=== PATIENT | female | born 1955 | race Caucasian/White ===

== ENCOUNTER 2021-06-27 16:44 | Emergency (ER) | payer MEDICARE, MEDICAID, SELFPAY ==
--- NOTE | ~2021-06-27 | XR_ITS ---
EXAMINATION: XR CHEST CLINICAL INFORMATION: Shortness of breath. COMPARISON: None TECHNIQUE: Frontal view of the chest was obtained. FINDINGS: The lungs are clear. The cardiomediastinal silhouette is normal in size. There is no pleural effusion or pneumothorax. No acute osseous abnormality. XR/XR chest 1V IMPRESSION: No acute cardiopulmonary findings.
--- NOTE | 2021-06-27 16:48 | ED_ITS ---
HPI - Psych General Chief Complaint: Psychiatric Symptoms Stated Complaint: SI Time Seen by Provider: 06/27/21 16:47 Source: patient Mode of arrival: ambulatory Limitations: no limitations History of Present Illness HPI Narrative: 66-year-old female presenting to the emergency department with suicidal ideation with plan X2 days. She is coming from [facility]. She tells me that the reason she is feeling suicidal as because she can no longer stand living there. She tells me it is making her go crazy. She tells me she has had 12 previous suicide attempts in the past. She tells me her plan is to go to the linen closet, grab a she, tie that she to the door and hang herself from the she. She tells me she is serious. She denies homicidal ideation. She denies visual, auditory and tactile hallucinations. She denies drugs, alcohol and tobacco use. complaint: suicidal ideation Onset (ago): day(s) (2) Duration: constant History of same: Yes Relieving factors: none Exacerbating factors: none Associated psychiatric symptoms: none Associated symptoms: denies other symptoms Treatments prior to arrival: none If self harm: admits thoughts of self harm and has plan Related Data Allergies Allergy/AdvReac Type Severity Reaction Status Date / Time duloxetine [Cymbalta] Allergy Unknown rash Verified 01/25/19 00:00 Thorazine Allergy Unknown rash Uncoded 01/25/19 00:00 Review of Systems Review of Systems: Constitutional : No Fever, No Chills ENT/Mouth : No Ear Pain, No Nasal Congestion, No sore throat Eyes: No Eye Pain, No Swelling, No Redness Cardiovascular : No Chest Pain, No SOB Respiratory : No Cough, No Sputum, No Dyspnea Gastrointestinal : No Nausea, No Vomiting, No Diarrhea, No Hematochezia, No Melena Genitourinary : No Dysuria, No Urinary Frequency, No Hematuria Musculoskeletal : No Myalgias Skin : No Skin Lesions, No rash Neuro : No Weakness, No Numbness, No Paresthesias, No Dizziness, No Headache Psych : positive Anxiety, positive Depression, positive SI, No HI All other systems reviewed and are negative Yes all other systems are reviewed and are negative PMFSH Past Medical History Attestation statement: The following information was validated with the patient. Source: old records reviewed and nursing notes reviewed Social History Social History Advance Directives: Yes Advance Directives on File: Yes Advance Directives Date on File: 06/27/21 Physical Exam Vital Signs: Vital Signs: Last Vital Signs Temp 98.9 F 06/27/21 16:55 Pulse 92 06/27/21 16:55 Resp 16 06/27/21 16:55 BP 127/64 06/27/21 16:55 Pulse Ox 97 06/27/21 16:55 BMI result Body Mass Index 24.3 Vital signs stable Appearance: Alert.? Oriented X3.? No acute distress.? Patient continues to tell me I want to admit me Head: Normocephalic, atraumatic, no step-offs or deformities Eyes: Pupils equal, round and reactive to light.? ENT: Pharynx normal.? Neck: Normal inspection.? Neck supple.? CVS: Normal heart rate and rhythm.? Pulses normal.? Respiratory: No respiratory distress.? Breath sounds normal.? Abdomen: Soft and nontender.? Skin: Skin warm and dry.? Normal skin color.? Normal skin turgor.? Extremities: No lower extremity edema.? No calf ttp. 5/5 strength to bilateral upper and lower extremities Back: No midline tenderness, no C-spine tenderness, full range of motion, no CVA tenderness bilaterally Neuro: Oriented X 3.? No motor deficit.? No sensory deficit. CN 2-12 intact Course Reevaluation(s) Reevaluation #1: Slight leukocytosis likely secondary to aggression/agitation. No acute electrolyte abnormalities BUN slightly elevated however patient tolerating fluids by mouth. Urine clean. COVID negative. Chest x-ray within normal limits. At this time patient will be placed in physician observation to allow more time to be evaluated by the care team tomorrow morning. Time observation was started patient, cooperative no acute distress. Vital signs stable will continue to monitor. Time: 02:32 MDM - Psych MDM Narrative Medical decision making narrative: 1650 66 [facility] f [facility]/ si w/ plan X2 day PE benign. Patient continues to tell me she wants to . Plan-medical clearance, close obseravation, labs, UA Medical Records Attestation: I reviewed the patient's medical records. Lab Data Attestation: I reviewed the patient's lab results. Result diagrams: 06/27/21 18:41 06/27/21 18:41 Labs: Lab Results 06/27/21 06/27/21 06/27/21 Range/Units 18:41 18:41 18:41 WBC 11.8 H (4.8-10.8) X10*3/uL RBC 4.67 (4.20-5.50) X10*6/uL Hgb 13.5 (12.0-16.0) g/dl Hct 41.7 (37.0-47.0) % MCV 89.3 (80.0-98.0) fL MCH 28.9 (27.0-33.0) pg MCHC 32.4 (31.0-35.0) g/dl RDW 13.3 (11.0-16.0) % Plt Count 286 (160-400) X10*3/uL MPV 11.0 (9.4-12.3) fL Immature Gran % (Auto) 0.4 (0.0-0.4) % Neut % (Auto) 74.9 H (45-73) % Lymph % (Auto) 18.2 L (20-40) % Starr % (Auto) 5.5 (2-11) % Eos % (Auto) 0.5 (0-4) % Baso % (Auto) 0.5 (0-2) % Lymph # (Auto) 2.2 (1.2-4.9) X10*3/uL Starr # (Auto) 0.7 (0.1-1.2) X10*3/uL Eos # (Auto) 0.1 (0.0-0.4) X10*3/uL Baso # (Auto) 0.1 (0.0-0.2) X10*3/uL Abs Immat Gran (auto) 0.05 H (0.00-0.03) X10*3/uL Absolute Neuts (auto) 8.8 H (2.0-8.3) x10*3/uL Absolute Nucleated RBC 0.000 (0.0-0.012) X10*3/uL Nucleated RBC % (auto) 0.0 (0.0-0.2) /100WBC Sodium 141 (135-145) mmol/L Potassium 4.6 (3.3-5.1) mmol/L Chloride 105 (96-108) mmol/L Carbon Dioxide 26 (22-29) mmol/L Anion Gap 15 (12-20) BUN 21 H (9-16) mg/dL Creatinine 0.87 (0.5-1.4) mg/dL Estim Creat Clear Calc 59.5 Estimated GFR > 60 Random Glucose 115 (60-115) mg/dL Calcium 10.3 H (8.4-10.2) mg/dL Urine Color Urine Appearance Urine pH (5.0-8.0) Ur Specific [place] [employer] (1.005-1.025) Urine Protein (NEG-TRACE) MG/DL Urine Glucose (UA) (NEG) MG/DL Urine Ketones (NEG) MG/DL Urine Blood (NEG) Urine Nitrite (NEG) Ur Leukocyte Esterase (NEG) Ethyl Alcohol mg/dL COVID-19 ([facility]) Negative (Negative) COVID-19 Clin Com See Note 06/27/21 06/28/21 Range/Units 18:41 02:24 WBC (4.8-10.8) X10*3/uL RBC (4.20-5.50) X10*6/uL Hgb (12.0-16.0) g/dl Hct (37.0-47.0) % MCV (80.0-98.0) fL MCH (27.0-33.0) pg MCHC (31.0-35.0) g/dl RDW (11.0-16.0) % Plt Count (160-400) X10*3/uL MPV (9.4-12.3) fL Immature Gran % (Auto) (0.0-0.4) % Neut % (Auto) (45-73) % Lymph % (Auto) (20-40) % Starr % (Auto) (2-11) % Eos % (Auto) (0-4) % Baso % (Auto) (0-2) % Lymph # (Auto) (1.2-4.9) X10*3/uL Starr # (Auto) (0.1-1.2) X10*3/uL Eos # (Auto) (0.0-0.4) X10*3/uL Baso # (Auto) (0.0-0.2) X10*3/uL Abs Immat Gran (auto) (0.00-0.03) X10*3/uL Absolute Neuts (auto) (2.0-8.3) x10*3/uL Absolute Nucleated RBC (0.0-0.012) X10*3/uL Nucleated RBC % (auto) (0.0-0.2) /100WBC Sodium (135-145) mmol/L Potassium (3.3-5.1) mmol/L Chloride (96-108) mmol/L Carbon Dioxide (22-29) mmol/L Anion Gap (12-20) BUN (9-16) mg/dL Creatinine (0.5-1.4) mg/dL Estim Creat Clear Calc Estimated GFR Random Glucose (60-115) mg/dL Calcium (8.4-10.2) mg/dL Urine Color YELLOW Urine Appearance HAZY Urine pH 6.5 (5.0-8.0) Ur Specific [place] [employer] 1.020 (1.005-1.025) Urine Protein TRACE (NEG-TRACE) MG/DL Urine Glucose (UA) NEG (NEG) MG/DL Urine Ketones 5 (NEG) MG/DL Urine Blood NEG (NEG) Urine Nitrite NEG (NEG) Ur Leukocyte Esterase NEG (NEG) Ethyl Alcohol < 10 mg/dL COVID-19 ([facility]) (Negative) COVID-19 Clin Com Critical Care Time Critical Care Time Critical Care Time: No Discharge Plan Discharge Clinical Impression: Suicidal ideation, Depression, Acute anxiety Patient Disposition: Still a Patient
[2021-06-27 16:55] VITALS: BP 127/64; PULSE 92; RESP 16; TEMP 37.2; O2SAT 97; BMI 24.3
--- NOTE | 2021-06-27 18:16 | PC.NURSE ---
pt refusing to give up belongings. sitter at bed side.
[2021-06-27 18:46] LABS: MANUAL DIFF FLAG NO
[2021-06-27 18:48] LABS: Basophils Absolute Auto 0.1 X10*3/uL (0.0-0.2); Basophils Percent Auto 0.5 % (0-2); Eosinophils Absolute Auto 0.1 X10*3/uL (0.0-0.4); Eosinophils Percent Auto 0.5 % (0-4); Hematocrit 41.7 % (37.0-47.0); Hemoglobin 13.5 g/dl (12.0-16.0); Imm Gran Abs Auto 0.05 X10*3/uL (0.00-0.03); Imm Gran Pct Auto 0.4 % (0.0-0.4); Lymphocytes Absolute Auto 2.2 X10*3/uL (1.2-4.9); Lymphocytes Percent Auto 18.2 % (20-40); Mean Corpuscular HGB Conc 32.4 g/dl (31.0-35.0); Mean Corpuscular Hemoglobin 28.9 pg (27.0-33.0); Mean Corpuscular Volume 89.3 fL (80.0-98.0); Monocytes Absolute Auto 0.7 X10*3/uL (0.1-1.2); Monocytes Percent Auto 5.5 % (2-11); Neutrophils Absolute Auto 8.8 x10*3/uL (2.0-8.3); Neutrophils Percent Auto 74.9 % (45-73); Platelet Count 286 X10*3/uL (160-400); Red Blood Count 4.67 X10*6/uL (4.20-5.50); Red Cell Distribution Width 13.3 % (11.0-16.0); White Blood Count 11.8 X10*3/uL (4.8-10.8)
[2021-06-27 19:00] LABS: Anion Gap 15 (12-20); Blood Urea Nitrogen 21 mg/dL (9-16); Calcium 10.3 mg/dL (8.4-10.2); Carbon Dioxide 26 mmol/L (22-29); Chloride 105 mmol/L (96-108); Creatinine Clr Calc Pharmacy 59.5; Estimated Glomerular Filt Rate > 60; Ethanol < 10 mg/dL; Glucose Random 115 mg/dL (60-115); Potassium 4.6 mmol/L (3.3-5.1); Sodium 141 mmol/L (135-145)
[2021-06-27 19:15] LABS: COVID-19 Test Negative (Negative); IDNOW Serial# 16C4AD1C
[2021-06-27] MEDS: LORazepam 1 MG TABLET PO (21:07)
[2021-06-27] MEDS: Magnesium Hydrox/Alum Hydrox 30 ML ORAL.SUSP 15 ML PO (21:08)
--- NOTE | 2021-06-27 22:50 | MHC.CARE ---
CARE Team called [facility] to speak with pt's RN there. [facility] RN reports that pt didn't take her medications today then came out of her room asking to call her nephew and to call 911 because she was feeling suicidal. [facility] RN did not seem to feel that this hospital visit is necessary, but [facility] wants pt to be evaluated/cleared before she can return to [facility]. CARE Team will meet with pt when she is medically cleared.
[2021-06-28 02:30] LABS: Appearance Urine HAZY; Color Urine YELLOW; Glucose Urine UA NEG (NEG); Leukocyte Esterase Urine NEG (NEG); Nitrite Urine NEG (NEG); PH 6.5 (5.0-8.0); Urine Blood NEG (NEG); Urine Ketones 5 MG/DL (NEG); Urine Protein TRACE MG/DL (NEG-TRACE)
[2021-06-28 02:43] LABS: Amphetamine Screen Urine Not Detected (Not Detect); Barbiturates, Urine Not Detected (Not Detect); Benzodiazepines Screen Urine POSITIVE (Not Detect); Cannabinoid Screen Urine Not Detected (Not Detect); Cocaine Screen Urine Not Detected (Not Detect); Fentanyl, urine Not Detected (Not Detect); Opiate Screen Urine Not Detected (Not Detect); Phencyclidine Screen Urine Not Detected (Not Detect)
--- NOTE | 2021-06-28 04:00 | PC.NURSE ---
Assumed care of pt Pt resting on stretcher with eyes closed Breathing even and unlabored Sitter outside Will continue to monitor
--- NOTE | 2021-06-28 09:48 | PHA.MEDREC ---
Pharmacy Consult ? Medication Reconciliation Pharmacy has completed the medication reconciliation. Patient came from [facility] with a medication list. Maria Elena Connor, ZekeD
[2021-06-28 13:32] VITALS: BP 151/76; PULSE 99; RESP 14; O2SAT 97
== END 2021-06-28 13:45 | disposition skilled nursing facility (03) ==
PROVIDERS: Physician Assistant; Emergency Provider Emergency Medicine; PCP Hospitalist
DX: R45.851 Suicidal ideations (principal); F41.9 Anxiety disorder, unspecified; F32.A Depression, unspecified; R45.1 Restlessness and agitation; Z20.822 Contact with and (suspected) exposure to COVID-19; Z79.899 Other long term (current) drug therapy
CPT/HCPCS: 71045; 80048; 80307; 81003; 82077; 85025; 87635; 99284; 99285

== ENCOUNTER 2022-02-04 13:49 | Outpatient (REF) | payer MEDICARE, MEDICAID, SELFPAY | END 2022-02-04 13:50 | disposition home or self-care (01) | LOC: HO.LAB 13:49 | PROVIDERS: PCP Hospitalist; Visit Provider Urology | DX: R32 Unspecified urinary incontinence (principal); N39.0 Urinary tract infection, site not specified; N32.81 Overactive bladder | CPT/HCPCS: 51798; 87086; 87088; 87186; 99212 ==

== ENCOUNTER → 2022-02-12 11:02 | Outpatient (BNVA) | payer MEDICARE, MEDICAID, SELFPAY | PROVIDERS: PCP Hospitalist; Visit Provider Internal Medicine | DX: N32.81 Overactive bladder (principal) | CPT/HCPCS: 99202 ==

== ENCOUNTER 2022-04-30 11:06 | Outpatient (REF) | payer MEDICARE, MEDICAID, SELFPAY ==
--- NOTE | ~2022-04-30 | MM_ITS ---
EXAMINATION: MM SCREENING DIGITAL BREAST TOMOSYNTHESIS, BILATERAL CLINICAL INFORMATION: Screening. Asymptomatic. Age 66. Prior outside mammography at unknown facility, currently unavailable. The lifetime risk of breast cancer based on the Tyrer-Cuzick Model is 3%. COMPARISON: None. TECHNIQUE: Digital breast tomosynthesis is performed in both the craniocaudal and mediolateral oblique views along with computer-aided detection (CAD). Synthesized 2D images are generated from the tomosynthesis. FINDINGS: There are scattered areas of fibroglandular density (ACR BI-RADS breast composition Category b). There are no significant masses, abnormal calcifications, or other abnormalities. Breast tissue composition borders on predominantly fatty. Background stromal markings are unremarkable. There are scattered benign round and coarse regional calcifications lower inner right breast. The axilla are unremarkable. MM/MM tomosynthesis screening BI IMPRESSION: No mammographic evidence of malignancy. ASSESSMENT: BI-RADS 2: Benign RECOMMENDATION: Routine annual mammography screening. This patient's information was entered into a reminder system with a target due date for their next mammogram.
== END 2022-04-30 11:07 | disposition home or self-care (01) ==
LOC: HO.MAMMO 11:06
PROVIDERS: PCP Hospitalist; Visit Provider Hospitalist
DX: Z12.31 Encounter for screening mammogram for malignant neoplasm of breast (principal)
CPT/HCPCS: 77063; 77067

== ENCOUNTER → 2022-07-07 12:57 | Outpatient (BNVA) | payer MEDICARE, MEDICAID, SELFPAY | PROVIDERS: PCP Hospitalist; Visit Provider Urology | DX: N32.81 Overactive bladder (principal); R32 Unspecified urinary incontinence; Z79.82 Long term (current) use of aspirin; Z79.899 Other long term (current) drug therapy | CPT/HCPCS: 51798; 99212 ==

== ENCOUNTER 2022-07-13 20:35 | Inpatient (IN) | payer MEDICARE, MEDICAID, SELFPAY ==
[2022-07-13 20:43] VITALS: BP 120/70; PULSE 87; RESP 18; TEMP 36.6; O2SAT 95; BMI 24.8
--- NOTE | 2022-07-13 21:24 | ED_ITS ---
HPI - General Adult General Chief complaint: Psychiatric Symptoms <Dominic Hayden - Last Filed: 07/13/22 21:28> Stated complaint: SI <Dominic Hayden - Last Filed: 07/13/22 21:28> Time Seen by Provider: 07/13/22 21:10 <Dominic Hayden - Last Filed: 07/13/22 21:28> Source: patient, family, RN notes reviewed and old records reviewed <Dominic Hayden - Last Filed: 07/13/22 21:28> Mode of arrival: EMS <Dominic Hayden - Last Filed: 07/13/22 21:28> Limitations: no limitations <Dominic Hayden - Last Filed: 07/13/22 21:28> History of Present Illness HPI narrative: 67-year-old female presents for evaluation of suicidal ideation. She presents from [facility] in [place]. 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 She reports that she was trying to kill herself She reports increased depression with suicidal ideation for the last 3 days. She denies any specific inciting incidents Patient denies any recent changes to medications. She denies any somatic complaints <Dominic Hayden - Last Filed: 07/13/22 21:28> Related Data Home medications: Home Medications Medication Instructions Recorded Confirmed acetaminophen 325 mg tablet 650 mg PO Q4H PRN Pain 06/28/21 07/13/22 albuterol sulfate 90 mcg/actuation 2 puff inhalation Q6H PRN 06/28/21 07/13/22 aerosol inhaler Shortness Of Breath aspirin 81 mg tablet,delayed 81 mg PO DAILY 06/28/21 07/13/22 release atorvastatin 20 mg tablet 20 mg PO BEDTIME 06/28/21 07/13/22 budesonide-formoterol HFA 160 1 puff inhalation BID 06/28/21 07/13/22 mcg-4.5 mcg/actuation aerosol inhaler (Symbicort) cholecalciferol (vitamin D3) 25 25 mcg PO DAILY 06/28/21 07/13/22 mcg (1,000 unit) tablet (Vitamin D3) clozapine 25 mg tablet (Clozaril) 25 mg PO BID 06/28/21 07/13/22 clozapine 50 mg tablet 50 mg PO BID 06/28/21 07/13/22 cranberry fruit 450 mg tablet 450 mg PO BID 06/28/21 07/13/22 (cranberry) diazepam 2 mg tablet 2 mg PO BID 06/28/21 07/13/22 docusate sodium 100 mg tablet 100 mg PO BEDTIME 06/28/21 07/13/22 guaifenesin 100 mg/5 mL oral liquid 200 mg PO Q6H PRN Cough 06/28/21 07/13/22 haloperidol decanoate 100 mg/mL 100 mg IM Q28D 06/28/21 07/13/22 intramuscular solution (Haldol Decanoate) levothyroxine 88 mcg tablet 88 mcg PO DAILY 06/28/21 07/13/22 lisinopril 5 mg tablet 5 mg PO DAILY 06/28/21 07/13/22 loperamide 2 mg tablet 2 mg PO Q12H PRN Loose Stool 06/28/21 07/13/22 mirabegron 25 mg tablet,extended 25 mg PO BEDTIME 06/28/21 07/13/22 release 24 hr (Myrbetriq) mirtazapine 45 mg tablet 45 mg PO BEDTIME 06/28/21 07/13/22 oxybutynin chloride 10 mg 10 mg PO DAILY 06/28/21 07/13/22 tablet,extended release 24 hr polyethylene glycol 3350 17 gram 17 g PO DAILY PRN Constipation 06/28/21 07/13/22 oral powder packet (Miralax) sennosides 8.6 mg tablet (senna) 8.6 mg PO DAILY PRN Constipation 06/28/21 07/13/22 <Dominic Hayden - Last Filed: 07/13/22 21:28> Allergies/adverse reactions: Allergies Allergy/AdvReac Type Severity Reaction Status Date / Time tuberculin, purified protein Allergy Mild Rash Verified 07/13/22 20:51 deriva duloxetine [Cymbalta] Allergy Unknown rash Verified 07/07/22 13:10 Thorazine Allergy Unknown rash Uncoded 07/07/22 13:10 <Dominic Hayden - Last Filed: 07/13/22 21:28> Review of Systems Constitutional: Constitutional: Reports as per HPI, Denies chills, Denies fatigue, Denies fever(s) and Denies headache(s) <Dominic Last Filed: 07/13/22 21:28> ENT: Denies headache(s) < Last Filed: 07/13/22 21:28> Cardiovascular: Cardiovascular: Denies chest pain and Denies dyspnea < Last Filed: 07/13/22 21:28> Respiratory: Respiratory: Denies cough and Denies dyspnea < Last Filed: 07/13/22 21:28> Gastrointestinal: Gastrointestinal: Denies abdominal pain, Denies constipation and Denies vomiting < Last Filed: 07/13/22 21:28> Genitourinary: Genitourinary: Denies dysuria < Filed: 07/13/22 21:28> Neurologic: Denies headache(s) and Denies focal weakness < Last Filed: 07/13/22 21:28> Psychiatric: Psychiatric: Reports depression and Reports suicidal ideation < Filed: 07/13/22 21:28> Endocrine: Endocrine: Denies fatigue < Last Filed: 07/13/22 21:28> PMF Past Medical History Medical History: Medical History COPD (chronic obstructive pulmonary disease) Full incontinence of feces Hypothyroidism Myopia Schizoaffective disorder Stress incontinence Urgency incontinence < Last Filed: 07/13/22 21:28> Social History Social History: Social History Advance Directives: Yes Advance Directives on File: Yes Advance Directives Date on File: 06/27/21 Guardian: No <Dominic O Last Filed: 07/13/22 21:28> Physical Exam ED Vital Signs: Vital Signs - 24 hr 07/13/22 20:43 07/14/22 06:17 Temperature 97.9 F 97.8 F Pulse Rate 87 80 Respiratory Rate 18 15 Blood Pressure 120/70 109/67 Pulse Oximetry 95 95 Oxygen Delivery Method Room Air Room Air BMI result Body Mass Index 24.8 <Dominic Hayden - Last Filed: 07/13/22 21:28> Vital Signs - 24 hr 07/13/22 20:43 07/14/22 06:17 Temperature 97.9 F 97.8 F Pulse Rate 87 80 Respiratory Rate 18 15 Blood Pressure 120/70 109/67 Pulse Oximetry 95 95 Oxygen Delivery Method Room Air Room Air BMI result Body Mass Index 24.8 <Tamir Lopez MD - Last Filed: 07/14/22 06:51> Const General: healthy appearing, comfortable, no acute distress, alert and awake <Dominic Hayden - Last Filed: 07/13/22 21:28> Nutritional Appearance: well nourished <Dominic OYasir - Last Filed: 07/13/22 21:28> Orientation/consciousness: patient oriented x3 <Dominic OYasir - Last Filed: 07/13/22 21:28> HENMT Head: Yes normocephalic and Yes atraumatic <Dominic OBossier - Last Filed: 07/13/22 21:28> Throat: Yes posterior oropharynx normal <Dominic PeñaBossier - Last Filed: 07/13/22 21:28> Eyes Eyelids: Yes eyelids normal <Dominic PeñaBossier - Last Filed: 07/13/22 21:28> Conjunctivae: conjunctivae normal <Dominic OYasir - Last Filed: 07/13/22 21:28> Sclerae: sclerae normal <Dominic PeñaBossier - Last Filed: 07/13/22 21:28> Corneas: corneas normal <Dominic O - Last Filed: 07/13/22 21:28> Pupils: Equal, round and reactive pupils present <Dominic OYasir - Last Filed: 07/13/22 21:28> EOM: EOMs intact bilaterally <Dominic PeñaYasir - Last Filed: 07/13/22 21:28> Neck Other: No evidence of ligature asif. No ecchymosis to the neck. <Dominic Murrelly - Last Filed: 07/13/22 21:28> Neck: Yes full ROM <Dominicluci Murrelly - Last Filed: 07/13/22 21:28> Resp Effort & Inspection: normal respiratory effort, able to speak in complete sentences, no audible wheezes and not labored <Dominic Murrell Last Filed: 07/13/22 21:28> Auscultation: clear to auscultation bilaterally <Dominic Murrell Last Filed: 07/13/22 21:28> Cardio Rate: regular rate <Dominicluci Murrell Last Filed: 07/13/22 21:28> Rhythm: regular rhythm <Dominic Murrell Last Filed: 07/13/22 21:28> GI Inspection: No distended <Dominic Murrell Last Filed: 07/13/22:28> Palpation (GI): Soft to palpation, not firm, nontender, no guarding and not rigid <Dominic Murrell Last Filed: 07/13/22 21:28> Auscultation: normoactive bowel sounds <Dominic Murrell Last Filed: 07/13/22 21:28> Skin General skin exam: no rashes or lesions noted and elasticity normal <Dominic Murrell Last Filed: 07/13/22 21:28> Neuro General: patient oriented x3 <Dominic Murrell Last Filed: 07/13/22 21:28> Cranial nerves: Yes CN's II-XII intact bilaterally, Yes Equal, round and reactive pupils present and Yes Bilaterally intact EOM present <Dominic Murrell Last Filed: 07/13/22 21:28> Cognition (Neuro): normal cognition <Dominic Murrell Last Filed: 07/13/22 21:28> Extrem Other: Moving all extremities well without any obvious deformities <Dominic ross Last Filed: 07/13/22 21:28> Course Course Course Narrative: 0650: Start physician observation: Patient presents emergency department for evaluation SI. Patient was seen by they care team. The patient is on a Section 12. The patient will be kept in the emergency department Behavioral [facility] Unit until a appropriate disposition can be determined. Patient's medications were reconciled in ordered by me. There are no reported incidents on this patient overnight. <Tamir Lopez MD - Last Filed: 07/14/22 06:51> Medical Decision Making Medical Decision Making MDM Narrative: 67-year-old female presents for evaluation of suicidal ideation. She will require medical clearance any crisis evaluation. There is no evidence of significant injury from her reported SI attempts. <Dominic Hayden - Last Filed: 07/13/22 21:28> Differential Diagnosis Depression Suicidal ideation Anxiety Major depressive episode Bipolar disorder Schizophrenia <Dominic Hayden - Last Filed: 07/13/22 21:28> Lab Data Result Diagrams: 07/13/22 21:17 07/13/22 21:17 <Dominic Hayden - Last Filed: 07/13/22 21:28> Labs: Lab Results 07/13/22 07/13/22 07/13/22 Range/Units 21:17 21:17 21:17 WBC 8.9 (4.8-10.8) X10*3/uL RBC 4.44 (4.20-5.50) X10*6/uL Hgb 12.8 (12.0-16.0) g/dl Hct 39.0 (37.0-47.0) % MCV 87.8 (80.0-98.0) fL MCH 28.8 (27.0-33.0) pg MCHC 32.8 (31.0-35.0) g/dl RDW 13.2 (11.0-16.0) % Plt Count 279 (160-400) X10*3/uL MPV 10.8 (9.4-12.3) fL Immature Gran % (Auto) 0.3 (0.0-0.4) % Neut % (Auto) 70.7 (45-73) % Lymph % (Auto) 22.1 (20-40) % [place] % (Auto) 5.9 (2-11) % Eos % (Auto) 0.4 (0-4) % Baso % (Auto) 0.6 (0-2) % Lymph # (Auto) 2.0 (1.2-4.9) X10*3/uL [place] # (Auto) 0.5 (0.1-1.2) X10*3/uL Eos # (Auto) 0.0 (0.0-0.4) X10*3/uL Baso # (Auto) 0.1 (0.0-0.2) X10*3/uL Abs Immat Gran (auto) 0.03 (0.00-0.03) X10*3/uL Absolute Neuts (auto) 6.3 (2.0-8.3) x10*3/uL Absolute Nucleated RBC 0.000 (0.0-0.012) X10*3/uL Nucleated RBC % (auto) 0.0 (0.0-0.2) /100WBC Sodium 140 (135-145) mmol/L Potassium 4.2 (3.3-5.1) mmol/L Chloride 105 (96-108) mmol/L Carbon Dioxide 27 (22-29) mmol/L Anion Gap 12 (12-20) BUN 17 H (9-16) mg/dL Creatinine 0.85 (0.5-1.4) mg/dL Estim Creat Clear Calc 60.1 Estimated GFR > 60 Random Glucose 101 (60-115) mg/dL Calcium 10.0 (8.4-10.2) mg/dL Magnesium 1.9 (1.6-2.6) mg/dL Total Bilirubin 0.6 (0.0-1.0) mg/dL AST 20 (5-31) U/L ALT 18 (0-31) U/L Alkaline Phosphatase 101 (39-117) U/L Total Protein 6.1 L (6.5-8.0) g/dL Albumin 4.2 (3.5-5.0) g/dL TSH (0.32-4.0) uIU/mL Urine Color Urine Appearance Urine pH (5.0-9.0) Ur Specific [place] (1.005-1.025) Urine Protein (Neg-Trace) mg/dL Urine Glucose (UA) (Negative) mg/dL Urine Ketones (Negative) mg/dL Urine Blood (Negative) Urine Nitrite (Negative) Ur Leukocyte Esterase (Negative) Urine RBC (0-2) /HPF Urine WBC (0-5) /HPF Ur Squamous Epith Cells (0-2) /HPF Urine Bacteria (None Seen) Hyaline Casts (0-2) /LPF Salicylates < 5.0 L (15-30) mg/dL Urine Opiates Screen (Not Detect) Urine Fentanyl Screen (Not Detect) Acetaminophen < 17 (<30) mcg/mL Ur Barbiturates Screen (Not Detect) Ur Phencyclidine Scrn (Not Detect) Ur Amphetamines Screen (Not Detect) U Benzodiazepines Scrn (Not Detect) Urine Cocaine Screen (Not Detect) U Marijuana (THC) Screen (Not Detect) Ethyl Alcohol < 10 mg/dL COVID-19 ([facility]) (Negative) COVID-19 Clin Com 07/13/22 07/13/22 07/13/22 Range/Units 21:17 21:18 21:18 WBC (4.8-10.8) X10*3/uL RBC (4.20-5.50) X10*6/uL Hgb (12.0-16.0) g/dl Hct (37.0-47.0) % MCV (80.0-98.0) fL MCH (27.0-33.0) pg MCHC (31.0-35.0) g/dl RDW (11.0-16.0) % Plt Count (160-400) X10*3/uL MPV (9.4-12.3) fL Immature Gran % (Auto) (0.0-0.4) % Neut % (Auto) (45-73) % Lymph % (Auto) (20-40) % [place] % (Auto) (2-11) % Eos % (Auto) (0-4) % Baso % (Auto) (0-2) % Lymph # (Auto) (1.2-4.9) X10*3/uL [place] # (Auto) (0.1-1.2) X10*3/uL Eos # (Auto) (0.0-0.4) X10*3/uL Baso # (Auto) (0.0-0.2) X10*3/uL Abs Immat Gran (auto) (0.00-0.03) X10*3/uL Absolute Neuts (auto) (2.0-8.3) x10*3/uL Absolute Nucleated RBC (0.0-0.012) X10*3/uL Nucleated RBC % (auto) (0.0-0.2) /100WBC Sodium (135-145) mmol/L Potassium (3.3-5.1) mmol/L Chloride (96-108) mmol/L Carbon Dioxide (22-29) mmol/L Anion Gap (12-20) BUN (9-16) mg/dL Creatinine (0.5-1.4) mg/dL Estim Creat Clear Calc Estimated GFR Random Glucose (60-115) mg/dL Calcium (8.4-10.2) mg/dL Magnesium (1.6-2.6) mg/dL Total Bilirubin (0.0-1.0) mg/dL AST (5-31) U/L ALT (0-31) U/L Alkaline Phosphatase (39-117) U/L Total Protein (6.5-8.0) g/dL Albumin (3.5-5.0) g/dL TSH 0.62 (0.32-4.0) uIU/mL Urine Color Yellow Urine Appearance Cloudy Urine pH 6.5 (5.0-9.0) Ur Specific [place] 1.020 (1.005-1.025) Urine Protein Negative (Neg-Trace) mg/dL Urine Glucose (UA) Negative (Negative) mg/dL Urine Ketones Negative (Negative) mg/dL Urine Blood Negative (Negative) Urine Nitrite Negative (Negative) Ur Leukocyte Esterase Trace H (Negative) Urine RBC 6-10 H (0-2) /HPF Urine WBC 6-10 H (0-5) /HPF Ur Squamous Epith Cells 6-10 (0-2) /HPF Urine Bacteria 4+ (None Seen) Hyaline Casts 0-2 (0-2) /LPF Salicylates (15-30) mg/dL Urine Opiates Screen Not Detected (Not Detect) Urine Fentanyl Screen POSITIVE H (Not Detect) Acetaminophen (<30) mcg/mL Ur Barbiturates Screen Not Detected (Not Detect) Ur Phencyclidine Scrn Not Detected (Not Detect) Ur Amphetamines Screen Not Detected (Not Detect) U Benzodiazepines Scrn POSITIVE H (Not Detect) Urine Cocaine Screen Not Detected (Not Detect) U Marijuana (THC) Screen Not Detected (Not Detect) Ethyl Alcohol mg/dL COVID-19 ([facility]) (Negative) COVID-19 Clin Com 07/13/22 Range/Units 21:40 WBC (4.8-10.8) X10*3/uL RBC (4.20-5.50) X10*6/uL Hgb (12.0-16.0) g/dl Hct (37.0-47.0) % MCV (80.0-98.0) fL MCH (27.0-33.0) pg MCHC (31.0-35.0) g/dl RDW (11.0-16.0) % Plt Count (160-400) X10*3/uL MPV (9.4-12.3) fL Immature Gran % (Auto) (0.0-0.4) % Neut % (Auto) (45-73) % Lymph % (Auto) (20-40) % [place] % (Auto) (2-11) % Eos % (Auto) (0-4) % Baso % (Auto) (0-2) % Lymph # (Auto) (1.2-4.9) X10*3/uL [place] # (Auto) (0.1-1.2) X10*3/uL Eos # (Auto) (0.0-0.4) X10*3/uL Baso # (Auto) (0.0-0.2) X10*3/uL Abs Immat Gran (auto) (0.00-0.03) X10*3/uL Absolute Neuts (auto) (2.0-8.3) x10*3/uL Absolute Nucleated RBC (0.0-0.012) X10*3/uL Nucleated RBC % (auto) (0.0-0.2) /100WBC Sodium (135-145) mmol/L Potassium (3.3-5.1) mmol/L Chloride (96-108) mmol/L Carbon Dioxide (22-29) mmol/L Anion Gap (12-20) BUN (9-16) mg/dL Creatinine (0.5-1.4) mg/dL Estim Creat Clear Calc Estimated GFR Random Glucose (60-115) mg/dL Calcium (8.4-10.2) mg/dL Magnesium (1.6-2.6) mg/dL Total Bilirubin (0.0-1.0) mg/dL AST (5-31) U/L ALT (0-31) U/L Alkaline Phosphatase (39-117) U/L Total Protein (6.5-8.0) g/dL Albumin (3.5-5.0) g/dL TSH (0.32-4.0) uIU/mL Urine Color Urine Appearance Urine pH (5.0-9.0) Ur Specific [place] (1.005-1.025) Urine Protein (Neg-Trace) mg/dL Urine Glucose (UA) (Negative) mg/dL Urine Ketones (Negative) mg/dL Urine Blood (Negative) Urine Nitrite (Negative) Ur Leukocyte Esterase (Negative) Urine RBC (0-2) /HPF Urine WBC (0-5) /HPF Ur Squamous Epith Cells (0-2) /HPF Urine Bacteria (None Seen) Hyaline Casts (0-2) /LPF Salicylates (15-30) mg/dL Urine Opiates Screen (Not Detect) Urine Fentanyl Screen (Not Detect) Acetaminophen (<30) mcg/mL Ur Barbiturates Screen (Not Detect) Ur Phencyclidine Scrn (Not Detect) Ur Amphetamines Screen (Not Detect) U Benzodiazepines Scrn (Not Detect) Urine Cocaine Screen (Not Detect) U Marijuana (THC) Screen (Not Detect) Ethyl Alcohol mg/dL COVID-19 ([facility]) Negative (Negative) COVID-19 Clin Com See Note <Dominic Jackelyn - Last Filed: 07/13/22 21:28> Lab Results 07/13/22 07/13/22 07/13/22 Range/Units 21:17 21:17 21:17 WBC 8.9 (4.8-10.8) X10*3/uL RBC 4.44 (4.20-5.50) X10*6/uL Hgb 12.8 (12.0-16.0) g/dl Hct 39.0 (37.0-47.0) % MCV 87.8 (80.0-98.0) fL MCH 28.8 (27.0-33.0) pg MCHC 32.8 (31.0-35.0) g/dl RDW 13.2 (11.0-16.0) % Plt Count 279 (160-400) X10*3/uL MPV 10.8 (9.4-12.3) fL Immature Gran % (Auto) 0.3 (0.0-0.4) % Neut % (Auto) 70.7 (45-73) % Lymph % (Auto) 22.1 (20-40) % [place] % (Auto) 5.9 (2-11) % Eos % (Auto) 0.4 (0-4) % Baso % (Auto) 0.6 (0-2) % Lymph # (Auto) 2.0 (1.2-4.9) X10*3/uL [place] # (Auto) 0.5 (0.1-1.2) X10*3/uL Eos # (Auto) 0.0 (0.0-0.4) X10*3/uL Baso # (Auto) 0.1 (0.0-0.2) X10*3/uL Abs Immat Gran (auto) 0.03 (0.00-0.03) X10*3/uL Absolute Neuts (auto) 6.3 (2.0-8.3) x10*3/uL Absolute Nucleated RBC 0.000 (0.0-0.012) X10*3/uL Nucleated RBC % (auto) 0.0 (0.0-0.2) /100WBC Sodium 140 (135-145) mmol/L Potassium 4.2 (3.3-5.1) mmol/L Chloride 105 (96-108) mmol/L Carbon Dioxide 27 (22-29) mmol/L Anion Gap 12 (12-20) BUN 17 H (9-16) mg/dL Creatinine 0.85 (0.5-1.4) mg/dL Estim Creat Clear Calc 60.1 Estimated GFR > 60 Random Glucose 101 (60-115) mg/dL Calcium 10.0 (8.4-10.2) mg/dL Magnesium 1.9 (1.6-2.6) mg/dL Total Bilirubin 0.6 (0.0-1.0) mg/dL AST 20 (5-31) U/L ALT 18 (0-31) U/L Alkaline Phosphatase 101 (39-117) U/L Total Protein 6.1 L (6.5-8.0) g/dL Albumin 4.2 (3.5-5.0) g/dL TSH (0.32-4.0) uIU/mL Urine Color Urine Appearance Urine pH (5.0-9.0) Ur Specific [place] (1.005-1.025) Urine Protein (Neg-Trace) mg/dL Urine Glucose (UA) (Negative) mg/dL Urine Ketones (Negative) mg/dL Urine Blood (Negative) Urine Nitrite (Negative) Ur Leukocyte Esterase (Negative) Urine RBC (0-2) /HPF Urine WBC (0-5) /HPF Ur Squamous Epith Cells (0-2) /HPF Urine Bacteria (None Seen) Hyaline Casts (0-2) /LPF Salicylates < 5.0 L (15-30) mg/dL Urine Opiates Screen (Not Detect) Urine Fentanyl Screen (Not Detect) Acetaminophen < 17 (<30) mcg/mL Ur Barbiturates Screen (Not Detect) Ur Phencyclidine Scrn (Not Detect) Ur Amphetamines Screen (Not Detect) U Benzodiazepines Scrn (Not Detect) Urine Cocaine Screen (Not Detect) U Marijuana (THC) Screen (Not Detect) Ethyl Alcohol < 10 mg/dL COVID-19 ([facility]) (Negative) COVID-19 Clin Com 07/13/22 07/13/22 07/13/22 Range/Units 21:17 21:18 21:18 WBC (4.8-10.8) X10*3/uL RBC (4.20-5.50) X10*6/uL Hgb (12.0-16.0) g/dl Hct (37.0-47.0) % MCV (80.0-98.0) fL MCH (27.0-33.0) pg MCHC (31.0-35.0) g/dl RDW (11.0-16.0) % Plt Count (160-400) X10*3/uL MPV (9.4-12.3) fL Immature Gran % (Auto) (0.0-0.4) % Neut % (Auto) (45-73) % Lymph % (Auto) (20-40) % [place] % (Auto) (2-11) % Eos % (Auto) (0-4) % Baso % (Auto) (0-2) % Lymph # (Auto) (1.2-4.9) X10*3/uL [place] # (Auto) (0.1-1.2) X10*3/uL Eos # (Auto) (0.0-0.4) X10*3/uL Baso # (Auto) (0.0-0.2) X10*3/uL Abs Immat Gran (auto) (0.00-0.03) X10*3/uL Absolute Neuts (auto) (2.0-8.3) x10*3/uL Absolute Nucleated RBC (0.0-0.012) X10*3/uL Nucleated RBC % (auto) (0.0-0.2) /100WBC Sodium (135-145) mmol/L Potassium (3.3-5.1) mmol/L Chloride (96-108) mmol/L Carbon Dioxide (22-29) mmol/L Anion Gap (12-20) BUN (9-16) mg/dL Creatinine (0.5-1.4) mg/dL Estim Creat Clear Calc Estimated GFR Random Glucose (60-115) mg/dL Calcium (8.4-10.2) mg/dL Magnesium (1.6-2.6) mg/dL Total Bilirubin (0.0-1.0) mg/dL AST (5-31) U/L ALT (0-31) U/L Alkaline Phosphatase (39-117) U/L Total Protein (6.5-8.0) g/dL Albumin (3.5-5.0) g/dL TSH 0.62 (0.32-4.0) uIU/mL Urine Color Yellow Urine Appearance Cloudy Urine pH 6.5 (5.0-9.0) Ur Specific [place] 1.020 (1.005-1.025) Urine Protein Negative (Neg-Trace) mg/dL Urine Glucose (UA) Negative (Negative) mg/dL Urine Ketones Negative (Negative) mg/dL Urine Blood Negative (Negative) Urine Nitrite Negative (Negative) Ur Leukocyte Esterase Trace H (Negative) Urine RBC 6-10 H (0-2) /HPF Urine WBC 6-10 H (0-5) /HPF Ur Squamous Epith Cells 6-10 (0-2) /HPF Urine Bacteria 4+ (None Seen) Hyaline Casts 0-2 (0-2) /LPF Salicylates (15-30) mg/dL Urine Opiates Screen Not Detected (Not Detect) Urine Fentanyl Screen POSITIVE H (Not Detect) Acetaminophen (<30) mcg/mL Ur Barbiturates Screen Not Detected (Not Detect) Ur Phencyclidine Scrn Not Detected (Not Detect) Ur Amphetamines Screen Not Detected (Not Detect) U Benzodiazepines Scrn POSITIVE H (Not Detect) Urine Cocaine Screen Not Detected (Not Detect) U Marijuana (THC) Screen Not Detected (Not Detect) Ethyl Alcohol mg/dL COVID-19 ([facility]) (Negative) COVID-19 Clin Com 07/13/22 Range/Units 21:40 WBC (4.8-10.8) X10*3/uL RBC (4.20-5.50) X10*6/uL Hgb (12.0-16.0) g/dl Hct (37.0-47.0) % MCV (80.0-98.0) fL MCH (27.0-33.0) pg MCHC (31.0-35.0) g/dl RDW (11.0-16.0) % Plt Count (160-400) X10*3/uL MPV (9.4-12.3) fL Immature Gran % (Auto) (0.0-0.4) % Neut % (Auto) (45-73) % Lymph % (Auto) (20-40) % [place] % (Auto) (2-11) % Eos % (Auto) (0-4) % Baso % (Auto) (0-2) % Lymph # (Auto) (1.2-4.9) X10*3/uL [place] # (Auto) (0.1-1.2) X10*3/uL Eos # (Auto) (0.0-0.4) X10*3/uL Baso # (Auto) (0.0-0.2) X10*3/uL Abs Immat Gran (auto) (0.00-0.03) X10*3/uL Absolute Neuts (auto) (2.0-8.3) x10*3/uL Absolute Nucleated RBC (0.0-0.012) X10*3/uL Nucleated RBC % (auto) (0.0-0.2) /100WBC Sodium (135-145) mmol/L Potassium (3.3-5.1) mmol/L Chloride (96-108) mmol/L Carbon Dioxide (22-29) mmol/L Anion Gap (12-20) BUN (9-16) mg/dL Creatinine (0.5-1.4) mg/dL Estim Creat Clear Calc Estimated GFR Random Glucose (60-115) mg/dL Calcium (8.4-10.2) mg/dL Magnesium (1.6-2.6) mg/dL Total Bilirubin (0.0-1.0) mg/dL AST (5-31) U/L ALT (0-31) U/L Alkaline Phosphatase (39-117) U/L Total Protein (6.5-8.0) g/dL Albumin (3.5-5.0) g/dL TSH (0.32-4.0) uIU/mL Urine Color Urine Appearance Urine pH (5.0-9.0) Ur Specific [place] (1.005-1.025) Urine Protein (Neg-Trace) mg/dL Urine Glucose (UA) (Negative) mg/dL Urine Ketones (Negative) mg/dL Urine Blood (Negative) Urine Nitrite (Negative) Ur Leukocyte Esterase (Negative) Urine RBC (0-2) /HPF Urine WBC (0-5) /HPF Ur Squamous Epith Cells (0-2) /HPF Urine Bacteria (None Seen) Hyaline Casts (0-2) /LPF Salicylates (15-30) mg/dL Urine Opiates Screen (Not Detect) Urine Fentanyl Screen (Not Detect) Acetaminophen (<30) mcg/mL Ur Barbiturates Screen (Not Detect) Ur Phencyclidine Scrn (Not Detect) Ur Amphetamines Screen (Not Detect) U Benzodiazepines Scrn (Not Detect) Urine Cocaine Screen (Not Detect) U Marijuana (THC) Screen (Not Detect) Ethyl Alcohol mg/dL COVID-19 ([facility]) Negative (Negative) COVID-19 Clin Com See Note <Tamir Lopez MD - Last Filed: 07/14/22 06:51> Discharge Plan Discharge Clinical Impression: Suicidal ideation <Dominic Hayden - Last Filed: 07/13/22 21:28> Patient Disposition: Still a Patient <Dominic Hayden - Last Filed: 07/13/22 21:28> Prescriptions: No Action sennosides [senna] 8.6 mg Tablet 8.6 mg PO DAILY PRN (Reason: Constipation) acetaminophen 325 mg Tablet 650 mg PO Q4H PRN (Reason: Pain) atorvastatin 20 mg Tablet 20 mg PO BEDTIME polyethylene glycol 3350 [Miralax] 17 gram Powder In Packet 17 g PO DAILY PRN (Reason: Constipation) oxybutynin chloride 10 mg Tablet Extended Release 24hr 10 mg PO DAILY haloperidol decanoate [Haldol Decanoate] 100 mg/mL Solution 100 mg IM Q28D Rx Instructions: next dose due on 07/21/2022 loperamide 2 mg Tablet 2 mg PO Q12H PRN (Reason: Loose Stool) Rx Instructions: administer after each loose stool until symptoms controlled; do not exceed 8 mg per 24 hrs aspirin 81 mg Tablet,Delayed Release (Dr/Ec) 81 mg PO DAILY guaifenesin [Robitussin Chest Congestion] 100 mg/5 mL Liquid 200 mg PO Q6H PRN (Reason: Cough) levothyroxine 88 mcg Tablet 88 mcg PO DAILY diazepam 2 mg tablet 2 mg PO BID mirtazapine [Remeron] 45 mg Tablet 45 mg PO BEDTIME lisinopril 5 mg Tablet 5 mg PO DAILY clozapine [Clozaril] 25 mg Tablet 25 mg PO BID albuterol sulfate 90 mcg/actuation Hfa Aerosol Inhaler 2 puff INHALATION Q6H PRN (Reason: Shortness Of Breath) docusate sodium 100 mg Tablet 100 mg PO BEDTIME clozapine 50 mg Tablet 50 mg PO BID cholecalciferol (vitamin D3) [Vitamin D3] 25 mcg (1,000 unit) Tablet 25 mcg PO DAILY budesonide-formoterol [Symbicort] 160-4.5 mcg/actuation Hfa Aerosol Inhaler 1 puff INHALATION BID cranberry 450 mg Tablet 450 mg PO BID Rx Instructions: administer with a meal Myrbetriq 25 mg Tablet Extended Release 24 Hr 25 mg PO BEDTIME <Dominic Hayden - Last Filed: 07/13/22 21:28> Interventions: [place]-Suicide Risk Severity Scale Last Done: 07/14/22 04:41 <Dominic Hayden - Last Filed: 07/13/22 21:28>
[2022-07-13 21:28] LABS: MANUAL DIFF FLAG NO
[2022-07-13 21:31] LABS: Basophils Absolute Auto 0.1 X10*3/uL (0.0-0.2); Basophils Percent Auto 0.6 % (0-2); Eosinophils Percent Auto 0.4 % (0-4); Hemoglobin 12.8 g/dl (12.0-16.0); Imm Gran Abs Auto 0.03 X10*3/uL (0.00-0.03); Imm Gran Pct Auto 0.3 % (0.0-0.4); Lymphocytes Percent Auto 22.1 % (20-40); Mean Corpuscular HGB Conc 32.8 g/dl (31.0-35.0); Mean Corpuscular Hemoglobin 28.8 pg (27.0-33.0); Mean Corpuscular Volume 87.8 fL (80.0-98.0); Mean Platelet Volume 10.8 fL (9.4-12.3); Monocytes Absolute Auto 0.5 X10*3/uL (0.1-1.2); Monocytes Percent Auto 5.9 % (2-11); Neutrophils Absolute Auto 6.3 x10*3/uL (2.0-8.3); Neutrophils Percent Auto 70.7 % (45-73); Platelet Count 279 X10*3/uL (160-400); Red Blood Count 4.44 X10*6/uL (4.20-5.50); Red Cell Distribution Width 13.2 % (11.0-16.0); White Blood Count 8.9 X10*3/uL (4.8-10.8)
[2022-07-13 21:32] LABS: Appearance Urine Cloudy; Color Urine Yellow; Glucose Urine UA Negative (Negative); Leukocyte Esterase Urine Trace (Negative); Nitrite Urine Negative (Negative); PH 6.5 (5.0-9.0); UMIC TRIGGER UA YES; Urine Blood Negative (Negative); Urine Ketones Negative (Negative); Urine Protein Negative (Neg-Trace)
[2022-07-13 21:40] LABS: Amphetamine Screen Urine Not Detected (Not Detect); Bacteria Urine 4+ (None Seen); Barbiturates, Urine Not Detected (Not Detect); Benzodiazepines Screen Urine POSITIVE (Not Detect); Cannabinoid Screen Urine Not Detected (Not Detect); Cocaine Screen Urine Not Detected (Not Detect); Fentanyl, urine POSITIVE (Not Detect); Hyaline Casts Urine 0-2 /LPF (0-2); Opiate Screen Urine Not Detected (Not Detect); Phencyclidine Screen Urine Not Detected (Not Detect)
[2022-07-13 21:44] LABS: Alanine Aminotransferase 18 U/L (0-31); Albumin Level 4.2 g/dL (3.5-5.0); Alkaline Phosphatase 101 U/L (39-117); Anion Gap 12 (12-20); Aspartate Amino Transferase 20 U/L (5-31); Bilirubin Total 0.6 mg/dL (0.0-1.0); Blood Urea Nitrogen 17 mg/dL (9-16); Carbon Dioxide 27 mmol/L (22-29); Chloride 105 mmol/L (96-108); Creatinine Clr Calc Pharmacy 60.1; Estimated Glomerular Filt Rate > 60; Glucose Random 101 mg/dL (60-115); Potassium 4.2 mmol/L (3.3-5.1); Sodium 140 mmol/L (135-145); Total Protein 6.1 g/dL (6.5-8.0)
[2022-07-13 21:47] LABS: Acetaminophen LAB < 17 mcg/mL (<30); Ethanol < 10 mg/dL; Magnesium 1.9 mg/dL (1.6-2.6); Salicylate < 5.0 mg/dL (15-30)
[2022-07-13 22:06] LABS: TSH reflex Free T4 0.62 uIU/mL (0.32-4.0)
[2022-07-13 22:07] LABS: COVID-19 Test Negative (Negative); IDNOW Serial# BCCEAD1C
--- NOTE | 2022-07-14 | ECG_ITS ---
Test Reason : CHECK QT Blood Pressure : / mmHG Vent. Rate : 097 BPM Atrial Rate : 097 BPM P-R Int : 178 ms QRS Dur : 132 ms QT Int : 374 ms P-R-T Axes : 074 -41 052 degrees QTc Int : 474 ms Sinus rhythm with Fusion complexes Left axis deviation Right bundle branch block Septal infarct , age undetermined Abnormal ECG No previous ECGs available Referred By: Tamir Lopez Electronically Signed By:RENE VAUGHN MD
[2022-07-14 06:17] VITALS: BP 109/67; PULSE 80; RESP 15; TEMP 36.6; O2SAT 95
--- NOTE | 2022-07-14 06:29 | PC.NURSE ---
Patient slept through the night, no distress observed/reported, behavior non concerning, med rec completed/pending provider's approval, patient engaged well with care team disposition is section 12 inpatient bed search, will continue to monitor.
--- NOTE | 2022-07-14 07:17 | PC.NURSE ---
patient appears to remain asleep at present respirations are even and unlabored patient appears in no distress
--- NOTE | 2022-07-14 07:40 | PHA.MEDREC ---
Pharmacy Consult ? Medication Reconciliation Pharmacy has reviewed the medication reconciliation done by Ryan
[2022-07-14] MEDS: lisinopriL 5 MG TABLET PO (10:38)
[2022-07-14] MEDS: cloZAPine 25 MG TABLET 50 MG PO (10:38)
[2022-07-14] MEDS: Levothyroxine Sodium 88 MCG TABLET PO (10:42)
[2022-07-14] MEDS: oxyBUTYnin chloride ER 5 MG TAB.ER.24 10 MG PO (10:42)
[2022-07-14] MEDS: Aspirin Enteric Coated 81 MG TABLET.DR PO (10:43)
[2022-07-14] MEDS: Cholecalciferol (Vitamin D3) 25 MCG TABLET PO (10:43)
[2022-07-14] MEDS: cloZAPine 25 MG TABLET PO (10:45)
[2022-07-14] MEDS: diazePAM 2 MG TABLET PO ×2 (10:45→20:27)
--- NOTE | 2022-07-14 15:33 | PC.NURSE ---
Pt ate Breakfast and lunch. Inc of urine. Bed changed. Showered.
--- NOTE | 2022-07-14 17:08 | PC.NURSE ---
Pt sectioned on a 12B awaiting Bed
[2022-07-14 17:18] VITALS: BP 101/62; PULSE 77; RESP 16; TEMP 36.6; O2SAT 95
[2022-07-14] MEDS: Mirtazapine 15 MG TABLET 45 MG PO (20:26)
[2022-07-14] MEDS: cloZAPine 25 MG TABLET 75 MG PO (20:26)
[2022-07-14] MEDS: Atorvastatin Calcium 20 MG TABLET PO (20:27)
[2022-07-14] MEDS: Docusate Sodium 100 MG CAPSULE PO (20:27)
[2022-07-14] MEDS: Mirabegron 25 MG TAB.ER.24H PO (20:34)
[2022-07-14 20:59] VITALS: BP 114/65; PULSE 80; RESP 16; TEMP 36.3; O2SAT 80
--- NOTE | 2022-07-15 02:30 | PC.ADMIT ---
Pt. is a 67 year old female who is a resident of [facility]. several days ago, pt placed an electrical cord from a business administration program chair around her neck with the intention of ending her life. pt states that she was depressed at that time. however, she states that she is not depressed now and would never contemplate such a heinous act. pt is a detention care resident at [facility]. pt arrived via wheel chair from the crisis pod within the emergency dept. she states that she is tired and will answer a few questions. pt is able to correctly state the time,date and place. her speech is easily discernable. she does not fully grasp the seriousness of her previous intentions. she states that i have tried to kill myself many time before. she denies that she is HI or SI at this time. pt is ambulatory with steady gait. pts affect is flat/withdrawn. she has a disheveled and ill kempt appearance. resp effort is regular unlabored. hemodynamically stable. abdomen benign. pt states that she in unsure of her last bm. pts skin surfaces are intact.pts legal status is a 12b.
[2022-07-15 05:37] VITALS: BMI 25.3
[2022-07-15 06:00] VITALS: BP 115/78; PULSE 103; RESP 16; TEMP 36.4; O2SAT 94
[2022-07-15] MEDS: Levothyroxine Sodium 88 MCG TABLET PO (06:00)
--- NOTE | 2022-07-15 08:19 | P.HPPS_ITS ---
[facility] Date of Service: 07/15/22 Chief Complaint: SI Sources of Information: patient interviewed, chart reviewed and crisis/core team assessment reviewed HPI Subjective Notes: Hauser Warning and Conditional Voluntary Narrative: The patient is a 67-year-old female, single, resident of senior care facility, with a very long history of schizoaffective disorder bipolar type, on Clozaril and long-acting Haldol Decanoate, referred to the emergency room for suicidal ideation. According to the crisis report, the patient became noncompliance of medications for the last 3 days, she become very depressed with depressed mood, anhedonia, lack of energy, feelings of hopelessness and worthlessness and suicidal ideation. Also it her mood was very lab I will with frequent episodes of crying. The day of the admission to the emergency room, the patient grew up an electric cord of the her drier attendant and she tried to strangulate herself. She was interviewed by the staff of the facility and transfer to the emergency room for assessment. On the emergency room, the patient verbalized suicidal ideation but she was unable to verbalize a ttrigger or stressor for the current episode. In the emergency room she had an urinalysis and it came back positive to UTI. On interview, the patient reported feeling depressed but she wants to go back to her home as soon as possible, she stated that she is very sad and she was ambivalent about treatment. She stated that she feels ashamed for trying to kill herself. 10 days ago, she saw her regular prescriber but around 2 or 3 days ago, she was more dysphoric and refused to take her medications. We discussed treatment options and she agreed to continue with her Clozaril, Remeron 45 mg p.o. q.h.s. and other medications. She stated that she doesn't like Clozaril since she has to have monthly CBCsI also explained her that she had a UTI and she needs to be treated with antibiotics. Probably that was stressor that led her into noncompliance and unsafe behaviors. At the moment of the interview, the patient denies active auditory hallucinations and she was able to contract for safety here. Past Psychiatric History: The patient is has an extensive history of mental illness she has previous admissions into several facilities and she is on 2 anti psychotics, Clozaril and Haldol Decanoate. She reported that she is allergic to Thorazine and Cymbalta. Medical Evaluation Reviewed: Yes [facility] Medical History COPD (chronic obstructive pulmonary disease) Full incontinence of feces Hypothyroidism Myopia Schizoaffective disorder Stress incontinence Urgency incontinence Family History: Denies Social History: Chronically mentally ill, she had been institutionalized in the past. She is single and she lives in a senior care facility. Substance History: Denies Trauma History: Refused to elaborate Diagnostics Vital Signs (24Hr): Vital Signs - 24 hr 07/14/22 17:18 07/14/22 20:59 Temperature 97.8 F 97.4 F Pulse Rate 77 80 Respiratory Rate 16 16 Blood Pressure 101/62 114/65 Pulse Oximetry 95 80 L Oxygen Delivery Method Room Air Room Air BMI result Body Mass Index 25.3 Labs 07/13/22 21:17 07/13/22 21:17 Labs: Laboratory Results - last 48 hr 07/13/22 07/13/22 07/13/22 21:17 21:17 21:17 WBC 8.9 RBC 4.44 Hgb 12.8 Hct 39.0 MCV 87.8 MCH 28.8 MCHC 32.8 RDW 13.2 Plt Count 279 MPV 10.8 Immature Gran % (Auto) 0.3 Neut % (Auto) 70.7 Lymph % (Auto) 22.1 [place] % (Auto) 5.9 Eos % (Auto) 0.4 Baso % (Auto) 0.6 Lymph # (Auto) 2.0 [place] # (Auto) 0.5 Eos # (Auto) 0.0 Baso # (Auto) 0.1 Abs Immat Gran (auto) 0.03 Absolute Neuts (auto) 6.3 Absolute Nucleated RBC 0.000 Nucleated RBC % (auto) 0.0 Sodium 140 Potassium 4.2 Chloride 105 Carbon Dioxide 27 Anion Gap 12 BUN 17 H Creatinine 0.85 Estim Creat Clear Calc 60.1 Estimated GFR > 60 Random Glucose 101 Calcium 10.0 Magnesium 1.9 Total Bilirubin 0.6 AST 20 ALT 18 Alkaline Phosphatase 101 Total Protein 6.1 L Albumin 4.2 TSH Urine Color Urine Appearance Urine pH Ur Specific Banks Urine Protein Urine Glucose (UA) Urine Ketones Urine Blood Urine Nitrite Ur Leukocyte Esterase Urine RBC Urine WBC Ur Squamous Epith Cells Urine Bacteria Hyaline Casts Salicylates < 5.0 L Urine Opiates Screen Urine Fentanyl Screen Acetaminophen < 17 Ur Barbiturates Screen Ur Phencyclidine Scrn Ur Amphetamines Screen U Benzodiazepines Scrn Urine Cocaine Screen U Marijuana (THC) Screen Ethyl Alcohol < 10 COVID-19 ([facility]) COVID-19 [employer] 07/13/22 07/13/22 07/13/22 21:17 21:18 21:18 WBC RBC Hgb Hct MCV MCH MCHC RDW Plt Count MPV Immature Gran % (Auto) Neut % (Auto) Lymph % (Auto) [place] % (Auto) Eos % (Auto) Baso % (Auto) Lymph # (Auto) [place] # (Auto) Eos # (Auto) Baso # (Auto) Abs Immat Gran (auto) Absolute Neuts (auto) Absolute Nucleated RBC Nucleated RBC % (auto) Sodium Potassium Chloride Carbon Dioxide Anion Gap BUN Creatinine Estim Creat Clear Calc Estimated GFR Random Glucose Calcium Magnesium Total Bilirubin AST ALT Alkaline Phosphatase Total Protein Albumin TSH 0.62 Urine Color Yellow Urine Appearance Cloudy Urine pH 6.5 Ur Specific Banks 1.020 Urine Protein Negative Urine Glucose (UA) Negative Urine Ketones Negative Urine Blood Negative Urine Nitrite Negative Ur Leukocyte Esterase Trace H Urine RBC 6-10 H Urine WBC 6-10 H Ur Squamous Epith Cells 6-10 Urine Bacteria 4+ Hyaline Casts 0-2 Salicylates Urine Opiates Screen Not Detected Urine Fentanyl Screen POSITIVE H Acetaminophen Ur Barbiturates Screen Not Detected Ur Phencyclidine Scrn Not Detected Ur Amphetamines Screen Not Detected U Benzodiazepines Scrn POSITIVE H Urine Cocaine Screen Not Detected U Marijuana (THC) Screen Not Detected Ethyl Alcohol COVID-19 ([facility]) COVID-19 [employer] 07/13/22 21:40 WBC RBC Hgb Hct MCV MCH MCHC RDW Plt Count MPV Immature Gran % (Auto) Neut % (Auto) Lymph % (Auto) [place] % (Auto) Eos % (Auto) Baso % (Auto) Lymph # (Auto) [place] # (Auto) Eos # (Auto) Baso # (Auto) Abs Immat Gran (auto) Absolute Neuts (auto) Absolute Nucleated RBC Nucleated RBC % (auto) Sodium Potassium Chloride Carbon Dioxide Anion Gap BUN Creatinine Estim Creat Clear Calc Estimated GFR Random Glucose Calcium Magnesium Total Bilirubin AST ALT Alkaline Phosphatase Total Protein Albumin TSH Urine Color Urine Appearance Urine pH Ur Specific Banks Urine Protein Urine Glucose (UA) Urine Ketones Urine Blood Urine Nitrite Ur Leukocyte Esterase Urine RBC Urine WBC Ur Squamous Epith Cells Urine Bacteria Hyaline Casts Salicylates Urine Opiates Screen Urine Fentanyl Screen Acetaminophen Ur Barbiturates Screen Ur Phencyclidine Scrn Ur Amphetamines Screen U Benzodiazepines Scrn Urine Cocaine Screen U Marijuana (THC) Screen Ethyl Alcohol COVID-19 ([facility]) Negative COVID-19 Clin Com See Note Meds/Allergies Meds Home Medications Medication Instructions Recorded Confirmed Type acetaminophen 325 mg tablet 650 mg PO Q4H PRN Pain 06/28/21 07/13/22 History albuterol sulfate 90 mcg/actuation 2 puff inhalation Q6H PRN 06/28/21 07/13/22 History aerosol inhaler Shortness Of Breath aspirin 81 mg tablet,delayed 81 mg PO DAILY 06/28/21 07/13/22 History release atorvastatin 20 mg tablet 20 mg PO BEDTIME 06/28/21 07/13/22 History budesonide-formoterol HFA 160 1 puff inhalation BID 06/28/21 07/13/22 History mcg-4.5 mcg/actuation aerosol inhaler (Symbicort) cholecalciferol (vitamin D3) 25 25 mcg PO DAILY 06/28/21 07/13/22 History mcg (1,000 unit) tablet (Vitamin D3) clozapine 25 mg tablet (Clozaril) 25 mg PO BID 06/28/21 07/13/22 History clozapine 50 mg tablet 50 mg PO BID 06/28/21 07/13/22 History cranberry fruit 450 mg tablet 450 mg PO BID 06/28/21 07/13/22 History (cranberry) diazepam 2 mg tablet 2 mg PO BID 06/28/21 07/13/22 History docusate sodium 100 mg tablet 100 mg PO BEDTIME 06/28/21 07/13/22 History guaifenesin 100 mg/5 mL oral liquid 200 mg PO Q6H PRN Cough 06/28/21 07/13/22 History haloperidol decanoate 100 mg/mL 100 mg IM Q28D 06/28/21 07/13/22 History intramuscular solution (Haldol Decanoate) levothyroxine 88 mcg tablet 88 mcg PO DAILY 06/28/21 07/13/22 History lisinopril 5 mg tablet 5 mg PO DAILY 06/28/21 07/13/22 History loperamide 2 mg tablet 2 mg PO Q12H PRN Loose Stool 06/28/21 07/13/22 History mirabegron 25 mg tablet,extended 25 mg PO BEDTIME 06/28/21 07/13/22 History release 24 hr (Myrbetriq) mirtazapine 45 mg tablet 45 mg PO BEDTIME 06/28/21 07/13/22 History oxybutynin chloride 10 mg 10 mg PO DAILY 06/28/21 07/13/22 History tablet,extended release 24 hr polyethylene glycol 3350 17 gram 17 g PO DAILY PRN Constipation 06/28/21 07/13/22 History oral powder packet (Miralax) sennosides 8.6 mg tablet (senna) 8.6 mg PO DAILY PRN Constipation 06/28/21 07/13/22 History hydroxyzine HCl 50 mg tablet 50 mg PO BEDTIME 07/14/22 07/14/22 History Allergies Allergies Allergy/AdvReac Type Severity Reaction Status Date / Time tuberculin, purified protein Allergy Mild Rash Verified 07/13/22 20:51 deriva duloxetine [Cymbalta] Allergy Unknown rash Verified 07/07/22 13:10 Thorazine Allergy Unknown rash Uncoded 07/07/22 13:10 Mental Status Exam Mental Status Exam Patient Appearance: Appropriate and Unkempt Patient Orientation: Person and Situation Level of Consciousness: Awake and Appropriate Patient Behavior: Guarded and Passive Mood Description: Depressed and Labile Affect Description: Constricted and Labile Patient Cognition Impaired: Yes Ability to Follow Directions: Fair Speech Pattern: Clear Hallucinations: Auditory Delusions: Paranoid Ideation Thought Process: Illogical, Distracted and Slowed Thinking Thought Content: positive for [place], positive for Perseveration and positive for Poverty of Content Judgement: Poor Assessment & Plan Assessment & Plan (1) UTI (urinary tract infection): Status: Acute Code(s): N39.0 - Urinary tract infection, site not specified (2) Suicidal ideation: Status: Acute Code(s): R45.851 - Suicidal ideations (3) Urinary incontinence: Status: Acute Code(s): R32 - Unspecified urinary incontinence (4) Neurodegenerative cognitive impairment: Status: Acute Code(s): G31.9 - Degenerative disease of nervous system, unspecified Plan The patient is an elderly female with a long history of schizoaffective disorder, resident of a senior care facility admitted for suicidal ideation with intent to hang herself with an electric cord. She had been noncompliant with medications for the last 2 or 3 days and also she has a UTI. Plan 1. Continue regular medications including Clozaril and Haldol Decanoate. 2. Gather collateral information. 3. Start Bactrim double strength q.12 hours for UTI. 4. Continue with medical workout. 5. Reassessment results. Patient educated on: diagnosis and therapeutic strategies Informed Consent: further education needed Reason for continued inpatient stay Substantial Risk for: harm to self, inability to function, rapid decompensation and med/psych decompensation Statement Statement: I have reviewed the history and physical and performed a pertinent examination on my patient. No changes have occurred unless specified. If the History and Physical was not performed prior to admission, the Hospitalist's service will be consulted for completing the admission physical. Time Spent With Patient Time: Total time managing care of this patient today ____ minutes.
[2022-07-15] MEDS: lisinopriL 5 MG TABLET PO (08:35)
[2022-07-15] MEDS: oxyBUTYnin chloride ER 5 MG TAB.ER.24 10 MG PO (08:36)
[2022-07-15] MEDS: cloZAPine 25 MG TABLET 75 MG PO ×2 (08:36→20:10)
[2022-07-15] MEDS: Aspirin Enteric Coated 81 MG TABLET.DR PO (08:36)
[2022-07-15] MEDS: diazePAM 2 MG TABLET PO ×2 (08:37→20:08)
[2022-07-15] MEDS: Cholecalciferol (Vitamin D3) 25 MCG TABLET PO (08:37)
[2022-07-15] MEDS: Sulfamethox/Trimeth 800/160 TABLET 1 TAB PO ×2 (11:32→20:08)
[2022-07-15 12:38] VITALS: BMI 20.9
[2022-07-15] MEDS: Fluticasone/Vilanterol 200/25 BLST.W.DEV 1 PUFF INHALE (13:39)
[2022-07-15] MEDS: Mirabegron 25 MG TAB.ER.24H PO (20:08)
[2022-07-15] MEDS: Mirtazapine 15 MG TABLET 45 MG PO (20:09)
[2022-07-15] MEDS: Docusate Sodium 100 MG CAPSULE PO (20:09)
[2022-07-15] MEDS: Atorvastatin Calcium 20 MG TABLET PO (20:10)
[2022-07-15 20:25] VITALS: BP 128/72; PULSE 94; RESP 17; TEMP 36.2; O2SAT 96
[2022-07-16] MEDS: Levothyroxine Sodium 88 MCG TABLET PO (05:23)
[2022-07-16 08:00] VITALS: BP 85/53; PULSE 71; RESP 17; TEMP 36.1; O2SAT 94
[2022-07-16] MEDS: cloZAPine 25 MG TABLET 75 MG PO (09:28)
[2022-07-16] MEDS: Fluticasone/Vilanterol 200/25 BLST.W.DEV 1 PUFF INHALE (09:28)
[2022-07-16] MEDS: Aspirin Enteric Coated 81 MG TABLET.DR PO (09:28)
[2022-07-16] MEDS: oxyBUTYnin chloride ER 5 MG TAB.ER.24 10 MG PO (09:29)
[2022-07-16] MEDS: Cholecalciferol (Vitamin D3) 25 MCG TABLET PO (09:29)
[2022-07-16] MEDS: Sulfamethox/Trimeth 800/160 TABLET 1 TAB PO (09:29)
--- NOTE | 2022-07-16 10:48 | P.DS_ITS ---
DS: Providers Provider Date of Service: 07/16/22 Date of admission: 07/14/22 20:50 Date of discharge: 07/16/22 Primary care physician: David Bowles DO Attending physician on discharge: Fernando Lozoya DS: Diagnosis Discharge Diagnosis (1) UTI (urinary tract infection): Status: Acute (2) Suicidal ideation: Status: Acute (3) Urinary incontinence: Status: Acute (4) Neurodegenerative cognitive impairment: Status: Acute DS: Medications Discharge Medications Home Medications: Home Medications Medication Instructions Recorded Confirmed acetaminophen 325 mg tablet 650 mg PO Q4H PRN Pain 06/28/21 07/13/22 albuterol sulfate 90 mcg/actuation 2 puff inhalation Q6H PRN 06/28/21 07/13/22 aerosol inhaler Shortness Of Breath aspirin 81 mg tablet,delayed 81 mg PO DAILY 06/28/21 07/13/22 release atorvastatin 20 mg tablet 20 mg PO BEDTIME 06/28/21 07/13/22 budesonide-formoterol HFA 160 1 puff inhalation BID 06/28/21 07/13/22 mcg-4.5 mcg/actuation aerosol inhaler (Symbicort) cholecalciferol (vitamin D3) 25 25 mcg PO DAILY 06/28/21 07/13/22 mcg (1,000 unit) tablet (Vitamin D3) clozapine 25 mg tablet (Clozaril) 25 mg PO BID 06/28/21 07/13/22 clozapine 50 mg tablet 50 mg PO BID 06/28/21 07/13/22 cranberry fruit 450 mg tablet 450 mg PO BID 06/28/21 07/13/22 (cranberry) diazepam 2 mg tablet 2 mg PO BID 06/28/21 07/13/22 docusate sodium 100 mg tablet 100 mg PO BEDTIME 06/28/21 07/13/22 guaifenesin 100 mg/5 mL oral liquid 200 mg PO Q6H PRN Cough 06/28/21 07/13/22 haloperidol decanoate 100 mg/mL 100 mg IM Q28D 06/28/21 07/13/22 intramuscular solution (Haldol Decanoate) levothyroxine 88 mcg tablet 88 mcg PO DAILY 06/28/21 07/13/22 lisinopril 5 mg tablet 5 mg PO DAILY 06/28/21 07/13/22 loperamide 2 mg tablet 2 mg PO Q12H PRN Loose Stool 06/28/21 07/13/22 mirabegron 25 mg tablet,extended 25 mg PO BEDTIME 06/28/21 07/13/22 release 24 hr (Myrbetriq) mirtazapine 45 mg tablet 45 mg PO BEDTIME 06/28/21 07/13/22 oxybutynin chloride 10 mg 10 mg PO DAILY 06/28/21 07/13/22 tablet,extended release 24 hr polyethylene glycol 3350 17 gram 17 g PO DAILY PRN Constipation 06/28/21 07/13/22 oral powder packet (Miralax) sennosides 8.6 mg tablet (senna) 8.6 mg PO DAILY PRN Constipation 06/28/21 07/13/22 hydroxyzine HCl 50 mg tablet 50 mg PO BEDTIME 07/14/22 07/14/22 Mental Status Exam Mental Status Exam Patient Appearance: Appropriate Patient Orientation: Person and Situation Level of Consciousness: Awake and Appropriate Patient Behavior: Appropriate, Cooperative and Passive Mood Description: Withdrawn Affect Description: Constricted Patient Cognition Impaired: Yes Ability to Follow Directions: Good Speech Pattern: Clear Hallucinations: None Delusions: Not Present Thought Process: Distracted and Linear Thought Content: positive for [place] and positive for Poverty of Content Judgement: Fair Data Data Completed and Pending Completed studies during hospitalization [Text1]: 07/13/22 07/13/22 07/13/22 21:17 21:17 21:17 WBC 8.9 RBC 4.44 Hgb 12.8 Hct 39.0 MCV 87.8 MCH 28.8 MCHC 32.8 RDW 13.2 Plt Count 279 MPV 10.8 Immature Gran % (Auto) 0.3 Neut % (Auto) 70.7 Lymph % (Auto) 22.1 Gaines % (Auto) 5.9 Eos % (Auto) 0.4 Baso % (Auto) 0.6 Lymph # (Auto) 2.0 Gaines # (Auto) 0.5 Eos # (Auto) 0.0 Baso # (Auto) 0.1 Abs Immat Gran (auto) 0.03 Absolute Neuts (auto) 6.3 Absolute Nucleated RBC 0.000 Nucleated RBC % (auto) 0.0 Sodium 140 Potassium 4.2 Chloride 105 Carbon Dioxide 27 Anion Gap 12 BUN 17 H Creatinine 0.85 Estim Creat Clear Calc 60.1 Estimated GFR > 60 Random Glucose 101 Calcium 10.0 Magnesium 1.9 Total Bilirubin 0.6 AST 20 ALT 18 Alkaline Phosphatase 101 Total Protein 6.1 L Albumin 4.2 TSH Urine Color Urine Appearance Urine pH Ur Specific [place] Urine Protein Urine Glucose (UA) Urine Ketones Urine Blood Urine Nitrite Ur Leukocyte Esterase Urine RBC Urine WBC Ur Squamous Epith Cells Urine Bacteria Hyaline Casts Salicylates < 5.0 L Urine Opiates Screen Urine Fentanyl Screen Acetaminophen < 17 Ur Barbiturates Screen Ur Phencyclidine Scrn Ur Amphetamines Screen U Benzodiazepines Scrn Urine Cocaine Screen U Marijuana (THC) Screen Ethyl Alcohol < 10 COVID-19 ([facility]) COVID-19 [employer] 07/13/22 07/13/22 07/13/22 21:17 21:18 21:18 WBC RBC Hgb Hct MCV MCH MCHC RDW Plt Count MPV Immature Gran % (Auto) Neut % (Auto) Lymph % (Auto) Gaines % (Auto) Eos % (Auto) Baso % (Auto) Lymph # (Auto) Gaines # (Auto) Eos # (Auto) Baso # (Auto) Abs Immat Gran (auto) Absolute Neuts (auto) Absolute Nucleated RBC Nucleated RBC % (auto) Sodium Potassium Chloride Carbon Dioxide Anion Gap BUN Creatinine Estim Creat Clear Calc Estimated GFR Random Glucose Calcium Magnesium Total Bilirubin AST ALT Alkaline Phosphatase Total Protein Albumin TSH 0.62 Urine Color Yellow Urine Appearance Cloudy Urine pH 6.5 Ur Specific [place] 1.020 Urine Protein Negative Urine Glucose (UA) Negative Urine Ketones Negative Urine Blood Negative Urine Nitrite Negative Ur Leukocyte Esterase Trace H Urine RBC 6-10 H Urine WBC 6-10 H Ur Squamous Epith Cells 6-10 Urine Bacteria 4+ Hyaline Casts 0-2 Salicylates Urine Opiates Screen Not Detected Urine Fentanyl Screen POSITIVE H Acetaminophen Ur Barbiturates Screen Not Detected Ur Phencyclidine Scrn Not Detected Ur Amphetamines Screen Not Detected U Benzodiazepines Scrn POSITIVE H Urine Cocaine Screen Not Detected U Marijuana (THC) Screen Not Detected Ethyl Alcohol COVID-19 ([facility]) COVID-[employer] 07/13/22 21:40 WBC RBC Hgb Hct MCV MCH MCHC RDW Plt Count MPV Immature Gran % (Auto) Neut % (Auto) Lymph % (Auto) Gaines % (Auto) Eos % (Auto) Baso % (Auto) Lymph # (Auto) Gaines # (Auto) Eos # (Auto) Baso # (Auto) Abs Immat Gran (auto) Absolute Neuts (auto) Absolute Nucleated RBC Nucleated RBC % (auto) Sodium Potassium Chloride Carbon Dioxide Anion Gap BUN Creatinine Estim Creat Clear Calc Estimated GFR Random Glucose Calcium Magnesium Total Bilirubin AST ALT Alkaline Phosphatase Total Protein Albumin TSH Urine Color Urine Appearance Urine pH Ur Specific [place] Urine Protein Urine Glucose (UA) Urine Ketones Urine Blood Urine Nitrite Ur Leukocyte Esterase Urine RBC Urine WBC Ur Squamous Epith Cells Urine Bacteria Hyaline Casts Salicylates Urine Opiates Screen Urine Fentanyl Screen Acetaminophen Ur Barbiturates Screen Ur Phencyclidine Scrn Ur Amphetamines Screen U Benzodiazepines Scrn Urine Cocaine Screen U Marijuana (THC) Screen Ethyl Alcohol COVID-19 ([facility]) Negative COVID-19 Clin Com See Note DS: Summary Hospital Course Hospital Course: The patient was transferred from her [facility] since she was suicidal, she grabbed an electric cord around her neck and she was stopped by staff. Please see the HPI for further details on the admission note. On admission she was assessed by the emergency room, assessed by the crisis team and transferred to this facility for psychiatric stabilization. On admission we noticed that the patient had a UTI with some clinical symptoms. According to the staff of her half-way facility, the patient had being noncompliant with her medications for the last 2 or 3 days. The patient was restarted on her medications in the emergency room and when she was on the unit, she adamantly denies suicidal or homicidal ideation or psychotic symptoms. We started Bactrim as an antibiotic for her UTI, the patient was alert oriented, denies psychosis or suicidal ideation and she was able to contract for safety. The social work specialist contact her staff at the half-way facility and the are prepared to put her one-to-one for observation. Since there were no safety concerns discharge planning was discussed. Time spent discussing smoking cessation with patient: 3 to 10 minutes Status at Discharge Cognitive/behavioral status at discharge: Impaired at baseline Functional status at discharge: independent ambulation Overall status at discharge: patient is back to baseline Time Spent with Patient Time attestation: Total time managing care of this patient today __30__ minutes. Time spent: Less than 30 minutes Discharge Plan Discharge Anticipated Discharge Date/Time: 07/16/22 14:00 Patient Disposition: Xfer SNF Discharge Diagnosis: Schizoaffective disorder. Delirium due to UTI Referrals: Snow,David, DO [Primary Care Provider] - 1 Week Discharge Medications: New sulfamethoxazole-trimethoprim 800-160 mg Tablet 1 tab PO Q12H 5 Days Qty: 10 0RF clozapine 25 mg Tablet 75 mg PO BID 30 Days Qty: 180 0RF Continued acetaminophen 325 mg Tablet 650 mg PO Q4H PRN (Reason: Pain) 30 Days Qty: 30 0RF atorvastatin 20 mg Tablet 20 mg PO BEDTIME 30 Days Qty: 30 0RF aspirin 81 mg Tablet,Delayed Release (Dr/Ec) 81 mg PO DAILY 30 Days Qty: 30 0RF clozapine [Clozaril] 25 mg Tablet 25 mg PO BID 30 Days Qty: 60 0RF albuterol sulfate 90 mcg/actuation Hfa Aerosol Inhaler 2 puff INHALATION Q6H PRN (Reason: Shortness Of Breath) Qty: 6.7 0RF cholecalciferol (vitamin D3) [Vitamin D3] 25 mcg (1,000 unit) Tablet 25 mcg PO DAILY 30 Days Qty: 30 0RF sennosides [senna] 8.6 mg Tablet 8.6 mg PO DAILY PRN (Reason: Constipation) 30 Days Qty: 30 0RF polyethylene glycol 3350 [Miralax] 17 gram Powder In Packet 17 g PO DAILY PRN (Reason: Constipation) 30 Days Qty: 30 0RF oxybutynin chloride 10 mg Tablet Extended Release 24hr 10 mg PO DAILY 30 Days Qty: 30 0RF haloperidol decanoate [Haldol Decanoate] 100 mg/mL Solution 100 mg IM Q28D Qty: 1 0RF Rx Instructions: next dose due on 07/21/2022 loperamide 2 mg Tablet 2 mg PO Q12H PRN (Reason: Loose Stool) 30 Days Qty: 30 0RF Rx Instructions: administer after each loose stool until symptoms controlled; do not exceed 8 mg per 24 hrs guaifenesin 100 mg/5 mL Liquid 200 mg PO Q6H PRN (Reason: Cough) 30 Days Qty: 300 0RF levothyroxine 88 mcg Tablet 88 mcg PO DAILY 30 Days Qty: 30 0RF diazepam 2 mg tablet 2 mg PO BID 30 Days Qty: 60 0RF mirtazapine 45 mg Tablet 45 mg PO BEDTIME 3 Days Qty: 3 0RF lisinopril 5 mg Tablet 5 mg PO DAILY 30 Days Qty: 30 0RF docusate sodium 100 mg Tablet 100 mg PO BEDTIME 30 Days Qty: 30 0RF budesonide-formoterol [Symbicort] 160-4.5 mcg/actuation Hfa Aerosol Inhaler 1 puff INHALATION BID 30 Days Qty: 1 0RF cranberry 450 mg Tablet 450 mg PO BID 30 Days Qty: 60 0RF Rx Instructions: administer with a meal Myrbetriq 25 mg Tablet Extended Release 24 Hr 25 mg PO BEDTIME Qty: 30 0RF Discontinued clozapine 50 mg Tablet 50 mg PO BID hydroxyzine HCl 50 mg tablet 50 mg PO BEDTIME Discharge Orders: Discharge Order (Routine); Ordered 07/16/22 Ordered By: Fernando Lozoya Diet: Advance to usual diet Activity on Discharge: As tolerated Stand Alone Forms: Patient Portal Discharge page Care Plan Goals: Care plan goals achieved in this admission Health Concerns: Continue treatment of UTI with Bactrim Double Strength q.12 hours for 5 days Continue treatment with outpatient providers Plan of Treatment: Continue outpatient services Assessment: Elderly female with a long history of schizoaffective disorder, on 2 antipsychotics admitted for suicidal ideation in the context of noncompliance and delirium due to UTI. Currently stable, with UTI control with antibiotics, at baseline no safety concerns.
[2022-07-16 12:20] VITALS: BP 106/68; PULSE 84; RESP 17
== END 2022-07-16 16:00 | disposition skilled nursing facility (03) | DRG 885 ==
LOC: HO.ED 07-14 06:47 → HO.PGERI 07-14 20:53
PROVIDERS: Physician Assistant; Student in an Organized Health Care Education/Training Program; Admitting Provider Psychiatry & Neurology Psychiatry; Emergency Provider Emergency Medicine Emergency Medical Services; PCP Hospitalist; Visit Provider Psychiatry & Neurology Psychiatry
DX: F25.9 Schizoaffective disorder, unspecified (principal); R45.851 Suicidal ideations; N39.0 Urinary tract infection, site not specified; F05 Delirium due to known physiological condition; J44.9 Chronic obstructive pulmonary disease, unspecified; G31.84 Mild cognitive impairment of uncertain or unknown etiology; E03.9 Hypothyroidism, unspecified; N39.46 Mixed incontinence; Z88.8 Allergy status to other drugs, medicaments and biological substances; Z79.82 Long term (current) use of aspirin; Z79.890 Hormone replacement therapy; Z79.899 Other long term (current) drug therapy
CPT/HCPCS: 36415; 80053; 80143; 80179; 80307; 81001; 82077; 83735; 84443; 85025; 87635; 93005; 99285; S9485

== ENCOUNTER → 2022-10-13 14:17 | Outpatient (BNVA) | payer MEDICARE, MEDICAID, SELFPAY | PROVIDERS: PCP Hospitalist; Visit Provider Advanced Practice Midwife | DX: Z01.419 Encounter for gynecological examination (general) (routine) without abnormal findings (principal); R32 Unspecified urinary incontinence; G31.9 Degenerative disease of nervous system, unspecified | CPT/HCPCS: G0101 ==

== ENCOUNTER 2023-01-06 12:45 | Outpatient (AMB) | payer MEDICARE, MEDICAID, SELFPAY ==
--- NOTE | 2023-01-06 12:46 | A.OFFVIS_ITS ---
Intake Intake Visit Reasons: 6m/OAB Intake Note: Patient presents today for a follow-up on OAB: Meds- Myrbetriq & Oxybutynin Allergies to Antibiotic- No Known Allergies Blood Thinner- Aspirin PVR- 0 mL Educational Speech Language Clinician Required: No Accompanied by: Self / Same As Patient Allergies tuberculin, purified protein deriva Allergy (Mild, Verified 01/06/23 12:56) Rash duloxetine [Cymbalta] Allergy (Unknown, Verified 01/06/23 12:56) rash Thorazine Allergy (Unknown, Uncoded 01/06/23 12:56) rash HPI HPI Comments History of Present Illness Details Christina is a 67-year-old female who presents today to the office for a follow-up. 01/06/2023? Christina was last seen by me on 07/07/2022 for overactive bladder. She was advised on timed voiding q2-3 hr, and to continue myrbetriq and oxybutynin during that time. ?She is the patient from [address] Patient states that she is very depressed. She does talk to her therapist every Tuesday. She states she does not want to kill herself. In discussion with the [facility] curriculum designer, patient is currently on 1 to 1 due to her behaviour changes. She has been taking oxybutynin and Myrbetriq. Medication change discussed with the patient. Discussed side effects of oxybutynin that include constipation and the patient is on medication for constipation and the other medications are anti- cholinergic. Bladder scan PVR- 0 mL. Review of chart: Renal US results reviewed--02/09/2022-- Suggestive of cortical thinning of the right kidney.?? Plan:? 01/06/2023: Plan: Discontinue oxybutynin, and Myrbetriq. Gemtesa 75 mg was ordered. Follow-up in 3 months. [facility] Medical History Myopia Hypothyroidism Schizoaffective disorder Full incontinence of feces COPD (chronic obstructive pulmonary disease) Urgency incontinence Stress incontinence Social History Household Members: None Housing: Longterm Do you presently have visiting nurse or other home services: No Patient Tobacco Use Status: Former Tobacco user Advance Directives Date on File: 06/27/21 service: No Sexual orientation: Straight/Heterosexual Review of Systems Const All systems reviewed & are unremarkable except as noted in HPI and below Reports no additional complaints Eyes Reports no additional complaints ENT Denies neck pain Card Denies leg edema Resp Denies cough GI Denies nausea Reports no additional complaints Musc Reports no additional complaints and Denies neck pain Skin/Breast Denies rash and Denies unusual bruising Neuro Reports no additional complaints Psych Reports no additional complaints Endo Reports no additional complaints Gurinder/Lymph Reports no additional complaints Aller/Immun Reports no additional complaints Physical Exam Const General: cooperative Nutritional Appearance: average body habitus and obese Limitations: physical limitations HEENT Head: Yes normocephalic Neck Neck: Yes normal visual inspection Chest Chest palpation & inspection: normal inspection of the chest Breast/axilla inspection: normal inspection of the breasts and normal inspection of the axillae Breast/axilla palpation: normal palpation of the breasts and normal palpation of the axillae Resp Effort & Inspection: normal respiratory effort GI Inspection: Yes normal to inspection Palpation (GI): Soft to palpation and nontender Office Procedures Post Void Residual Post Residual Void Post Void Residual (PVR): 0 [id number] Void Residual by ultrasound Assessment & Plan Assessment & Plan (1) OAB (overactive bladder): Code(s): N32.81 - Overactive bladder (2) Urinary incontinence: Code(s): R32 - Unspecified urinary incontinence Plan Discontinue oxybutynin, and Myrbetriq.? Gemtesa 75 mg was ordered. Follow-up in 3 months.? Orders: Orders AMB Post Void Residual by ultrasound 01/06/23 N39.8 - Other specified disorders of urinary system Medications: New vibegron (Gemtesa) 75 mg PO DAILY 90 tabs 0RF Patient Instructions: The patient had an opportunity to ask questions regarding treatment plan. All questions were answered. Imaging, Laboratory studies and physical exam results were discussed and reviewed in detail. No major barriers to understanding were identified. The patient expressed understanding and agreement with the above treatment plan.? ? ? The patient is aware they should contact our office by phone for worsening of their current condition or the appearance of new symptoms. Compliance is encouraged with any medications and followup testing that is ordered.? ? ? It is a privilege to be allowed the opportunity to participate in the urologic care of your patient. If you have any questions or concerns regarding treatment for the above conditions please do not hesitate to contact me. The office telephone contact is [phone].? ? ? This note is constructed in part using voice recognition software. While every effort has been made to ensure accuracy childcare teacher errors may have been included.? ? ? Yours sincerely,? ? ? Jake Lassiter MD? Coding Level of Care Code Est Pt Level 4 (70721) Diagnoses OAB (overactive bladder) N32.81 Urinary incontinence R32 CPT Codes Post Residual Void - PVR CPT Code: 51813-[id number] Void Residual by ultrasound ([id number])
== END 2023-01-06 13:49 | disposition home or self-care (01) ==
LOC: HO.HUSH 12:45
PROVIDERS: PCP Hospitalist; Visit Provider Urology
DX: N32.81 Overactive bladder (principal); R32 Unspecified urinary incontinence
CPT/HCPCS: 99214

== ENCOUNTER → 2023-01-06 12:45 | Outpatient (BNVA) | payer MEDICARE, MEDICAID, SELFPAY | PROVIDERS: PCP Hospitalist; Visit Provider Urology | DX: N32.81 Overactive bladder (principal); R32 Unspecified urinary incontinence | CPT/HCPCS: 51798; 99212 ==

== ENCOUNTER 2024-01-16 22:40 | Emergency (ER) | payer MEDICARE, MEDICAID, SELFPAY ==
--- NOTE | ~2024-01-16 | XR_ITS ---
EXAMINATION: XR HAND, LEFT CLINICAL INFORMATION: Trauma. Question fracture. COMPARISON: None available. TECHNIQUE: PA, lateral, and oblique views of the left hand. FINDINGS: Diffuse osteopenia. Chronic appearing well corticated 1 mm cystic body along the ulnar aspect of the second distal interphalangeal joint. Oblique fracture of the base of the fifth distal phalanx with intra-articular extension into the volar margin of the distal interphalangeal joint. No soft tissue emphysematous changes. No dilated radiopaque foreign bodies. XR/XR hand LT min 3V IMPRESSION: 1. Oblique fracture of the base of the fifth distal phalanx with intra-articular extension into the volar margin of the distal interphalangeal joint. 2. Diffuse osteopenia. Electronically signed by: Nikko Santana MD 01/17/2024 01:59 AM EDT
[2024-01-16 22:59] VITALS: BP 139/72; BP 142/82; PULSE 142; PULSE 90; RESP 16; TEMP 36.6; O2SAT 95; O2SAT 96; BMI 23.8
[2024-01-17] MEDS: Ibuprofen 600 MG TABLET PO (00:25)
[2024-01-17] MEDS: Acetaminophen 325 MG TABLET 975 MG PO (00:25)
--- NOTE | 2024-01-17 00:52 | ED.EXTPRO ---
HPI - Extremity Problem General Chief complaint: Extremity Injury, Upper Stated complaint: broken L pinky, from snf Time Seen by Provider: 01/17/24 00:01 Source: patient Limitations: no limitations History of Present Illness ED Provider: Kimberly Martin PA-C HPI Narrative: 68-year-old female with underlying cognitive impairment presents with left hand injury. Patient shut her hand in a door yesterday, x-rays were obtained of the nursing facility, she has a fracture of the left 5th distal phalanx. Related Data Home Medications ?Medication ?Instructions ?Recorded ?Confirmed clozapine 25 mg tablet (Clozaril) 50 mg PO BID 01/06/23 levothyroxine 88 mcg tablet 75 mcg PO DAILY 01/06/23 Previous Rx's ?Medication ?Instructions ?Recorded acetaminophen 325 mg tablet 650 mg (2 x 325 mg) PO Q4H PRN 07/16/22 Pain 30 days #30 tabs albuterol sulfate 90 mcg/actuation 2 puff inhalation Q6H PRN 07/16/22 aerosol inhaler Shortness Of Breath #6.7 grams aspirin 81 mg tablet,delayed 81 mg PO DAILY 30 days #30 tabs 07/16/22 release atorvastatin 20 mg tablet 20 mg PO BEDTIME 30 days #30 tabs 07/16/22 budesonide-formoterol HFA 160 1 puff inhalation BID 30 days #1 g 07/16/22 mcg-4.5 mcg/actuation aerosol inhaler (Symbicort) cholecalciferol (vitamin D3) 25 25 mcg PO DAILY 30 days #30 tabs 07/16/22 mcg (1,000 unit) tablet (Vitamin D3) clozapine 25 mg tablet 75 mg (3 x 25 mg) PO BID 30 days 07/16/22 #180 tabs cranberry fruit 450 mg tablet 450 mg PO BID 30 days #60 tabs 07/16/22 (cranberry) diazepam 2 mg tablet 2 mg PO BID 30 days #60 tabs 07/16/22 docusate sodium 100 mg tablet 100 mg PO BEDTIME 30 days #30 tabs 07/16/22 guaifenesin 100 mg/5 mL oral liquid 200 mg (10 mL) PO Q6H PRN Cough 30 07/16/22 days #300 mL haloperidol decanoate 100 mg/mL 100 mg IM Q28D #1 mL 07/16/22 intramuscular solution (Haldol Decanoate) lisinopril 5 mg tablet 5 mg PO DAILY 30 days #30 tabs 07/16/22 loperamide 2 mg tablet 2 mg PO Q12H PRN Loose Stool 30 07/16/22 days #30 tabs mirabegron 25 mg tablet,extended 25 mg PO BEDTIME #30 tabs 07/16/22 release 24 hr (Myrbetriq) mirtazapine 45 mg tablet 45 mg PO BEDTIME 3 days #3 tabs 07/16/22 oxybutynin chloride 10 mg 10 mg PO DAILY 30 days #30 tabs 07/16/22 tablet,extended release 24 hr polyethylene glycol 3350 17 gram 17 g PO DAILY PRN Constipation 30 07/16/22 oral powder packet (Miralax) days #30 ea sennosides 8.6 mg tablet (senna) 8.6 mg PO DAILY PRN Constipation 07/16/22 30 days #30 tabs vibegron 75 mg tablet (Gemtesa) 75 mg PO DAILY #90 tabs 01/06/23 Allergies Allergy/AdvReac Type Severity Reaction Status Date / Time tuberculin, purified protein Allergy Mild Rash Verified 01/16/24 23:01 deriva duloxetine [Cymbalta] Allergy Unknown rash Verified 01/16/24 23:01 Thorazine Allergy Unknown rash Uncoded 01/16/24 23:01 Review of Systems Review of Systems: Yes all other systems are reviewed and are negative Constitutional: Constitutional: Denies fever(s) Musculoskeletal: Musculoskeletal: Reports arthralgias and Reports joint swelling PMFSH Past Medical History Attestation statement: The following information was validated with the patient. Medical History Myopia Hypothyroidism Schizoaffective disorder Full incontinence of feces COPD (chronic obstructive pulmonary disease) Urgency incontinence Stress incontinence Social History Social History Household Members: None Housing: Jail Do you presently have visiting nurse or other home services: No Patient Tobacco Use Status: Former Tobacco user Advance Directives: Yes Advance Directives on File: Yes Advance Directives Date on File: 06/27/21 Do you have a plan to hurt others: No Plan service: No Sexual orientation: Straight/Heterosexual Physical Exam Vital Signs: Vital Signs: Last Vital Signs Temp 97.8 F 01/16/24 22:59 Pulse 90 01/16/24 22:59 Resp 16 01/16/24 22:59 BP 139/72 01/16/24 22:59 Pulse Ox 96 01/16/24 22:59 O2 Del Method Room Air 01/16/24 22:59 BMI result Body Mass Index 23.8 Const: Other: Alert, well in appearance, sitting up reading in bed Orientation/consciousness: oriented to person, oriented to place and oriented to time Resp: Effort & Inspection: normal respiratory effort Cardio: Other: Normal peripheral perfusion Skin: Other: Warm dry no rash Neuro: General: oriented to person, oriented to place, oriented to time, no focal motor deficits and CN's II-XI intact bilaterally Extrem: Other: Swelling and ecchymosis along the lateral aspect of the left hand. Patient able to flex and extend from the MCP, PIP, but minimally at the DIPJ. Psych: Other: Calm cooperative Medications Administered Discontinued Medications Generic Name Dose Route Start Last Admin Trade Name Zoltan PRN Reason Stop Dose Admin Acetaminophen 975 mg 01/16/24 23:58 01/17/24 00:25 Acetaminophen 325 Mg Tablet PO 01/16/24 23:59 975 mg ONCE ONE Administration Ibuprofen 600 mg 01/16/24 23:58 01/17/24 00:25 Ibuprofen 600 Mg Tablet PO 01/16/24 23:59 600 mg ONCE ONE Administration Medical Decision Making Medical Decision Making [facility] Narrative: 68-year-old female with underlying cognitive impairment presents with left hand injury. Patient shut her hand in a door yesterday, x-rays were obtained of the nursing facility, she has a fracture of the left 5th distal phalanx. Problem: Underlying cognitive impairment History: Per patient I have considered the following differential diagnoses: Fracture, dislocation, contusion Plan: Unclear why the patient was sent to our ER in the middle of the night, furthermore, they already knew what form of injury she sustained, she could have easily followed up with her primary care provider. We will place in a splint, I am repeating The x-ray so I can see from myself. We will give Tylenol and ibuprofen x-ray left hand: Fracture noted of left 5th distal phalanx Procedures Orthopedic Splinting/Casting Injury #1: Side: left Upper Extremity Injury Location: finger Upper Extremity Immobilizer: finger (other) Discharge Plan Discharge Clinical Impression: Finger fracture, left Patient Disposition: Home, Self-Care Instructions: Finger Fracture (ED) Additional Instructions: We confirmed that you have a fracture, you were placed in a splint to protect the injury. Follow up with your primary care provider, this will not require any intervention by an orthopedic surgeon. You can use [id number] ibuprofen 600 mg taken every 6 hours with food, alternated with [id number] Tylenol 1000 mg taken every 8 hours, as needed for pain. Prescriptions: No Action clozapine 25 mg Tablet 75 mg PO BID 30 Days Qty: 180 0RF acetaminophen 325 mg Tablet 650 mg PO Q4H PRN (Reason: Pain) 30 Days Qty: 30 0RF atorvastatin 20 mg Tablet 20 mg PO BEDTIME 30 Days Qty: 30 0RF aspirin 81 mg Tablet,Delayed Release (Dr/Ec) 81 mg PO DAILY 30 Days Qty: 30 0RF albuterol sulfate 90 mcg/actuation Hfa Aerosol Inhaler 2 puff INHALATION Q6H PRN (Reason: Shortness Of Breath) Qty: 6.7 0RF cholecalciferol (vitamin D3) [Vitamin D3] 25 mcg (1,000 unit) Tablet 25 mcg PO DAILY 30 Days Qty: 30 0RF sennosides [senna] 8.6 mg Tablet 8.6 mg PO DAILY PRN (Reason: Constipation) 30 Days Qty: 30 0RF polyethylene glycol 3350 [Miralax] 17 gram Powder In Packet 17 g PO DAILY PRN (Reason: Constipation) 30 Days Qty: 30 0RF oxybutynin chloride 10 mg Tablet Extended Release 24hr 10 mg PO DAILY 30 Days Qty: 30 0RF haloperidol decanoate [Haldol Decanoate] 100 mg/mL Solution 100 mg IM Q28D Qty: 1 0RF Rx Instructions: next dose due on 07/21/2022 loperamide 2 mg Tablet 2 mg PO Q12H PRN (Reason: Loose Stool) 30 Days Qty: 30 0RF Rx Instructions: administer after each loose stool until symptoms controlled; do not exceed 8 mg per 24 hrs guaifenesin 100 mg/5 mL Liquid 200 mg PO Q6H PRN (Reason: Cough) 30 Days Qty: 300 0RF diazepam 2 mg tablet 2 mg PO BID 30 Days Qty: 60 0RF mirtazapine 45 mg Tablet 45 mg PO BEDTIME 3 Days Qty: 3 0RF lisinopril 5 mg Tablet 5 mg PO DAILY 30 Days Qty: 30 0RF docusate sodium 100 mg Tablet 100 mg PO BEDTIME 30 Days Qty: 30 0RF budesonide-formoterol [Symbicort] 160-4.5 mcg/actuation Hfa Aerosol Inhaler 1 puff INHALATION BID 30 Days Qty: 1 0RF cranberry 450 mg Tablet 450 mg PO BID 30 Days Qty: 60 0RF Rx Instructions: administer with a meal Myrbetriq 25 mg Tablet Extended Release 24 Hr 25 mg PO BEDTIME Qty: 30 0RF clozapine [Clozaril] 25 mg tablet 50 mg PO BID levothyroxine 88 mcg tablet 75 mcg PO DAILY Gemtesa 75 mg tablet 75 mg PO DAILY Qty: 90 0RF Print Language: American
[2024-01-17 00:59] VITALS: BP 117/76; PULSE 86; RESP 18; TEMP 36.3; O2SAT 96
[2024-01-17 04:22] VITALS: BP 112/72; PULSE 83; RESP 18; TEMP 36.6; O2SAT 96
[2024-01-17 05:50] VITALS: BP 119/70; PULSE 87; RESP 16; TEMP 36.4; O2SAT 97
== END 2024-01-17 05:51 | disposition home or self-care (01) ==
PROVIDERS: Emergency Provider Emergency Medicine; PCP Hospitalist
DX: S62.637A Displaced fracture of distal phalanx of left little finger, initial encounter for closed fracture (principal); W23.0XXA Caught, crushed, jammed, or pinched between moving objects, initial encounter; Y93.89 Activity, other specified; Y92.129 Unspecified place in nursing home as the place of occurrence of the external cause; Y99.9 Unspecified external cause status
CPT/HCPCS: 29130; 73130; 99283; 99284

== ENCOUNTER 2025-01-23 00:57 | Inpatient (IN) | payer MEDICARE, MEDICAID, SELFPAY ==
[2025-01-23] VITALS (26 sets, daily range): BP systolic 42–138; BP diastolic 32–74; PULSE 80–101; RESP 18–27; TEMP 36.1–38.6; O2SAT 86–96; BMI 25.8
--- NOTE | 2025-01-23 | ECG_ITS ---
Test Reason : FALL Blood Pressure : */* mmHG Vent. Rate : 87 BPM Atrial Rate : 87 BPM P-R Int : 188 ms QRS Dur : 146 ms QT Int : 396 ms P-R-T Axes : 69 -51 71 degrees QTcB Int : 476 ms Normal sinus rhythm Right bundle branch block Left anterior fascicular block Bifascicular block Left ventricular hypertrophy with repolarization abnormality ( R in aVL , Romhilt-Sullivan ) Cannot rule out Septal infarct (cited on or before 14-Jul-2022) Abnormal ECG When compared with ECG of 14-Jul-2022 13:28, Fusion complexes are no longer Present Questionable change in initial forces of Septal leads Referred By: Floersita Greenwood Electronically Signed By: Kennedy Kelly
--- NOTE | ~2025-01-23 | CT_ITS ---
CLINICAL HISTORY: fall, head strike CT head without contrast Comparison: None provided Findings: No intra-axial mass, midline shift, hydrocephalus, or acute hemorrhage. Nonspecific white matter hypodensity is present with moderate volume loss. Bilateral maxillary sinus mucosal thickening is present. Mastoid air cells are clear. The orbits are unremarkable. No skull fracture. IMPRESSION: 1. No acute intracranial findings. This document has been electronically signed by: Judson Su MD, PHD on 01/23/2025 02:52:09
--- NOTE | ~2025-01-23 | CT_ITS ---
CLINICAL HISTORY: sepsis CT chest with contrast Comparison: None provided Findings: Small bilateral pleural effusions with bilateral atelectasis and/or consolidation of the lung bases. Mild emphysematous changes and scarring noted. No pneumothorax. Calcified and noncalcified plaque involving the tortuous aorta and its branches with average origin of the right subclavian artery, with retroesophageal course. Imaged esophagus is mildly patulous. Small mediastinal and hilar nodes are nonspecific and likely reactive. Mild mediastinal fluid and small pericardial effusion. Mild cardiomegaly. Mild imaged rib deformities appear old/chronic. Please refer to separate report for included imaged abdomen without normal appearance of the large intestine. Mild vertebral height losses appear old/chronic and accentuated by Schmorl's nodes. Endplate changes are multifocal. Degenerative changes also include imaged left shoulder. IMPRESSION: 1. Small pleural effusions with bibasilar atelectasis and/or consolidation. Please consider attention on follow-up to ensure resolution. 2. Please refer to separate report for included abdomen. This document has been electronically signed by: Ramu Cabral MD on 01/24/2025 21:01:18
--- NOTE | ~2025-01-23 | XR_ITS ---
CLINICAL HISTORY: hypotension 1 view chest x-ray Comparison: None provided Findings: Mild streaky left basilar subsegmental atelectasis or infiltrate. Heart size is normal. No acute fracture. IMPRESSION: Mild streaky left basilar subsegmental atelectasis or infiltrate. This document has been electronically signed by: Judson Su MD, PHD on 01/23/2025 04:21:54
--- NOTE | ~2025-01-23 | CT_ITS ---
CLINICAL HISTORY: fall, head strike, AMS CT cervical spine without contrast Comparison: None provided Findings: There is straightening of the normal cervical lordosis. Moderate multilevel cervical spine degenerative changes are present. No acute fractures or dislocations. No acute findings on limited view of the intracranial contents. Soft tissues of the neck are normal. Lung apices are clear. IMPRESSION: No acute findings. This document has been electronically signed by: Judson Su MD, PHD on 01/23/2025 02:52:14
--- NOTE | ~2025-01-23 | CT_ITS ---
CLINICAL HISTORY: sepsis CT abdomen and pelvis with contrast Comparison: None provided Findings: Mild bibasilar atelectasis and/or scarring. Small trace bilateral pleural effusions. Free fluid in the abdomen and pelvis is nonspecific. Differential considerations include ascites. Infected fluid is not excluded by imaging. Mild fat deposition of the liver. Periportal edema suggested with mild biliary ductal dilatation. Gallbladder wall thickening is mild and nonspecific. Adrenal glands are within limits of normal. Filtered contrast could obscure stones in the kidneys, renal collecting systems, ureters, and base of the urinary bladder. The spleen is nonenlarged. Mild-moderate volume loss of the pancreas noted. Mild pancreatitis also considered. Nonenlarged lymphadenopathy by CT. Abnormal appearance of the bowel is favored to represent diffuse and severe colitis with featureless large intestine, bowel wall thickening, air-fluid levels, and mild distention of the large intestine, including sigmoid colon. Rectal tube and/or dense opacities partially imaged in the rectum. The appendix is not definitively seen. No definite small bowel obstruction. Mesenteric fluid in the additional mild bowel edema is nonspecific. Uterus deviates to the right, is anteverted, and with 1 cm calcification of the likely fibroid. No adnexal soft tissue mass by CT with likely noncalcified 1.6 cm fibroid in the right side of the dome of the uterus. Gas in the urinary bladder is nonspecific and can be seen with Brewer catheter placement or recent instrumentation. Multilevel vertebral height losses appear old/chronic. Lucencies of the iliac bones appear nonaggressive and potentially due to hemangiomas are intraosseous lipomas. Metastasis is considered less likely by CT at this time. IMPRESSION: 1. Abnormal appearance of the large intestine concerning for diffuse colitis. 2. Mild free fluid in the abdomen pelvis nonspecific and may reflect ascites. This document has been electronically signed by: Ramu Cabral MD on 01/24/2025 20:54:44
[2025-01-23] MEDS: Lactated Ringers 1,000 ML 999 ML IV ×5 (01:53→09:53)
--- NOTE | 2025-01-23 01:58 | PC.NURSE ---
bilateral 20g IV LAC/RAC. 1L NS given by EMS, 1L LR infusing now, BP 71/37, pt in trendelenburg position at this time. tolerating well. pt A/O x3, repeating that she is cold and wants the collar off. awaiting CT/XR/lab results.
[2025-01-23 01:59] LABS: Hematocrit 35.8 % (37.0-47.0); Hemoglobin 11.3 g/dl (12.0-16.0); Imm Gran Abs Auto 0.07 X10*3/uL (0.00-0.03); Imm Gran Pct Auto 0.4 % (0.0-0.4); Lymphocytes Absolute Auto 1.5 X10*3/uL (1.2-4.9); MANUAL DIFF FLAG NO; Mean Corpuscular HGB Conc 31.6 g/dl (31.0-35.0); Mean Corpuscular Hemoglobin 29.4 pg (27.0-33.0); Mean Corpuscular Volume 93.0 fL (80.0-98.0); NRBC Abs Auto 0.000 X10*3/uL (0.0-0.012); NRBC Pct Auto 0.0 /100WBC (0.0-0.2); Platelet Count 270 X10*3/uL (160-400); Red Blood Count 3.85 X10*6/uL (4.20-5.50); White Blood Count 17.1 X10*3/uL (4.8-10.8)
[2025-01-23 02:00] LABS: Venous Blood Gas Refer to POC result
[2025-01-23 02:03] LABS: VBG HCO3 24 mmol/L (22-26); VBG O2 % Saturation 59.0 %
[2025-01-23 02:18] LABS: NT Pro B Type Natriuretic Pept 392.4 pg/mL (<300); Troponin-I High Sensitivity 19.4 ng/L (<3.5-17.0)
[2025-01-23 02:20] LABS: Alanine Aminotransferase 6 U/L (0-31); Albumin Level 3.5 g/dL (3.5-5.0); Anion Gap 14 (12-20); Aspartate Amino Transferase 28 U/L (5-31); Blood Urea Nitrogen 21 mg/dL (9-16); Calcium 10.2 mg/dL (8.4-10.2); Carbon Dioxide 22 mmol/L (22-29); Chloride 112 mmol/L (96-108); Creatinine Clr Calc Pharmacy 44.6; Estimated Glomerular Filt Rate 44; Magnesium 2.1 mg/dL (1.6-2.6); Potassium 4.1 mmol/L (3.3-5.1); Sodium 144 mmol/L (135-145); Total Protein 5.5 g/dL (6.5-8.0)
[2025-01-23 02:24] LABS: Alkaline Phosphatase 78 U/L (39-117)
[2025-01-23 02:31] LABS: INTERNATIONAL NORM RATIO 0.9 (0.9-1.1); Prothrombin Time 10.5 SEC (10.9-12.4)
--- NOTE | 2025-01-23 02:38 | ED_ITS ---
HPI - Fall General Chief Complaint: Fall Stated Complaint: FALL Time Seen by Provider: 01/23/25 01:20 Source: patient, EMS, RN notes reviewed and old records reviewed Mode of arrival: EMS Limitations: altered mental status History of Present Illness ED Provider: Dr. Floresita Greenwood HPI Narrative: 69-year-old female presenting via EMS from the [facility] where she is currently a resident with reported fall that was unwitnessed. Patient reports that she fell while she was feeling dizzy. Reported head strike and loss of consciousness. Unknown downtime. Patient has a history of neurodegenerative cognitive impairment and is unable to give much history. Does admit to having recent episodes of diarrhea but otherwise denies fever, headache, chest pain, difficulty breathing, abdominal pain, vomiting, urinary complaints, lower extremity edema or pain, injury elsewhere, known sick contacts or travel. She has no skin rashes. No recent hospitalization or antibiotic use. Related Data Home Medications ?Medication ?Instructions ?Recorded ?Confirmed clozapine 25 mg tablet (Clozaril) 25 mg PO BID 3 01/23/25 acetaminophen 325 mg tablet 650 mg PO Q6H PRN Pain 01/23/25 bisacodyl 10 mg rectal suppository 10 mg MD DAILY PRN Constipation 01/23/25 01/23/25 calcium 600 mg (as 1 tab PO DAILY 01/23/2501/09 carbonate)-vitamin D3 5 mcg (200 unit) tablet citalopram 10 mg tablet 5 mg PO DAILY 01/23/2501/23 clozapine 25 mg tablet 50 mg PO BID 01/23/25 hydroxyzine HCl 50 mg tablet 50 mg PO BEDTIME 01/23/25 01/23/25 levothyroxine 50 mcg tablet 50 mcg PO DAILY@0600 01/2301/23/25 oxcarbazepine 150 mg tablet 75 mg PO BID 01/23/2501/09 (Trileptal) oxcarbazepine 150 mg tablet 150 mg PO BID 01/23/25 (Trileptal) phenyleph-shark liver 1 appl MD Q8H PRN Hemorrhoid s 01/23/25 01/23/25 ytb-[id number]-ifr rectal cream sodium phosphates 19 gram-7 118 ml MD DAILY PRN Consti pation 01/23/25 01/23/25 gram/118 mL enema (Fleet Enema) sodium phosphates 19 gram-7 118 ml MD DAILY PRN Consti pation 01/23/25 01/23/25 gram/118 mL enema (Fleet Enema) Previous Rx's ?Medication ?Instructions ?Recorded albuterol sulfate 90 mcg/actuation 2 puff inhalation Q 6H PRN 07/16/22 aerosol inhaler Shortness Of Breath #6.7 gra ms aspirin 81 mg tablet,delayed 81 mg PO DAILY 30 days #3 0 tabs 07/16/22 release atorvastatin 20 mg tablet 20 mg PO BEDTIME 30 days #30 tabs 07/16/22 budesonide-formoterol HFA 160 1 puff inhalation BID 30 days #1 g 07/16/22 mcg-4.5 mcg/actuation aerosol inhaler (Symbicort) cholecalciferol (vitamin D3) 25 25 mcg PO DAILY 30 day s #30 tabs 07/16/22 mcg (1,000 unit) tablet (Vitamin D3) cranberry fruit 450 mg tablet 450 mg PO BID 30 days #6 0 tabs 07/16/22 (cranberry) diazepam 2 mg tablet 2 mg PO BID 30 days #60 tabs 07/16/22 docusate sodium 100 mg tablet 100 mg PO BEDTIME 30 day s #30 tabs 07/16/22 guaifenesin 100 mg/5 mL oral liquid 200 mg (10 mL) PO Q6H PRN Cough 30 07/16/22 days #300 mL haloperidol decanoate 100 mg/mL 100 mg IM Q28D #1 mL 0 07/16/22 intramuscular solution (Haldol Decanoate) lisinopril 5 mg tablet 5 mg PO DAILY 30 days #30 ta bs 07/16/22 loperamide 2 mg tablet 2 mg PO Q12H PRN Loose Stool 30 07/16/22 days #30 tabs mirtazapine 45 mg tablet 45 mg PO BEDTIME 3 days #3 t abs 07/16/22 polyethylene glycol 3350 17 gram 17 g PO DAILY PRN Con stipation 30 07/16/22 oral powder packet (Miralax) days #30 ea sennosides 8.6 mg tablet (senna) 8.6 mg PO DAILY PRN C onstipation 07/16/22 30 days #30 tabs vibegron 75 mg tablet (Gemtesa) 75 mg PO DAILY #90 tab s 01/06/23 Allergies Allergy/AdvReac Type Severity Reaction Status Date / Time tuberculin, purified protein Allergy Mild Rash Verified 01/23/25 01:19 deriva duloxetine (Cymbalta) Allergy Unknown rash Verified 01/23/25 01:19 Thorazine Allergy Unknown rash Uncoded 01/23/25 01:19 [facility] Past Medical History Medical History Myopia Hypothyroidism Schizoaffective disorder Full incontinence of feces COPD (chronic obstructive pulmonary disease) Urgency incontinence Stress incontinence Social History Social History Household Members: Other Housing: Other Housing Other:: [facility] Do you presently have visiting nurse or other home services: No Alcohol intake: never Patient Tobacco Use Status: Former Tobacco user Currently Displaying Signs/Symptoms of Drug Intoxication Withdrawal: No Advance Directives: Yes Advance Directives on File: Yes Advance Directives Date on File: 06/27/21 Patient : No service: No Sexual orientation: Straight/Heterosexual Physical Exam 2 Exam: Exam: GENERAL: Uncomfortable-Appearing, withdrawn, mild distress due to pain. SKIN: Normal skin color for ethnicity, warm, dry, intact, no rashes noted. HEENT:? Normocephalic, atraumatic, no stridor, airway patent, no raccoon's eyes, no Vazquez sign, dentition intact, EOMI. NECK: Soft, supple, full ROM, midline structures nontender, no step-offs, no deformities, no lymphadenopathy. CHEST: Heart regular rate and rhythm, no murmurs, symmetric chest rise and fall, no crepitus. PULMONARY: Clear to auscultation bilaterally, no labored breathing, no wheezes/rhales/rhonchi. ABDOMINAL: Soft, nondistended, nontender, hyperactive bowel sounds in all quadrants. : Deferred. MUSCULOSKELETAL: Normal tone, full range of motion, no deformities, no contusions, hypertonicity of the bilateral trapezius musculature. NEURO: Alert and oriented x3, CN II through XII intact, equal strength and sensation bilateral upper and lower extremities, no focal neurologic deficits.? PSYCHIATRIC: Flat affect, hesitant speech, poor eye contact and withdrawn Vital Signs: Vital Signs: Last Vital Signs Temp 99.2 F 01/24/25 01:54 Pulse 93 01/23/25 23:18 Resp 18 01/23/25 23:18 BP 100/62 01/23/25 23:34 Pulse Ox 92 01/23/25 23:18 O2 Del Method Room Air 01/23/25 19:11 BMI result Body Mass Index 25.8 Medications Administered Generic Name Dose Route Start Last Admin Trade Name Freq PRN Reason Stop Dose Admin Acetaminophen 650 mg 01/23/25 18:36 01/23/25 19:17 Acetaminophen 325 Mg Tablet PO 650 mg Q6H PRN Administration Fever >101 Clozapine 50 mg 01/23/25 21:00 01/23/25 20:50 Clozapine 25 Mg Tablet PO 50 mg BID COREEN Administration Clozapine 25 mg 01/23/25 21:00 01/23/25 20:50 Clozapine 25 Mg Tablet PO 25 mg BID COREEN Administration Heparin Sodium (Porcine) 5,000 unit 01/23/25 08:00 01/23/25 23:11 Heparin Sodium,Porcine 5,000 Unit/Ml Vial SUBCUT 5,000 unit Q8H COREEN Administration Levofloxacin 750 mg in 150 mls @ 100 mls/hr 01/23/25 10:45 01/23/25 13:31 Levaquin IV Infused Q24H COREEN Infusion Mirtazapine 45 mg 01/23/25 21:00 01/23/25 20:49 Mirtazapine 15 Mg Tablet PO 45 mg BEDTIME COREEN Administration Oxcarbazepine 75 mg 01/23/25 21:00 01/23/25 20:49 Oxcarbazepine 150 Mg Tablet PO 75 mg BID COREEN Administration Oxcarbazepine 150 mg 01/23/25 21:00 01/23/25 20:49 Oxcarbazepine 150 Mg Tablet PO 150 mg BID COREEN Administration Discontinued Medications Generic Name Dose Route Start Last Admin Trade Name Freq PRN Reason Stop Dose Admin Acetaminophen 650 mg 01/23/25 06:34 01/23/25 06:42 Acetaminophen 325 Mg Tablet PO 01/23/25 06:35 650 mg ONCE ONE Administration Lactated Ringer's 1,000 mls @ 999 mls/hr 01/23/25 01:32 01/23/25 02:25 Lr IV 01/23/25 02:32 Infused .Q1H1M ONE Infusion Lactated Ringer's 1,000 mls @ 999 mls/hr 01/23/25 02:22 01/23/25 03:24 Lr IV 01/23/25 03:22 Infused .Q1H1M ONE Infusion Piperacillin Sod/Tazobactam 100 mls @ 200 mls/hr 01/23/25 02:34 01/23/25 03:13 Sod 4.5 gm/ Sodium Chloride IV 01/23/25 03:03 Infused ONCE ONE Infusion Vancomycin HCl 1,000 mg/ 535 mls @ 267.5 mls/hr 01/23/25 03:00 01/23/25 07:24 Vancomycin HCl 750 mg/ Sodium IV 01/23/25 04:59 Infused Chloride ONCE ONE Infusion Norepinephrine Bitartrate 8 mg in 250 mls @ 0 mls/hr 01/23/25 04:00 01/23/25 08:39 Levophed IVCONT Infused .Q0M COREEN Titration Protocol Per Protocol Lactated Ringer's 1,000 mls @ 150 mls/hr 01/23/25 05:30 01/23/25 08:40 Lr IVCONT Infused .Q6H40M COREEN Infusion Albumin Human 100 mls @ 133.333 mls/hr 01/23/25 05:30 01/23/25 08:02 Kedbumin 25 % IV 01/23/25 07:14 Infused Q1H COREEN Infusion Lactated Ringer's 1,000 mls @ 999 mls/hr 01/23/25 06:00 01/23/25 07:24 Lr IV 01/23/25 07:00 Infused .Q1H1M COREEN Infusion Lactated Ringer's 1,000 mls @ 999 mls/hr 01/23/25 08:45 01/23/25 11:21 Lr IV 01/23/25 10:45 Infused .Q1H1M COREEN Infusion Ibuprofen 600 mg 01/23/25 23:00 01/23/25 23:10 Ibuprofen 200 Mg Tablet PO 01/23/25 23:01 600 mg ONCE ONE Administration Medical Decision Making Medical Decision Making MDM Narrative: 69-year-old female with a history of neurodegenerative disorder and schizoaffective disorder presenting after a fall that occurred at the long term. She is hypotensive upon arrival to the emergency department. Differential diagnosis includes acute traumatic injury, spinal shock, hemorrhagic shock, cardiogenic shock, septic shock, electrolyte abnormality, renal failure, among others. Patient arrives to the Emergency Department rather hypotensive, requiring IV fluid administration which she responded to appropriately initially however, ultimately required vasopressors. She did receive more than a 30 cc/kg fluid bolus on arrival to the ED. She was afebrile and did not flag for sepsis until her WBC came back at greateer than 17. Sepsis protocal then initiated at about 0230. Ordered vancomycin and zosyn empirically. Initial lactic acid level is significantly elevated at 4.0 flagging her for severe sepsis. Patient then had a large watery very foul-smelling bowel movement shortly after being transfused about 3 L of LR. Stool studies sent. Likely source c.diff or other infectious diarrhea. Patient continues to mentate appropriately. States that she feels better after the bowel movement and does not feel as though she has to go again. She remains on vasopressor support. Will admit to intensive care unit for further care evaluation. 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 01/23/25 01:51 01/23/25 18:22 Labs: Lab Results 01/23/25 01/23/25 01/23/25 Range/Units 01:51 01:58 03:04 WBC 17.1 H (4.8-10.8) X10*3/uL RBC 3.85 L (4.20-5.50) X10*6/uL Hgb 11.3 L (12.0-16.0) g/dl Hct 35.8 L (37.0-47.0) % MCV 93.0 (80.0-98.0) fL MCH 29.4 (27.0-33.0) pg MCHC 31.6 (31.0-35.0) g/dl RDW 13.3 (11.0-16.0) % Plt Count 270 (160-400) X10*3/uL MPV 11.3 (9.4-12.3) fL Immature Gran % (Auto) 0.4 (0.0-0.4) % Neut % (Auto) 84.9 H (45-73) % Lymph % (Auto) 8.8 L (20-40) % [place] % (Auto) 5.4 (2-11) % Eos % (Auto) 0.1 (0-4) % Baso % (Auto) 0.4 (0-2) % Lymph # (Auto) 1.5 (1.2-4.9) X10*3/uL [place] # (Auto) 0.9 (0.1-1.2) X10*3/uL Eos # (Auto) 0.0 (0.0-0.4) X10*3/uL Baso # (Auto) 0.1 (0.0-0.2) X10*3/uL Abs Immat Gran (auto) 0.07 H (0.00-0.03) X10*3/uL Absolute Neuts (auto) 14.5 H (2.0-8.3) x10*3/uL Absolute Nucleated RBC 0.000 (0.0-0.012) X10*3/uL Nucleated RBC % (auto) 0.0 (0.0-0.2) /100WBC PT 10.5 L (10.9-12.4) SEC INR 0.9 (0.9-1.1) VBG pH 7.26 L (7.32-7.43) VBG pCO2 54 mmHg VBG pO2 46 mmHg VBG HCO3 24 (22-26) mmol/L VBG O2 Saturation 59.0 % VBG Base Excess -2.9 mmol/L Sodium 144 (135-145) mmol/L Potassium 4.1 (3.3-5.1) mmol/L Chloride 112 H (96-108) mmol/L Carbon Dioxide 22 (22-29) mmol/L Anion Gap 14 (12-20) BUN 21 H (9-16) mg/dL Creatinine 1.21 (0.5-1.4) mg/dL Estim Creat Clear Calc 44.6 Estimated GFR 44 Random Glucose 188 H (60-115) mg/dL Lactic Acid 3.1 H* (0.5-2.0) mmol/L Calcium 10.2 (8.4-10.2) mg/dL Magnesium 2.1 (1.6-2.6) mg/dL Total Bilirubin 0.2 (0.0-1.0) mg/dL AST 28 (5-31) U/L ALT 6 (0-31) U/L Alkaline Phosphatase 78 (39-117) U/L Troponin I High Sens 19.4 H (<3.5-17.0) ng/L NT-Pro-B Natriuret Pep 392.4 H (<300) pg/mL Total Protein 5.5 L (6.5-8.0) g/dL Albumin 3.5 (3.5-5.0) g/dL TSH 1.10 (0.32-4.0) uIU/mL Urine Color Yellow Urine Appearance Clear Urine pH 5.5 (5.0-9.0) Ur Specific [place] 1.020 (1.005-1.025) Urine Protein 30 (1+) H (Neg-Trace) mg/dL Urine Glucose (UA) Negative (Negative) mg/dL Urine Ketones Negative (Negative) mg/dL Urine Blood Negative (Negative) Urine Nitrite Negative (Negative) Ur Leukocyte Esterase Trace H (Negative) Urine RBC 0-2 (0-2) /HPF Urine WBC 0-5 (0-5) /HPF Ur Squamous Epith Cells 0-2 (0-2) /HPF Calcium Oxalate Crystal Present Urine Bacteria None Seen (None Seen) Hyaline Casts 6-10 (0-2) /LPF Independent Interpretation I performed an independent interpretation of an: EKG and Plain X-Ray Interpretation: My independent interpretation of the chest x-ray reveals no consolidations, pulmonary edema, pleural effusion, pneumothorax, obvious bony abnormalities. My independent interpretation of the ECG reveals normal sinus rhythm with rate of 87, normal axis, right bundle branch block, left anterior fascicular block, LVH, QRS 476, no ST elevations or depressions to suggest ischemic changes, relatively unchanged from previous on 07/14/2022. Radiology Impression Discussion of test interpretation with radiology: I have reviewed the radiologist's reading. Independent Historian Clinical information obtained from an independent historian. History obtained from or confirmed by: EMS External Record Review External record reviewed: Inpatient record and Outpatient record Chronic Conditions Patient?s care impacted by: Other (Schizoaffective disorder, cognitive impairment) Social Determinants Patient?s care significantly limited by Social Determinants of Health including: Other Social Determinant of Health Critical Care Time Critical Care Time Critical Care Time: Yes Total Critical Care Time: 55 Attestation: CRITICAL CARE TIME: 55 minutes of critical care time was spent in direct patient care at the bedside or in the immediate area with this patient. Critical care was necessary to treat or prevent imminent or life-threatening deterioration of the following conditions septic shock, hypovolemic shock due to likely C diff infection. This patient is high risk for decompensation and/or . This time was spent assessing and managing the patient, interpreting labs and imaging, coordinating care with other medical providers, gathering history from either the patient, their representatives, EMS or chart review, and discussing management with ICU team. Discharge Plan Discharge Clinical Impression: Septic shock, Watery diarrhea, Unwitnessed fall, Closed head injury, Acidosis, lactic Patient Disposition: Admitted As Inpatient Interventions: Admission Worksheet (ED) Last Done: 01/23/25 05:49 Discharge Date/Time: 01/23/25 05:50
[2025-01-23 03:14] LABS: Appearance Urine Clear; Glucose Urine UA Negative (Negative); PH 5.5 (5.0-9.0); Specific Gravity - Urine 1.020 (1.005-1.025); UMIC TRIGGER UACC YES
[2025-01-23] MEDS: vancomycin HCL 1,000 MG, vancomycin HCL 750 MG in 0.9 % Sodium Chloride 500 ML 267.5 MG IV (03:16)
--- NOTE | 2025-01-23 03:21 | PC.NURSE ---
collar removed by . temp sensing 16f hagen placed, pt tolerated well, UA sent. current BP 91/40, 3L of IVF given at this time. MAP 57.no new orders at this time. IV ABX infusing. pt resting comfortably, call toth w/in reach
[2025-01-23 03:57] LABS: Reflex Lactate? Lactic Acid Added
--- NOTE | 2025-01-23 04:09 | PC.NURSE ---
pharmacy called to verify levophed
--- NOTE | 2025-01-23 05:17 | PC.NURSE ---
LOUISE Arias went in for lab draw, found pt incont of large amount of watery foul smelling stool, pouring off the bed. complete bed bath, samples collected. LACTIC delayed
--- OUTSIDE RECORDS SUMMARY | 2025-01-23 05:21 | XMS_ITS | Encounter Summary ---
Author Organization [facility] Address [address] [place] [address] Care Team Providers Care Fish Processor Name Role Phone David Bowles MD Primary Care Provider [phone] Encounter Details Date Type Department Care Team (Latest Contact Info) Description 06/18/2024 Lab Requisition [facility] - Main Lab [address] [place] [address] David Bowles MD [address] [place] [address] [address] [place] Schizoaffective disorder, unspecified (CMS/HCC V24, CMS/HCC V28) Social History Tobacco Use Types Packs/Day Years Used Date Smoking Tobacco: Never Assessed Comments Unknown Sex and Gender Information Value Date Recorded Sex Assigned at Not on file Legal Sex Female 2:13 AM EST Gender Identity Not on file Sexual Orientation Not on file documented as of this encounter Plan of Treatment Not on file documented as of this encounter Procedures Procedure Name Priority Date/Time Associated Diagnosis Comments CBC WITH AUTO DIFFERENTIAL Routine 06/18/2024 7:00 AM EDT Schizoaffective disorder, unspecified (CMS/HCC) CBC AND DIFFERENTIAL Routine 06/18/2024 7:00 AM EDT Schizoaffective disorder, unspecified (CMS/HCC) documented in this encounter Results * (ABNORMAL) CBC auto differential (06/18/2024 7:00 AM EDT) WBC 8.6 4.8 - 10.8 K/[facility] LAB HEMETOLOGY METHOD 06/18/2024 8:18 AM EDT [facility] RBC 4.00 3.80 - 4.80 M/[facility] LAB HEMETOLOGY METHOD 06/18/2024 8:18 AM EDT [facility] Hemoglobin 11.6 11.5 - 16.0 g/dL LAB HEMETOLOGY METHOD 06/18/2024 8:18 AM T [facility] Hematocrit 36.3 35.0 - 47.0 % LAB HEMETOLOGY METHOD 06/18/2024 8:18 AM [facility] MCV 90.8 79.0 - 98.0 FL LAB HEMETOLOGY METHOD 06/18/2024 8:18 AM T [facility] MCH 29.0 27.0 - 32.0 pcg LAB HEMETOLOGY METHOD 06/18/2024 8:18 AM T [facility] MCHC 32.0 32.0 - 37.0 g/dL LAB HEMETOLOGY METHOD 06/18/2024 8:18 AM [facility] RDW 13.5 11.0 - 15.0 % LAB HEMETOLOGY METHOD 06/18/2024 8:18 AM [facility] Platelets 266 130 - 400 K/mcL LAB HEMETOLOGY METHOD 06/18/2024 8:18 AM [facility] MPV 12.0(H) 7.0 - 11.0 FL LAB HEMETOLOGY METHOD 06/18/2024 8:18 AM [facility] NRBC 0.0 <1.0 % LAB HEMETOLOGY METHOD 06/18/2024 8:18 AM [facility] NRBC Absolute 0.00 <0.10 K/mcL LAB HEMETOLOGY METHOD 06/18/2024 8:18 AM [facility] Neutrophils Relative 55.0 % LAB HEMETOLOGY METHOD 06/18/2024 8:18 AM [facility] Lymphocytes Relative 33.8 % LAB HEMETOLOGY METHOD 06/18/2024 8:18 AM [facility] Monocytes Relative 8.3 % LAB HEMETOLOGY METHOD 06/18/2024 8:18 AM EDT [facility] Eosinophils Relative 2.0 % LAB HEMETOLOGY METHOD 06/18/2024 8:18 AM EDT [facility] Basophils Relative 0.6 % LAB HEMETOLOGY METHOD 06/18/2024 8:18 AM EDT [facility] Immature Granulocytes Relative 0.3 % LAB HEMETOLOGY METHOD 06/18/2024 8:18 AM EDT [facility] Neutrophils Absolute 4.72 1.50 - 7.00 K/mcL LAB HEMETOLOGY METHOD 06/18/2024 8:18 AM EDT [facility] Lymphocytes Absolute 2.90 1.00 - 5.00 K/mcL LAB HEMETOLOGY METHOD 06/18/2024 8:18 AM EDT [facility] Monocytes Absolute 0.71 0.20 - 1.00 K/mcL LAB HEMETOLOGY METHOD 06/18/2024 8:18 AM EDT [facility] Eosinophils Absolute 0.17 0.00 - 0.50 K/mcL LAB HEMETOLOGY METHOD 06/18/2024 8:18 AM EDT [facility] Basophils Absolute 0.05 0.00 - 0.20 K/mcL LAB HEMETOLOGY METHOD 06/18/2024 8:18 AM EDT [facility] Immature Granulocytes Absolute 0.03 0.00 - 0.03 K/mcL LAB HEMETOLOGY METHOD 06/18/2024 8:18 AM EDT [facility] Blood Venous blood specimen / Unknown 06/18/2024 7:00 AM EDT 06/18/2024 8:02 AM EDT us David Bowles MD LAB BLOOD ORDERABLES Final Resul t [facility] [address] [place] [address], documented in this encounter Visit Diagnoses Diagnosis Schizoaffective disorder, unspecified (CMS/[facility] V24, [facility] V28) documented in this encounter Care Teams Fish Processor Relationship Specialty Start Date End Date David Bowles MD [address] [place] [address] Dr [address] [facility] PCP - General Internal Medicine 04/23/24 documented as of this encounter
--- OUTSIDE RECORDS SUMMARY | 2025-01-23 05:22 | XMS_ITS | Encounter Summary ---
Author Organization [facility] Address [address] [place] [address] Care Team Providers Care Java J2Ee Lead Name Role Phone David Bowles MD Primary Care Provider [phone] Encounter Details Date Type Department Care Team (Late st Contact Info) Description 03/20/2024 Lab Requisition [facility] [address] [place] [address] David Bowles MD [address] [place] [address] [address] [place] Chronic obstructive pulmonary disease, unspecified (CMS/HCC V24, CMS/HCC V28) Social History [...] Diagnosis Comments CBC WITH AUTO DIFFERENTIAL Routine 03/20/2024 6:42 AM EST Chronic obstructive pulmonary disease, unspecified (CMS/HCC) CBC AND DIFFERENTIAL Routine 03/20/2024 6:42 AM EST Chronic obstructive pulmonary disease, unspecified (CMS/HCC) documented in this encounter Results * (ABNORMAL) CBC auto differential (03/20/2024 6:42 AM EST) WBC 8.6 4.8 - 10.8 K/[facility] LAB HEMETOLOGY METHOD 03/20/2024 8:16 AM EST [facility] RBC 4.10 3.80 - 4.80 M/[facility] LAB HEMETOLOGY METHOD 03/20/2024 8:16 AM EST [facility] Hemoglobin 11.8 11.5 - 16.0 g/dL LAB HEMETOLOGY METHOD 03/20/2024 8:16 AM [facility] Hematocrit 37.8 35.0 - 47.0 % LAB HEMETOLOGY METHOD 03/20/2024 8:16 AM [facility] MCV 92.9 79.0 - 98.0 FL LAB HEMETOLOGY METHOD 03/20/2024 8:16 AM [facility] MCH 29.0 27.0 - 32.0 pcg LAB HEMETOLOGY METHOD 03/20/2024 8:16 AM [facility] MCHC 31.2(L) 32.0 - 37.0 g/dL LAB HEMETOLOGY METHOD 03/20/2024 8:16 AM [facility] RDW 13.4 11.0 - 15.0 % LAB HEMETOLOGY METHOD 03/20/2024 8:16 AM [facility] Platelets 251 130 - 400 K/mcL LAB HEMETOLOGY METHOD 03/20/2024 8:16 AM [facility] MPV 12.0(H) 7.0 - 11.0 FL LAB HEMETOLOGY METHOD 03/20/2024 8:16 AM [facility] NRBC 0.0 <1.0 % LAB HEMETOLOGY METHOD 03/20/2024 8:16 AM [facility] NRBC Absolute 0.00 <0.10 K/mcL LAB HEMETOLOGY METHOD 03/20/2024 8:16 AM [facility] Neutrophils Relative 62.2 % LAB HEMETOLOGY METHOD 03/20/2024 8:16 AM [facility] Lymphocytes Relative 27.7 % LAB HEMETOLOGY METHOD 03/20/2024 8:16 AM [facility] Monocytes Relative 7.8 % LAB HEMETOLOGY METHOD 03/20/2024 8:16 AM EST [facility] Eosinophils Relative 1.6 % LAB HEMETOLOGY METHOD 03/20/2024 8:16 AM [facility] Basophils Relative 0.5 % LAB HEMETOLOGY METHOD 03/20/2024 8:16 AM [facility] Immature Granulocytes Relative 0.2 % LAB HEMETOLOGY METHOD 03/20/2024 8:16 AM [facility] Neutrophils Absolute 5.35 1.50 - 7.00 K/mcL LAB HEMETOLOGY METHOD 03/20/2024 8:16 AM [facility] Lymphocytes Absolute 2.38 1.00 - 5.00 K/mcL LAB HEMETOLOGY METHOD 03/20/2024 8:16 AM [facility] Monocytes Absolute 0.67 0.20 - 1.00 K/mcL LAB HEMETOLOGY METHOD 03/20/2024 8:16 AM EST [facility] Eosinophils Absolute 0.14 0.00 - 0.50 K/mcL LAB HEMETOLOGY METHOD 03/20/2024 8:16 AM [facility] Basophils Absolute 0.04 0.00 - 0.20 K/mcL LAB HEMETOLOGY METHOD 03/20/2024 8:16 AM [facility] Immature Granulocytes Absolute 0.02 0.00 - 0.03 K/mcL LAB HEMETOLOGY METHOD 03/20/2024 8:16 AM [facility] Blood Venous blood specimen / Unknown 03/20/2024 6:42 AM EST 03/20/2024 7:39 AM EST us David Bowles MD LAB BLOOD ORDERABLES Final Resul t [facility] [address] [place] [address], documented in this encounter Visit Diagnoses Diagnosis Chronic obstructive pulmonary disease, unspecified (CMS/HCC V24, CMS/HCC V28) documented in this encounter Care Teams Java J2Ee Lead Relationship Specialty Start Date End Date David Bowles MD [address] [place] [address] Dr [address] [facility] PCP - General Internal Medicine 04/23/24 documented as of this encounter
--- OUTSIDE RECORDS SUMMARY | 2025-01-23 05:22 | XMS_ITS | Encounter Summary ---
Author Organization [facility] Address [address] [place] [address] Care Team Providers Care Industrial Relations Commissioner Name Role Phone David Bowles MD Primary Care Provider [phone] Encounter Details Date Type Department Care Team (Late st Contact Info) Description 04/23/2024 Lab Requisition [facility] - Main Lab [address] [facility] [place] [address] David Bowles MD [address] [place] [address] Dr [address] [place] Other intermediate frame tender (current) drug therapy; Hypothyroidism, unspecified; Altered mental status, unspecified; Schizoaffective disorder, unspecified (CMS/HCC V24, CMS/HCC V28) [...] Diagnosis Comments CBC WITH AUTO DIFFERENTIAL Routine 04/23/2024 6:34 AM EST Other intermediate frame tender (current) drug therapy Hypothyroidism, unspecified Altered mental status, unspecified Schizoaffective disorder, unspecified (CMS/HCC) CBC AND DIFFERENTIAL Routine 04/23/2024 6:34 AM EST Other fci (current) drug therapy Hypothyroidism, unspecified Altered mental status, unspecified Schizoaffective disorder, unspecified (CMS/HCC) HEMOGLOBIN A1C Routine 04/23/2024 6:34 AM EST Other intermediate frame tender (current) drug therapy Hypothyroidism, unspecified Altered mental status, unspecified Schizoaffective disorder, unspecified (CMS/HCC) COMPREHENSIVE METABOLIC PANEL Routine 04/23/2024 6:34 AM EST Other fci (current) drug therapy Hypothyroidism, unspecified Altered mental status, unspecified Schizoaffective disorder, unspecified (CMS/HCC) documented in this encounter Results * (ABNORMAL) CBC auto differential (04/23/2024 6:34 AM EST) WBC 7.4 4.8 - 10.8 K/mcL LAB HEMETOLOGY METHOD 04/23/2024 7:28 AM [facility] RBC 3.90 3.80 - 4.80 M/mcL LAB HEMETOLOGY METHOD 04/23/2024 7:28 AM [facility] Hemoglobin 11.3(L) 11.5 - 16.0 g/dL LAB HEMETOLOGY METHOD 04/23/2024 7:28 AM [facility] Hematocrit 36.0 35.0 - 47.0 % LAB HEMETOLOGY METHOD 04/23/2024 7:28 AM [facility] MCV 93.5 79.0 - 98.0 FL LAB HEMETOLOGY METHOD 04/23/2024 7:28 AM [facility] MCH 29.4 27.0 - 32.0 pcg LAB HEMETOLOGY METHOD 04/23/2024 7:28 AM [facility] MCHC 31.4(L) 32.0 - 37.0 g/dL LAB HEMETOLOGY METHOD 04/23/2024 7:28 AM [facility] RDW 13.5 11.0 - 15.0 % LAB HEMETOLOGY METHOD 04/23/2024 7:28 AM [facility] Platelets 257 130 - 400 K/mcL LAB HEMETOLOGY METHOD 04/23/2024 7:28 AM [facility] MPV 11.7(H) 7.0 - 11.0 FL LAB HEMETOLOGY METHOD 04/23/2024 7:28 AM [facility] NRBC 0.0 <1.0 % LAB HEMETOLOGY METHOD 04/23/2024 7:28 AM [facility] NRBC Absolute 0.00 <0.10 K/mcL LAB HEMETOLOGY METHOD 04/23/2024 7:28 AM [facility] Neutrophils Relative 58.0 % LAB HEMETOLOGY METHOD 04/23/2024 7:28 AM [facility] Lymphocytes Relative 31.3 % LAB HEMETOLOGY METHOD 04/23/2024 7:28 AM [facility] Monocytes Relative 7.7 % LAB HEMETOLOGY METHOD 04/23/2024 7:28 AM [facility] Eosinophils Relative 2.0 % LAB HEMETOLOGY METHOD 04/23/2024 7:28 AM [facility] Basophils Relative 0.7 % LAB HEMETOLOGY METHOD 04/23/2024 7:28 AM [facility] Immature Granulocytes Relative 0.3 % LAB HEMETOLOGY METHOD 04/23/2024 7:28 AM [facility] Neutrophils Absolute 4.30 1.50 - 7.00 K/mcL LAB HEMETOLOGY METHOD 04/23/2024 7:28 AM [facility] Lymphocytes Absolute 2.32 1.00 - 5.00 K/mcL LAB HEMETOLOGY METHOD 04/23/2024 7:28 AM [facility] Monocytes Absolute 0.57 0.20 - 1.00 K/mcL LAB HEMETOLOGY METHOD 04/23/2024 7:28 AM [facility] Eosinophils Absolute 0.15 0.00 - 0.50 K/mcL LAB HEMETOLOGY METHOD 04/23/2024 7:28 AM [facility] Basophils Absolute 0.05 0.00 - 0.20 K/mcL LAB HEMETOLOGY METHOD 04/23/2024 7:28 AM [facility] Immature Granulocytes Absolute 0.02 0.00 - 0.03 K/mcL LAB HEMETOLOGY METHOD 04/23/2024 7:28 AM EST [facility] Blood Venous blood specimen / Unknown 04/23/2024 6:34 AM EST 04/23/2024 7:11 AM EST us David Bowles MD LAB BLOOD ORDERABLES Final Resul t Performing Organization Address [facility] Co de Phone Number [facility] [address] [place] [address], [place] [phone] * Hemoglobin A1c (04/23/2024 6:34 AM EST) Pathologist [facility] Hemoglobin A1C 6.1 <6.5 % LAB CHEMISTRY METHOD 04/23/2024 1:59 PM EST [facility] Mean Bld Glu Estim. 128 mg/dL LAB CHEMISTRY METHOD 04/23/2024 1:59 PM EST [facility] Blood Venous blood specimen / Unknown 04/23/2024 6:34 AM EST 04/23/2024 7:11 AM EST us David Bowles MD LAB BLOOD ORDERABLES Final Resul t Performing Organization Address [facility] de Phone Number [facility] [address] [place] [address], [place] [phone] * (ABNORMAL) Comprehensive metabolic panel (04/23/2024 6:34 AM EST) Sodium 141 133 - 145 mmol/L LAB CHEMISTRY METHOD 04/23/2024 7:43 AM EST [facility] Potassium 4.2 3.5 - 5.5 mmol/L LAB CHEMISTRY METHOD 04/23/2024 7:43 AM EST [facility] Chloride 111(H) 96 - 110 mmol/L LAB CHEMISTRY METHOD 04/23/2024 7:43 AM EST [facility] CO2 27 21 - 32 mmol/L LAB CHEMISTRY METHOD 04/23/2024 7:43 AM [facility] Anion Gap 3 3 - 11 LAB CHEMISTRY METHOD 04/23/2024 7:43 AM [facility] Glucose 92 70 - 100 mg/dL LAB CHEMISTRY METHOD 04/23/2024 7:43 AM [facility] BUN 16 5 - 25 mg/dL LAB CHEMISTRY METHOD 04/23/2024 7:43 AM [facility] Creatinine 0.82 0.50 - 1.10 mg/dL LAB CHEMISTRY METHOD 04/23/2024 7:43 AM [facility] eGFR 78 >=60 mL/min/1. 73m2 LAB CHEMISTRY METHOD 04/23/2024 7:43 AM [facility] Comment:Calculation based on the Chronic Kidney Disease Epidemiology Collaboration (CKD-EPI) equation refit without adjustment for race. BUN/Creatinine Ratio 19.5 LAB CHEMISTRY METHOD 04/23/2024 7:43 AM [facility] Calcium 9.1 8.5 - 10.5 mg/dL LAB CHEMISTRY METHOD 04/23/2024 7:43 AM [facility] AST (SGOT) 11 10 - 42 unit/L LAB CHEMISTRY METHOD 04/23/2024 7:43 AM [facility] ALT (SGPT) 12 10 - 60 unit/L LAB CHEMISTRY METHOD 04/23/2024 7:43 AM [facility] Alkaline Phosphatase 92 42 - 121 unit/L LAB CHEMISTRY METHOD 04/23/2024 7:43 AM [facility] Total Protein 5.8(L) 6.0 - 8.0 g/dL LAB CHEMISTRY METHOD 04/23/2024 7:43 AM [facility] Albumin 3.4 3.2 - 5.0 g/dL LAB CHEMISTRY METHOD 04/23/2024 7:43 AM [facility] Total Bilirubin 0.3 0.0 - 1.4 mg/dL LAB CHEMISTRY METHOD 04/23/2024 7:43 AM EST [facility] Blood Venous blood specimen / Unknown 04/23/2024 6:34 AM EST 04/23/2024 7:11 AM EST us David Bowles MD LAB BLOOD ORDERABLES Final Resul t [facility] [address] [place] [address], documented in this encounter Visit Diagnoses Diagnosis Other fci (current) drug therapy Hypothyroidism, unspecified Altered mental status, unspecified Schizoaffective disorder, unspecified (CMS/HCC V24, CMS/HCC V28) documented in this encounter Care Teams Industrial Relations Commissioner Relationship Specialty Start Date End Date David Bowles MD [address] [place], [place] PCP - General Internal Medicine 04/23/24 documented as of this encounter
--- OUTSIDE RECORDS SUMMARY | 2025-01-23 05:22 | XMS_ITS | Encounter Summary ---
Author Organization [facility] Address [address] [place] [address] Care Team Providers Care Bartender Manager Name Role Phone David Bowles MD Primary Care Provider [phone] Encounter Details Date Type Department Care Team (Latest Contact Info) Description 06/20/2024 Lab Requisition [facility] - Main Lab [address] [facility] [place] [address] David Bowles MD [address] [place] [address] [address] [place] Schizoaffective disorder, unspecified (CMS/HCC V24, CMS/HCC V28); Hypothyroidism, unspecified; Essential (primary) hypertension; Other intermodal customer service (current) drug therapy; Pure hypercholesterolemia, unspecified Social History Tobacco Use Types Packs/Day Years [...] Procedure Name Priority Date/Time Associated Diagnosis Comments LIPID PANEL WITH REFLEX TO DIRECT LDL Routine 06/20/2024 6:46 AM EDT Schizoaffective disorder, unspecified Hypothyroidism, unspecified Essential (primary) hypertension Other intermodal customer service (current) drug therapy Pure hypercholesterolemi a, unspecified CBC WITH AUTO DIFFERENTIAL Routine 06/20/2024 6:46 AM EDT Schizoaffective disorder, unspecified Hypothyroidism, unspecified Essential (primary) hypertension Other intermodal customer service (current) drug therapy Pure hypercholesterolemi a, unspecified CBC AND DIFFERENTIAL Routine 06/20/2024 6:46 AM EDT Schizoaffective disorder, unspecified Hypothyroidism, unspecified Essential (primary) hypertension Other assisted (current) drug therapy Pure hypercholesterolemi a, unspecified THYROID STIMULATING HORMONE Routine 06/20/2024 6:46 AM EDT Schizoaffective disorder, unspecified Hypothyroidism, unspecified Essential (primary) hypertension Other assisted (current) drug therapy Pure hypercholesterolemi a, unspecified HEMOGLOBIN A1C Routine 06/20/2024 6:46 AM EDT Schizoaffective disorder, unspecified Hypothyroidism, unspecified Essential (primary) hypertension Other intermodal customer service (current) drug therapy Pure hypercholesterolemi a, unspecified COMPREHENSIVE METABOLIC PANEL Routine 06/20/2024 6:46 AM EDT Schizoaffective disorder, unspecified Hypothyroidism, unspecified Essential (primary) hypertension Other intermodal customer service (current) drug therapy Pure hypercholesterolemi a, unspecified documented in this encounter Results * (ABNORMAL) CBC auto differential (06/20/2024 6:46 AM EDT) [facility] WBC 8.0 4.8 - 10.8 K/mcL LAB HEMETOLOGY METHOD 06/20/2024 9:[address] [facility] RBC 3.90 3.80 - 4.80 M/mcL LAB HEMETOLOGY METHOD 06/20/2024 9:[address] [facility] Hemoglobin 11.5 11.5 - 16.0 g/dL LAB HEMETOLOGY METHOD 06/20/2024 9:[address] [facility] Hematocrit 36.7 35.0 - 47.0 % LAB HEMETOLOGY METHOD 06/20/2024 9:[address] [facility] MCV 93.6 79.0 - 98.0 FL LAB HEMETOLOGY METHOD 06/20/2024 9:[address] [facility] MCH 29.3 27.0 - 32.0 pcg LAB HEMETOLOGY METHOD 06/20/2024 9:[address] [facility] MCHC 31.3(L) 32.0 - 37.0 g/dL LAB HEMETOLOGY METHOD 06/20/2024 9:[address] [facility] RDW 13.9 11.0 - 15.0 % LAB HEMETOLOGY METHOD 06/20/2024 9:[address] [facility] Platelets 266 130 - 400 K/mcL LAB HEMETOLOGY METHOD 06/20/2024 9:[address] [facility] MPV 12.1(H) 7.0 - 11.0 FL LAB HEMETOLOGY METHOD 06/20/2024 9:[address] [facility] NRBC 0.0 <1.0 % LAB HEMETOLOGY METHOD 06/20/2024 9:[address] [facility] NRBC Absolute 0.00 <0.10 K/mcL LAB HEMETOLOGY METHOD 06/20/2024 9:[address] [facility] Neutrophils Relative 60.9 % LAB HEMETOLOGY METHOD 06/20/2024 9:[address] [facility] Lymphocytes Relative 25.6 % LAB HEMETOLOGY METHOD 06/20/2024 9:[address] [facility] Monocytes Relative 9.5 % LAB HEMETOLOGY METHOD 06/20/2024 9:[address] [facility] Eosinophils Relative 2.8 % LAB HEMETOLOGY METHOD 06/20/2024 9:[address] [facility] Basophils Relative 0.8 % LAB HEMETOLOGY METHOD 06/20/2024 9:[address] [facility] Immature Granulocytes Relative 0.4 % LAB HEMETOLOGY METHOD 06/20/2024 9:[address] [facility] Neutrophils Absolute 4.87 1.50 - 7.00 K/mcL LAB HEMETOLOGY METHOD 06/20/2024 9:[address] [facility] Lymphocytes Absolute 2.04 1.00 - 5.00 K/mcL LAB HEMETOLOGY METHOD 06/20/2024 9:04 AM EDT [facility] Monocytes Absolute 0.76 0.20 - 1.00 K/[facility] LAB HEMETOLOGY METHOD 06/20/2024 9:04 AM EDT [facility] Eosinophils Absolute 0.22 0.00 - 0.50 K/[facility] LAB HEMETOLOGY METHOD 06/20/2024 9:04 AM EDT [facility] Basophils Absolute 0.06 0.00 - 0.20 K/[facility] LAB HEMETOLOGY METHOD 06/20/2024 9:04 AM EDT [facility] Immature Granulocytes Absolute 0.03 0.00 - 0.03 K/[facility] LAB HEMETOLOGY METHOD 06/20/2024 9:04 AM EDT [facility] Blood Venous blood specimen / Unknown 06/20/2024 6:46 AM EDT 06/20/2024 7:36 AM EDT us David Bowles MD LAB BLOOD ORDERABLES Final Resul t Performing Organization Address City/[facility]/ZIP Co de Phone Number [facility] [address] [place] [address], [place] [phone] * Thyroid stimulating hormone (06/20/2024 6:46 AM EDT) TSH 0.41 0.40 - 4.00 mcIU/mL LAB CHEMISTRY METHOD 06/20/2024 5:26 PM EDT [facility] Blood Venous blood specimen / Unknown 06/20/2024 6:46 AM EDT 06/20/2024 7:36 AM EDT us David Bowles MD LAB BLOOD ORDERABLES Final Resul t [facility] [address] [place] [address], [place] [phone] * Hemoglobin A1c (06/20/2024 6:46 AM EDT) Hemoglobin A1C 6.1 <6.5 % LAB CHEMISTRY METHOD 06/20/2024 2:16 PM EDT [facility] Mean Bld Glu Estim. 128 mg/dL LAB CHEMISTRY METHOD 06/20/2024 2:16 PM EDT [facility] Blood Venous blood specimen / Unknown 06/20/2024 6:46 AM EDT 06/20/2024 7:36 AM EDT us David Bowles MD LAB BLOOD ORDERABLES Final Resul t [facility] [address] [place] [address], [place] [phone] * Lipid panel with reflex to direct LDL (06/20/2024 6:46 AM EDT) [facility] Cholesterol 118 0 - 200 mg/dL LAB CHEMISTRY METHOD 06/20/2024 9:[address] [facility] Triglycerides 120 0 - 150 mg/dL LAB CHEMISTRY METHOD 06/20/2024 9:[address] [facility] HDL 45 >=40 mg/dL LAB CHEMISTRY METHOD 06/20/2024 9:[address] [facility] LDL Calculated 49 0 - 100 mg/dL LAB CHEMISTRY METHOD 06/20/2024 9:37 AM T [facility] VLDL Cholesterol Quentin 24 mg/dL LAB CHEMISTRY METHOD 06/20/2024 9:[address] [facility] Non HDL Chol. (LDL+VLDL) 73 <145 mg/dL LAB CHEMISTRY METHOD 06/20/2024 9:[address] [facility] Chol/HDL Ratio 2.6 0.0 - 4.4 LAB CHEMISTRY METHOD 06/20/2024 9:37 AM T [facility] Blood Venous blood specimen / Unknown 06/20/2024 6:46 AM EDT 06/20/2024 7:36 AM EDT us David Bowles MD LAB BLOOD ORDERABLES Final Resul t [facility] [address] [place] [address], [place] [phone] * (ABNORMAL) Comprehensive metabolic panel (06/20/2024 6:46 AM EDT) Sodium 143 133 - 145 mmol/L LAB CHEMISTRY METHOD 06/20/2024 9:[address] [facility] Potassium 4.4 3.5 - 5.5 mmol/L LAB CHEMISTRY METHOD 06/20/2024 9:[address] [facility] Chloride 109 96 - 110 mmol/L LAB CHEMISTRY METHOD 06/20/2024 9:[address] [facility] CO2 27 21 - 32 mmol/L LAB CHEMISTRY METHOD 06/20/2024 9:[address] [facility] Anion Gap 7 3 - 11 LAB CHEMISTRY METHOD 06/20/2024 9:[address] [facility] Glucose 92 70 - 100 mg/dL LAB CHEMISTRY METHOD 06/20/2024 9:[address] [facility] BUN 12 5 - 25 mg/dL LAB CHEMISTRY METHOD 06/20/2024 9:[address] [facility] Creatinine 0.68 0.50 - 1.10 mg/dL LAB CHEMISTRY METHOD 06/20/2024 9:[address] [facility] eGFR 94 >=60 mL/min/1. 73m2 LAB CHEMISTRY METHOD 06/20/2024 9:[address] [facility] Comment:Calculation based on the Chronic Kidney Disease Epidemiology Collaboration (CKD-EPI) equation refit without adjustment for race. BUN/Creatinine Ratio 17.6 LAB CHEMISTRY METHOD 06/20/2024 9:30 AM EDT [facility] Calcium 9.3 8.5 - 10.5 mg/dL LAB CHEMISTRY METHOD 06/20/2024 9:30 AM T [facility] AST (SGOT) 20 10 - 42 unit/L LAB CHEMISTRY METHOD 06/20/2024 9:[address] [facility] ALT (SGPT) 16 10 - 60 unit/L LAB CHEMISTRY METHOD 06/20/2024 9:30 AM EDT [facility] Alkaline Phosphatase 91 42 - 121 unit/L LAB CHEMISTRY METHOD 06/20/2024 9:30 AM T [facility] Total Protein 5.5(L) 6.0 - 8.0 g/dL LAB CHEMISTRY METHOD 06/20/2024 9:[address] [facility] Albumin 3.3 3.2 - 5.0 g/dL LAB CHEMISTRY METHOD 06/20/2024 9:[address] [facility] Total Bilirubin 0.3 0.0 - 1.4 mg/dL LAB CHEMISTRY METHOD 06/20/2024 9:[address] [facility] Blood Venous blood specimen / Unknown 06/20/2024 6:46 AM EDT 06/20/2024 7:36 AM EDT David Bowles MD LAB BLOOD ORDERABLES Final Resul t [facility] [address] [place] [address], [place] [phone] documented in this encounter Visit Diagnoses Diagnosis Schizoaffective disorder, unspecified (CMS/HCC V24, CMS/HCC V28) Hypothyroidism, unspecified Essential (primary) hypertension Unspecified essential hypertension Other intermodal customer service (current) drug therapy Pure hypercholesterolemia, unspecified documented in this encounter Care Teams Bartender Manager Relationship Specialty Start Date End Date David Bowles MD [address] [facility] [place], [place] PCP - General Internal Medicine 04/23/24 documented as of this encounter
--- OUTSIDE RECORDS SUMMARY | 2025-01-23 05:22 | XMS_ITS | Clinical Summary ---
Author Organization [facility] Address [address] [address] Phone Care Team Providers Care [employer] Founder Name Role Phone David Bowles Primary Care Provider [phone] Allergies Active Allergy Reactions Criticality Noted Date Comments Chlorpromazine Unknown 05/10/2016 Duloxetine Unknown 05/10/2016 Sulfa (Sulfonamide Antibiotics) Rash Low 04/05/2017 Medications aspirin (ASPIR-LOW) 81 MG EC tablet Take 1 tablet by mouth daily. Active simvastatin (ZOCOR) 20 MG tablet Take 1 tablet by mouth every evening. Active mirabegron (MYRBETRIQ) 25 mg Tb24 Take 1 tablet by mouth daily. Active fenofibrate (TRICOR) 48 MG tablet Take 1 tablet by mouth daily. Active cloZAPine (CLOZARIL) 25 MG tablet Take 1 tablet by mouth daily. Active cholecalciferol , vitamin D3, (VITAMIN D3) 1,000 unit capsule Take 1 capsule by mouth daily. Active solifenacin (VESICARE) 10 MG tablet Take 1 tablet by mouth daily. Active nitrofurantoin (MACRODANTIN) 50 MG capsule Take 1 capsule by mouth every 6 (six) hours. with food or milk Active metoprolol succinate (TOPROL-XL) 25 MG 24 hr tablet Take 1 tablet by mouth daily. Active lisinopril (PRINIVIL,ZESTR IL) 5 MG tablet Take 1 tablet by mouth daily. Active levothyroxine (SYNTHROID, LEVOTHROID) 75 MCG tablet Take 1 tablet by mouth daily. Active docusate calcium (SURFAK) 240 mg capsule Take 1 capsule by mouth daily as needed. Active Medication-Free Text Calcium-Magdalena min D 600 MG Tablet Chewable, Sig: Orally Active atorvastatin (LIPITOR) 10 MG tablet Take 10 mg by mouth daily. Active azaTHIOprine (IMURAN) 50 mg tablet Take 50 mg by mouth daily. Active tolterodine (DETROL LA) 4 MG 24 hr capsule Take 4 mg by mouth daily. Active SITagliptin (JANUVIA) 100 MG tablet Take 100 mg by mouth daily. Active senna (SENOKOT) 8.6 mg tablet Take 1 tablet by mouth daily. Active haloperidol (HALDOL) 2 MG tablet Take 2 mg by mouth 4 (four) times a day. Active ipratropium-alb uterol (COMBIVENT RESPIMAT) 20-100 mcg/actuation Mist Inhale 1 puff into the lungs 4 (four) times a day. Active cranberry fruit 400 mg Tab Take 400 mg by mouth daily. Active Active Problems Problem Noted Date Diagnosed Date Anxiety 08/14/2018 COPD (chronic obstructive pulmonary disease) 09/2018 Dementia 08/14/2018 Depression 08/14/2018 Hypertension 08/14/2018 Hyperthyroidism 08/14/2018 Schizoaffective disorder 08/14/2018 Mixed incontinence 08/14/2018 Family History Medical History Relation Comments Diabetes mellitus Mother Diabetes mellitus Sister Relation Status Comments Mother Sister Social History Tobacco Use Types Packs/Day Years Used Date Smoking Tobacco: Former Cigarettes Smokeless Tobacco: Never Alcohol Use Standard Drinks/Week Comments No 0 (1 standard drink = 0.6 oz pur e alcohol) Education Answer Date Recorded Are you interested in more education? Not on pérez e 08/06/2022 Are you concerned about learning? Not on file 08/06/2022 No 08/06/2022 No 08/06/2022 Digital Access Answer Date Recorded No 09/04/2022 No 09/04/2022 Reliable internet access at home? Not on file 09/04/2022 Device with a working camera? Not on file Comments No Sex and Gender Information Value Date Recorded Sex Assigned at Not on file Legal Sex Female 9:52 PM EDT Gender Identity Not on file Sexual Orientation Not on file Last Filed Vital Signs Vital Sign Reading Time Taken Comments Blood Pressure 126/74 08/14/2018 2:12 PM EDT Pulse - - Temperature - - Respiratory Rate - - Oxygen Saturation - - Inhaled Oxygen Concentration - - Weight 73 kg (161 lb) 08/14/2018 2:12 PM EDT Height 167.6 cm (5' 6 ) 07/11/2017 1:42 PM EDT Body Mass Index 25.99 07/11/2017 1:42 PM EDT Plan of Treatment Health Maintenance Due Date Last Done Comments ABSOLUTE NEUTROPHIL COUNT (ANC) 1955 ALKALINE PHOSPHATASE LEVEL 1955 Adult Td,Tdap Booster 1955 BLOOD PRESSURE 1955 CREATININE LEVEL 1955 LIPID PANEL 1955 POTASSIUM LEVEL 1955 TSH LEVEL 1955 DEPRESSION SCREENING 1967 SMOKING Hx and SMOKELESS TOBACCO SCREENING 1968 HEPATITIS C SCREENING 1973 PNEUMOCOCCAL VACCINES (50+ years) (1 of 2 - PCV) 1974 ZOSTER VACCINES (1 of 2) 1974 MAMMOGRAM 1995 COLOGUARD 2000 COLONOSCOPY 2000 COLORECTAL CANCER SCREENING 2000 FIT TEST 2000 FOBT 2000 SIGMOIDOSCOPY 2000 VIRTUAL COLONOSCOPY 2000 RSV VACCINE (1 - Risk 50-74 years 1-dose series) 2005 OSTEOPOROSIS SCREENING INITI AL (ONE-TIME) 2020 COVID-19 VACCINE (3 - Pfizer risk series) 06/04/2020 05/07/2020, 04/16/2020 PAP SMEAR 05/10/2021 05/10/2016 INFLUENZA VACCINE (#1) 2024 HEPATITIS A VACCINES Aged Out No long er eligible based on patient's age to complete this topic HIB VACCINES Aged Out No longer eligi ble based on patient's age to complete this topic MENINGOCOCCAL VACCINES (ACWY) Aged Out No longer eligible based on patient's age to complete this topic MENINGOCOCCAL VACCINES (B) Aged Out N o longer eligible based on patient's age to complete this topic Medical Devices Not on file Insurance MEDICARE PART A & B Member Subscriber Plan / Payer (Ef fective 1985-Present) Name:Christina Vanessa Member ID:[id number] Relation to Subscriber:Self Name:Christina Vanessa Subscriber ID:[id number] Payer ID:[id number] Group ID:Not on file Type:Medicare Address: [facility] [employer] [facility] [address] [place] [address] [place] [address] MEDICAID MEDICARE PART A & B [place] A & B Member Subscriber Plan / Payer (Ef fective 1985-Present) Name:Christina Vanessa Member ID:[id number] Relation to Subscriber:Self Name:Christina Vanessa Subscriber ID:[id number] Payer ID:[id number] Group ID:Not on file Type:Medicare Address: [email or web address] [address] MEDICAID MEDICARE PART A & B Member Subscriber Plan / Payer (Ef fective 1985-Present) Name:Christina Vanessa Member ID:[id number] Relation to Subscriber:Self Name:Christina Vanessa Subscriber ID:[id number] Payer ID:[id number] Group ID:Not on file Type:Medicare Address: [email or web address] [address] MEDICAID MEDICARE PART A & B MEDICAID MEDICARE PART A & B MEDICAID MEDICARE PART A & B MEDICAID MEDICARE PART A & B MEDICAID MEDICARE PART A & B [place] Care Teams [employer] Founder Relationship Specialty Start Date End Date David Bowles DO [address] [place] [address] PCP - General 04/14/17 Additional Source Comments The information contained in this document represents components of the legal health record. It is not the complete legal health record.[facility]
--- OUTSIDE RECORDS SUMMARY | 2025-01-23 05:22 | XMS_ITS | Encounter Summary ---
Author Organization [facility] Address [address] [place] [address] Care Team Providers Care Mental Retardation Aide Name Role Phone David Bowles MD Primary Care Provider [phone] Encounter Details Date Type Department Care Team (Late st Contact Info) Description 10/17/2024 Lab Requisition [facility] Lab [address] [facility] [employer] [place] [address] David Bowles MD [address] [place] [address] [address] [place] Essential (primary) hypertension Social History Tobacco Use Types Packs/Day Years [...] Diagnosis Comments CBC WITH AUTO DIFFERENTIAL Routine 10/17/2024 6:53 AM EDT Essential (primary) hypertension CBC AND DIFFERENTIAL Routine 10/17/2024 6:53 AM EDT Essential (primary) hypertension documented in this encounter Results * (ABNORMAL) CBC auto differential (10/17/2024 6:53 AM EDT) WBC 6.4 4.8 - 10.8 K/mcL LAB HEMETOLOGY METHOD 10/17/2024 7:[address] [facility] RBC 4.10 3.80 - 4.80 M/mcL LAB HEMETOLOGY METHOD 10/17/2024 7:[address] [facility] Hemoglobin 12.0 11.5 - 16.0 g/dL LAB HEMETOLOGY METHOD 10/17/2024 7:53 AM [facility] Hematocrit 37.6 35.0 - 47.0 % LAB HEMETOLOGY METHOD 10/17/2024 7:53 AM [facility] MCV 92.4 79.0 - 98.0 FL LAB HEMETOLOGY METHOD 10/17/2024 7:53 AM [facility] MCH 29.5 27.0 - 32.0 pcg LAB HEMETOLOGY METHOD 10/17/2024 7:53 AM [facility] MCHC 31.9(L) 32.0 - 37.0 g/dL LAB HEMETOLOGY METHOD 10/17/2024 7:53 AM [facility] RDW 13.6 11.0 - 15.0 % LAB HEMETOLOGY METHOD 10/17/2024 7:53 AM [facility] Platelets 255 130 - 400 K/mcL LAB HEMETOLOGY METHOD 10/17/2024 7:53 AM [facility] MPV 12.4(H) 7.0 - 11.0 FL LAB HEMETOLOGY METHOD 10/17/2024 7:53 AM [facility] NRBC 0.0 <1.0 % LAB HEMETOLOGY METHOD 10/17/2024 7:53 AM [facility] NRBC Absolute 0.00 <0.10 K/mcL LAB HEMETOLOGY METHOD 10/17/2024 7:53 AM [facility] Neutrophils Relative 57.0 % LAB HEMETOLOGY METHOD 10/17/2024 7:53 AM [facility] Lymphocytes Relative 32.9 % LAB HEMETOLOGY METHOD 10/17/2024 7:53 AM [facility] Monocytes Relative 7.2 % LAB HEMETOLOGY METHOD 10/17/2024 7:53 AM [facility] Eosinophils Relative 1.9 % LAB HEMETOLOGY METHOD 10/17/2024 7:[address] [facility] Basophils Relative 0.8 % LAB HEMETOLOGY METHOD 10/17/2024 7:[address] [facility] Immature Granulocytes Relative 0.2 % LAB HEMETOLOGY METHOD 10/17/2024 7:[address] [facility] Neutrophils Absolute 3.67 1.50 - 7.00 K/mcL LAB HEMETOLOGY METHOD 10/17/2024 7:[address] [facility] Lymphocytes Absolute 2.11 1.00 - 5.00 K/mcL LAB HEMETOLOGY METHOD 10/17/2024 7:53 AM [facility] Monocytes Absolute 0.46 0.20 - 1.00 K/mcL LAB HEMETOLOGY METHOD 10/17/2024 7:[address] [facility] Eosinophils Absolute 0.12 0.00 - 0.50 K/mcL LAB HEMETOLOGY METHOD 10/17/2024 7:[address] [facility] Basophils Absolute 0.05 0.00 - 0.20 K/mcL LAB [facility] Imm[facility] Granulocytes Absolute 0.01 0.00 - 0.03 K/mcL LAB HEMETOLOGY METHOD 10/17/2024 7:[address] [facility] Blood Venous blood specimen / Unknown 10/17/2024 6:53 AM EDT 10/17/2024 7:39 AM EDT us David Bowles MD LAB BLOOD ORDERABLES Final Resul t [facility] [address] [place] [address], documented in this encounter Visit Diagnoses Diagnosis Essential (primary) hypertension Unspecified essential hypertension documented in this encounter Care Teams Mental Retardation Aide Relationship Specialty Start Date End Date David Bowles MD [address] [place] [address] Dr [address] [place] PCP - General Internal Medicine 04/23/24 documented as of this encounter
--- OUTSIDE RECORDS SUMMARY | 2025-01-23 05:22 | XMS_ITS | Encounter Summary ---
Author Organization [facility] Address [address] [place] [address] Care Team Providers Care Special Education Secretary Name Role Phone David Bowles MD Primary Care Provider [phone] Encounter Details Date Type Department Care Team (Late st Contact Info) Description 09/18/2024 Lab Requisition [facility] Lab [address] [facility] [place] [address] David Bowles MD [address] [place] [address] [address] [place], [place] Encounter for other specified special examinations Social History Tobacco Use Types Packs/Day Years [...] Procedure Name Priority Date/Time Associated Diagnosis Comments COMPREHENSIVE METABOLIC PANEL Routine 09/18/2024 6:45 AM EDT Encounter for other specified special examinations documented in this encounter Results * (ABNORMAL) Comprehensive metabolic panel (09/18/2024 6:45 AM EDT) Sodium 141 133 - 145 mmol/L LAB CHEMISTRY METHOD 09/18/2024 8:26 AM EDT [facility] Potassium 4.1 3.5 - 5.5 mmol/L LAB CHEMISTRY METHOD 09/18/2024 8:26 AM T [facility] Chloride 110 96 - 110 mmol/L LAB CHEMISTRY METHOD 09/18/2024 8:26 AM [facility] CO2 24 21 - 32 mmol/L LAB CHEMISTRY METHOD 09/18/2024 8:26 AM EDT [facility] Anion Gap 7 3 - 11 LAB CHEMISTRY METHOD 09/18/2024 8:26 AM [facility] Glucose 143(H) 70 - 100 mg/dL LAB CHEMISTRY METHOD 09/18/2024 8:26 AM [facility] BUN 20 5 - 25 mg/dL LAB CHEMISTRY METHOD 09/18/2024 8:26 AM [facility] Creatinine 0.95 0.50 - 1.10 mg/dL LAB CHEMISTRY METHOD 09/18/2024 8:26 AM [facility] eGFR 65 >=60 mL/min/1. 73m2 LAB CHEMISTRY METHOD 09/18/2024 8:26 AM [facility] Comment:Calculation based on the Chronic Kidney Disease Epidemiology Collaboration (CKD-EPI) equation refit without adjustment for race. BUN/Creatinine Ratio 21.1 LAB CHEMISTRY METHOD 09/18/2024 8:26 AM [facility] Calcium 10.0 8.5 - 10.5 mg/dL LAB CHEMISTRY METHOD 09/18/2024 8:26 AM [facility] AST (SGOT) 19 10 - 42 unit/L LAB CHEMISTRY METHOD 09/18/2024 8:26 AM [facility] ALT (SGPT) 19 10 - 60 unit/L LAB CHEMISTRY METHOD 09/18/2024 8:26 AM [facility] Alkaline Phosphatase 115 42 - 121 unit/L LAB CHEMISTRY METHOD 09/18/2024 8:26 AM [facility] Total Protein 6.8 6.0 - 8.0 g/dL LAB CHEMISTRY METHOD 09/18/2024 8:26 AM [facility] Albumin 4.1 3.2 - 5.0 g/dL LAB CHEMISTRY METHOD 09/18/2024 8:26 AM [facility] Total Bilirubin 0.4 0.0 - 1.4 mg/dL LAB CHEMISTRY METHOD 09/18/2024 8:26 AM EDT [facility] Blood Venous blood specimen / Unknown 09/18/2024 6:45 AM EDT 09/18/2024 8:24 AM EDT us David Bowles MD LAB BLOOD ORDERABLES Final Resul t [facility] [address] [place] [address], documented in this encounter Visit Diagnoses Diagnosis Encounter for other specified special examinations documented in this encounter Care Teams Special Education Secretary Relationship Specialty Start Date End Date David Bowles MD [address] [place] [address] Dr [address] [place] PCP - General Internal Medicine 04/23/24 documented as of this encounter
--- OUTSIDE RECORDS SUMMARY | 2025-01-23 05:22 | XMS_ITS | Encounter Summary ---
Author Organization [facility] Address [address] [place] [address] Care Team Providers Care Assembler [employer] Name Role Phone David Bowles MD Primary Care Provider [phone] Encounter Details Date Type Department Care Team (Latest Contact Info) Description 05/23/2024 Lab Requisition [facility] Lab 299 [facility] [place] [address] David Bowles MD [address] [place] [address] [address] [place] Schizoaffective disorder, unspecified (CMS/HCC V24, CMS/HCC V28) [...] Diagnosis Comments CBC WITH AUTO DIFFERENTIAL Routine 05/23/2024 6:38 AM EST Schizoaffective disorder, unspecified (CMS/HCC) CBC AND DIFFERENTIAL Routine 05/23/2024 6:38 AM EST Schizoaffective disorder, unspecified (CMS/HCC) HEMOGLOBIN A1C Routine 05/23/2024 6:38 AM EST Schizoaffective disorder, unspecified (CMS/HCC) COMPREHENSIVE METABOLIC PANEL Routine 05/23/2024 6:38 AM EST Schizoaffective disorder, unspecified (CMS/HCC) documented in this encounter Results * (ABNORMAL) CBC auto differential (05/23/2024 6:38 AM EST) WBC 7.8 4.8 - 10.8 K/mcL LAB HEMETOLOGY METHOD 05/23/2024 7:34 AM [facility] RBC 4.10 3.80 - 4.80 M/mcL LAB HEMETOLOGY METHOD 05/23/2024 7:34 AM [facility] Hemoglobin 11.9 11.5 - 16.0 g/dL LAB HEMETOLOGY METHOD 05/23/2024 7:34 AM [facility] Hematocrit 37.5 35.0 - 47.0 % LAB HEMETOLOGY METHOD 05/23/2024 7:34 AM [facility] MCV 92.1 79.0 - 98.0 FL LAB HEMETOLOGY METHOD 05/23/2024 7:34 AM [facility] MCH 29.2 27.0 - 32.0 pcg LAB HEMETOLOGY METHOD 05/23/2024 7:34 AM [facility] MCHC 31.7(L) 32.0 - 37.0 g/dL LAB HEMETOLOGY METHOD 05/23/2024 7:34 AM [facility] RDW 13.3 11.0 - 15.0 % LAB HEMETOLOGY METHOD 05/23/2024 7:34 AM [facility] Platelets 264 130 - 400 K/mcL LAB HEMETOLOGY METHOD 05/23/2024 7:34 AM [facility] MPV 11.4(H) 7.0 - 11.0 FL LAB HEMETOLOGY METHOD 05/23/2024 7:34 AM [facility] NRBC 0.0 <1.0 % LAB HEMETOLOGY METHOD 05/23/2024 7:34 AM [facility] NRBC Absolute 0.00 <0.10 K/mcL LAB HEMETOLOGY METHOD 05/23/2024 7:34 AM [facility] Neutrophils Relative 57.4 % LAB HEMETOLOGY METHOD 05/23/2024 7:34 AM [facility] Lymphocytes Relative 31.2 % LAB HEMETOLOGY METHOD 05/23/2024 7:34 AM [facility] Monocytes Relative 8.6 % LAB HEMETOLOGY METHOD 05/23/2024 7:34 AM [facility] Eosinophils Relative 1.9 % LAB HEMETOLOGY METHOD 05/23/2024 7:34 AM [facility] Basophils Relative 0.6 % LAB HEMETOLOGY METHOD 05/23/2024 7:34 AM [facility] Immature Granulocytes Relative 0.3 % LAB HEMETOLOGY METHOD 05/23/2024 7:34 AM [facility] Neutrophils Absolute 4.48 1.50 - 7.00 K/mcL LAB HEMETOLOGY METHOD 05/23/2024 7:34 AM [facility] Lymphocytes Absolute 2.44 1.00 - 5.00 K/mcL LAB HEMETOLOGY METHOD 05/23/2024 7:34 AM [facility] Monocytes Absolute 0.67 0.20 - 1.00 K/mcL LAB HEMETOLOGY METHOD 05/23/2024 7:34 AM [facility] Eosinophils Absolute 0.15 0.00 - 0.50 K/mcL LAB HEMETOLOGY METHOD 05/23/2024 7:34 AM [facility] Basophils Absolute 0.05 0.00 - 0.20 K/mcL LAB HEMETOLOGY METHOD 05/23/2024 7:34 AM [facility] Immature Granulocytes Absolute 0.02 0.00 - 0.03 K/mcL LAB HEMETOLOGY METHOD 05/23/2024 7:34 AM [facility] Blood Venous blood specimen / Unknown 05/23/2024 6:38 AM EST 05/23/2024 7:12 AM EST us David Snow MD LAB BLOOD ORDERABLES Final Resul t Performing Organization Address [facility]/ZIP Co de Phone Number [facility] [address] [place] [address], [place] [phone] * Hemoglobin A1c (05/23/2024 6:38 AM EST) Hemoglobin A1C 6.0 <6.5 % LAB CHEMISTRY METHOD 05/23/2024 1:54 PM EST [facility] Mean Bld Glu Estim. 126 mg/dL LAB CHEMISTRY METHOD 05/23/2024 1:54 PM EST [facility] Blood Venous blood specimen / Unknown 05/23/2024 6:38 AM EST 05/23/2024 7:12 AM EST us David Bowles MD LAB BLOOD ORDERABLES Final Resul t Performing Organization Address [facility]/ZIP Co de Phone Number [facility] [address] [place] [address], [place] [phone] * (ABNORMAL) Comprehensive metabolic panel (05/23/2024 6:38 AM EST) [facility] Sodium 139 133 - 145 mmol/L LAB CHEMISTRY METHOD 05/23/2024 8:18 AM [facility] Potassium 4.3 3.5 - 5.5 mmol/L LAB CHEMISTRY METHOD 05/23/2024 8:18 AM [facility] Chloride 108 96 - 110 mmol/L LAB CHEMISTRY METHOD 05/23/2024 8:18 AM [facility] CO2 28 21 - 32 mmol/L LAB CHEMISTRY METHOD 05/23/2024 8:18 AM [facility] Anion Gap 3 3 - 11 LAB CHEMISTRY METHOD 05/23/2024 8:18 AM [facility] Glucose 105(H) 70 - 100 mg/dL LAB CHEMISTRY METHOD 05/23/2024 8:18 AM [facility] BUN 18 5 - 25 mg/dL LAB CHEMISTRY METHOD 05/23/2024 8:18 AM [facility] Creatinine 0.72 0.50 - 1.10 mg/dL LAB CHEMISTRY METHOD 05/23/2024 8:18 AM [facility] eGFR 91 >=60 mL/min/1. 73m2 LAB CHEMISTRY METHOD 05/23/2024 8:18 AM [facility] Comment:Calculation based on the Chronic Kidney Disease Epidemiology Collaboration (CKD-EPI) equation refit without adjustment for race. BUN/Creatinine Ratio 25.0 LAB CHEMISTRY METHOD 05/23/2024 8:18 AM [facility] Calcium 9.4 8.5 - 10.5 mg/dL LAB CHEMISTRY METHOD 05/23/2024 8:18 AM [facility] AST (SGOT) 12 10 - 42 unit/L LAB CHEMISTRY METHOD 05/23/2024 8:18 AM [facility] ALT (SGPT) 20 10 - 60 unit/L LAB CHEMISTRY METHOD 05/23/2024 8:18 AM [facility] Alkaline Phosphatase 98 42 - 121 unit/L LAB CHEMISTRY METHOD 05/23/2024 8:18 AM [facility] Total Protein 5.8(L) 6.0 - 8.0 g/dL LAB CHEMISTRY METHOD 05/23/2024 8:18 AM [facility] Albumin 3.3 3.2 - 5.0 g/dL LAB CHEMISTRY METHOD 05/23/2024 8:18 AM [facility] Total Bilirubin 0.3 0.0 - 1.4 mg/dL LAB CHEMISTRY METHOD 05/23/2024 8:18 AM [facility] Blood Venous blood specimen / Unknown 05/23/2024 6:38 AM EST 05/23/2024 7:12 AM EST us David Bowles MD LAB BLOOD ORDERABLES Final Resul t [facility] [address] [place] [address], documented in this encounter Visit Diagnoses Diagnosis Schizoaffective disorder, unspecified (CMS/HCC V24, CMS/HCC V28) documented in this encounter Care Teams Assembler [employer] Relationship Specialty Start Date End Date David Bowles MD [address] [place] [address] Dr [address] [place], [place] PCP - General Internal Medicine 04/23/24 documented as of this encounter
--- OUTSIDE RECORDS SUMMARY | 2025-01-23 05:22 | XMS_ITS | Encounter Summary ---
[facility] [address] [place] [address] Care Team Providers Care Supervisor Food Checkers And Cashiers Name Role Phone David Bowles MD Primary Care Provider [phone] Encounter Details Date Type Department Care Team (Latest Contact Info) Description 04/19/2024 Lab Requisition [facility] - Main Lab [address] [place] [address] David Bowles MD [address] [place] [address] [address] [place] Schizoaffective disorder, unspecified (CMS/HCC V24, CMS/HCC V28) [...] Diagnosis Comments CBC WITH AUTO DIFFERENTIAL Routine 04/19/2024 7:21 AM EST Schizoaffective disorder, unspecified (CMS/HCC) CBC AND DIFFERENTIAL Routine 04/19/2024 7:21 AM EST Schizoaffective disorder, unspecified (CMS/HCC) documented in this encounter Results * (ABNORMAL) CBC auto differential (04/19/2024 7:21 AM EST) WBC 7.0 4.8 - 10.8 K/[facility] LAB HEMETOLOGY METHOD 04/19/2024 9:35 AM EST [facility] LAB RBC 3.90 3.80 - 4.80 M/[facility] LAB HEMETOLOGY METHOD 04/19/2024 9:35 AM EST [facility] LAB Hemoglobin 11.4(L) 11.5 - 16.0 g/dL LAB HEMETOLOGY METHOD 04/19/2024 9:35 AM [facility] LAB Hematocrit 35.6 35.0 - 47.0 % LAB HEMETOLOGY METHOD 04/19/2024 9:35 AM [facility] LAB MCV 91.0 79.0 - 98.0 FL LAB HEMETOLOGY METHOD 04/19/2024 9:35 AM [facility] LAB MCH 29.2 27.0 - 32.0 pcg LAB HEMETOLOGY METHOD 04/19/2024 9:35 AM [facility] LAB MCHC 32.0 32.0 - 37.0 g/dL LAB HEMETOLOGY METHOD 04/19/2024 9:35 AM [facility] LAB RDW 13.5 11.0 - 15.0 % LAB HEMETOLOGY METHOD 04/19/2024 9:35 AM [facility] LAB Platelets 250 130 - 400 K/mcL LAB HEMETOLOGY METHOD 04/19/2024 9:35 AM [facility] LAB MPV 11.6(H) 7.0 - 11.0 FL LAB HEMETOLOGY METHOD 04/19/2024 9:35 AM [facility] LAB NRBC 0.0 <1.0 % LAB HEMETOLOGY METHOD 04/19/2024 9:35 AM [facility] LAB NRBC Absolute 0.00 <0.10 K/mcL LAB HEMETOLOGY METHOD 04/19/2024 9:35 AM [facility] LAB Neutrophils Relative 56.6 % LAB HEMETOLOGY METHOD 04/19/2024 9:35 AM [facility] LAB Lymphocytes Relative 33.0 % LAB HEMETOLOGY METHOD 04/19/2024 9:35 AM [facility] LAB Monocytes Relative 7.7 % LAB HEMETOLOGY METHOD 04/19/2024 9:35 AM EST [facility] LAB Eosinophils Relative 1.9 % LAB HEMETOLOGY METHOD 04/19/2024 9:35 AM [facility] LAB Basophils Relative 0.7 % LAB HEMETOLOGY METHOD 04/19/2024 9:35 AM [facility] LAB Immature Granulocytes Relative 0.1 % LAB HEMETOLOGY METHOD 04/19/2024 9:35 AM EST [facility] LAB Neutrophils Absolute 3.94 1.50 - 7.00 K/mcL LAB HEMETOLOGY METHOD 04/19/2024 9:35 AM [facility] LAB Lymphocytes Absolute 2.30 1.00 - 5.00 K/mcL LAB HEMETOLOGY METHOD 04/19/2024 9:35 AM [facility] LAB Monocytes Absolute 0.54 0.20 - 1.00 K/mcL LAB HEMETOLOGY METHOD 04/19/2024 9:35 AM EST [facility] LAB Eosinophils Absolute 0.13 0.00 - 0.50 K/mcL LAB HEMETOLOGY METHOD 04/19/2024 9:35 AM [facility] LAB Basophils Absolute 0.05 0.00 - 0.20 K/mcL LAB HEMETOLOGY METHOD 04/19/2024 9:35 AM [facility] LAB Immature Granulocytes Absolute 0.01 0.00 - 0.03 K/mcL LAB HEMETOLOGY METHOD 04/19/2024 9:35 AM EST [facility] LAB Blood Venous blood specimen / Unknown 04/19/2024 7:21 AM EST 04/19/2024 9:23 AM EST us David Bowles MD LAB BLOOD ORDERABLES Final Resul t [facility] LAB [address] [place] [address], documented in this encounter Visit Diagnoses Diagnosis Schizoaffective disorder, unspecified (CMS/[facility] V24, CMS/[facility] V28) documented in this encounter Care Teams Supervisor Food Checkers And Cashiers Relationship Specialty Start Date End Date David Bowles MD [address] [place] [address] Dr [address] [facility] PCP - General Internal Medicine 04/23/24 documented as of this encounter
--- OUTSIDE RECORDS SUMMARY | 2025-01-23 05:22 | XMS_ITS | Encounter Summary ---
Author Organization [facility] Address [address] [place] [address] Care Team Providers Care Top Cleaner Name Role Phone David Bowles MD Primary Care Provider [phone] Encounter Details Date Type Department Care Team (Late st Contact Info) Description 01/15/2025 Lab Requisition [facility] - Main Lab [address] [place] [address] David Bowles MD [address] [place] [address] Dr [address] [place], [place] Hypothyroidism, unspecified; Other skilled nursing (current) drug therapy Social History Tobacco Use Types Packs/Day Years [...] Diagnosis Comments CBC WITH AUTO DIFFERENTIAL Routine 01/15/2025 6:46 AM EDT Hypothyroidism, unspecified Other skilled nursing (current) drug therapy CBC AND DIFFERENTIAL Routine 01/15/2025 6:46 AM EDT Hypothyroidism, unspecified Other skilled nursing (current) drug therapy THYROXINE FREE Routine 01/15/2025 6:46 AM EDT Hypothyroidism, unspecified 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 documented in this encounter Results * (ABNORMAL) CBC auto differential (01/15/2025 6:46 AM EDT) WBC 7.1 4.8 - 10.8 K/[facility] LAB HEMETOLOGY METHOD 01/15/2025 8:32 AM EDT [facility] RBC 4.30 3.80 - 4.80 M/mcL LAB HEMETOLOGY METHOD 01/15/2025 8:32 AM [facility] LAB Hemoglobin 12.1 11.5 - 16.0 g/dL LAB HEMETOLOGY METHOD 01/15/2025 8:32 AM [facility] LAB Hematocrit 39.5 35.0 - 47.0 % LAB HEMETOLOGY METHOD 01/15/2025 8:32 AM [facility] LAB MCV 92.7 79.0 - 98.0 FL LAB HEMETOLOGY METHOD 01/15/2025 8:32 AM [facility] LAB MCH 28.4 27.0 - 32.0 pcg LAB HEMETOLOGY METHOD 01/15/2025 8:32 AM [facility] LAB MCHC 30.6(L) 32.0 - 37.0 g/dL LAB HEMETOLOGY METHOD 01/15/2025 8:32 AM [facility] LAB RDW 13.6 11.0 - 15.0 % LAB HEMETOLOGY METHOD 01/15/2025 8:32 AM [facility] LAB Platelets 01/15/2025 8:32 AM [facility] LAB Comment:Not measured. Unable to quantitate due to platelet clumping MPV 12.7(H) 7.0 - 11.0 FL LAB HEMETOLOGY METHOD 01/15/2025 8:32 AM [facility] LAB NRBC 0.0 <1.0 % LAB HEMETOLOGY METHOD 01/15/2025 8:32 AM [facility] LAB NRBC Absolute 0.00 <0.10 K/mcL LAB HEMETOLOGY METHOD 01/15/2025 8:32 AM [facility] LAB Neutrophils Relative 59.9 % LAB HEMETOLOGY METHOD 01/15/2025 8:32 AM [facility] LAB Lymphocytes Relative 29.1 % LAB HEMETOLOGY METHOD 01/15/2025 8:32 AM EDT [facility] LAB Monocytes Relative 7.8 % LAB HEMETOLOGY METHOD 01/15/2025 8:32 AM [facility] LAB Eosinophils Relative 2.1 % LAB HEMETOLOGY METHOD 01/15/2025 8:32 AM [facility] LAB Basophils Relative 0.8 % LAB HEMETOLOGY METHOD 01/15/2025 8:32 AM [facility] LAB Immature Granulocytes Relative 0.3 % LAB HEMETOLOGY METHOD 01/15/2025 8:32 AM [facility] LAB Neutrophils Absolute 4.24 1.50 - 7.00 K/mcL LAB HEMETOLOGY METHOD 01/15/2025 8:32 AM [facility] LAB Lymphocytes Absolute 2.06 1.00 - 5.00 K/mcL LAB HEMETOLOGY METHOD 01/15/2025 8:32 AM [facility] LAB Monocytes Absolute 0.55 0.20 - 1.00 K/mcL LAB HEMETOLOGY METHOD 01/15/2025 8:32 AM [facility] LAB Eosinophils Absolute 0.15 0.00 - 0.50 K/mcL LAB HEMETOLOGY METHOD 01/15/2025 8:32 AM [facility] LAB Basophils Absolute 0.06 0.00 - 0.20 K/mcL LAB HEMETOLOGY METHOD 01/15/2025 8:32 AM [facility] LAB Immature Granulocytes Absolute 0.02 0.00 - 0.03 K/mcL LAB HEMETOLOGY METHOD 01/15/2025 8:32 AM [facility] LAB Blood Venous blood specimen / Unknown 01/15/2025 6:46 AM EDT 01/15/2025 7:37 AM EDT David Bowles MD LAB BLOOD ORDERABLES Final Resul t Performing Organization Address City/State/[facility] de Phone Number [facility] LAB [address] [place] [address], [place] [phone] * Thyroxine free (01/15/2025 6:46 AM EDT) Free T4 0.87 0.70 - 1.80 ng/dL LAB CHEMISTRY METHOD 01/15/2025 9:23 AM EDT [facility] LAB Blood Venous blood specimen / Unknown 01/15/2025 6:46 AM EDT 01/15/2025 7:37 AM EDT David Bowles MD LAB BLOOD ORDERABLES Final Resul t Performing Organization Address [facility] de Phone Number [facility] [address] [place] [address], [place] [phone] documented in this encounter Visit Diagnoses Diagnosis Hypothyroidism, unspecified Other skilled nursing (current) drug therapy documented in this encounter Care Teams Top Cleaner Relationship Specialty Start Date End Date David Bowles MD [address] [place] [address] Dr [address] [facility] [place] PCP - General Internal Medicine 04/23/24 documented as of this encounter
--- OUTSIDE RECORDS SUMMARY | 2025-01-23 05:22 | XMS_ITS | Encounter Summary ---
Author Organization [facility] Address [address] [place] [address] Care Team Providers Care Child Monitor Name Role Phone David Bowles MD Primary Care Provider [phone] Encounter Details Date Type Department Care Team (Late st Contact Info) Description 09/17/2024 Lab Requisition [facility] [address] [facility] [place] [address] David Bowles MD [address] [place] [address] Dr [address] [place] Essential (primary) hypertension Social History Tobacco Use [...] Diagnosis Comments CBC WITH AUTO DIFFERENTIAL Routine 09/17/2024 6:53 AM EDT Essential (primary) hypertension CBC AND DIFFERENTIAL Routine 09/17/2024 6:53 AM EDT Essential (primary) hypertension documented in this encounter Results * (ABNORMAL) CBC auto differential (09/17/2024 6:53 AM EDT) WBC 7.2 4.8 - 10.8 K/mcL LAB HEMETOLOGY METHOD 09/17/2024 8:19 AM EDT [facility] LAB RBC 4.30 3.80 - 4.80 M/mcL LAB HEMETOLOGY METHOD 09/17/2024 8:19 AM EDT [facility] LAB Hemoglobin 12.3 11.5 - 16.0 g/dL LAB HEMETOLOGY METHOD 09/17/2024 8:19 AM [facility] LAB Hematocrit 38.4 35.0 - 47.0 % LAB HEMETOLOGY METHOD 09/17/2024 8:19 AM [facility] LAB MCV 89.5 79.0 - 98.0 FL LAB HEMETOLOGY METHOD 09/17/2024 8:19 AM [facility] LAB MCH 28.7 27.0 - 32.0 pcg LAB HEMETOLOGY METHOD 09/17/2024 8:19 AM [facility] LAB MCHC 32.0 32.0 - 37.0 g/dL LAB HEMETOLOGY METHOD 09/17/2024 8:19 AM [facility] LAB RDW 13.0 11.0 - 15.0 % LAB HEMETOLOGY METHOD 09/17/2024 8:19 AM [facility] LAB Platelets 205 130 - 400 K/mcL LAB HEMETOLOGY METHOD 09/17/2024 8:19 AM [facility] LAB MPV 12.1(H) 7.0 - 11.0 FL LAB HEMETOLOGY METHOD 09/17/2024 8:19 AM [facility] LAB NRBC 0.0 <1.0 % LAB HEMETOLOGY METHOD 09/17/2024 8:19 AM [facility] LAB NRBC Absolute 0.00 <0.10 K/mcL LAB HEMETOLOGY METHOD 09/17/2024 8:19 AM [facility] LAB Neutrophils Relative 57.7 % LAB HEMETOLOGY METHOD 09/17/2024 8:19 AM [facility] LAB Lymphocytes Relative 32.6 % LAB HEMETOLOGY METHOD 09/17/2024 8:19 AM [facility] LAB Monocytes Relative 7.1 % LAB HEMETOLOGY METHOD 09/17/2024 8:19 AM [facility] LAB Eosinophils Relative 1.7 % LAB HEMETOLOGY METHOD 09/17/2024 8:19 AM EDT [facility] LAB Basophils Relative 0.6 % LAB HEMETOLOGY METHOD 09/17/2024 8:19 AM [facility] LAB Immature Granulocytes Relative 0.3 % LAB [facility]OLOGY [facility] Neutrophils Absolute 4.18 1.50 - 7.00 K/mcL LAB HEMETOLOGY METHOD 09/17/2024 8:19 AM EDT [facility] LAB Lymphocytes Absolute 2.36 1.00 - 5.00 K/mcL LAB HEMETOLOGY METHOD 09/17/2024 8:19 AM [facility] LAB Monocytes Absolute 0.51 0.20 - 1.00 K/mcL LAB HEMETOLOGY METHOD 09/17/2024 8:19 AM [facility] LAB Eosinophils Absolute 0.12 0.00 - 0.50 K/mcL LAB HEMETOLOGY METHOD 09/17/2024 8:19 AM [facility] LAB Basophils Absolute 0.04 0.00 - 0.20 K/mcL LAB HEMETOLOGY METHOD 09/17/2024 8:19 AM [facility] LAB Immature Granulocytes Absolute 0.02 0.00 - 0.03 K/mcL LAB HEMETOLOGY METHOD 09/17/2024 8:19 AM [facility] LAB Blood Venous blood specimen / Unknown 09/17/2024 6:53 AM EDT 09/17/2024 7:36 AM EDT us David Bowles MD LAB BLOOD ORDERABLES Final Resul t [facility] LAB [address] [place] [address], documented in this encounter Visit Diagnoses Diagnosis Essential (primary) hypertension Unspecified essential hypertension documented in this encounter Care Teams Child Monitor Relationship Specialty Start Date End Date David Bowles MD [address] [place] [address] Dr [address] [facility] PCP - General Internal Medicine 04/23/24 documented as of this encounter
--- OUTSIDE RECORDS SUMMARY | 2025-01-23 05:22 | XMS_ITS | Encounter Summary ---
Author Organization [facility] Address [address] [place] [address] Care Team Providers Care Emissions Inspector Name Role Phone David Bowles MD Primary Care Provider [phone] Encounter Details Date Type Department Care Team (Latest Contact Info) Description 12/18/2024 Lab Requisition [facility] - Main Lab [address] [facility] [place] [address] David Bowles MD [address] [place] [address] [address] [place] Schizoaffective disorder, unspecified (CMS/HCC V24, CMS/HCC V28); Pure hypercholesterolemia, unspecified; Hypothyroidism, unspecified Social History Tobacco Use Types Packs/Day [...] PANEL WITH REFLEX TO DIRECT LDL Routine 12/18/2024 6:59 AM EDT Schizoaffective disorder, unspecified (CMS/HCC V24, CMS/HCC V28) Pure hypercholesterolemi a, unspecified Hypothyroidism, unspecified CBC WITH AUTO DIFFERENTIAL Routine 12/18/2024 6:59 AM EDT Schizoaffective disorder, unspecified (CMS/HCC V24, CMS/HCC V28) Pure hypercholesterolemi a, unspecified Hypothyroidism, unspecified CBC AND DIFFERENTIAL Routine 12/18/2024 6:59 AM EDT Schizoaffective disorder, unspecified (CMS/HCC V24, CMS/HCC V28) Pure hypercholesterolemi a, unspecified Hypothyroidism, unspecified THYROID STIMULATING HORMONE Routine 12/18/2024 6:59 AM EDT Schizoaffective disorder, unspecified ([facility] V24, [facility] V28) Pure hypercholesterolemi a, unspecified Hypothyroidism, unspecified documented in this encounter Results * (ABNORMAL) CBC auto differential (12/18/2024 6:59 AM EDT) WBC 7.4 4.8 - 10.8 K/mcL LAB HEMETOLOGY METHOD 12/18/2024 8:17 AM [facility] LAB RBC 3.80 3.80 - 4.80 M/mcL LAB HEMETOLOGY METHOD 12/18/2024 8:17 AM [facility] LAB Hemoglobin 11.2(L) 11.5 - 16.0 g/dL LAB HEMETOLOGY METHOD 12/18/2024 8:17 AM [facility] LAB Hematocrit 35.2 35.0 - 47.0 % LAB HEMETOLOGY METHOD 12/18/2024 8:17 AM [facility] LAB MCV 92.1 79.0 - 98.0 FL LAB HEMETOLOGY METHOD 12/18/2024 8:17 AM [facility] LAB MCH 29.3 27.0 - 32.0 pcg LAB HEMETOLOGY METHOD 12/18/2024 8:17 AM [facility] LAB MCHC 31.8(L) 32.0 - 37.0 g/dL LAB HEMETOLOGY METHOD 12/18/2024 8:17 AM [facility] LAB RDW 13.2 11.0 - 15.0 % LAB HEMETOLOGY METHOD 12/18/2024 8:17 AM [facility] LAB Platelets 256 130 - 400 K/mcL LAB HEMETOLOGY METHOD 12/18/2024 8:17 AM [facility] LAB MPV 11.8(H) 7.0 - 11.0 FL LAB HEMETOLOGY METHOD 12/18/2024 8:17 AM [facility] LAB NRBC 0.0 <1.0 % LAB HEMETOLOGY METHOD 12/18/2024 8:17 AM [facility] LAB NRBC Absolute 0.00 <0.10 K/mcL LAB HEMETOLOGY METHOD 12/18/2024 8:17 AM [facility] LAB Neutrophils Relative 59.7 % LAB HEMETOLOGY METHOD 12/18/2024 8:17 AM [facility] LAB Lymphocytes Relative 29.4 % LAB HEMETOLOGY METHOD 12/18/2024 8:17 AM [facility] LAB Monocytes Relative 8.0 % LAB HEMETOLOGY METHOD 12/18/2024 8:17 AM [facility] LAB Eosinophils Relative 1.9 % LAB HEMETOLOGY METHOD 12/18/2024 8:17 AM [facility] LAB Basophils Relative 0.7 % LAB HEMETOLOGY METHOD 12/18/2024 8:17 AM [facility] LAB Immature Granulocytes Relative 0.3 % LAB HEMETOLOGY METHOD 12/18/2024 8:17 AM [facility] LAB Neutrophils Absolute 4.42 1.50 - 7.00 K/mcL LAB HEMETOLOGY METHOD 12/18/2024 8:17 AM [facility] LAB Lymphocytes Absolute 2.17 1.00 - 5.00 K/mcL LAB HEMETOLOGY METHOD 12/18/2024 8:17 AM [facility] LAB Monocytes Absolute 0.59 0.20 - 1.00 K/mcL LAB HEMETOLOGY METHOD 12/18/2024 8:17 AM [facility] LAB Eosinophils Absolute 0.14 0.00 - 0.50 K/mcL LAB HEMETOLOGY METHOD 12/18/2024 8:17 AM [facility] LAB Basophils Absolute 0.05 0.00 - 0.20 K/mcL LAB HEMETOLOGY METHOD 12/18/2024 8:17 AM EDT [facility] LAB Immature Granulocytes Absolute 0.02 0.00 - 0.03 K/mcL LAB HEMETOLOGY METHOD 12/18/2024 8:17 AM EDT [facility] LAB Blood Venous blood specimen / Unknown 12/18/2024 6:59 AM EDT 12/18/2024 8:07 AM EDT us David Bowles MD LAB BLOOD ORDERABLES Final Resul t Performing Organization Address City/[facility]/ZIP Co de Phone Number [facility] LAB [address] [place] [address], [place] [phone] * (ABNORMAL) Thyroid stimulating hormone (12/18/2024 6:59 AM EDT) TSH 0.28(L) 0.40 - 4.00 mcIU/mL LAB CHEMISTRY METHOD 12/18/2024 10:25 AM EDT [facility] LAB Blood Venous blood specimen / Unknown 12/18/2024 6:59 AM EDT 12/18/2024 8:07 AM EDT us David Bowles MD LAB BLOOD ORDERABLES Final Resul t [facility] [address] [place] [address], [place] [phone] * Lipid panel with reflex to direct LDL (12/18/2024 6:59 AM EDT) Cholesterol 145 0 - 200 mg/dL LAB CHEMISTRY METHOD 12/18/2024 9:37 AM EDT [facility] Triglycerides 138 0 - 150 mg/dL LAB CHEMISTRY METHOD 12/18/2024 9:37 AM EDT [facility] HDL 44 >=40 mg/dL LAB CHEMISTRY METHOD 12/18/2024 9:37 AM EDT [facility] LDL Calculated 73 0 - 100 mg/dL LAB CHEMISTRY METHOD 12/18/2024 9:37 AM EDT [facility] LAB Comment:Estimated LDL Calcul ated using equation: Total cholesterol - HDL cholesterol - (Triglycerides/5) VLDL Cholesterol Quentin 27.6 mg/dL LAB CHEMISTRY METHOD 12/18/2024 9:37 AM EDT [facility] Non HDL Chol. (LDL+VLDL) 101 <145 mg/dL LAB CHEMISTRY METHOD 12/18/2024 9:37 AM EDT [facility] Chol/HDL Ratio 3.3 0.0 - 4.4 LAB CHEMISTRY METHOD 12/18/2024 9:37 AM EDT [facility] Blood Venous blood specimen / Unknown 12/18/2024 6:59 AM EDT 12/18/2024 8:07 AM EDT us David Bowles MD LAB BLOOD ORDERABLES Final Resul t [facility] [address] [place] [address], documented in this encounter Visit Diagnoses Diagnosis Schizoaffective disorder, unspecified (CMS/HCC V24, CMS/HCC V28) Pure hypercholesterolemia, unspecified Hypothyroidism, unspecified documented in this encounter Care Teams Emissions Inspector Relationship Specialty Start Date End Date David Bowles MD [address] [place] [address] Dr [facility] [place] PCP - General Internal Medicine 04/23/24 documented as of this encounter
--- OUTSIDE RECORDS SUMMARY | 2025-01-23 05:22 | XMS_ITS ---
Author Organization [facility] Care Team Providers Care Retail Sales Assistant Name Role Phone Gigi Leon Unavailable Unavailable Jeremy Dunbar Unavailable Unavailable [facility] Unavailable Unavailable Os, Jessie Unavailable Unavailable [place]ingston, Bubba Unavailable Unavailable David Bowles Unavailable Unavailable Lalitha, Sascha Unavailable Unavailable Markell, Anastasia Unavailable Unavailable Sanjeev Mercado Unavailable Unavailable Allergies and adverse reactions Code CodeSystem Substance Reaction Severity StartDate Concern Status Tuberculin Tests Unknown 03/24/2022 acti ve Thorazine Unknown Unknown active Cymbalta Unknown Unknown active Care Team Name Role Address Phone Organization Dates David Bowles PCP [address] [place], [address], [place] (Office): : [facility] 11/13/2014 - present Gigi Leon [address] [place], [address], [place] (Office): : [facility] 11/13/2014 - present Jeremy Dunbar [address] [place], [address], [place] (Office): : [facility] 11/13/2014 - present [facility] [address] [place], [place], [id number] [place] [address] (Office): [facility] 11/13/2014 - present Jessie Teague [address] [facility] [address] [place] [address] (Office): : [facility] 11/13/2014 - present Bubba Enciso [address] [facility] [address] [place] [address] (Office): [facility] 11/13/2014 - present Sascha Doty [address] (Office): : : [facility] 11/13/2014 - present Anastasia Guillaume [address] (Office): [facility] 11/13/2014 - present Sanjeev Mercado [address] [facility] [address] [place] [address] (Office): [facility] 11/13/2014 - present Encounters Encounter Type Code Code System Description Performer Discharge Disposition Service Delivery Location Date Ambulatory Encounter CPT Code = [id number] COVID-19 [facility] Address: [address] [place] [address], [id number], [facility]. 11/13 Ambulatory Encounter CPT Code = [id number] Schizoaffective disorder [facility] Address: [address] [place] [address], [phone], [facility]. 11/13 Ambulatory Encounter CPT Code = [id number] Exposure to viral disease [facility] Address: [address] [place] [address], [address] [place] [address]. 11/13 Ambulatory Encounter CPT Code = [id number] Chronic obstructive pulmonary disease [facility] Address: [address] [place] [address], [address] [place] [address]. 11/13 Ambulatory Encounter CPT Code = [id number] Oropharyngeal dysphagia [facility] Address: [address] [place] [address], [address] [place] [address]. 11/13 Ambulatory Encounter CPT Code = [id number] Disorder due to and following fracture at wrist and/or hand level [facility] Address: [address] [place] [address], [address] [place] [address]. 11/13 Ambulatory Encounter CPT Code = [id number] Closed fracture of distal phalanx of little finger [facility] Address: [address] [place] [address], [address] [place] [address]. 11/13 Ambulatory Encounter CPT Code = [id number] COVID-19 [facility] Address: [address] [place] [address], [address] [place] [address], [facility]. 11/13 Ambulatory Encounter CPT Code = [id number] Pure hypercholesterole dafne [facility] Address: [address] [place] [address], [address] [place] [address], [facility]. 11/13 Ambulatory Encounter CPT Code = [id number] COVID-19 Kip Cruz [facility] Address: [address] [place] [address], [address] [place] [address], [facility]. 11/13 Ambulatory Encounter CPT Code = [id number] Infectious disease [facility] Address: [address] [place] [address], [address] [place] [address], [facility]. 11/13 Ambulatory Encounter CPT Code = [id number] Injury of head [facility] Address: [address] [place] [address], [address] [place] [address]. 11/13 Ambulatory Encounter CPT Code = [id number] Combined form of senile cataract Kip Cruz [facility] Address: [address] [place] [address], [address] [place] [address]. 11/13 Ambulatory Encounter CPT Code = [id number] Genuine stress incontinence Kip [facility] Address: [address] [place] [address], [address] [place] [address], [facility]. 11/13 Ambulatory Encounter CPT Code = [id number] Urge incontinence of urine Kip Cruz [facility] Address: [address] [place] [address], [address] [place] [address], [facility]. 11/13 Ambulatory Encounter CPT Code = [id number] Myopia Kip Cruz [facility] Address: [address] [place] [address], [address] [place] [address]. 11/13 Ambulatory Encounter CPT Code = [id number] Altered mental status Kip Cruz [facility] Address: [address] [place] [address], [address] [place] [address], [facility]. 11/13 Ambulatory Encounter CPT Code = [address] Oropharyngeal dysphagia Kip Cruz [facility] Address: [address] [place] [address], [address] [place] [address], [facility]. 11/13 Ambulatory Encounter CPT Code = [id number] Oral phase dysphagia Kip Cruz [facility] Address: [address] [place] [address], [address] [place] [address], [facility]. 11/13 Ambulatory Encounter CPT Code = [id number] Nuclear senile cataract Kip Cruz [facility] Address: [address] [place] [address], [address] [place] [address], [facility]. 11/13 Ambulatory Encounter CPT Code = [address] Sprain of ankle Kip Cruz [facility] Address: [address] [place] [address], [address] [place] [address], [facility]. 11/13 Ambulatory Encounter CPT Code = [id number] Difficulty walking Kip Bias [facility] Address: [address] [place] [address], [address] [place] [address], [facility]. 11/13 Ambulatory Encounter CPT Code = [id number] Muscle weakness Kip Bias [facility] Address: [address] [place] [address], [address] [place] [address]. 11/13 Ambulatory Encounter CPT Code = [id number] Dependent personality disorder Kip Bias [facility] Address: [address] [place] [address], [address] [place] [address], [facility]. 11/13 Ambulatory Encounter CPT Code = [id number] Dizziness and giddiness Kip Bias [facility] Address: [address] [place] [address], [address] [place] [address]. 11/13 Ambulatory Encounter CPT Code = [id number] Essential hypertension Kip Cruz [facility] Address: [address] [place] [address], [address] [place] [address]. 11/13 Ambulatory Encounter CPT Code = [id number] Polyarthropathy Kip Bias [facility] Address: [address] [place] [address], [address] [place] [address], [facility]. 11/13 Ambulatory Encounter CPT Code = [id number] Non-specific Kip Bias [facility] Address: [address] [place] [address], [address] [place] [address], [facility]. 11/13 Ambulatory Encounter CPT Code = [id number] Thyrotoxicosis Kpi Bias [facility] Address: [address] [place] [address], [address] [place] [address], [facility]. 11/13 Ambulatory Encounter CPT Code = [id number] Incontinence of feces Kip Cruz [facility] Address: [address] [place] [address], [address] [place] [address], [facility]. 11/13 Ambulatory Encounter CPT Code = [id number] Avoidant personality disorder Kip Bias [facility] Address: [address] [place] [address], [address] [place] [address]. 11/13 Ambulatory Encounter CPT Code = [id number] Urinary incontinence [facility] Address: [address] [place] [address], [address] [place] [address], [facility]. 11/13 Ambulatory Encounter CPT Code = [id number] Injury of head [facility] Address: [address] [place] [address], [address] [place] [address], [facility]. 11/13 Ambulatory Encounter CPT Code = [id number] Hypothyroidism [facility] Address: [address] [place] [address], [address] [place] [address], [facility]. 11/13 Goals Section Goals Description Status Target Date 1. Will have a decrease in i ncidents of poor boundaries through next review Active 03/06/2025 2. Will have a decrease in i ncidents of verbal aggression through next review Active 03/06/2025 3. Will have a decrease in e pisodes of treatment non complience trough next review. Active 03/06/2025 4. Will have a decrease in i ncidents of self harm behaviors through next review. Active 03/06/2025 Care needs will be met at a facility of choice until alternative site identified. Active 03/06/2025 Dentures will be maintained in good repair thru next review. Active 03/06/2025 I WOULD LIKE MY SKIN TO REMAIN INTACT THRU THE N EXT REVIEW. Active 03/06/2025 I WOULD LIKE TO ATTEND MY ANNUAL GYNECOLOGICAL E XAM APPOINTMENTS. Active 03/06/2025 I WOULD LIKE TO BE ABLE TO V OICE RELIEF OF PAIN WITHIN 1 HOUR AFTER ADMINISTRATION OF PRN ANALGESIA THROUGH NEXT REVIEW. Active 03/06/2025 I WOULD LIKE TO REMAIN FREE FROM SIGNS & SYMPTOMS OF TB THROUGH NEXT REVIEW. Active 03/06/2025 I know that my Advance Direc tives are in effect, and my wishes and directions will be carried out on an ongoing basis through next review Active 03/06/2025 I will achieve and maintain CR criteria and darleen chicas Active 03/06/2025 I will actively participate in leisure pursuits, independently or in groups, to maintain my current level of functioning through next review Active 03/06/2025 I will attend at least one [employer] out trip per quarter through next review Active 03/06/2025 I will be free of complicati ons related to disease process thru next review. Active 03/06/2025 I will have medication dose reduction/elimination as indicated thru next review. Active 03/06/2025 I will have no acute respiratory distress thru n ext review. Active 03/06/2025 I will have no complications due to incontinence thru next review. Active 03/06/2025 I will show improvement in my mood/behavior thru next review. Active 03/06/2025 I will show no side effects of medication use th ru next review. Active 03/06/2025 MARCO ANTONIO CONTINUE TO FUNCTION INDEPENDENLTY POSSIBLE THRU NEXT REVIEW. Active 03/06/2025 Will attend therapeutic sess ions X1 weekly to address symptoms related to trauma and will learn to express thoughts and emotions in an appropriate manner. Active 03/06/2025 Will be free of adverse reac tion to vaccine such as fever, flulike symptoms, etc. Active 03/06/2025 Will consume appropriate jd unts of food and fluids to maintain nutritional status Active 03/06/2025 Will exhibit no signs or sym ptoms of aspirations such as coughing, fever, etc. thru next review. Active 03/06/2025 Will have no adverse effects related to anticonv ulsant therapy Active 03/06/2025 Will have no injuries as the result of impaired vision thru next review. Active 03/06/2025 Will learn coping skills to effectively manage symptoms related to trauma Active 03/06/2025 Will maintain good oral hygiene thru next review . Active 03/06/2025 Will minimize risk for injury related to falls t hru next review. Active 03/06/2025 Will not experience a signif icant change in weight through next review Active 03/06/2025 Will remain free from compli cations of HTN and HLD through next review. Active 03/06/2025 Will tolerate diet, texture and fluid consistency without signs and symptoms of aspiration Active 03/06/2025 Immunizations Immunization Status Vaccine Details Vaccine Code CodeSystem Date Notes Influenza cancelled Influenza, split virus, trivalent, injectable, contains preservative 141 CVX created date: 3 consent date: 3 Influenza completed Influenza, split virus, trivalent, injectable, contains preservative lotNumber: [id number] expiry: 09/28/2022 Given 0.5 ml Right Deltoid intramuscularly 141 CVX created date: 2 consent date: 2 administe red date: 2 Influenza completed Influenza, split virus, trivalent, injectable, contains preservative lotNumber: [id number] expiry: 10/08/2021 Mfg: [employer] Given 0.5 ml Left Deltoid intramuscularly 141 CVX created date: 1 consent date: 1 administe red date: 1 Yuri Baca RN Influenza completed Influenza, split virus, trivalent, injectable, contains preservative lotNumber: [id number] expiry: 10/08/2020 Mfg: Se[employer] Given 0.5 ml Left Deltoid intramuscularly 141 CVX created date: 0 consent date: 0 administe red date: 0 CARLIE DONOVAN RN Influenza completed Influenza, split virus, trivalent, injectable, contains preservative lotNumber: [id number] expiry: 10/07/2019 Mfg: AFLURIA qUADRIVALENT Given 0.5 ml Right Deltoid intramuscularly 141 CVX created date: 9 consent date: 9 administe red date: 9 consent received 01/19/19 Influenza completed Influenza, split virus, trivalent, injectable, contains preservative expiry: 09/13/2018 Mfg: AFLURIA qUADRIVALENT Given 0.5 ml Right Deltoid intramuscularly 141 CVX created date: 8 consent date: 8 administe red date: 8 Educated by on 01/02/2018 Influenza cancelled Influenza, split virus, trivalent, injectable, contains preservative 141 CVX created date: 7 consent date: 7 Educated by on 12/22/2016 Resident decline consent for the vaccine. Influenza cancelled Influenza, split virus, trivalent, injectable, contains preservative 141 CVX created date: 6 consent date: 6 Educated by on 01/28/2016 Dylan is her ORP and declined consent for vaccine. Re-approached several times. Influenza cancelled Influenza, split virus, trivalent, injectable, contains preservative 141 CVX created date: 5 consent date: 5 Educated by Vaccine Information Sheet on 01/03/2015 Pt refused vaccine Influenza cancelled Influenza, split virus, trivalent, injectable, contains preservative 141 CVX created date: 5 consent date: 5 Resident signed declination form on 11/14/14 TB 1 Step Mantoux (PPD) completed tuberculin skin test; unspecified formulation lotNumber: [id number] expiry: 09/25/2020 Mfg: sanafe pasteur Given 0.1 ml Left Forearm intradermally 98 CVX created date: 0 consent date: 0 administe red date: 0 Pneumococcal Polysaccharide Vaccine (PPSV23) cancelled pneumococcal polysaccharide vaccine, 23 valent 33 CVX created date: 7 consent date: 7 Educated by on 01/09/2017 Resident signed declination form 01/09/17 Pneumococcal Polysaccharide Vaccine (PPSV23) cancelled pneumococcal polysaccharide vaccine, 23 valent 33 CVX created date: 5 consent date: 5 Resident signed declination form on 11/14/14 SARS-COV-2 (COVID-19) completed SARS-COV-2 (COVID-19) vaccine, mRNA, spike protein, LNP, preservative free, 30 mcg/0.3mL dose lotNumber: [id number] expiry: 02/21/2021 Mfg: [employer] Given 0.3 ml Left Deltoid intramuscularly Step 1 of Multi-step with next step required 208 CVX created date: 1 consent date: 1 administe red date: 1 BOOSTER SARS-COV-2 (COVID-19) completed SARS-COV-2 (COVID-19) vaccine, mRNA, spike protein, LNP, preservative free, anni-sucrose, 30 mcg/0.3 mL dose lotNumber: [id number] expiry: 09/08/2020 Mfg: pfizer Given 0.3 ml Left Deltoid intramuscularly Step 2 of Multi-step with next step required 309 CVX created date: 1 consent date: administe red date: 1 Administered by [facility] SARS-COV-2 (COVID-19) completed SARS-COV-2 (COVID-19) vaccine, mRNA, spike protein, LNP, preservative free, anni-sucrose, 30 mcg/0.3 mL dose lotNumber: [id number] expiry: 07/09/2020 Mfg: pfizer Given 0.3 ml Left Deltoid intramuscularly Step 1 of Multi-step with next step required 309 CVX created date: 1 consent date: 1 administe red date: 1 Administered by [facility] staff, second dose 05/07/2020 Prevnar 20 Pneumococcal conjugate (PCV20) cancelled Pneumococcal conjugate vaccine 20-valent (PCV20), polysaccharide [id number] conjugate, adjuvant, preservative free 216 CVX created date: 3 consent date: 3 SARS-COV-2 (COVID-19 BOOSTER) cancelled SARS-COV-2 (COVID-19) vaccine, mRNA, spike protein, LNP, preservative free, 50 mcg/0.5 mL dose 312 CVX created date: 3 consent date: 3 SARS-COV-2 (COVID-19 BOOSTER) completed SARS-COV-2 (COVID-19) vaccine, mRNA, spike protein, LNP, bivalent, preservative free, 30 mcg/0.3 mL dose, anni-sucrose formulation lotNumber: [id number] expiry: 02/26/2022 Given 0.3 ml Left Forearm intramuscularly 300 CVX created date: 2 consent date: 2 administe red date: 2 SARS-COV-2 (COVID-19 BOOSTER) completed SARS-COV-2 (COVID-19) vaccine, mRNA, spike protein, LNP, preservative free, 30 mcg/0.3mL dose lotNumber: [id number] expiry: 10/08/2021 Mfg: [employer] Given 0.3 ml Left Deltoid intramuscularly 208 CVX created date: 2 administe red date: 2 COVID-19, mRNA, LNP-S, PF, 50 mcg/0.5 mL cancelled SARS-COV-2 (COVID-19) vaccine, mRNA, spike protein, LNP, preservative free, 50 mcg/0.5 mL dose 312 CVX created date: 4 consent date: 4 Educated by on 03/22/2024 Influenza, high-dose, split virus, trivalent completed Influenza, high-dose, split virus, trivalent, injectable, preservative free lotNumber: [id number] expiry: 10/08/2024 Mfg: [employer] Given 0.5 ml Left Deltoid intramuscularly 135 CVX created date: 4 consent date: 4 administe red date: 4 Educated by on 02/09/2024 Medications Section Medication Name Status Code CodeSystem Dose Route Frequency Admin Type Sig Text Start Date End Date Indication Fleet Enema Enema 7-19 GM/118ML active 80655 5 RXNORM 1 unit Rectal as needed PRN Inser t 1 unit recta lly every 24 hours as neede d for Const ipati on Use only if Bisac odyl Suppo sitor y is ineff ectiv e 2022 - Constipatio n PROAIR HFA 90MCG HFA AER AD active 36718 2 RXNORM 2 puff Inhala tion as needed PRN 2 puff inhal e orall y every 6 hours as neede d for sob 2022 - sob VITAMIN D3 1000UNIT TAB active 2 RXNORM 1 table t Oral one time a day Routin e Give 1 table t orall y one time a day for suppl ement 2022 - supplement SENNA 8.6MG TAB active 19297 5 RXNORM 1 table t Oral as needed PRN Give 1 table t orall y every 24 hours as neede d for const ipati on 2022 - constipatio n LISINOPRIL 5MG TABLET active 95638 4 RXNORM 1 table t Oral one time a day Routin e Give 1 table t orall y one time a day relat ed to [facility] ([facility]) HYPER TENSI ON (I10) 2022 - - CALCIUM-VIT D 600/200 TAB active 98183 3 RXNORM 1 table t Oral one time a day Routin e Give 1 table t orall y one time a day for suppl ement 2022 - supplement ASPIRIN EC 81 MG TAB active 84650 6 RXNORM 1 table t Oral one time a day Routin e Give 1 table t orall y one time a day relat ed to [facility] ([facility]) HYPER TENSI ON (I10) 2022 - - BISACODYL 10MG SUPP.RECT active 85333 8 RXNORM 1 suppo sitor y Rectal as needed PRN Inser t 1 suppo sitor y recta lly every 24 hours as neede d for const ipati on 2022 - constipatio n FLEET ENEMA active 29380 5 RXNORM 1 unit Rectal as needed PRN Inser t 1 unit recta lly every 24 hours as neede d for const ipati on 2022 - constipatio n CRANBERRY 450MG TABLET active 67627 5 RXNORM 1 table t Oral two times a day Routin e Give 1 table t orall y two times a day for suppl ement 2022 - supplement Robitussin Chest Congestion Syrup 100 MG/5ML active 02998 4 RXNORM 10 ml Oral as needed PRN Give 10 ml by mouth every 6 hours as neede d for cough 2022 - cough POLYETHYLEN E GLYCOL 3350 PWD active 83425 3 RXNORM 17 gram Oral as needed PRN Give 17 gram orall y every 24 hours as neede d for const ipati on Mix with 240 ml water 2022 - constipatio n Senna Tablet 8.6 MG active 80271 5 RXNORM 2 table t Oral in the evening Routin e Give 2 table t by mouth in the eveni ng for Hard stool s 2022 - Hard stools cloZAPine Tablet 25 MG active 41213 6 RXNORM 1 table t Oral two times a day Routin e Give 1 table t by mouth two times a day relat ed to SCHIZ OAFFE CTIVE DISOR MILAGROS, UNSPE CIFIE D (F25. 9) as part of a 75 mg dose 2022 - - cloZAPine Tablet 50 MG active 06735 2 RXNORM 1 table t Oral two times a day Routin e Give 1 table t by mouth two times a day relat ed to SCHIZ OAFFE CTIVE DISOR MILAGROS, UNSPE CIFIE D (F25. 9) As part of a 75 mg dose 2022 - - Loperamide HCl Capsule 2 MG active 06296 6 RXNORM 1 table t Oral as needed PRN Give 1 table t by mouth every 12 hours as neede d for Diarr hea two tabs after first loose stool , if diarr hea pa nues take one tab but no more than four in 24 hours 2022 - Diarrhea Preparation H Cream 5-14.4 % active 96559 18 RXNORM 1 appli catio n Rectal as needed PRN Inser t 1 appli catio n recta lly every 8 hours as neede d for hemor rhoid s 2022 - hemorrhoids Remeron Tablet 45 MG active 80549 5 RXNORM 1 table t Oral at bedtime Routin e Give 1 table t by mouth at bedti me for SCHIZ OAFFE CTIVE DISOR MILAGROS, UNSPE CIFIE D (F25. 9) 2022 - SCHIZOAFFEC TIVE DISORDER, UNSPECIFIED (F25.9) Gemtesa Oral Tablet 75 MG active 51563 21 RXNORM 1 table t Oral in the morning Routin e Give 1 table t by mouth in the [facility] relat ed to STREDomenico S INCON TINEN CE (FEMA LE) (MALE ) (N39. 3) 2022 - - CeleXA Oral Tablet 10 MG active 04418 1 RXNORM 0.5 table t Oral one time a day Routin e Give 0.5 table t by mouth one time a day relat ed to SCHIZ OAFFE CTIVE DISOR MILAGROS, UNSPE CIFIE D (F25. 9) 2022 - - hydrOXYzine HCl Oral Tablet 50 MG active 33242 1 RXNORM 50 mg Oral one time a day Routin e Give 50 mg by mouth one time a day relat ed to SCHIZ OAFFE CTIVE DISOR MILAGROS, UNSPE CIFIE D (F25. 9) 2023 - - Symbicort Inhalation Aerosol 160-4.5 MCG/ACT active 88698 06 RXNORM 2 puff Inhala tion two times a day Routin e 2 puff inhal e orall y two times a day for ensur e resid ent rinse s mouth after use relat ed to CHRON IC OBSTR UCTIV E PULMO NARY DISEA SE, UNSPE CIFIE D (J44. 9) 2023 - ensure resident rinses mouth after use Docusate Sodium Capsule 100 MG active 14620 05 RXNORM 1 capsu le Oral one time a day Routin e Give 1 capsu le by mouth one time a day for const ipati on 2023 - constipatio n Lipitor Tablet 20 MG active 86459 8 RXNORM 1 table t Oral at bedtime Routin e Give 1 table t by mouth at bedti me for hyper chols terol emia Avoid grape fruit juice 2023 - hypercholst erolemia ACETAMINOPH EN 325MG TABLET active 00670 2 RXNORM 2 table t Oral as needed PRN Give 2 table t orall y every 6 hours as neede d for [place] temp *NOT TO EXCEE D 3GM APAP/ 24HRS AND Give 2 table t orall y every 6 hours as neede d for Pain *NOT TO EXCEE D 3GM APAP/ 24HRS 2023 - Elevated temp 08294 2 RXNORM 2 table t Oral as needed PRN Give 2 table t orall y every 6 hours as neede d for [place] temp *NOT TO EXCEE D 3GM APAP/ 24HRS AND Give 2 table t orall y every 6 hours as neede d for Pain *NOT TO EXCEE D 3GM APAP/ 24HRS 2023 - Pain Trileptal Oral Tablet 150 MG active 61983 6 RXNORM 0.5 table t Oral two times a day Routin e Give 0.5 table t by mouth two times a day for SCHIZ OAFFE CTIVE DISOR MILAGROS admin ister with 150 mg dose for a total dose of 225 mg dose 2024 - SCHIZOAFFEC TIVE DISORDER Trileptal Oral Tablet 150 MG active 46546 6 RXNORM 1 table t Oral two times a day Routin e Give 1 table t by mouth two times a day for SCHIZ OAFFE CTIVE DISOR [place]ROS admin ister with 75 mg dose for a total dose of 225 mg dose 2024 - SCHIZOAFFEC TIVE DISORDER Haldol Decanoate Intramuscul ar Solution 100 MG/ML active 52388 47 RXNORM 1 ml Intram uscula r one time a day Routin e Injec t 1 ml intra muscu larly one time a day every 28 day(s ) for Schiz oaffe ctive d/o 2024 - Schizoaffec tive d/o diazePAM Oral Tablet 2 MG active 15920 0 RXNORM 1 table t Oral two times a day Routin e Give 1 table t by mouth two times a day for DEPEN DENT PERSO NALIT Y DISOR MILAGROS (F60. 7) 2024 - DEPENDENT PERSONALITY DISORDER (F60.7) Levothyroxi ne Sodium Oral Tablet 50 MCG active 22831 1 RXNORM 1 table t Oral in the morning Routin e Give 1 table t by mouth in the morni ng 2024 - - Mental Status Section Date Assessment Total Score Description 11/16/2024 BIMS 09 moderate cognit nicole impairment CAM 0 No delirium ind icated PHQ-9 01 minimal depress ion 08/24/2024 CAM 0 No delirium ind icated PHQ-9 19 moderately juan alberto re depression Insurance Providers Plan of Treatment Section Interventions Intervention Code Code System Display Name Proposed D ate Problems Problem # Description Date of onset Resolved Date Code CodeSystem Concern Status 1 DYSPHAGIA, OROPHARYNGEAL PHASE 10/10/[address] active 2 DISPLACED FRACTURE OF DISTAL PHALANX OF LEFT LITTLE FINGER, SEQUELA 08/10/[address] active 3 DISPLACED FRACTURE OF DISTAL PHALANX OF LEFT LITTLE FINGER, INITIAL ENCOUNTER FOR CLOSED FRACTURE 01/16/20 24 08/09/[address] completed 4 COVID-19 03/23/20 23 03/28/[address] completed 5 PURE HYPERCHOLESTEROLEM IA, UNSPECIFIED 07/20/[address] active 6 PERSONAL HISTORY OF COVID-19 05/11/[address] active 7 PERSONAL HISTORY OF OTHER INFECTIOUS AND PARASITIC DISEASES 10/31/19 20 05/11/[address] completed 8 CONTACT WITH AND (SUSPECTED) EXPOSURE TO OTHER VIRAL COMMUNICABLE DISEASES 07/25/19 20 10/31/[address] completed 9 COVID-19 07/25/19 20 10/31/[address] completed 10 UNSPECIFIED INJURY OF HEAD, SUBSEQUENT ENCOUNTER 07/25/[address] active 11 COMBINED FORMS OF AGE-RELATED CATARACT, BILATERAL 11/17/[address] active 12 STRESS INCONTINENCE (FEMALE) (MALE) 10/12/[address] active 13 URGE INCONTINENCE 10/12/[address] active 14 MYOPIA, BILATERAL 09/23/[address] active 15 ALTERED MENTAL STATUS, UNSPECIFIED 05/12/[address] active 16 DYSPHAGIA, OROPHARYNGEAL PHASE 03/11/20 16 11/09/[address] completed 17 DYSPHAGIA, ORAL PHASE 08/10/19 16 07/11/[address] completed 18 AGE-RELATED NUCLEAR CATARACT, RIGHT EYE 05/21/19 16 09/09/[address] completed 19 DIFFICULTY IN WALKING, NOT ELSEWHERE CLASSIFIED 12/11/19 15 08/20/[address] completed 20 SPRAIN OF UNSPECIFIED LIGAMENT OF UNSPECIFIED ANKLE, INITIAL ENCOUNTER 12/11/19 15 08/20/[address] completed 21 AVOIDANT PERSONALITY DISORDER 11/14/[address] active 22 CHRONIC OBSTRUCTIVE PULMONARY DISEASE, UNSPECIFIED 11/14/[address] active 23 DEPENDENT PERSONALITY DISORDER 11/14/[address] active 24 DIZZINESS AND GIDDINESS 11/14/[address] active 25 ESSENTIAL (PRIMARY) HYPERTENSION 11/14/[address] active 26 FULL INCONTINENCE OF FECES 11/14/[address] active 27 HYPOTHYROIDISM, UNSPECIFIED 11/14/[address] active 28 MUSCLE WEAKNESS (GENERALIZED) 11/14/19 15 08/20/[address] completed 29 NONSPECIFIC REACTION TO TUBERCULIN SKIN TEST WITHOUT ACTIVE TUBERCULOSIS 11/14/[address] active 30 POLYOSTEOARTHRITIS , UNSPECIFIED 11/14/[address] active 31 SCHIZOAFFECTIVE DISORDER, UNSPECIFIED 11/14/[address] active 32 THYROTOXICOSIS, UNSPECIFIED WITHOUT THYROTOXIC CRISIS OR STORM 11/14/[address] active 33 UNSPECIFIED INJURY OF HEAD, INITIAL ENCOUNTER 11/14/19 15 07/25/[address] completed 34 UNSPECIFIED URINARY INCONTINENCE 11/14/19 15 09/09/[address] completed Reason for Referral No Reasons for Referral Entered Social History Social History Observation Description Start Date End Date Code Code System Current Smoking Status Tobacco smoking consumption unknown 905732223 SNOMED CT Sex Assigned At Female 1955 80202-2 [facility] Gender Identity Sexual Orientation Vital Signs Code Code System Vitals Name Values and Units Timing Information 8462-4 [facility] Blood Pressure-Diastolic Value=20 Un its=mmHg 01/23/2025 8480-6 [facility] Blood Pressure-Systolic Value=46 Uni ts=mmHg 01/23/2025 8310-5 [facility] Body Temperature Value=96.2 Units= F 01/23/2025 9279-1 [facility] Respiratory Rate Value=18.0 Units=/m in 01/23/2025 8867-4 [facility] Heart rate Value=89.0 Units=/min 58582-2 [facility] O2 % BldC Oximetry Value=90.0 Units= % 01/23/2025 61358-6 [facility] Pain Level Value=0.0 01/23/2025 30961-6 [facility] Weight Slbun=169.9 Units=Lbs 04/2024 8302-2 [facility] Height Value=66.0 Units=Inches 09/14/2024
--- OUTSIDE RECORDS SUMMARY | 2025-01-23 05:22 | XMS_ITS | Encounter Summary ---
Author Organization [facility] Address [address] [place] [address] Care Team Providers Care Caddymaster Name Role Phone David Bowles MD Primary Care Provider [phone] Encounter Details Date Type Department Care Team (Latest Contact Info) Description 03/22/2024 Lab Requisition [facility] - Main Lab [address] [facility] [place] [address] David Bowles MD [address] [place] [address] [address] [place] Schizoaffective disorder, unspecified [...] PANEL WITH REFLEX TO DIRECT LDL Routine 03/22/2024 7:00 AM EST Schizoaffective disorder, unspecified (CMS/HCC) CBC WITH AUTO DIFFERENTIAL Routine 03/22/2024 7:00 AM EST Schizoaffective disorder, unspecified (CMS/HCC) CBC AND DIFFERENTIAL Routine 03/22/2024 7:00 AM EST Schizoaffective disorder, unspecified (CMS/HCC) THYROID STIMULATING HORMONE Routine 03/22/2024 7:00 AM EST Schizoaffective disorder, unspecified (CMS/HCC) COMPREHENSIVE METABOLIC PANEL Routine 03/22/2024 7:00 AM EST Schizoaffective disorder, unspecified (CMS/HCC) documented in this encounter Results * (ABNORMAL) CBC auto differential (03/22/2024 7:00 AM EST) WBC 7.4 4.8 - 10.8 K/mcL LAB HEMETOLOGY METHOD 03/22/2024 8:[address] [facility] RBC 4.20 3.80 - 4.80 M/mcL LAB HEMETOLOGY METHOD 03/22/2024 8:[address] [facility] Hemoglobin 12.1 11.5 - 16.0 g/dL LAB HEMETOLOGY METHOD 03/22/2024 8:[address] [facility] Hematocrit 38.5 35.0 - 47.0 % LAB HEMETOLOGY METHOD 03/22/2024 8:[address] [facility] MCV 91.2 79.0 - 98.0 FL LAB HEMETOLOGY METHOD 03/22/2024 8:[address] [facility] MCH 28.7 27.0 - 32.0 pcg LAB HEMETOLOGY METHOD 03/22/2024 8:[address] [facility] MCHC 31.4(L) 32.0 - 37.0 g/dL LAB HEMETOLOGY METHOD 03/22/2024 8:[address] [facility] RDW 13.3 11.0 - 15.0 % LAB HEMETOLOGY METHOD 03/22/2024 8:[address] [facility] Platelets 259 130 - 400 K/mcL LAB HEMETOLOGY METHOD 03/22/2024 8:[address] [facility] MPV 12.0(H) 7.0 - 11.0 FL LAB HEMETOLOGY METHOD 03/22/2024 8:[address] [facility] NRBC 0.0 <1.0 % LAB HEMETOLOGY METHOD 03/22/2024 8:[address] [facility] NRBC Absolute 0.00 <0.10 K/mcL LAB HEMETOLOGY METHOD 03/22/2024 8:[address] [facility] Neutrophils Relative 55.9 % LAB HEMETOLOGY METHOD 03/22/2024 8:[address] [facility] Lymphocytes Relative 33.5 % LAB HEMETOLOGY METHOD 03/22/2024 8:[address] [facility] Monocytes Relative 7.8 % LAB HEMETOLOGY METHOD 03/22/2024 8:[address] [facility] Eosinophils Relative 2.0 % LAB HEMETOLOGY METHOD 03/22/2024 8:[address] [facility] Basophils Relative 0.5 % LAB HEMETOLOGY METHOD 03/22/2024 8:[address] [facility] Immature Granulocytes Relative 0.3 % LAB HEMETOLOGY METHOD 03/22/2024 8:[address] [facility] Neutrophils Absolute 4.16 1.50 - 7.00 K/mcL LAB HEMETOLOGY METHOD 03/22/2024 8:[address] [facility] Lymphocytes Absolute 2.49 1.00 - 5.00 K/mcL LAB HEMETOLOGY METHOD 03/22/2024 8:[address] [facility] Monocytes Absolute 0.58 0.20 - 1.00 K/mcL LAB HEMETOLOGY METHOD 03/22/2024 8:[address] [facility] Eosinophils Absolute 0.15 0.00 - 0.50 K/mcL LAB HEMETOLOGY METHOD 03/22/2024 8:[address] [facility] Basophils Absolute 0.04 0.00 - 0.20 K/mcL LAB HEMETOLOGY METHOD 03/22/2024 8:[address] [facility] Immature Granulocytes Absolute 0.02 0.00 - 0.03 K/mcL LAB HEMETOLOGY METHOD 03/22/2024 8:[address] [facility] Blood Venous blood specimen / Unknown 03/22/2024 7:00 AM EST 03/22/2024 7:36 AM EST us David Bowles MD LAB BLOOD ORDERABLES Final Resul t Performing Organization Address [facility]/ZIP Co de Phone Number [facility] [address] [place] [address], [place] [phone] * Thyroid stimulating hormone (03/22/2024 7:00 AM EST) TSH 0.74 0.40 - 4.00 mcIU/mL LAB CHEMISTRY METHOD 03/22/2024 9:01 AM EST [facility] Blood Venous blood specimen / Unknown 03/22/2024 7:00 AM EST 03/22/2024 7:36 AM EST us David Bowles MD LAB BLOOD ORDERABLES Final Resul t Performing Organization Address [facility] Co de Phone Number [facility] [address] [place] [address], [place] [phone] * (ABNORMAL) Lipid panel with reflex to direct LDL (03/22/2024 7:00 AM EST) Cholesterol 147 0 - 200 mg/dL LAB CHEMISTRY METHOD 03/22/2024 8:[address] [facility] Triglycerides 177(H) 0 - 150 mg/dL LAB CHEMISTRY METHOD 03/22/2024 8:11 AM EST [facility] HDL 41 >=40 mg/dL LAB CHEMISTRY METHOD 03/22/2024 8:11 AM EST [facility] LDL Calculated 71 0 - 100 mg/dL LAB CHEMISTRY METHOD 03/22/2024 8:[address] [facility] VLDL Cholesterol Quentin 35.4 mg/dL LAB CHEMISTRY METHOD 03/22/2024 8:11 AM EST [facility] Non HDL Chol. (LDL+VLDL) 106 <145 mg/dL LAB CHEMISTRY METHOD 03/22/2024 8:[address] [facility] Chol/HDL Ratio 3.6 0.0 - 4.4 LAB CHEMISTRY METHOD 03/22/2024 8:[address] [facility] Blood Venous blood specimen / Unknown 03/22/2024 7:00 AM EST 03/22/2024 7:36 AM EST us David Bowles MD LAB BLOOD ORDERABLES Final Resul t [facility] [address] [place] [address], * (ABNORMAL) Comprehensive metabolic panel (03/22/2024 7:00 AM EST) Sodium 141 133 - 145 mmol/L LAB CHEMISTRY METHOD 03/22/2024 8:[address] [facility] Potassium 4.5 3.5 - 5.5 mmol/L LAB CHEMISTRY METHOD 03/22/2024 8:[address] [facility] Chloride 109 96 - 110 mmol/L LAB CHEMISTRY METHOD 03/22/2024 8:[address] [facility] CO2 27 21 - 32 mmol/L LAB CHEMISTRY METHOD 03/22/2024 8:[address] [facility] Anion Gap 5 3 - 11 LAB CHEMISTRY METHOD 03/22/2024 8:[address] [facility] Glucose 107(H) 70 - 100 mg/dL LAB CHEMISTRY METHOD 03/22/2024 8:[address] [facility] BUN 14 5 - 25 mg/dL LAB CHEMISTRY METHOD 03/22/2024 8:[address] [facility] Creatinine 1.05 0.50 - 1.10 mg/dL LAB CHEMISTRY METHOD 03/22/2024 8:[address] [facility] eGFR 58(L) >=60 mL/min/1. 73m2 LAB CHEMISTRY METHOD 03/22/2024 8:[address] [facility] Comment:Calculation based on the Chronic Kidney Disease Epidemiology Collaboration (CKD-EPI) equation refit without adjustment for race. BUN/Creatinine Ratio 13.3 LAB CHEMISTRY METHOD 03/22/2024 8:[address] [facility] Calcium 10.0 8.5 - 10.5 mg/dL LAB CHEMISTRY METHOD 03/22/2024 8:[address] [facility] AST (SGOT) 11 10 - 42 unit/L LAB CHEMISTRY METHOD 03/22/2024 8:[address] [facility] ALT (SGPT) 13 10 - 60 unit/L LAB CHEMISTRY METHOD 03/22/2024 8:[address] [facility] Alkaline Phosphatase 107 42 - 121 unit/L LAB CHEMISTRY METHOD 03/22/2024 8:[address] [facility] Total Protein 5.8(L) 6.0 - 8.0 g/dL LAB CHEMISTRY METHOD 03/22/2024 8:[address] [facility] Albumin 3.5 3.2 - 5.0 g/dL LAB CHEMISTRY METHOD 03/22/2024 8:[address] [facility] Total Bilirubin 0.2 0.0 - 1.4 mg/dL LAB CHEMISTRY METHOD 03/22/2024 8:[address] [facility] Blood Venous blood specimen / Unknown 03/22/2024 7:00 AM EST 03/22/2024 7:36 AM EST us David Bowles MD LAB BLOOD ORDERABLES Final Resul t [facility] [address] [place] [address], documented in this encounter Visit Diagnoses Diagnosis Schizoaffective disorder, unspecified (CMS/HCC V24, CMS/HCC V28) documented in this encounter Care Teams Caddymaster Relationship Specialty Start Date End Date David Bowles MD [address] [facility] [place] PCP - General Internal Medicine 04/23/24 documented as of this encounter
--- OUTSIDE RECORDS SUMMARY | 2025-01-23 05:22 | XMS_ITS | Encounter Summary ---
Author Organization [facility] Address [address] [place] [address] Care Team Providers Care Kalsominer Name Role Phone David Bowles MD Primary Care Provider [phone] Encounter Details Date Type Department Care Team (Late st Contact Info) Description 09/19/2024 Lab Requisition [facility] - Main Lab [address] [place] [address] David Bowles MD [address] [place] [address] Dr [address] [place] Chronic obstructive pulmonary disease, unspecified (CMS/[facility] V24, CMS/[facility] V28); Paranoid schizophrenia ([facility] V24, [facility] V28); Prediabetes Social History Tobacco Use Types Packs/Day Years [...] Procedure Name Priority Date/Time Associated Diagnosis Comments HEMOGLOBIN A1C Routine 09/19/2024 6:55 AM EDT Chronic obstructive pulmonary disease, unspecified ([facility] V24, CMS/[facility] V28[facility] Paranoid schizophrenia ([facility] V24, CMS/[facility] V28) Prediabetes documented in this encounter Results * Hemoglobin A1c (09/19/2024 6:55 AM EDT) Hemoglobin A1C 5.9 <6.5 % LAB CHEMISTRY METHOD 09/19/2024 12:17 PM EDT [facility] Mean Bld Glu Estim. 123 mg/dL LAB CHEMISTRY METHOD 09/19/2024 12:17 PM EDT [facility] Blood Venous blood specimen / Unknown 09/19/2024 6:55 AM EDT 09/19/2024 8:06 AM EDT us David Bowles MD LAB BLOOD ORDERABLES Final Resul t [facility] ([facility]) [facility] [address] [place] [address], documented in this encounter Visit Diagnoses Diagnosis Chronic obstructive pulmonary disease, unspecified (CMS/[facility] V24, CMS/[facility] V28) Paranoid schizophrenia (CMS/[facility] V24, [facility] V28) Paranoid schizophrenia, unspecified condition Prediabetes Other abnormal glucose documented in this encounter Care Teams Kalsominer Relationship Specialty Start Date End Date David Bowles MD [address] [place] [address] Dr [address] [place], [place] PCP - General Internal Medicine 04/23/24 documented as of this encounter
--- OUTSIDE RECORDS SUMMARY | 2025-01-23 05:22 | XMS_ITS | Encounter Summary ---
Author Organization [facility] Address [address] [place] [address] Care Team Providers Care Community Engagement Manager Name Role Phone David Bowles MD Primary Care Provider [phone] Encounter Details Date Type Department Care Team (Latest Contact Info) Description 07/18/2024 Lab Requisition [facility] - Main Lab [address] [place] [address] David Bowles MD [address] [place] [address] [address] [place] Schizoaffective disorder, unspecified (CMS/HCC V24, CMS/HCC V28) [...] Diagnosis Comments CBC WITH AUTO DIFFERENTIAL Routine 07/18/2024 6:59 AM EDT Schizoaffective disorder, unspecified CBC AND DIFFERENTIAL Routine 07/18/2024 6:59 AM EDT Schizoaffective disorder, unspecified documented in this encounter Results * (ABNORMAL) CBC auto differential (07/18/2024 6:59 AM EDT) WBC 6.9 4.8 - 10.8 [facility] LAB HEMETOLOGY METHOD 07/18/2024 8:09 AM EDT [facility] RBC 4.20 3.80 - 4.80 [facility] LAB HEMETOLOGY METHOD 07/18/2024 8:[address] [facility] Hemoglobin 12.5 11.5 - 16.0 g/dL LAB HEMETOLOGY METHOD 07/18/2024 8:[address] [facility] Hematocrit 39.7 35.0 - 47.0 % LAB HEMETOLOGY METHOD 07/18/2024 8:[address] [facility] MCV 93.6 79.0 - 98.0 FL LAB HEMETOLOGY METHOD 07/18/2024 8:[address] [facility] MCH 29.5 27.0 - 32.0 pcg LAB HEMETOLOGY METHOD 07/18/2024 8:[address] [facility] MCHC 31.5(L) 32.0 - 37.0 g/dL LAB HEMETOLOGY METHOD 07/18/2024 8:[address] [facility] RDW 13.4 11.0 - 15.0 % LAB HEMETOLOGY METHOD 07/18/2024 8:[address] [facility] Platelets 231 130 - 400 K/mcL LAB HEMETOLOGY METHOD 07/18/2024 8:[address] [facility] MPV 12.2(H) 7.0 - 11.0 FL LAB HEMETOLOGY METHOD 07/18/2024 8:[address] [facility] NRBC 0.0 <1.0 % LAB HEMETOLOGY METHOD 07/18/2024 8:[address] [facility] NRBC Absolute 0.00 <0.10 K/mcL LAB HEMETOLOGY METHOD 07/18/2024 8:[address] [facility] Neutrophils Relative 56.7 % LAB HEMETOLOGY METHOD 07/18/2024 8:[address] [facility] Lymphocytes Relative 33.2 % LAB HEMETOLOGY METHOD 07/18/2024 8:[address] [facility] Monocytes Relative 7.7 % LAB HEMETOLOGY METHOD 07/18/2024 8:09 AM EDT [facility] Eosinophils Relative 1.6 % LAB HEMETOLOGY METHOD 07/18/2024 8:09 AM T [facility] Basophils Relative 0.7 % LAB HEMETOLOGY METHOD 07/18/2024 8:[address] [facility] Immature Granulocytes Relative 0.1 % LAB HEMETOLOGY METHOD 07/18/2024 8:09 AM EDT [facility] Neutrophils Absolute 3.89 1.50 - 7.00 K/mcL LAB HEMETOLOGY METHOD 07/18/2024 8:09 AM T [facility] Lymphocytes Absolute 2.28 1.00 - 5.00 K/mcL LAB HEMETOLOGY METHOD 07/18/2024 8:[address] [facility] Monocytes Absolute 0.53 0.20 - 1.00 K/mcL LAB HEMETOLOGY METHOD 07/18/2024 8:09 AM EDT [facility] Eosinophils Absolute 0.11 0.00 - 0.50 K/mcL LAB HEMETOLOGY METHOD 07/18/2024 8:[address] [facility] Basophils Absolute 0.05 0.00 - 0.20 K/mcL LAB HEMETOLOGY METHOD 07/18/2024 8:[address] [facility] Immature Granulocytes Absolute 0.01 0.00 - 0.03 K/mcL LAB HEMETOLOGY METHOD 07/18/2024 8:09 AM T [facility] Blood Venous blood specimen / Unknown 07/18/2024 6:59 AM EDT 07/18/2024 8:03 AM EDT us David Bowles MD LAB BLOOD ORDERABLES Final Resul t [facility] [address] [place] [address], documented in this encounter Visit Diagnoses Diagnosis Schizoaffective disorder, unspecified ([facility] V24, [facility] V28) documented in this encounter Care Teams Community Engagement Manager Relationship Specialty Start Date End Date David Bowles MD [address] [place] [address] Dr [address] [facility] [place] PCP - General Internal Medicine 04/23/24 documented as of this encounter
--- OUTSIDE RECORDS SUMMARY | 2025-01-23 05:22 | XMS_ITS | Clinical Summary ---
Author Organization [address] [facility] Address [address] [place] [address] Phone Care Team Providers Care Elementary Assistant Teacher Name Role Phone David Bowles MD Primary Care Provider Encounters Date Type Department Care Team Description 01/15/[address] [facility] Lab [address] [place] [address] David Bowles MD Hypothyroidism, unspecified; Other rat exterminator (current) drug therapy 12/18/[address] [facility] Lab [address] [place] [address] David Bowles MD Schizoaffective disorder, unspecified (CMS/HCC V24, CMS/HCC V28); Pure hypercholesterolemia, unspecified; Hypothyroidism, unspecified from Last 3 Months Social History Tobacco Use Types Packs/Day Years Used Date Smoking Tobacco: Never Assessed Comments Unknown Sex and Gender Information Value Date Recorded Sex Assigned at Not on file Legal Sex Female 2:13 AM EST Gender Identity Not on file Sexual Orientation Not on file Plan of Treatment Health Maintenance Due Date Last Done Comments Breast Cancer Screening 1955 Colorectal Cancer Screening: Colonoscopy 1955 DTaP,Tdap,and Td Vaccines (1 - Tdap) 1974 Pneumococcal Vaccine: 50+ Years (1 of 1 - PCV) 2005 Zoster Vaccines (1 of 2) 2005 Falls Risk Assessment 03/14/2022 Hepatitis C Screening 03/14/2022 Medicare Annual Wellness Visit 03/14/2022 Osteoporosis Screening (Bone Density Screening) 03/14/2022 Social Influencers of Health Screening 03/14/2022 Depression Screening 04/11/2024 COVID-19 Vaccine (1 - 2023-2 5 season) 2024 Influenza Vaccine (#1) 2024 Cholesterol Screening (Lipid Panel) 12/18/2029 12/18/2024, 06/20/2024, 03/22/2024 RSV Immunization Adult Patients (1 - 1-dose 75+ series) 2030 HIB Vaccines Aged Out No longer eligi ble based on patient's age to complete this topic HPV Vaccines Aged Out No longer eligi ble based on patient's age to complete this topic Hepatitis A Vaccines Aged Out No long er eligible based on patient's age to complete this topic Hepatitis B Vaccines Aged Out No long er eligible based on patient's age to complete this topic IPV Vaccines Aged Out No longer eligi ble based on patient's age to complete this topic MMR Vaccines Aged Out No longer eligi ble based on patient's age to complete this topic Meningococcal ACWY Vaccine Aged Out N o longer eligible based on patient's age to complete this topic Meningococcal B Vaccine Aged Out No l onger eligible based on patient's age to complete this topic RSV Immunization Patients Under 20 months Aged Out No longer eligible b ased on patient's age to complete this topic Varicella Vaccines Aged Out No longer eligible based on patient's age to complete this topic Procedures Procedure Name Priority Date/Time Associated Diagnosis Comments CBC WITH AUTO DIFFERENTIAL Routine 01/15/2025 6:46 AM EDT Hypothyroidism, unspecified Other rat exterminator (current) drug therapy THYROXINE FREE Routine 01/15/2025 6:46 AM EDT Hypothyroidism, unspecified Other rat exterminator (current) drug therapy CBC AND DIFFERENTIAL Routine 01/15/2025 6:46 AM EDT Hypothyroidism, unspecified Other rat exterminator (current) drug therapy CBC WITH AUTO DIFFERENTIAL Routine 12/18/2024 6:59 AM EDT Schizoaffective disorder, unspecified (CMS/HCC V24, CMS/HCC V28) Pure hypercholesterolemi a, unspecified Hypothyroidism, unspecified THYROID STIMULATING HORMONE Routine 12/18/2024 6:59 AM EDT Schizoaffective disorder, unspecified (CMS/HCC V24, CMS/HCC V28) Pure hypercholesterolemi a, unspecified Hypothyroidism, unspecified CBC AND DIFFERENTIAL Routine 12/18/2024 6:59 AM EDT Schizoaffective disorder, unspecified ([facility]/HCC V24, [facility] V28) Pure hypercholesterolemi a, unspecified Hypothyroidism, unspecified LIPID PANEL WITH REFLEX TO DIRECT LDL Routine 12/18/2024 6:59 AM EDT Schizoaffective disorder, unspecified ([facility]/HCC V24, [facility] V28) Pure hypercholesterolemi a, unspecified Hypothyroidism, unspecified from Last 3 Months Results * (ABNORMAL) CBC auto differential (01/15/2025 6:46 AM EDT) Only the most recent of2 resultswithin the time period is included. WBC 7.1 4.8 - 10.8 K/mcL LAB HEMETOLOGY METHOD 01/15/2025 8:32 AM [facility] LAB RBC 4.30 3.80 - 4.80 /[facility] LAB HEMETOLOGY METHOD 01/15/2025 8:32 AM [facility] LAB Hemoglobin 12.1 11.5 - 16.0 g/dL LAB HEMETOLOGY METHOD 01/15/2025 8:32 AM [facility] LAB Hematocrit 39.5 35.0 - 47.0 % LAB HEMETOLOGY METHOD 01/15/2025 8:32 AM [facility] LAB MCV 92.7 79.0 - 98.0 FL LAB HEMETOLOGY METHOD 01/15/2025 8:32 AM [facility] LAB MCH 28.4 27.0 - 32.0 pcg LAB HEMETOLOGY METHOD 01/15/2025 8:32 AM [facility] LAB MCHC 30.6(L) 32.0 - 37.0 g/dL LAB HEMETOLOGY METHOD 01/15/2025 8:32 AM [facility] LAB RDW 13.6 11.0 - 15.0 % LAB HEMETOLOGY METHOD 01/15/2025 8:32 AM [facility] LAB Platelets 01/15/2025 8:32 AM [facility] LAB Comment:Not measured. Unable to quantitate due to platelet clumping MPV 12.7(H) 7.0 - 11.0 FL LAB HEMETOLOGY METHOD 01/15/2025 8:32 AM [facility] LAB NRBC 0.0 <1.0 % LAB HEMETOLOGY METHOD 01/15/2025 8:32 AM [facility] LAB NRBC Absolute 0.00 <0.10 K/mcL LAB HEMETOLOGY METHOD 01/15/2025 8:32 AM [facility] LAB Neutrophils Relative 59.9 % LAB HEMETOLOGY METHOD 01/15/2025 8:32 AM [facility] LAB Lymphocytes Relative 29.1 % LAB HEMETOLOGY METHOD 01/15/2025 8:32 AM [facility] LAB Monocytes Relative 7.8 % LAB HEMETOLOGY METHOD 01/15/2025 8:32 AM [facility] LAB Eosinophils Relative 2.1 % LAB HEMETOLOGY METHOD 01/15/2025 8:32 AM [facility] LAB Basophils Relative 0.8 % LAB HEMETOLOGY METHOD 01/15/2025 8:32 AM [facility] LAB Immature Granulocytes Relative 0.3 % LAB HEMETOLOGY METHOD 01/15/2025 8:32 AM [facility] LAB Neutrophils Absolute 4.24 1.50 - 7.00 K/mcL LAB HEMETOLOGY METHOD 01/15/2025 8:32 AM [facility] LAB Lymphocytes Absolute 2.06 1.00 - 5.00 K/mcL LAB HEMETOLOGY METHOD 01/15/2025 8:32 AM [facility] LAB Monocytes Absolute 0.55 0.20 - 1.00 K/mcL LAB HEMETOLOGY METHOD 01/15/2025 8:32 AM EDT [facility] LAB Eosinophils Absolute 0.15 0.00 - 0.50 K/[facility] LAB HEMETOLOGY METHOD 01/15/2025 8:32 AM EDT [facility] LAB Basophils Absolute 0.06 0.00 - 0.20 K/[facility] LAB HEMETOLOGY METHOD 01/15/2025 8:32 AM EDT [facility] LAB Immature Granulocytes Absolute 0.02 0.00 - 0.03 K/[facility] LAB HEMETOLOGY METHOD 01/15/2025 8:32 AM EDT [facility] LAB Blood Venous blood specimen / Unknown 01/15/2025 6:46 AM EDT 01/15/2025 7:37 AM EDT us David Bowles MD LAB BLOOD ORDERABLES Final Resul t Performing Organization Address City/[facility]/ZIP Co de Phone Number [facility] LAB [address] [place] [address], [place] [phone] * Thyroxine free (01/15/2025 6:46 AM EDT) Free T4 0.87 0.70 - 1.80 ng/dL LAB CHEMISTRY METHOD 01/15/2025 9:23 AM EDT [facility] LAB Blood Venous blood specimen / Unknown 01/15/2025 6:46 AM EDT 01/15/2025 7:37 AM EDT us David Bowles MD LAB BLOOD ORDERABLES Final Resul t Performing Organization Address City/[facility]/ZIP Co de Phone Number [facility] [address] [place] [address], [place] [phone] * Lipid panel with reflex to direct LDL (12/18/2024 6:59 AM EDT) Cholesterol 145 0 - 200 mg/dL LAB CHEMISTRY METHOD 12/18/2024 9:37 AM EDT [facility] LAB Triglycerides 138 0 - 150 mg/dL LAB CHEMISTRY METHOD 12/18/2024 9:37 AM EDT [facility] LAB HDL 44 >=40 mg/dL LAB CHEMISTRY METHOD 12/18/2024 9:37 AM EDT [facility] LDL Calculated 73 0 - 100 mg/dL LAB CHEMISTRY METHOD 12/18/2024 9:37 AM EDT [facility] LAB Comment:Estimated LDL Calcul ated using equation: Total cholesterol - HDL cholesterol - (Triglycerides/5) VLDL Cholesterol Quentin 27.6 mg/dL LAB CHEMISTRY METHOD 12/18/2024 9:37 AM EDT [facility] LAB Non HDL Chol. (LDL+VLDL) 101 <145 mg/dL LAB CHEMISTRY METHOD 12/18/2024 9:37 AM EDT [facility] LAB Chol/HDL Ratio 3.3 0.0 - 4.4 LAB CHEMISTRY METHOD 12/18/2024 9:37 AM EDT [facility] LAB Blood Venous blood specimen / Unknown 12/18/2024 6:59 AM EDT 12/18/2024 8:07 AM EDT us David Bowles MD LAB BLOOD ORDERABLES Final Resul t [facility] [address] [place] [address], * (ABNORMAL) Thyroid stimulating hormone (12/18/2024 6:59 AM EDT) TSH 0.28(L) 0.40 - 4.00 mcIU/mL LAB CHEMISTRY METHOD 12/18/2024 10:25 AM EDT [facility] LAB Blood Venous blood specimen / Unknown 12/18/2024 6:59 AM EDT 12/18/2024 8:07 AM EDT us David Bowles MD LAB BLOOD ORDERABLES Final Resul t [facility] [address] [place] [address], from Last 3 Months Insurance MEDICAID - [place] MEDICARE Care Teams Elementary Assistant Teacher Relationship Specialty Start Date End Date David Bowles MD [address] [place] [address] Dr [address] [place], [place] PCP - General Internal Medicine 04/23/24
--- OUTSIDE RECORDS SUMMARY | 2025-01-23 05:22 | XMS_ITS | Encounter Summary ---
Author Organization [facility] Address [address] [place] [address] Care Team Providers Care Insurance Sales Associate Name Role Phone David Bowles MD Primary Care Provider Encounter Details Date Type Department Care Team (Late st Contact Info) Description 02/13/2024 Lab Requisition [facility] Lab [address] [place] [address] David Bowles MD [address] [place] [address] Dr [address] [place], [place] Other terminal clerk (current) drug therapy Social History Tobacco Use [...] Diagnosis Comments CBC WITH AUTO DIFFERENTIAL Routine 02/13/2024 5:55 AM EST Other long-term (current) drug therapy CBC AND DIFFERENTIAL Routine 02/13/2024 5:55 AM EST Other long-term (current) drug therapy documented in this encounter Results * (ABNORMAL) CBC auto differential (02/13/2024 5:55 AM EST) WBC 7.2 4.8 - 10.8 K/mcL LAB HEMETOLOGY METHOD 02/13/2024 7:19 AM EST [facility] LAB RBC 3.80 3.80 - 4.80 M/mcL LAB HEMETOLOGY METHOD 02/13/2024 7:19 AM EST [facility] LAB Hemoglobin 11.1(L) 11.5 - 16.0 g/dL LAB HEMETOLOGY METHOD 02/13/2024 7:19 AM [facility] LAB Hematocrit 36.3 35.0 - 47.0 % LAB HEMETOLOGY METHOD 02/13/2024 7:19 AM [facility] LAB MCV 94.8 79.0 - 98.0 FL LAB HEMETOLOGY METHOD 02/13/2024 7:19 AM [facility] LAB MCH 29.0 27.0 - 32.0 pcg LAB HEMETOLOGY METHOD 02/13/2024 7:19 AM [facility] LAB MCHC 30.6(L) 32.0 - 37.0 g/dL LAB HEMETOLOGY METHOD 02/13/2024 7:19 AM [facility] LAB RDW 13.9 11.0 - 15.0 % LAB HEMETOLOGY METHOD 02/13/2024 7:19 AM [facility] LAB Platelets 276 130 - 400 K/mcL LAB HEMETOLOGY METHOD 02/13/2024 7:19 AM [facility] LAB MPV 11.4(H) 7.0 - 11.0 FL LAB HEMETOLOGY METHOD 02/13/2024 7:19 AM [facility] LAB NRBC 0.0 <1.0 % LAB HEMETOLOGY METHOD 02/13/2024 7:19 AM [facility] LAB NRBC Absolute 0.00 <0.10 K/mcL LAB HEMETOLOGY METHOD 02/13/2024 7:19 AM [facility] LAB Neutrophils Relative 53.5 % LAB HEMETOLOGY METHOD 02/13/2024 7:19 AM [facility] LAB Lymphocytes Relative 35.2 % LAB HEMETOLOGY METHOD 02/13/2024 7:19 AM [facility] LAB Monocytes Relative 8.3 % LAB HEMETOLOGY METHOD 02/13/2024 7:19 AM [facility] LAB Eosinophils Relative 2.0 % LAB HEMETOLOGY METHOD 02/13/2024 7:19 AM [facility] LAB Basophils Relative 0.7 % LAB HEMETOLOGY METHOD 02/13/2024 7:19 AM [facility] LAB Immature Granulocytes Relative 0.3 % LAB HEMETOLOGY METHOD 02/13/2024 7:19 AM [facility] LAB Neutrophils Absolute 3.83 1.50 - 7.00 K/mcL LAB HEMETOLOGY METHOD 02/13/2024 7:19 AM [facility] LAB Lymphocytes Absolute 2.52 1.00 - 5.00 K/mcL LAB HEMETOLOGY METHOD 02/13/2024 7:19 AM [facility] LAB Monocytes Absolute 0.59 0.20 - 1.00 K/mcL LAB HEMETOLOGY METHOD 02/13/2024 7:19 AM [facility] LAB Eosinophils Absolute 0.14 0.00 - 0.50 K/mcL LAB HEMETOLOGY METHOD 02/13/2024 7:19 AM [facility] LAB Basophils Absolute 0.05 0.00 - 0.20 K/mcL LAB HEMETOLOGY METHOD 02/13/2024 7:19 AM [facility] LAB Immature Granulocytes Absolute 0.02 0.00 - 0.03 K/mcL LAB HEMETOLOGY METHOD 02/13/2024 7:19 AM [facility] LAB Blood Venous blood specimen / Unknown 02/13/2024 5:55 AM EST 02/13/2024 6:52 AM EST us David Bowles MD LAB BLOOD ORDERABLES Final Resul t [facility] LAB [address] [place] [address], documented in this encounter Visit Diagnoses Diagnosis Other terminal clerk (current) drug therapy documented in this encounter Care Teams Insurance Sales Associate Relationship Specialty Start Date End Date David Bowles MD [address] [place] [address] Dr [address] [facility] [place] PCP - General Internal Medicine 04/23/24 documented as of this encounter
--- OUTSIDE RECORDS SUMMARY | 2025-01-23 05:22 | XMS_ITS | Encounter Summary ---
Author Organization [facility] Address [address] [place] [address] Care Team Providers Care Criminal Profiler Name Role Phone David Bowles MD Primary Care Provider [phone] Encounter Details Date Type Department Care Team (Latest Contact Info) Description 05/18/2024 Lab Requisition [facility] - Main Lab [address] [place] [address] David Bowles MD [address] [place] [address] [address] [place] Schizoaffective disorder, unspecified (CMS/HCC V24, CMS/HCC V28) [...] Diagnosis Comments CBC WITH AUTO DIFFERENTIAL Routine 05/18/2024 6:40 AM EST Schizoaffective disorder, unspecified (CMS/HCC) CBC AND DIFFERENTIAL Routine 05/18/2024 6:40 AM EST Schizoaffective disorder, unspecified (CMS/HCC) documented in this encounter Results * (ABNORMAL) CBC auto differential (05/18/2024 6:40 AM EST) WBC 7.2 4.8 - 10.8 K/[facility] LAB HEMETOLOGY METHOD 05/18/2024 8:10 AM EST [facility] LAB RBC 4.10 3.80 - 4.80 M/[facility] LAB HEMETOLOGY METHOD 05/18/2024 8:10 AM EST [facility] LAB Hemoglobin 11.7 11.5 - 16.0 g/dL LAB HEMETOLOGY METHOD 05/18/2024 8:10 AM [facility] LAB Hematocrit 37.3 35.0 - 47.0 % LAB HEMETOLOGY METHOD 05/18/2024 8:10 AM [facility] LAB MCV 91.4 79.0 - 98.0 FL LAB HEMETOLOGY METHOD 05/18/2024 8:10 AM [facility] LAB MCH 28.7 27.0 - 32.0 pcg LAB HEMETOLOGY METHOD 05/18/2024 8:10 AM [facility] LAB MCHC 31.4(L) 32.0 - 37.0 g/dL LAB HEMETOLOGY METHOD 05/18/2024 8:10 AM [facility] LAB RDW 13.2 11.0 - 15.0 % LAB HEMETOLOGY METHOD 05/18/2024 8:10 AM [facility] LAB Platelets 261 130 - 400 K/mcL LAB HEMETOLOGY METHOD 05/18/2024 8:10 AM [facility] LAB MPV 11.8(H) 7.0 - 11.0 FL LAB HEMETOLOGY METHOD 05/18/2024 8:10 AM [facility] LAB NRBC 0.0 <1.0 % LAB HEMETOLOGY METHOD 05/18/2024 8:10 AM [facility] LAB NRBC Absolute 0.00 <0.10 K/mcL LAB HEMETOLOGY METHOD 05/18/2024 8:10 AM [facility] LAB Neutrophils Relative 58.8 % LAB HEMETOLOGY METHOD 05/18/2024 8:10 AM [facility] LAB Lymphocytes Relative 30.4 % LAB HEMETOLOGY METHOD 05/18/2024 8:10 AM [facility] LAB Monocytes Relative 8.1 % LAB HEMETOLOGY METHOD 05/18/2024 8:10 AM EST [facility] LAB Eosinophils Relative 1.8 % LAB HEMETOLOGY METHOD 05/18/2024 8:10 AM [facility] LAB Basophils Relative 0.8 % LAB HEMETOLOGY METHOD 05/18/2024 8:10 AM [facility] LAB Immature Granulocytes Relative 0.1 % LAB HEMETOLOGY METHOD 05/18/2024 8:10 AM EST [facility] LAB Neutrophils Absolute 4.21 1.50 - 7.00 K/mcL LAB HEMETOLOGY METHOD 05/18/2024 8:10 AM EST [facility] LAB Lymphocytes Absolute 2.18 1.00 - 5.00 K/mcL LAB HEMETOLOGY METHOD 05/18/2024 8:10 AM [facility] LAB Monocytes Absolute 0.58 0.20 - 1.00 K/mcL LAB HEMETOLOGY METHOD 05/18/2024 8:10 AM EST [facility] LAB Eosinophils Absolute 0.13 0.00 - 0.50 K/mcL LAB HEMETOLOGY METHOD 05/18/2024 8:10 AM [facility] LAB Basophils Absolute 0.06 0.00 - 0.20 K/mcL LAB HEMETOLOGY METHOD 05/18/2024 8:10 AM [facility] LAB Immature Granulocytes Absolute 0.01 0.00 - 0.03 K/mcL LAB HEMETOLOGY METHOD 05/18/2024 8:10 AM EST [facility] LAB Blood Venous blood specimen / Unknown 05/18/2024 6:40 AM EST 05/18/2024 7:39 AM EST us David Bowles MD LAB BLOOD ORDERABLES Final Resul t [facility] LAB [address] [place] [address], documented in this encounter Visit Diagnoses Diagnosis Schizoaffective disorder, unspecified (CMS/[facility] V24, CMS/[facility] V28) documented in this encounter Care Teams Criminal Profiler Relationship Specialty Start Date End Date David Bowles MD [address] [place] [address] Dr [address] [facility] [place] PCP - General Internal Medicine 04/23/24 documented as of this encounter
--- OUTSIDE RECORDS SUMMARY | 2025-01-23 05:22 | XMS_ITS | Encounter Summary ---
Author Organization [facility] Address [address] [place] [address] Care Team Providers Care Admissions Evaluator Name Role Phone David Bowles MD Primary Care Provider [phone] Encounter Details Date Type Department Care Team (Late st Contact Info) Description 08/17/2024 Lab Requisition [facility] - Main Lab [address] [place] [address] David Bowles MD [address] [place] [address] [address] [place] Other termite technician (current) drug therapy Social History Tobacco Use [...] Diagnosis Comments CBC WITH AUTO DIFFERENTIAL Routine 08/17/2024 6:42 AM EDT Other long-term (current) drug therapy RED - PLAIN Routine 08/17/2024 6:42 AM EDT Other long-term (current) drug therapy CBC AND DIFFERENTIAL Routine 08/17/2024 6:42 AM EDT Other long-term (current) drug therapy documented in this encounter Results * Red tube (08/17/2024 6:42 AM EDT) Extra Tube Hold for add-ons. 08/17/2024 9:01 AM EDT [facility] LAB Comment:Auto resulted. Blood Venous blood specimen / Unknown 08/17/2024 6:42 AM EDT 08/17/2024 7:40 AM EDT us David Bowles MD LAB BLOOD ORDERABLES Final Resul t [facility] LAB [address] [place] [address], * (ABNORMAL) CBC auto differential (08/17/2024 6:42 AM EDT) WBC 6.5 4.8 - 10.8 K/mcL LAB HEMETOLOGY METHOD 08/17/2024 7:51 AM EDT [facility] LAB RBC 3.90 3.80 - 4.80 M/mcL LAB HEMETOLOGY METHOD [facility] Hemoglobin 11.2(L) 11.5 - 16.0 g/dL LAB HEMETOLOGY METHOD 08/17/2024 7:51 AM [facility] LAB Hematocrit 35.7 35.0 - 47.0 % LAB HEMETOLOGY METHOD 08/17/2024 7:51 AM EDT [facility] LAB MCV 92.5 79.0 - 98.0 FL LAB HEMETOLOGY METHOD 08/17[facility]2024 7[facility] MCH 29.0 27.0 - 32.0 pcg LAB HEMETOLOGY METHOD 08/17/2024 7:51 AM T [facility] LAB MCHC 31.4(L) 32.0 - 37.0 g/dL LAB HEMETOLOGY METHOD 08/17/2024 7:51 AM EDT [facility] LAB RDW 13.4 11.0 - 15.0 % LAB HEMETOLOGY METHOD 08/17/2024 7:51 AM [facility] LAB Platelets 243 130 - 400 K/mcL LAB HEMETOLOGY METHOD 08/17/2024 7:51 AM [facility] LAB MPV 11.6(H) 7.0 - 11.0 FL LAB HEMETOLOGY METHOD 08/17/2024 7:51 AM [facility] LAB NRBC 0.0 <1.0 % LAB HEMETOLOGY METHOD 08/17/2024 7:51 AM [facility] LAB NRBC Absolute 0.00 <0.10 K/mcL LAB HEMETOLOGY METHOD 08/17/2024 7:51 AM [facility] LAB Neutrophils Relative 57.4 % LAB HEMETOLOGY METHOD 08/17/2024 7:51 AM [facility] LAB Lymphocytes Relative 29.9 % LAB HEMETOLOGY METHOD 08/17/2024 7:51 AM [facility] LAB Monocytes Relative 10.0 % LAB HEMETOLOGY METHOD 08/17/2024 7:51 AM [facility] LAB Eosinophils Relative 1.5 % LAB HEMETOLOGY METHOD 08/17/2024 7:51 AM [facility] LAB Basophils Relative 0.9 % LAB HEMETOLOGY METHOD 08/17/2024 7:51 AM [facility] LAB Immature Granulocytes Relative 0.3 % LAB HEMETOLOGY METHOD 08/17/2024 7:51 AM [facility] LAB Neutrophils Absolute 3.72 1.50 - 7.00 K/mcL LAB HEMETOLOGY METHOD 08/17/2024 7:51 AM [facility] LAB Lymphocytes Absolute 1.94 1.00 - 5.00 K/mcL LAB HEMETOLOGY METHOD 08/17/2024 7:51 AM [facility] LAB Monocytes Absolute 0.65 0.20 - 1.00 K/mcL LAB HEMETOLOGY METHOD 08/17/2024 7:51 AM [facility] LAB Eosinophils Absolute 0.10 0.00 - 0.50 K/mcL LAB HEMETOLOGY METHOD 08/17/2024 7:51 AM [facility] LAB Basophils Absolute 0.06 0.00 - 0.20 K/[facility] LAB HEMETOLOGY METHOD 08/17/2024 7:51 AM EDT [facility] LAB Immature Granulocytes Absolute 0.02 0.00 - 0.03 K/[facility] LAB HEMETOLOGY METHOD 08/17/2024 7:51 AM EDT [facility] LAB Blood Venous blood specimen / Unknown 08/17/2024 6:42 AM EDT 08/17/2024 7:40 AM EDT us David Bowles MD LAB BLOOD ORDERABLES Final Resul t [facility] LAB [address] [place] [address], documented in this encounter Visit Diagnoses Diagnosis Other termite technician (current) drug therapy documented in this encounter Care Teams Admissions Evaluator Relationship Specialty Start Date End Date David Bowles MD [address] [place] [address] Dr [address] [place], [place] PCP - General Internal Medicine 04/23/24 documented as of this encounter
--- OUTSIDE RECORDS SUMMARY | 2025-01-23 05:22 | XMS_ITS | Encounter Summary ---
Author Organization [facility] Address [address] [place] [address] Care Team Providers Care Chiropractic Practice Manager Name Role Phone David Bowles MD Primary Care Provider [phone] Encounter Details Date Type Department Care Team (Latest Contact Info) Description 07/23/2024 Lab Requisition [facility] Lab [address] [place] [address] David Bowles MD [address] [place] [address] [address] [place], [place] Schizoaffective disorder, unspecified (CMS/HCC V24, CMS/HCC V28) [...] Diagnosis Comments CBC WITH AUTO DIFFERENTIAL Routine 07/23/2024 6:39 AM EDT Schizoaffective disorder, unspecified (CMS/HCC V24, CMS/HCC V28) CBC AND DIFFERENTIAL Routine 07/23/2024 6:39 AM EDT Schizoaffective disorder, unspecified (CMS/HCC V24, CMS/HCC V28) documented in this encounter Results * (ABNORMAL) CBC auto differential (07/23/2024 6:39 AM EDT) WBC 6.6 4.8 - 10.8 K/[facility] LAB HEMETOLOGY METHOD 07/23/2024 7:52 AM EDT [facility] RBC 3.80 3.80 - 4.80 M/[facility] LAB HEMETOLOGY METHOD 07/23/2024 7:52 AM [facility] LAB Hemoglobin 11.0(L) 11.5 - 16.0 g/dL LAB HEMETOLOGY METHOD 07/23/2024 7:52 AM [facility] LAB Hematocrit 34.5(L) 35.0 - 47.0 % LAB HEMETOLOGY METHOD 07/23/2024 7:52 AM [facility] LAB MCV 91.8 79.0 - 98.0 FL LAB HEMETOLOGY METHOD 07/23/2024 7:52 AM [facility] LAB MCH 29.3 27.0 - 32.0 pcg LAB HEMETOLOGY METHOD 07/23/2024 7:52 AM [facility] LAB MCHC 31.9(L) 32.0 - 37.0 g/dL LAB HEMETOLOGY METHOD 07/23/2024 7:52 AM [facility] LAB RDW 13.5 11.0 - 15.0 % LAB HEMETOLOGY METHOD 07/23/2024 7:52 AM [facility] LAB Platelets 251 130 - 400 K/mcL LAB HEMETOLOGY METHOD 07/23/2024 7:52 AM [facility] LAB MPV 11.3(H) 7.0 - 11.0 FL LAB HEMETOLOGY METHOD 07/23/2024 7:52 AM [facility] LAB NRBC 0.0 <1.0 % LAB HEMETOLOGY METHOD 07/23/2024 7:52 AM [facility] LAB NRBC Absolute 0.00 <0.10 K/mcL LAB HEMETOLOGY METHOD 07/23/2024 7:52 AM [facility] LAB Neutrophils Relative 55.2 % LAB HEMETOLOGY METHOD 07/23/2024 7:52 AM [facility] LAB Lymphocytes Relative 33.3 % LAB HEMETOLOGY METHOD 07/23/2024 7:52 AM EDT [facility] LAB Monocytes Relative 8.6 % LAB HEMETOLOGY METHOD 07/23/2024 7:52 AM EDT [facility] LAB Eosinophils Relative 1.8 % LAB HEMETOLOGY METHOD 07/23/2024 7:[facility] Basophils Relative 0.8 % LAB HEMETOLOGY METHOD 07/23/2024 7:52 AM EDT [facility] LAB Immature Granulocytes Relative 0.3 % LAB HEMETOLOGY METHOD 07/23/2024 7:52 AM EDT [facility] LAB Neutrophils Absolute 3.66 1.50 - 7.00 K/mcL LAB HEMETOLOGY METHOD 07/23/2024 7:[facility] Lymphocytes Absolute 2.21 1.00 - 5.00 K/mcL LAB HEMETOLOGY METHOD 07/23/2024 7:52 AM EDT [facility] LAB Monocytes Absolute 0.57 0.20 - 1.00 K/mcL LAB HEMETOLOGY METHOD 07/23/2024 7:52 AM EDT [facility] LAB Eosinophils Absolute 0.12 0.00 - 0.50 K/mcL LAB HEMETOLOGY METHOD 07/23/2024 7:52 AM [facility] LAB Basophils Absolute 0.05 0.00 - 0.20 K/mcL LAB HEMETOLOGY METHOD 07/23/2024 7:52 AM EDT [facility] LAB Immature Granulocytes Absolute 0.02 0.00 - 0.03 K/mcL LAB HEMETOLOGY METHOD 07/23/2024 7:52 AM EDT [facility] LAB Blood Venous blood specimen / Unknown 07/23/2024 6:39 AM EDT 07/23/2024 7:25 AM EDT us David Bowles MD LAB BLOOD ORDERABLES Final Resul t [facility] LAB [address] [place] [address], documented in this encounter Visit Diagnoses Diagnosis Schizoaffective disorder, unspecified (CMS/HCC V24, CMS/HCC V28) documented in this encounter Care Teams Chiropractic Practice Manager Relationship Specialty Start Date End Date David Bowles MD [address] [place] [address] Dr [address] [place], [place] PCP - General Internal Medicine 04/23/24 documented as of this encounter
--- OUTSIDE RECORDS SUMMARY | 2025-01-23 05:22 | XMS_ITS | Encounter Summary ---
Author Organization [facility] Address [address] [place] [address] Care Team Providers Care Tetryl Blender Operator Name Role Phone David Bowles MD Primary Care Provider [phone] Encounter Details Date Type Department Care Team (Latest Contact Info) Description 08/21/2024 Lab Requisition [facility] Lab [address] [place] [address] David Bowles MD [address] [place] [address] [address] [place] Schizoaffective disorder, unspecified (CMS/HCC V24, CMS/HCC V28) [...] Diagnosis Comments CBC WITH AUTO DIFFERENTIAL Routine 08/21/2024 6:40 AM EDT Schizoaffective disorder, unspecified (CMS/HCC V24, CMS/HCC V28) CBC AND DIFFERENTIAL Routine 08/21/2024 6:40 AM EDT Schizoaffective disorder, unspecified (CMS/HCC V24, CMS/HCC V28) documented in this encounter Results * (ABNORMAL) CBC auto differential (08/21/2024 6:40 AM EDT) WBC 6.6 4.8 - 10.8 K/[facility] LAB HEMETOLOGY METHOD 08/21/2024 8:26 AM EDT [facility] LAB RBC 4.00 3.80 - 4.80 M/[facility] LAB HEMETOLOGY METHOD 08/21/2024 8:26 AM [facility] LAB Hemoglobin 11.8 11.5 - 16.0 g/dL LAB HEMETOLOGY METHOD 08/21/2024 8:26 AM [facility] LAB Hematocrit 37.6 35.0 - 47.0 % LAB HEMETOLOGY METHOD 08/21/2024 8:26 AM [facility] LAB MCV 93.5 79.0 - 98.0 FL LAB HEMETOLOGY METHOD 08/21/2024 8:26 AM [facility] LAB MCH 29.4 27.0 - 32.0 pcg LAB HEMETOLOGY METHOD 08/21/2024 8:26 AM [facility] LAB MCHC 31.4(L) 32.0 - 37.0 g/dL LAB HEMETOLOGY METHOD 08/21/2024 8:26 AM [facility] LAB RDW 13.2 11.0 - 15.0 % LAB HEMETOLOGY METHOD 08/21/2024 8:26 AM [facility] LAB Platelets 245 130 - 400 K/mcL LAB HEMETOLOGY METHOD 08/21/2024 8:26 AM [facility] LAB MPV 11.6(H) 7.0 - 11.0 FL LAB HEMETOLOGY METHOD 08/21/2024 8:26 AM [facility] LAB NRBC 0.0 <1.0 % LAB HEMETOLOGY METHOD 08/21/2024 8:26 AM [facility] LAB NRBC Absolute 0.00 <0.10 K/mcL LAB HEMETOLOGY METHOD 08/21/2024 8:26 AM [facility] LAB Neutrophils Relative 48.7 % LAB HEMETOLOGY METHOD 08/21/2024 8:26 AM [facility] LAB Lymphocytes Relative 40.7 % LAB HEMETOLOGY METHOD 08/21/2024 8:26 AM EDT [facility] LAB Monocytes Relative 7.9 % LAB HEMETOLOGY METHOD 08/21/2024 8:26 AM EDT [facility] LAB Eosinophils Relative 1.7 % LAB HEMETOLOGY METHOD 08/21/2024 8:26 AM [facility] LAB Basophils Relative 0.8 % LAB HEMETOLOGY METHOD 08/21/2024 8:26 AM EDT [facility] LAB Immature Granulocytes Relative 0.2 % LAB HEMETOLOGY METHOD 08/21/2024 8:26 AM EDT [facility] LAB Neutrophils Absolute 3.22 1.50 - 7.00 K/mcL LAB HEMETOLOGY METHOD 08/21/2024 8:26 AM [facility] LAB Lymphocytes Absolute 2.68 1.00 - 5.00 K/mcL LAB HEMETOLOGY METHOD 08/21/2024 8:26 AM [facility] LAB Monocytes Absolute 0.52 0.20 - 1.00 K/mcL LAB HEMETOLOGY METHOD 08/21/2024 8:26 AM [facility] LAB Eosinophils Absolute 0.11 0.00 - 0.50 K/mcL LAB HEMETOLOGY METHOD 08/21/2024 8:26 AM [facility] LAB Basophils Absolute 0.05 0.00 - 0.20 K/mcL LAB HEMETOLOGY METHOD 08/21/2024 8:26 AM [facility] LAB Immature Granulocytes Absolute 0.01 0.00 - 0.03 K/mcL LAB HEMETOLOGY METHOD 08/21/2024 8:26 AM [facility] LAB Blood Venous blood specimen / Unknown 08/21/2024 6:40 AM EDT 08/21/2024 7:14 AM EDT us David Bowles MD LAB BLOOD ORDERABLES Final Resul t [facility] LAB [address] [place] [address], documented in this encounter Visit Diagnoses Diagnosis Schizoaffective disorder, unspecified (CMS/HCC V24, CMS/HCC V28) documented in this encounter Care Teams Tetryl Blender Operator Relationship Specialty Start Date End Date David Bowles MD [address] [place] [address] Dr [address] [place], [place] PCP - General Internal Medicine 04/23/24 documented as of this encounter
--- OUTSIDE RECORDS SUMMARY | 2025-01-23 05:22 | XMS_ITS | Encounter Summary ---
[facility] Address [address] [place] [address] Care Team Providers Care Chief Merchandising Officer Name Role Phone David Bowles MD Primary Care Provider [phone] Encounter Details Date Type Department Care Team (Latest Contact Info) Description 05/21/2024 Lab Requisition [facility] Lab [address] [place] [address] David Bowles MD [address] [place] [address] [address] [place] Schizoaffective disorder, unspecified (CMS/HCC V24, CMS/HCC V28) [...] Diagnosis Comments CBC WITH AUTO DIFFERENTIAL Routine 05/21/2024 7:17 AM EST Schizoaffective disorder, unspecified (CMS/HCC) CBC AND DIFFERENTIAL Routine 05/21/2024 7:17 AM EST Schizoaffective disorder, unspecified (CMS/HCC) documented in this encounter Results * (ABNORMAL) CBC auto differential (05/21/2024 7:17 AM EST) WBC 8.5 4.8 - 10.8 K/[facility] LAB HEMETOLOGY METHOD 05/21/2024 8:13 AM EST [facility] LAB RBC 4.30 3.80 - 4.80 M/[facility] LAB HEMETOLOGY METHOD 05/21/2024 8:13 AM EST [facility] LAB Hemoglobin 12.6 11.5 - 16.0 g/dL LAB HEMETOLOGY METHOD 05/21/2024 8:13 AM [facility] LAB Hematocrit 40.3 35.0 - 47.0 % LAB HEMETOLOGY METHOD 05/21/2024 8:13 AM [facility] LAB MCV 93.1 79.0 - 98.0 FL LAB HEMETOLOGY METHOD 05/21/2024 8:13 AM [facility] LAB MCH 29.1 27.0 - 32.0 pcg LAB HEMETOLOGY METHOD 05/21/2024 8:13 AM [facility] LAB MCHC 31.3(L) 32.0 - 37.0 g/dL LAB HEMETOLOGY METHOD 05/21/2024 8:13 AM [facility] LAB RDW 13.2 11.0 - 15.0 % LAB HEMETOLOGY METHOD 05/21/2024 8:13 AM [facility] LAB Platelets 276 130 - 400 K/mcL LAB HEMETOLOGY METHOD 05/21/2024 8:13 AM [facility] LAB MPV 11.9(H) 7.0 - 11.0 FL LAB HEMETOLOGY METHOD 05/21/2024 8:13 AM [facility] LAB NRBC 0.0 <1.0 % LAB HEMETOLOGY METHOD 05/21/2024 8:13 AM [facility] LAB NRBC Absolute 0.00 <0.10 K/mcL LAB HEMETOLOGY METHOD 05/21/2024 8:13 AM [facility] LAB Neutrophils Relative 55.9 % LAB HEMETOLOGY METHOD 05/21/2024 8:13 AM [facility] LAB Lymphocytes Relative 35.1 % LAB HEMETOLOGY METHOD 05/21/2024 8:13 AM [facility] LAB Monocytes Relative 6.8 % LAB HEMETOLOGY METHOD 05/21/2024 8:13 AM EST [facility] LAB Eosinophils Relative 1.5 % LAB HEMETOLOGY METHOD 05/21/2024 8:13 AM [facility] LAB Basophils Relative 0.6 % LAB HEMETOLOGY METHOD 05/21/2024 8:13 AM [facility] LAB Immature Granulocytes Relative 0.1 % LAB HEMETOLOGY METHOD 05/21/2024 8:13 AM EST [facility] LAB Neutrophils Absolute 4.75 1.50 - 7.00 K/mcL LAB HEMETOLOGY METHOD 05/21/2024 8:13 AM [facility] LAB Lymphocytes Absolute 2.98 1.00 - 5.00 K/mcL LAB HEMETOLOGY METHOD 05/21/2024 8:13 AM [facility] LAB Monocytes Absolute 0.58 0.20 - 1.00 K/mcL LAB HEMETOLOGY METHOD 05/21/2024 8:13 AM EST [facility] LAB Eosinophils Absolute 0.13 0.00 - 0.50 K/mcL LAB HEMETOLOGY METHOD 05/21/2024 8:13 AM [facility] LAB Basophils Absolute 0.05 0.00 - 0.20 K/mcL LAB HEMETOLOGY METHOD 05/21/2024 8:13 AM [facility] LAB Immature Granulocytes Absolute 0.01 0.00 - 0.03 K/mcL LAB HEMETOLOGY METHOD 05/21/2024 8:13 AM EST [facility] LAB Blood Venous blood specimen / Unknown 05/21/2024 7:17 AM EST 05/21/2024 8:12 AM EST us David Bowles MD LAB BLOOD ORDERABLES Final Resul t [facility] LAB [address] [place] [address], documented in this encounter Visit Diagnoses Diagnosis Schizoaffective disorder, unspecified (CMS/[facility] V24, CMS/[facility] V28) documented in this encounter Care Teams Chief Merchandising Officer Relationship Specialty Start Date End Date David Bowles MD [address] [place] [address] Dr [address] [place] PCP - General Internal Medicine 04/23/24 documented as of this encounter
--- NOTE | 2025-01-23 05:23 | PC.NURSE ---
verbal report given to DRIER FEEDER.
--- NOTE | 2025-01-23 05:27 | PM.CCHP ---
History of Present Illness Date of Service: 01/23/25 Attending physician on admission: Ted Alonso Chief Complaint: Fall The patient is a 69 year female with a past medical history of COPD, retention, hypothyroidism, and schizoaffective disorder who presented the EMS from [facility] after she sustained a unwitnessed fall.? She reports felt dizzy and lost he balance. Reported head strike, but denies loss of consciousness after fall. ?She has a reported she has been experiencing diarrhea for a couple of days, with no nausea associated. On arrival to the emergency department, patient's blood pressure was 56/32 and tachypneic to 24. Laboratory data was significant for WBCs 17.1, BUN 21, creatinine 1.21, lactic 3.1. IMAGING: HEAD CT:? No acute findings Chest x-ray: ?No acute findings ED course Patient received 2 L bolus, vancomycin IV 1 g, and Zosyn 4.5mg. ?Despite fluid resuscitation patient required initiation of vasopressor support. Review of Systems Review of Systems: Yes all other systems are reviewed and are negative PMFSH Past Medical History Medical History Myopia Hypothyroidism Schizoaffective disorder Full incontinence of feces COPD (chronic obstructive pulmonary disease) Urgency incontinence Stress incontinence Social History Social History Household Members: Other Housing: Other Housing Other:: [facility] Do you presently have visiting nurse or other home services: No Alcohol intake: never Patient Tobacco Use Status: Former Tobacco user Currently Displaying Signs/Symptoms of Drug Intoxication Withdrawal: No Advance Directives: Yes Advance Directives on File: Yes Advance Directives Date on File: 06/27/21 Patient : No service: No Sexual orientation: Straight/Heterosexual Meds Allergies Allergy/AdvReac Type Severity Reaction Status Date / Time tuberculin, purified protein Allergy Mild Rash Verified 01/23/25 01:19 deriva duloxetine (Cymbalta) Allergy Unknown rash Verified 01/23/25 01:19 Thorazine Allergy Unknown rash Uncoded 01/23/25 01:19 Active Medications: Current Medications Heparin Sodium (Porcine) (Heparin Sodium,Porcine 5,000 Unit/Ml Vial) 5,000 unit SUBCUT Q8H COREEN Norepinephrine Bitartrate (Levophed) 8 mg in 250 mls @ 0 mls/hr IVCONT .Q0M COREEN; Protocol Last Admin: 01/23/25 04:16 Dose: 0.05 mcg/kg/min, 6.79 mls/hr Lactated Ringer's (Lr) 1,000 mls @ 150 mls/hr IVCONT .Q6H40M [facility] Albumin Human (Kedbumin 25 %) 100 mls @ 133.333 mls/hr IV Q1H COREEN Stop: 01/23/25 07:14 Pharmacy Consult (Consult Rx Vancomycin Dosing) 1 each MISCELLANE DAILY PRN PRN Reason: Consult order Home Medications ?Medication ?Instructions ?Recorded ?Confirmed ?Last Taken ?Type clozapine 25 mg tablet (Clozaril) 25 mg PO BID 01/06/23 01/23/25 Unknown History acetaminophen 325 mg tablet 650 mg PO Q6H PRN Pain 01/23/25 01/23/25 Unknown History bisacodyl 10 mg rectal suppository 10 mg CO DAILY PRN Constipation 01/23/25 01/23/25 Unknown History calcium 600 mg (as 1 tab PO DAILY 01/23/25 01/23/25 Unknown History carbonate)-vitamin D3 5 mcg (200 unit) tablet citalopram 10 mg tablet 5 mg PO DAILY 01/23/25 01/23/25 Unknown History clozapine 25 mg tablet 50 mg PO BID 01/23/25 01/23/25 Unknown History hydroxyzine HCl 50 mg tablet 50 mg PO BEDTIME 01/23/25 01/23/25 Unknown History levothyroxine 50 mcg tablet 50 mcg PO DAILY@0600 01/23/25 01/23/25 Unknown History oxcarbazepine 150 mg tablet 75 mg PO BID 01/23/25 01/23/25 Unknown History (Trileptal) oxcarbazepine 150 mg tablet 150 mg PO BID 01/23/25 01/23/25 Unknown History (Trileptal) phenyleph-shark liver 1 appl CO Q8H PRN Hemorrhoids 01/23/25 01/23/25 Unknown History dkc-vsptty-dhk rectal cream sodium phosphates 19 gram-7 118 ml CO DAILY PRN Constipation 01/23/25 01/23/25 Unknown History gram/118 mL enema (Fleet Enema) sodium phosphates 19 gram-7 118 ml CO DAILY PRN Constipation 01/23/25 01/23/25 Unknown History gram/118 mL enema (Fleet Enema) Physical Exam Exam: Exam: Sepsis focus assesment performed at 0530 ?General:? Alert oriented x3 no acute distress.?Following all commands. ?HEENT:? Head is normocephalic, atraumatic, pupils equal round reactive to light accommodation bilaterally.? Extraocular movements appear intact.? Buccal mucosa is dry, Neck is supple without lymphadenopathy. ?Cardiac:?Sinus, Clear S1-S2, no murmurs rubs or gallops. ?Pulmonary:? Clear to auscultation, no wheezes, rales or rhonchi. ?Abdomen:? ?Abdomen soft, non-tender, non-distended. Normal bowel sounds. ?Musculoskeletal:? Moving all 4 extremities upon request a major joints, there is no crepitus or tenderness.? The strength is 5/5 bilaterally and throughout all 4 extremities.? Gait not assessed at this point. ?Neurologic:? cranial nerves 2-12 are grossly intact.? No focal deficits noted.Motor strength as above.?? ?Skin:? Intact, no lesions, edema, erythema, clubbing or cyanosis.? No ulcers. Vascular:? 2+ pulses upper and lower extremities distally.? Vital Signs: Vital Signs: Last Vital Signs Temp 97.0 F 01/23/25 03:35 Pulse 91 01/23/25 04:16 Resp 22 H 01/23/25 03:58 BP 104/44 L 01/23/25 05:04 Pulse Ox 93 01/23/25 03:58 O2 Del Method Room Air 01/23/25 03:58 BMI result Body Mass Index 25.8 Results Labs 01/23/25 01:51 01/23/25 01:51 Labs: Laboratory Results - last 24 hr 01/23/25 01/23/25 01/23/25 01:51 01:58 03:04 MCV 93.0 MCH 29.4 MCHC 31.6 RDW 13.3 Plt Count 270 MPV 11.3 Immature Gran % (Auto) 0.4 Neut % (Auto) 84.9 H Lymph % (Auto) 8.8 L [place] % (Auto) 5.4 Eos % (Auto) 0.1 Baso % (Auto) 0.4 Lymph # (Auto) 1.5 [place] # (Auto) 0.9 Eos # (Auto) 0.0 Baso # (Auto) 0.1 Abs Immat Gran (auto) 0.07 H Absolute Neuts (auto) 14.5 H Absolute Nucleated RBC 0.000 Nucleated RBC % (auto) 0.0 PT 10.5 L INR 0.9 VBG pH 7.26 L VBG pCO2 54 VBG pO2 46 VBG HCO3 24 VBG O2 Saturation 59.0 VBG Base Excess -2.9 Anion Gap 14 Estim Creat Clear Calc 44.6 Estimated GFR 44 Random Glucose 188 H Lactic Acid 3.1 H* Calcium 10.2 Magnesium 2.1 Total Bilirubin 0.2 AST 28 ALT 6 Alkaline Phosphatase 78 Troponin I High Sens 19.4 H NT-Pro-B Natriuret Pep 392.4 H Total Protein 5.5 L Albumin 3.5 TSH 1.10 Urine Color Yellow Urine Appearance Clear Urine pH 5.5 Ur Specific [place] 1.020 Urine Protein 30 (1+) H Urine Glucose (UA) Negative Urine Ketones Negative Urine Blood Negative Urine Nitrite Negative Ur Leukocyte Esterase Trace H Urine RBC 0-2 Urine WBC 0-5 Ur Squamous Epith Cells 0-2 Calcium Oxalate Crystal Present Urine Bacteria None Seen Hyaline Casts 6-10 Assessment and Plan (1) Watery diarrhea: Status: Acute (2) Shock: Status: Acute (3) KEYUR (acute kidney injury): Status: Acute (4) Leukocytosis: Status: Acute Plan 69 year female with a past medical history of COPD, retention, hypothyroidism, and schizoaffective independent to ICU for management of shock requiring vasopressor support Neuro:? Fall: ?likely orthostatic, head CT negative. ?Patient does not complain of any pain, no visible injuries. Cardiac:?? Shock: ?Distributed vs hypovolemic: ?Patient has been experiencing diarrhea for a couple of days, likely due to C diff infection.? Unsure if hypotension is from septic or hypovolemia due to GI losses. ?Cover empirically with antibiotics in the emergency department. ?Received 2 L bolus in the emergency department, we will continue with more fluid resuscitation. ?Wean off vasopressors Pulmonary:? No acute issues Renal:?? KEYUR- ? most likely related to hypoperfusion, nonoliguric.? Received fluids in ED.? We will add an additional L of crystalloids and albumin. Continue to check renal induces and urine output Endo:?? ?No acute issues? GI:? Diarrhea:? Patient with a foul-smelling diarrhea, Stool/ GI panel studies pending. ?Likely C diff infection. ?We will empirically treat with p.o. vancomycin. ID:?? Leukocytosis: ?Likely from C diff infection, stool studies pending. ?Urine is negative for UTI, chest x-ray with no acute findings. ?Blood cultures obtained in the emergency department and pending. ?Continue empiric abx Heme/Onc:? No acute issues. Psych:? No acute issues. Misc: no acute issues Prophylaxis:? Subcu heparin Code? status:? FULL CODE Critical care time: x 60 min of critical care time? ? Case discussed with attending Dr Alonso?
--- NOTE | 2025-01-23 05:47 | PC.NURSE ---
vitals prior to ICU transfer HR 104, RR22, coretemp 99.7, BP 1145/31, 94% O2. vanco and levo infusing
[2025-01-23] MEDS: Albumin Human 25 % 100 ML 133.33 ML IV ×2 (06:15→07:13)
[2025-01-23 06:36] LABS: ~Lactic Acid-LAB USE ONLY 4.0 mmol/L (0.5-2.0)
[2025-01-23 06:48] LABS: CDiff Gene PCR NEGATIVE (Negative)
[2025-01-23] MEDS: Lactated Ringers 1,000 ML 150 ML IVCONT (07:23)
--- NOTE | 2025-01-23 07:32 | HO.SKINPHOTO ---
Location: Right mohini area Category: ?skin tear
[2025-01-23 08:19] LABS: Reflex Lactate? 2 Y
--- NOTE | 2025-01-23 08:51 | PHA.MEDREC ---
Addendum entered by Alena Hernandes RPh 01/23/25 19:03: spoke to EILEEN sneed at [facility] who confirmed patients last dose of clozaril was the night of 01/22/25 Addendum entered by Vince Barriga PharmD 01/23/25 08:52: reviewed Original Note: Pharmacy Consult ? Medication Reconciliation Pharmacy has completed the medication reconciliation. Utilized list from [facility] to confirm med list.
[2025-01-23 09:27] LABS: ~Lactic Acid-LAB USE ONLY 3.4 mmol/L (0.5-2.0)
--- NOTE | 2025-01-23 12:01 | HO.WOUND ---
Wound Consult: Initial 69yr old female admitted to [facility] on 01/23/25- See progress notes and H&P for detailed history. Wound consult placed for right groin. Patient agreeable to assessment and photo documentation. Patient from [facility]. right groin Etiology: unclear etiology possible MASD vs skin tear vs folliculitis Wound Bed: moist pink Drainage / Odor: none Edges: ? irregular Amalia wound: ?mild Induration, no Fluctuance or Warmth noted Pain: none Goals of Treatment: ? monitor for changes and healing Recommendations: 1. Turn and Reposition every 2 hours and as needed for patient comfort. Use pillows or wedges to support off loading positions. 2. Off Load all bony prominences with use of pillows and heel boots if needed. Apply Preventative foams where needed. 3. Monitor for incontinence and moisture control, use barrier creams when needed for prevention and treatment. 4. Provide adequate and supplemental nutrition. 5. Order or Continue low air loss mattress. 6. When applicable maintain blood glucose levels per Providers order. Right groin: Cleanse with PH balance spray or wipes, pat dry. ?Apply thin layer of Triad to wound bed - only pat and dab no scrub and rub when soiling occurs. Reapply thin layer PRN after each episode of incontinence. Re-consult wound care Nurse for wound deterioration or wound changes.
--- NOTE | 2025-01-23 12:32 | PC.NURSE ---
Patient is being transferred to [facility], report given to receiving RN via telephone, per provider hagen catheter remains in place due to patient's condition, patient unable to ambulate or use bedside commode secondary to severe diarrhea and presence of rectal tube. Hagen catheter is functioning properly draining clear dark yellow urine.
--- NOTE | 2025-01-23 14:40 | MHC.CM.PN ---
IMM GIVEN 01/23. 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, SHE WILL RETURN THERE VIA BLS ONCE MEDICALLY CLEARED. THIS CM REQUESTED A COPY OF HER HCP FROM [facility]. PCP: DR. ERICA GARCIA
[2025-01-23 14:54] LABS: E. coli EAEC Not Detected (Not Detect.); E. coli EPEC Not Detected (Not Detect.); E. coli ETEC Not Detected (Not Detect.); E. coli STEC Not Detected (Not Detect.); Shigella sp./EIEC Not Detected (Not Detect.)
--- NOTE | 2025-01-23 18:56 | PM.EVENT ---
Event Note Date of Service: 01/23/25 Event Note: Admitted for hypotension, diarrhea, required vasopressors breifly. BP is better, stool study show + Vibrio, she's on evaquin which adequate treatment, blood cultures from earlier are pending. Med rec completed, takes alot of psych med reconciled with caution Time Spent With Patient Time: Total time managing care of this patient today ____ minutes.
[2025-01-23 19:07] LABS: Anion Gap 12 (12-20); Blood Urea Nitrogen 20 mg/dL (9-16); Calcium 9.6 mg/dL (8.4-10.2); Carbon Dioxide 19 mmol/L (22-29); Chloride 115 mmol/L (96-108); Creatinine Clr Calc Pharmacy 62.9; Estimated Glomerular Filt Rate > 60; Potassium 4.9 mmol/L (3.3-5.1); Sodium 141 mmol/L (135-145)
[2025-01-24] VITALS (9 sets, daily range): BP systolic 98–132; BP diastolic 50–74; PULSE 90–113; RESP 18–20; TEMP 36.4–37.9; O2SAT 91–98; BMI 24.4
[2025-01-24 06:52] LABS: Hematocrit 32.4 % (37.0-47.0); Hemoglobin 10.6 g/dl (12.0-16.0); Mean Corpuscular HGB Conc 32.7 g/dl (31.0-35.0); Mean Corpuscular Hemoglobin 29.6 pg (27.0-33.0); Mean Corpuscular Volume 90.5 fL (80.0-98.0); NRBC Abs Auto 0.000 X10*3/uL (0.0-0.012); NRBC Pct Auto 0.0 /100WBC (0.0-0.2); Platelet Count 200 X10*3/uL (160-400); Red Blood Count 3.58 X10*6/uL (4.20-5.50); White Blood Count 10.4 X10*3/uL (4.8-10.8)
[2025-01-24 07:26] LABS: Albumin Level 3.2 g/dL (3.5-5.0); Anion Gap 11 (12-20); Blood Urea Nitrogen 22 mg/dL (9-16); Calcium 9.0 mg/dL (8.4-10.2); Carbon Dioxide 21 mmol/L (22-29); Chloride 114 mmol/L (96-108); Creatinine Clr Calc Pharmacy 55.8; Estimated Glomerular Filt Rate > 60; Magnesium 1.6 mg/dL (1.6-2.6); Potassium 3.9 mmol/L (3.3-5.1); Sodium 142 mmol/L (135-145)
[2025-01-24 08:27] LABS: Band Neutrophils Percent 25 % (3-5); Lymphocytes Absolute Manual 1.8 X10*3/uL (1.2-4.9); Lymphocytes Percent Manual 17 % (20-40); Metamyelocytes Absolute 0.1 X10*3/uL; Metamyelocytes Percent 1 %; Monocytes Absolute Manual 0.4 X10*3/uL (0.1-1.2); Monocytes Percent Manual 4 % (2-11); Neutrophils Absolute Manual 8.1 X10*3/uL (2.0-8.3); Neutrophils Percent Manual 53 % (45-73)
[2025-01-24] MEDS: Fluticasone/Vilanterol 200/25 BLST.W.DEV 1 PUFF INHALE (08:27)
[2025-01-24 08:28] LABS: Dohle Bodies PRESENT; RBC Morphology NORMAL
[2025-01-24] MEDS: Aspirin Enteric Coated 81 MG TABLET.DR PO (08:41)
[2025-01-24] MEDS: Calcium + Vitamin D 250 MG TABLET 500 MG PO (08:41)
--- NOTE | 2025-01-24 17:56 | P.PNIM_ITS ---
Subjective Subjective Date of Service: 01/24/25 Interval History: Patient seen and examined at bedside this morning, patient states that she is feeling better, however overnight presented with fever 101.5. With WBC of 10.4, 25% bands, Dohle bodies. With 25% bands, chest x-ray showing left basilar atelectasis or infiltrate, CT scan with no acute intracranial findings. Blood cultures negative at this time sodium of 142, creatinine 0.8 at this time patient on Levaquin 750 mg q.d, with suicide showing positive for vibrio. Physical Exam 2 Exam: Exam: General: AxOx2, No acute distress Head: AT/NC ENT: Moist mucous membranes Neck: supple CVS; increased RR, S1 S2 normal Lungs: Clear bilateral breath sounds, no wheezes or crackles Abd: Soft non tender, non distended Ext: No edema and no calf tenderness MSK: moving all 4 limbs Skin: No cyanosis or edema Psych: Cooperative with exam Neurology: no focal deficit Vital Signs: Vital Signs: Last Vital Signs Temp 99.6 F 01/24/25 15:27 Pulse 103 H 01/24/25 15:27 Resp 18 01/24/25 15:27 BP 109/74 01/24/25 15:27 Pulse Ox 93 01/24/25 15:27 O2 Del Method Room Air 01/24/25 15:27 BMI result Body Mass Index 24.4 Objective Data Active Medications Acetaminophen (Acetaminophen 325 Mg Tablet) 650 mg PO Q6H PRN PRN Reason: Fever >101 Last Admin: 01/23/25 19:17 Dose: 650 mg Documented By: SAHARA Albuterol Sulfate (Albuterol Sulfate 90 Mcg 8 Gm Inhaler) 2 puff INHALE RQ6H PRN PRN Reason: Shortness of Breath Aspirin (Aspirin Enteric Coated 81 Mg Tablet.) 81 mg PO DAILY [facility] Last Admin: 01/24/25 08:41 Dose: 81 mg Documented By: PAMELA Calcium Carbonate/Cholecalciferol (Calcium + Vitamin D 250 Mg Tablet) 500 mg PO DAILY [facility] Last Admin: 01/24/25 08:41 Dose: 500 mg Documented By: PAMELA Clozapine (Clozapine 25 Mg Tablet) 50 mg PO BID [facility] Last Admin: 01/24/25 08:41 Dose: 50 mg Documented By: PAMELA Clozapine (Clozapine 25 Mg Tablet) 25 mg PO BID [facility] Last Admin: 01/24/25 08:41 Dose: 25 mg Documented By: PAMELA Escitalopram Oxalate (Escitalopram Oxalate 5 Mg Tablet) 5 mg PO DAILY [facility] Last Admin: 01/24/25 08:42 Dose: 5 mg Documented By: PAMELA Fluticasone/Vilanterol (Fluticasone/Vilanterol 200/25 Blst.W.Dev) 1 puff INHALE RDAILY [facility] Last Admin: 01/24/25 08:27 Dose: 1 puff Documented By: KEVEN Heparin Sodium (Porcine) (Heparin Sodium,Porcine 5,000 Unit/Ml Vial) 5,000 unit SUBCUT Q8H [facility] Last Admin: 01/24/25 08:52 Dose: 5,000 unit Documented By: PAMELA Levofloxacin (Levaquin) 750 mg in 150 mls @ 100 mls/hr IV Q24H [facility] Last Infusion: 01/24/25 13:00 Dose: Infused Documented By: PAMELA Lactated Ringer's (Lr) 1,000 mls @ 80 mls/hr IVCONT .[id number] [facility] Levothyroxine Sodium (Levothyroxine Sodium 50 Mcg Tablet) 50 mcg PO DAILY@0600 [facility] Last Admin: 01/24/25 05:49 Dose: 50 mcg Documented By: SAHARA Mirtazapine (Mirtazapine 15 Mg Tablet) 45 mg PO BEDTIME [facility] Last Admin: 01/23/25 20:49 Dose: 45 mg Documented By: SAHARA Oxcarbazepine (Oxcarbazepine 150 Mg Tablet) 75 mg PO BID [facility] Last Admin: 01/24/25 08:50 Dose: 75 mg Documented By: PAMELA Oxcarbazepine (Oxcarbazepine 150 Mg Tablet) 150 mg PO BID [facility] Last Admin: 01/24/25 08:41 Dose: 150 mg Documented By: PAMELA Sodium Biphosphate/Sodium Phosphate (Sodium Phosphate,[place]-Dibasic 133 Ml Enema) 118 ml [place] DAILY PRN PRN Reason: Constipation Labs 01/24/25 06:31 01/24/25 06:31 Labs: Laboratory Results - last 24 hr 01/23/25 01/24/25 18:22 06:31 MCV 90.5 MCH 29.6 MCHC 32.7 RDW 13.5 Plt Count 200 D MPV 11.2 Immature Gran % (Auto) Cancelled Neut % (Auto) Cancelled Lymph % (Auto) Cancelled Benzie % (Auto) Cancelled Eos % (Auto) Cancelled Baso % (Auto) Cancelled Lymph # (Auto) Cancelled Benzie # (Auto) Cancelled Eos # (Auto) Cancelled Baso # (Auto) Cancelled Abs Immat Gran (auto) Cancelled Absolute Neuts (auto) Cancelled Absolute Nucleated RBC 0.000 Nucleated RBC % (auto) 0.0 Neutrophils % (Manual) 53 Band Neutrophils % 25 H Lymphocytes % (Manual) 17 L Monocytes % (Manual) 4 Metamyelocytes % 1 Abs Neuts (Manual) 8.1 Lymphocytes # (Manual) 1.8 Monocytes # (Manual) 0.4 Metamyelocytes # 0.1 Dohle Bodies PRESENT Platelet Estimate NORMAL Plt Morphology Comment NORMAL RBC Morphology NORMAL Anion Gap 12 11 L Estim Creat Clear Calc 62.9 55.8 Estimated GFR > 60 > 60 Random Glucose 130 H 133 H Calcium 9.6 9.0 D Phosphorus 2.8 Magnesium 1.6 Albumin 3.2 L Microbiology Microbiology Results: Microbiology 01/23/25 01:51 Blood Culture - Preliminary Blood - Venous No growth after 24 hours. 01/23/25 01:51 Blood Culture - Preliminary Blood - Venous No growth after 24 hours. Assessment and Plan (1) Septic shock: Status: Acute (2) Leukocytosis: Status: Acute Plan Assessment: 69-year-old female with past medical history significant for COPD, hypothyroidism, schizoaffective disorder who presented to the hospital after sustaining an unwitnessed fall. In the ED patient found to be hypotensive with WBC of 17.1, patient given IV fluids, started on empiric antibiotics and placed on pressor support. Subsequently patient improve and was downgraded. Patient overnight presented with fevers, currently on Levaquin, pending blood culture results. C diff negative. Sepsis with neutrophil bands, to rule out GI, pulmonary source -blood cultures negative at this time, however patient had fever 101.5. We will resend, chest CT abdomen and pelvis with contrast ordered to rule out source of infection -we will continue with Levaquin, pending labs and cultures we will adjust medications accordingly -will initiate IV fluids Mechanical fall, could be secondary to orthostasis CT scan negative for any trauma or bleeding COPD -continue Breo Ellipta, p.r.n. albuterol, monitor and titrate oxygen for SpO2 greater than 90%. Hypothyroidism Continue levothyroxine 50 mcg q.d. CAD Continue aspirin Schizoaffective disorder Continue clozapine, mirtazapine, escitalopram. History of seizure -continue with oxcarbazepine FEN: LR, replete as needed, regular GI PPx: NI DVT PPx: Heparin Code Status: Full Code Disposition: All questions and concerns with the patient were answered to satisfaction. All pertinent clinical documents, images and labs were reviewed. DISCLAIMER: This document was created using voice recognition software. Any mistakes in the prescription are unintentional. An attempt was made to focus for accuracy, but to expedite availability, some errors may persist. Please contact with any need for correction or further clarification Quality Stroke Does the patient have a stroke diagnosis?: No VTE Prior VTE?: No VTE Risk Level:: Medical - moderate - high VTE Device Contraindication: N/A - Device Ordered VTE Drug Contraindication: N/A - Med Ordered
[2025-01-24] MEDS: Lactated Ringers 1,000 ML 80 ML IVCONT (18:22)
[2025-01-24] MEDS: iohexoL 350 MG/ML 100 ML INFUS..BTL IV (19:56)
[2025-01-25 03:15] VITALS: BP 134/63; PULSE 92; TEMP 36.4; O2SAT 93
[2025-01-25] MEDS: Lactated Ringers 1,000 ML 80 ML IVCONT ×2 (05:26→21:13)
[2025-01-25 06:00] VITALS: BMI 24.4
[2025-01-25 07:34] VITALS: BP 119/56; PULSE 99; RESP 20; TEMP 37.2; O2SAT 93
[2025-01-25 08:13] VITALS: PULSE 99; RESP 16; O2SAT 96
[2025-01-25] MEDS: Fluticasone/Vilanterol 200/25 BLST.W.DEV 1 PUFF INHALE (08:13)
[2025-01-25] MEDS: Aspirin Enteric Coated 81 MG TABLET.DR PO (09:54)
[2025-01-25] MEDS: Calcium + Vitamin D 250 MG TABLET 500 MG PO (09:55)
[2025-01-25 14:11] VITALS: BMI 24.7
[2025-01-25 14:21] VITALS: TEMP 36.8
--- NOTE | 2025-01-25 15:26 | HO.PM.IMPN ---
Subjective Subjective Date of Service: 01/25/25 Interval History: Patient seen and examined at bedside this morning, patient states that she is feeling better, however wishes to be discharged home. Given patient's bandemia, CT chest abdomen pelvis ordered, that showed diffuse colitis, chest x-ray with small pleural effusions with bibasilar atelectasis and/or consolidation. After telling patient that she continues to receive antibiotics, stated that she feels depressed because she is not able to be discharged home. Physical Exam Exam: Exam: General: AxOx2, No acute distress Head: AT/NC ENT: Moist mucous membranes Neck: supple CVS; RRR, S1 S2 normal Lungs: Clear bilateral breath sounds, no wheezes or crackles Abd: Soft non tender, non distended Ext: No edema and no calf tenderness MSK: moving all 4 limbs Skin: No cyanosis or edema Psych: Cooperative with exam Neurology: no focal deficit Vital Signs: Vital Signs: Last Vital Signs Temp 98.2 F 01/25/25 14:21 Pulse 99 01/25/25 08:13 Resp 16 01/25/25 08:13 BP 119/56 L 01/25/25 07:34 Pulse Ox 93 01/25/25 07:34 O2 Del Method Room Air 01/25/25 07:34 BMI result Body Mass Index 24.7 Objective Data Active Medications Acetaminophen (Acetaminophen 325 Mg Tablet) 650 mg PO Q6H PRN PRN Reason: Fever >101 Last Admin: 01/23/25 19:17 Dose: 650 mg Documented By: SAHARA Albuterol Sulfate (Albuterol Sulfate 90 Mcg 8 Gm Inhaler) 2 puff INHALE RQ6H PRN PRN Reason: Shortness of Breath Aspirin (Aspirin Enteric Coated 81 Mg Tablet.) 81 mg PO DAILY [facility] Last Admin: 01/25/25 09:54 Dose: 81 mg Documented By: TYSON Calcium Carbonate/Cholecalciferol (Calcium + Vitamin D 250 Mg Tablet) 500 mg PO DAILY [facility] Last Admin: 01/25/25 09:55 Dose: 500 mg Documented By: TYSON Clozapine (Clozapine 25 Mg Tablet) 50 mg PO BID [facility] Last Admin: 01/25/25 09:55 Dose: 50 mg Documented By: TYSON Clozapine (Clozapine 25 Mg Tablet) 25 mg PO BID [facility] Last Admin: 01/25/25 09:55 Dose: 25 mg Documented By: TYSON Escitalopram Oxalate (Escitalopram Oxalate 5 Mg Tablet) 5 mg PO DAILY [facility] Last Admin: 01/25/25 09:54 Dose: 5 mg Documented By: TYSON Fluticasone/Vilanterol (Fluticasone/Vilanterol 200/25 Blst.W.Dev) 1 puff INHALE RDAILY [facility] Last Admin: 01/25/25 08:13 Dose: 1 puff Documented By: JULIENNE Heparin Sodium (Porcine) (Heparin Sodium,Porcine 5,000 Unit/Ml Vial) 5,000 unit SUBCUT Q8H [facility] Last Admin: 01/25/25 09:54 Dose: 5,000 unit Documented By: TYSON Lactated Ringer's (Lr) 1,000 mls @ 80 mls/hr IVCONT .[id number] [facility] Last Admin: 01/25/25 05:26 Dose: 80 mls/hr Documented By: CARLOS Levofloxacin (Levofloxacin 750 Mg Tablet) 750 mg PO Q24H [facility] Levothyroxine Sodium (Levothyroxine Sodium 50 Mcg Tablet) 50 mcg PO DAILY@0600 [facility] Last Admin: 01/25/25 05:25 Dose: 50 mcg Documented By: CARLOS Mirtazapine (Mirtazapine 15 Mg Tablet) 45 mg PO BEDTIME [facility] Last Admin: 01/24/25 20:41 Dose: 45 mg Documented By: CARLOS Ondansetron HCl (Ondansetron Hcl 4 Mg/2 Ml Vial) 4 mg IVPUSH Q8H PRN PRN Reason: Nausea and Vomiting Last Admin: 01/25/25 11:11 Dose: 4 mg Documented By: TYSON Oxcarbazepine (Oxcarbazepine 150 Mg Tablet) 75 mg PO BID [facility] Last Admin: 01/25/25 09:55 Dose: 75 mg Documented By: TYSON Oxcarbazepine (Oxcarbazepine 150 Mg Tablet) 150 mg PO BID [facility] Last Admin: 01/25/25 09:55 Dose: 150 mg Documented By: TYSON Sodium Biphosphate/Sodium Phosphate (Sodium Phosphate,[place]-Dibasic 133 Ml Enema) 118 ml [place] DAILY PRN PRN Reason: Constipation Labs 01/24/25 06:31 01/24/25 06:31 Microbiology Microbiology Results: Microbiology 01/23/25 01:51 Blood Culture - Preliminary Blood - Venous No growth after 48 hours. 01/23/25 01:51 Blood Culture - Preliminary Blood - Venous No growth after 48 hours. Assessment and Plan (1) Sepsis: Status: Acute (2) Bandemia: Status: Acute (3) COPD (chronic obstructive pulmonary disease): Status: Acute (4) Neurodegenerative cognitive impairment: Status: Acute (5) Schizoaffective disorder: Status: Acute Plan Assessment: 69-year-old female with past medical history significant for COPD, hypothyroidism, schizoaffective disorder who presented to the hospital after sustaining an unwitnessed fall. In the ED patient found to be hypotensive with WBC of 17.1, patient given IV fluids, started on empiric antibiotics and placed on pressor support. Subsequently patient improve and was downgraded. Patient overnight presented with fevers, currently on Levaquin, pending blood culture results. C diff negative. Sepsis with neutrophil bands, likely 2/2 colitis seen on imaging Medication non compliance -blood cultures continue to be negative at this time, 2nd blood culture continues to be negative. -we will continue with Levaquin, switched to PO -continue IV LR -patient refusing labs, counselling given Mechanical fall, could be secondary to orthostasis CT scan negative for any trauma or bleeding COPD -continue Breo Ellipta, p.r.n. albuterol, monitor and titrate oxygen for SpO2 greater than 90%. Hypothyroidism Continue levothyroxine 50 mcg q.d. CAD Continue aspirin Neurodegenerative cognitive impairment Schizoaffective disorder Continue clozapine, mirtazapine, escitalopram. spoke w/ psychiatry on possible consult, however patient states she is feeling depressed as shes not able to Dc today. History of seizure -continue with oxcarbazepine FEN: LR, replete as needed, regular GI PPx: NI DVT PPx: Heparin Code Status: Full Code Disposition: All questions and concerns with the patient were answered to satisfaction. All pertinent clinical documents, images and labs were reviewed. DISCLAIMER: This document was created using voice recognition software. Any mistakes in the prescription are unintentional. An attempt was made to focus for accuracy, but to expedite availability, some errors may persist. Please contact with any need for correction or further clarification Quality Stroke Does the patient have a stroke diagnosis?: No VTE Prior VTE?: No VTE Risk Level:: Medical - moderate - high VTE Device Contraindication: N/A - Device Ordered VTE Drug Contraindication: N/A - Med Ordered
--- NOTE | 2025-01-25 15:55 | MHC.CM.PN ---
EMR REVIEWED AND PER MD ROUNDS, PATIENT IS NOT MEDICALLY CLEARED FOR DISCHARGE DUE TO MANAGEMENT OF SEPSIS.
[2025-01-25 16:00] VITALS: BP 137/74; PULSE 95; RESP 16; TEMP 37.4; O2SAT 90
[2025-01-25 19:31] VITALS: BP 111/64; PULSE 95; RESP 16; TEMP 36.9; O2SAT 97
[2025-01-26] VITALS: BP 120/65; PULSE 97; RESP 16; TEMP 36.4; O2SAT 90
[2025-01-26 03:54] VITALS: BP 130/64; PULSE 88; RESP 18; TEMP 36.7; O2SAT 91
[2025-01-26 06:00] VITALS: BMI 24.7
[2025-01-26] MEDS: Fluticasone/Vilanterol 200/25 BLST.W.DEV 1 PUFF INHALE (07:56)
[2025-01-26 07:58] VITALS: PULSE 88; RESP 18; O2SAT 90
[2025-01-26] MEDS: Aspirin Enteric Coated 81 MG TABLET.DR PO (10:34)
[2025-01-26] MEDS: Calcium + Vitamin D 250 MG TABLET 500 MG PO (10:34)
[2025-01-26] MEDS: Lactated Ringers 1,000 ML 80 ML IVCONT (10:35)
[2025-01-26 11:12] VITALS: BP 117/62; PULSE 95; RESP 18; TEMP 36.7; O2SAT 91
[2025-01-26 11:28] LABS: MANUAL DIFF FLAG NO
[2025-01-26 11:34] LABS: Hematocrit 31.1 % (37.0-47.0); Hemoglobin 10.2 g/dl (12.0-16.0); Imm Gran Abs Auto 0.15 X10*3/uL (0.00-0.03); Imm Gran Pct Auto 1.0 % (0.0-0.4); Lymphocytes Absolute Auto 1.3 X10*3/uL (1.2-4.9); Mean Corpuscular HGB Conc 32.8 g/dl (31.0-35.0); Mean Corpuscular Hemoglobin 29.2 pg (27.0-33.0); Mean Corpuscular Volume 89.1 fL (80.0-98.0); NRBC Abs Auto 0.000 X10*3/uL (0.0-0.012); NRBC Pct Auto 0.0 /100WBC (0.0-0.2); Platelet Count 240 X10*3/uL (160-400); Red Blood Count 3.49 X10*6/uL (4.20-5.50); White Blood Count 15.1 X10*3/uL (4.8-10.8)
[2025-01-26 11:36] LABS: Hematocrit 31.4 % (37.0-47.0); Hemoglobin 10.2 g/dl (12.0-16.0); Imm Gran Abs Auto 0.15 X10*3/uL (0.00-0.03); Imm Gran Pct Auto 1.0 % (0.0-0.4); Lymphocytes Absolute Auto 1.2 X10*3/uL (1.2-4.9); Mean Corpuscular HGB Conc 32.5 g/dl (31.0-35.0); Mean Corpuscular Hemoglobin 28.9 pg (27.0-33.0); Mean Corpuscular Volume 89.0 fL (80.0-98.0); NRBC Abs Auto 0.000 X10*3/uL (0.0-0.012); NRBC Pct Auto 0.0 /100WBC (0.0-0.2); Platelet Count 243 X10*3/uL (160-400); Red Blood Count 3.53 X10*6/uL (4.20-5.50); White Blood Count 15.0 X10*3/uL (4.8-10.8)
[2025-01-26 12:02] LABS: Alanine Aminotransferase < 6 U/L (0-31); Albumin Level 3.0 g/dL (3.5-5.0); Albumin Level 3.1 g/dL (3.5-5.0); Alkaline Phosphatase 66 U/L (39-117); Anion Gap 10 (12-20); Anion Gap 11 (12-20); Aspartate Amino Transferase 20 U/L (5-31); Aspartate Amino Transferase 21 U/L (5-31); Blood Urea Nitrogen 12 mg/dL (9-16); Calcium 9.2 mg/dL (8.4-10.2); Carbon Dioxide 27 mmol/L (22-29); Chloride 107 mmol/L (96-108); Chloride 108 mmol/L (96-108); Creatinine Clr Calc Pharmacy 75.3; Creatinine Clr Calc Pharmacy 76.4; Estimated Glomerular Filt Rate > 60; Potassium 3.6 mmol/L (3.3-5.1); Sodium 141 mmol/L (135-145); Total Protein 4.9 g/dL (6.5-8.0)
--- NOTE | 2025-01-26 14:56 | HO.PM.IMPN ---
Subjective Subjective Date of Service: 01/26/25 Interval History: Patient seen examined at bedside this morning, yesterday refused lab work. At this time patient lying comfortably in bed. Patient mentions that she has been feeling better. Repeat labs obtained later during the day showing leukocyte count of 15.1, hemoglobin 10.2, no bands noted. Vital sign with no fever. At this time had 1 bowel movement, incontinence, large amount of stool. Physical Exam Exam: Exam: General: AxOx2, No acute distress Head: AT/NC ENT: Moist mucous membranes Neck: supple CVS; RRR, S1 S2 normal Lungs: Clear bilateral breath sounds, no wheezes or crackles Abd: Soft non tender, non distended Ext: No edema and no calf tenderness MSK: moving all 4 limbs Skin: No cyanosis or edema Psych: Cooperative with exam Neurology: no focal deficit Vital Signs: Vital Signs: Last Vital Signs Temp 98.1 F 01/26/25 11:12 Pulse 95 01/26/25 11:12 Resp 18 01/26/25 11:12 BP 117/62 01/26/25 11:12 Pulse Ox 91 L 01/26/25 11:12 O2 Del Method Room Air 01/26/25 11:12 BMI result Body Mass Index 24.7 Objective Data Active Medications Acetaminophen (Acetaminophen 325 Mg Tablet) 650 mg PO Q6H PRN PRN Reason: Fever >101 Last Admin: 01/23/25 19:17 Dose: 650 mg Documented By: SAHARA Albuterol Sulfate (Albuterol Sulfate 90 Mcg 8 Gm Inhaler) 2 puff INHALE RQ6H PRN PRN Reason: Shortness of Breath Aspirin (Aspirin Enteric Coated 81 Mg Tablet.) 81 mg PO DAILY [facility] Last Admin: 01/26/25 10:34 Dose: 81 mg Documented By: ABEL Calcium Carbonate/Cholecalciferol (Calcium + Vitamin D 250 Mg Tablet) 500 mg PO DAILY [facility] Last Admin: 01/26/25 10:34 Dose: 500 mg Documented By: ABEL Clozapine (Clozapine 25 Mg Tablet) 50 mg PO BID [facility] Last Admin: 01/26/25 10:34 Dose: 50 mg Documented By: ABEL Clozapine (Clozapine 25 Mg Tablet) 25 mg PO BID [facility] Last Admin: 01/26/25 10:34 Dose: 25 mg Documented By: ABEL Escitalopram Oxalate (Escitalopram Oxalate 5 Mg Tablet) 5 mg PO DAILY [facility] Last Admin: 01/26/25 10:34 Dose: 5 mg Documented By: ABEL Fluticasone/Vilanterol (Fluticasone/Vilanterol 200/25 Blst.W.Dev) 1 puff INHALE RDAILY [facility] Last Admin: 01/26/25 07:56 Dose: 1 puff Documented By: GEN Heparin Sodium (Porcine) (Heparin Sodium,Porcine 5,000 Unit/Ml Vial) 5,000 unit SUBCUT Q8H [facility] Last Admin: 01/26/25 10:35 Dose: 5,000 unit Documented By: ABEL Lactated Ringer's (Lr) 1,000 mls @ 80 mls/hr IVCONT .[id number] [facility] Last Admin: 01/26/25 10:35 Dose: 80 mls/hr Documented By: ABEL Levofloxacin (Levofloxacin 750 Mg Tablet) 750 mg PO Q24H [facility] Last Admin: 01/26/25 10:34 Dose: 750 mg Documented By: ABEL Levothyroxine Sodium (Levothyroxine Sodium 50 Mcg Tablet) 50 mcg PO DAILY@0600 [facility] Last Admin: 01/26/25 06:40 Dose: Not Given Documented By: WES Non-Admin Reason: Patient Refused Comments: stating leave me alone, rolls over, will not let me draw blanket. Mirtazapine (Mirtazapine 15 Mg Tablet) 45 mg PO BEDTIME [facility] Last Admin: 01/25/25 21:11 Dose: 45 mg Documented By: ANTOLEGARIO Ondansetron HCl (Ondansetron Hcl 4 Mg/2 Ml Vial) 4 mg IVPUSH Q8H PRN PRN Reason: Nausea and Vomiting Last Admin: 01/25/25 11:11 Dose: 4 mg Documented By: TYSON Oxcarbazepine (Oxcarbazepine 150 Mg Tablet) 75 mg PO BID [facility] Last Admin: 01/26/25 10:33 Dose: 75 mg Documented By: ABEL Oxcarbazepine (Oxcarbazepine 150 Mg Tablet) 150 mg PO BID [facility] Last Admin: 01/26/25 10:34 Dose: 150 mg Documented By: ABEL Sodium Biphosphate/Sodium Phosphate (Sodium Phosphate,[place]-Dibasic 133 Ml Enema) 118 ml RI DAILY PRN PRN Reason: Constipation Labs 01/26/25 11:16 01/26/25 11:16 Labs: Laboratory Results - last 24 hr 01/26/25 01/26/25 01/26/25 11:16 11:16 11:16 MCV 89.0 89.1 MCH 28.9 29.2 MCHC 32.5 RDW Plt Count MPV Immature Gran % (Auto) Neut % (Auto) Lymph % (Auto) [place] % (Auto) Eos % (Auto) Baso % (Auto) Lymph # (Auto) [place] # (Auto) Eos # (Auto) Baso # (Auto) Abs Immat Gran (auto) Absolute Neuts (auto) Absolute Nucleated RBC Nucleated RBC % (auto) Anion Gap Estim Creat Clear Calc Estimated GFR Random Glucose Calcium Total Bilirubin AST ALT Alkaline Phosphatase Total Protein Albumin 01/26/25 01/26/25 01/26/25 11:16 11:16 11:16 MCV MCH MCHC 32.8 RDW 13.5 13.5 Plt Count 243 240 MPV 11.3 Immature Gran % (Auto) Neut % (Auto) Lymph % (Auto) [place] % (Auto) Eos % (Auto) Baso % (Auto) Lymph # (Auto) [place] # (Auto) Eos # (Auto) Baso # (Auto) Abs Immat Gran (auto) Absolute Neuts (auto) Absolute Nucleated RBC Nucleated RBC % (auto) Anion Gap Estim Creat Clear Calc Estimated GFR Random Glucose Calcium Total Bilirubin AST ALT Alkaline Phosphatase Total Protein Albumin 01/26/25 01/26/25 01/26/25 11:16 11:16 11:16 MCV MCH MCHC RDW Plt Count MPV 11.3 Immature Gran % (Auto) 1.0 H 1.0 H Neut % (Auto) 85.1 H 84.2 H Lymph % (Auto) 8.2 L [place] % (Auto) Eos % (Auto) Baso % (Auto) Lymph # (Auto) [place] # (Auto) Eos # (Auto) Baso # (Auto) Abs Immat Gran (auto) Absolute Neuts (auto) Absolute Nucleated RBC Nucleated RBC % (auto) Anion Gap Estim Creat Clear Calc Estimated GFR Random Glucose Calcium Total Bilirubin AST ALT Alkaline Phosphatase Total Protein Albumin 01/26/25 01/26/25 01/26/25 11:16 11:16 11:16 MCV MCH MCHC RDW Plt Count MPV Immature Gran % (Auto) Neut % (Auto) Lymph % (Auto) 8.4 L [place] % (Auto) 5.1 5.4 Eos % (Auto) 0.3 0.3 Baso % (Auto) 0.3 Lymph # (Auto) [place] # (Auto) Eos # (Auto) Baso # (Auto) Abs Immat Gran (auto) Absolute Neuts (auto) Absolute Nucleated RBC Nucleated RBC % (auto) Anion Gap Estim Creat Clear Calc Estimated GFR Random Glucose Calcium Total Bilirubin AST ALT Alkaline Phosphatase Total Protein Albumin 01/26/25 01/26/25 01/26/25 11:16 11:16 11:16 MCV MCH MCHC RDW Plt Count MPV Immature Gran % (Auto) Neut % (Auto) Lymph % (Auto) [place] % (Auto) Eos % (Auto) Baso % (Auto) 0.7 Lymph # (Auto) 1.2 1.3 [place] # (Auto) 0.8 0.8 Eos # (Auto) 0.0 Baso # (Auto) Abs Immat Gran (auto) Absolute Neuts (auto) Absolute Nucleated RBC Nucleated RBC % (auto) Anion Gap Estim Creat Clear Calc Estimated GFR Random Glucose Calcium Total Bilirubin AST ALT Alkaline Phosphatase Total Protein Albumin 01/26/25 01/26/25 01/26/25 11:16 11:16 11:16 MCV MCH MCHC RDW Plt Count MPV Immature Gran % (Auto) Neut % (Auto) Lymph % (Auto) [place] % (Auto) Eos % (Auto) Baso % (Auto) Lymph # (Auto) [place] # (Auto) Eos # (Auto) 0.0 Baso # (Auto) 0.0 0.1 Abs Immat Gran (auto) 0.15 H 0.15 H Absolute Neuts (auto) 12.7 H Absolute Nucleated RBC Nucleated RBC % (auto) Anion Gap Estim Creat Clear Calc Estimated GFR Random Glucose Calcium Total Bilirubin AST ALT Alkaline Phosphatase Total Protein Albumin 01/26/25 01/26/25 01/26/25 11:16 11:16 11:16 MCV MCH MCHC RDW Plt Count MPV Immature Gran % (Auto) Neut % (Auto) Lymph % (Auto) [place] % (Auto) Eos % (Auto) Baso % (Auto) Lymph # (Auto) [place] # (Auto) Eos # (Auto) Baso # (Auto) Abs Immat Gran (auto) Absolute Neuts (auto) 12.7 H Absolute Nucleated RBC 0.000 0.000 Nucleated RBC % (auto) 0.0 0.0 Anion Gap 10 L Estim Creat Clear Calc Estimated GFR Random Glucose Calcium Total Bilirubin AST ALT Alkaline Phosphatase Total Protein Albumin 01/26/25 01/26/25 01/26/25 11:16 11:16 11:16 MCV MCH MCHC RDW Plt Count MPV Immature Gran % (Auto) Neut % (Auto) Lymph % (Auto) [place] % (Auto) Eos % (Auto) Baso % (Auto) Lymph # (Auto) [place] # (Auto) Eos # (Auto) Baso # (Auto) Abs Immat Gran (auto) Absolute Neuts (auto) Absolute Nucleated RBC Nucleated RBC % (auto) Anion Gap 11 L Estim Creat Clear Calc 75.3 76.4 Estimated GFR > 60 > 60 Random Glucose 114 Calcium Total Bilirubin AST ALT Alkaline Phosphatase Total Protein Albumin 01/26/25 01/26/25 01/26/25 11:16 11:16 11:16 MCV MCH MCHC RDW Plt Count MPV Immature Gran % (Auto) Neut % (Auto) Lymph % (Auto) [place] % (Auto) Eos % (Auto) Baso % (Auto) Lymph # (Auto) [place] # (Auto) Eos # (Auto) Baso # (Auto) Abs Immat Gran (auto) Absolute Neuts (auto) Absolute Nucleated RBC Nucleated RBC % (auto) Anion Gap Estim Creat Clear Calc Estimated GFR Random Glucose 113 Calcium 9.2 9.2 Total Bilirubin 0.2 0.2 AST 20 ALT Alkaline Phosphatase Total Protein Albumin 01/26/25 01/26/25 01/26/25 11:16 11:16 11:16 MCV MCH MCHC RDW Plt Count MPV Immature Gran % (Auto) Neut % (Auto) Lymph % (Auto) [place] % (Auto) Eos % (Auto) Baso % (Auto) Lymph # (Auto) [place] # (Auto) Eos # (Auto) Baso # (Auto) Abs Immat Gran (auto) Absolute Neuts (auto) Absolute Nucleated RBC Nucleated RBC % (auto) Anion Gap Estim Creat Clear Calc Estimated GFR Random Glucose Calcium Total Bilirubin AST 21 ALT < 6 < 6 Alkaline Phosphatase 66 66 Total Protein 4.9 L Albumin 01/26/25 01/26/25 11:16 11:16 MCV MCH MCHC RDW Plt Count MPV Immature Gran % (Auto) Neut % (Auto) Lymph % (Auto) [place] % (Auto) Eos % (Auto) Baso % (Auto) Lymph # (Auto) [place] # (Auto) Eos # (Auto) Baso # (Auto) Abs Immat Gran (auto) Absolute Neuts (auto) Absolute Nucleated RBC Nucleated RBC % (auto) Anion Gap Estim Creat Clear Calc Estimated GFR Random Glucose Calcium Total Bilirubin AST ALT Alkaline Phosphatase Total Protein 4.9 L Albumin 3.0 L 3.1 L Microbiology Microbiology Results: Microbiology 01/24/25 19:12 Blood Culture - Preliminary Blood - Venous No growth after 24 hours. 01/24/25 18:19 Blood Culture - Preliminary Blood - Venous No growth after 24 hours. Assessment and Plan (1) Schizoaffective disorder: Status: Acute (2) Sepsis: Status: Acute (3) Neurodegenerative cognitive impairment: Status: Acute (4) COPD (chronic obstructive pulmonary disease): Status: Acute Plan Assessment: 69-year-old female with past medical history significant for COPD, hypothyroidism, schizoaffective disorder who presented to the hospital after sustaining an unwitnessed fall. In the ED patient found to be hypotensive with WBC of 17.1, patient given IV fluids, started on empiric antibiotics and placed on pressor support. Subsequently patient improve and was downgraded. Patient overnight presented with fevers, currently on Levaquin, pending blood culture results. C diff negative. Sepsis, improved Leukocytosis, no longer with bands Medication non compliance -blood cultures continue to be negative at this time, 2nd blood culture continues to be negative. -CT scan with colitis, stool + for vibrio -we will continue with Levaquin PO -continue IV LR -patient agreed to lab draw today, with worsening leukocytosis, will request ID consult. Mechanical fall, could be secondary to orthostasis CT scan negative for any trauma or bleeding COPD -continue Breo Ellipta, p.r.n. albuterol, monitor and titrate oxygen for SpO2 greater than 90%. Hypothyroidism Continue levothyroxine 50 mcg q.d. CAD Continue aspirin Neurodegenerative cognitive impairment Schizoaffective disorder Continue clozapine, mirtazapine, escitalopram. spoke w/ psychiatry on possible consult, however patient states she is feeling depressed as shes not able to Dc today. History of seizure -continue with oxcarbazepine FEN: LR, replete as needed, regular GI PPx: NI DVT PPx: Heparin Code Status: Full Code Disposition: All questions and concerns with the patient were answered to satisfaction. All pertinent clinical documents, images and labs were reviewed. DISCLAIMER: This document was created using voice recognition software. Any mistakes in the prescription are unintentional. An attempt was made to focus for accuracy, but to expedite availability, some errors may persist. Please contact with any need for correction or further clarification Quality Stroke Does the patient have a stroke diagnosis?: No VTE Prior VTE?: No VTE Risk Level:: Medical - moderate - high VTE Device Contraindication: N/A - Device Ordered VTE Drug Contraindication: N/A - Med Ordered
[2025-01-26 15:24] VITALS: BP 124/63; PULSE 100; RESP 18; TEMP 36.9; O2SAT 91
[2025-01-26 19:32] VITALS: BP 130/66; PULSE 97; RESP 18; TEMP 37.2; O2SAT 91
[2025-01-27] VITALS (9 sets, daily range): BP systolic 121–151; BP diastolic 64–83; PULSE 76–95; RESP 16–20; TEMP 36.5–38.3; O2SAT 90–97; BMI 24.3
--- NOTE | 2025-01-27 00:47 | P.CNID_ITS ---
History of Present Illness Data of Consult Service Date: 01/26/25 Requesting physician: Vinay Can Primary Care Provider: Unknown Physician HPI Reason for consult: sepsis,vibrio She presents after fall when dizzy from facility. She came to ER and was found to be hypotensive requiring pressors and with leukocytosis. She complains of diarrhea. Vibrio,but not cholera was found in stool and Cdiff toxin negative. CT scan abdomen and pelvis shows colitis. Review of Systems 2 Review of Systems: Yes Unobtainable due to mental condition PMFSH Past Medical History Medical History Myopia Hypothyroidism Schizoaffective disorder Full incontinence of feces COPD (chronic obstructive pulmonary disease) Urgency incontinence Stress incontinence Family History Family history: reviewed and not pertinent Social History Social History Household Members: Other Housing: Other Housing Other:: [facility] Do you presently have visiting nurse or other home services: No Alcohol intake: never Patient Tobacco Use Status: Former Tobacco user Currently Displaying Signs/Symptoms of Drug Intoxication Withdrawal: No Advance Directives: Yes Advance Directives on File: Yes Advance Directives Date on File: 06/27/21 Patient : No service: No Sexual orientation: Straight/Heterosexual Meds Allergies Allergy/AdvReac Type Severity Reaction Status Date / Time tuberculin, purified protein Allergy Mild Rash Verified 01/23/25 01:19 deriva duloxetine (Cymbalta) Allergy Unknown rash Verified 01/23/25 01:19 Thorazine Allergy Unknown rash Uncoded 01/23/25 01:19 Active Medications: Current Medications Acetaminophen (Acetaminophen 325 Mg Tablet) 650 mg PO Q6H PRN PRN Reason: Fever >101 Last Admin: 01/23/25 19:17 Dose: 650 mg Albuterol Sulfate (Albuterol Sulfate 90 Mcg 8 Gm Inhaler) 2 puff INHALE RQ6H PRN PRN Reason: Shortness of Breath Aspirin (Aspirin Enteric Coated 81 Mg Tablet.Dr) 81 mg PO DAILY [facility] Last Admin: 01/26/25 10:34 Dose: 81 mg Calcium Carbonate/Cholecalciferol (Calcium + Vitamin D 250 Mg Tablet) 500 mg PO DAILY [facility] Last Admin: 01/26/25 10:34 Dose: 500 mg Ceftriaxone Sodium (Ceftriaxone Sodium 2 Gm Vial) 2 gm IVPUSH Q24H [facility] Clozapine (Clozapine 25 Mg Tablet) 50 mg PO BID [facility] Last Admin: 01/26/25 21:41 Dose: 50 mg Clozapine (Clozapine 25 Mg Tablet) 25 mg PO BID [facility] Last Admin: 01/26/25 21:40 Dose: 25 mg Escitalopram Oxalate (Escitalopram Oxalate 5 Mg Tablet) 5 mg PO DAILY [facility] Last Admin: 01/26/25 10:34 Dose: 5 mg Fluticasone/Vilanterol (Fluticasone/Vilanterol 200/25 Blst.W.Dev) 1 puff INHALE RDAILY [facility] Last Admin: 01/26/25 07:56 Dose: 1 puff Heparin Sodium (Porcine) (Heparin Sodium,Porcine 5,000 Unit/Ml Vial) 5,000 unit SUBCUT Q8H [facility] Last Admin: 01/26/25 15:27 Dose: 5,000 unit Levothyroxine Sodium (Levothyroxine Sodium 50 Mcg Tablet) 50 mcg PO DAILY@0600 [facility] Last Admin: 01/26/25 06:40 Dose: Not Given Mirtazapine (Mirtazapine 15 Mg Tablet) 45 mg PO BEDTIME [facility] Last Admin: 01/26/25 21:41 Dose: 45 mg Ondansetron HCl (Ondansetron Hcl 4 Mg/2 Ml Vial) 4 mg IVPUSH Q8H PRN PRN Reason: Nausea and Vomiting Last Admin: 01/25/25 11:11 Dose: 4 mg Oxcarbazepine (Oxcarbazepine 150 Mg Tablet) 75 mg PO BID [facility] Last Admin: 01/26/25 21:41 Dose: 75 mg Oxcarbazepine (Oxcarbazepine 150 Mg Tablet) 150 mg PO BID [facility] Last Admin: 01/26/25 21:40 Dose: 150 mg Sodium Biphosphate/Sodium Phosphate (Sodium Phosphate,[place]-Dibasic 133 Ml Enema) 118 ml ND DAILY PRN PRN Reason: Constipation Home Medications ?Medication ?Instructions ?Recorded ?Confirmed ?Last Taken ?Type clozapine 25 mg tablet (Clozaril) 25 mg PO BID 3 01/23/25 Unknown History acetaminophen 325 mg tablet 650 mg PO Q6H PRN Pain 01/23/25 Unknown History bisacodyl 10 mg rectal suppository 10 mg ND DAILY PRN Constipation 01/23/25 01/23/25 Unknown History calcium 600 mg (as 1 tab PO DAILY 01/23/2501/09 Unknown History carbonate)-vitamin D3 5 mcg (200 unit) tablet citalopram 10 mg tablet 5 mg PO DAILY 01/23/2501/23 Unknown History clozapine 25 mg tablet 50 mg PO BID 01/23/25 Unknown History hydroxyzine HCl 50 mg tablet 50 mg PO BEDTIME 01/23/25 01/23/25 Unknown History levothyroxine 50 mcg tablet 50 mcg PO DAILY@0600 01/2301/23/25 Unknown History oxcarbazepine 150 mg tablet 75 mg PO BID 01/23/2501/09 Unknown History (Trileptal) oxcarbazepine 150 mg tablet 150 mg PO BID 01/23/25 Unknown History (Trileptal) phenyleph-shark liver 1 appl ND Q8H PRN Hemorrhoid s 01/23/25 01/23/25 Unknown History mlw-mryppo-kea rectal cream sodium phosphates 19 gram-7 118 ml ND DAILY PRN Consti pation 01/23/25 01/23/25 Unknown History gram/118 mL enema (Fleet Enema) sodium phosphates 19 gram-7 118 ml ND DAILY PRN Consti pation 01/23/25 01/23/25 Unknown History gram/118 mL enema (Fleet Enema) Physical Exam 2 Vital Signs: Vital Signs: Last Vital Signs Temp 98.9 F 01/26/25 19:32 Pulse 97 01/26/25 19:32 Resp 18 01/26/25 19:32 BP 130/66 01/26/25 19:32 Pulse Ox 91 L 01/26/25 19:32 O2 Del Method Room Air 01/26/25 19:32 BMI result Body Mass Index 24.7 Const: General: cooperative HEENT: Head: Yes normal to inspection Face and sinus: Yes normal facial exam Mouth: Normal oral and palatal mucosa present Teeth and gingiva: d entition normal Eyes: General: appearance normal, both eyes and all related structures P upils: Equal, round and reactive pupils present Resp: Effort & Inspection: normal respiratory effort Cardio: Rate: regular rate Rhythm: regular rhythm GI: Inspection: Yes distended Palpation (GI): Soft to palpation and nontender : General: Yes no CVA tenderness Back/Spine/Pelvis: Back: no CVA tenderness Skin: General skin exam: no rashes or lesions noted Neuro: General: moves all extremities Cranial nerves: Yes Equal, round and reactive pupils present Extrem: General: Yes normal to inspection Psych: Appearance: grossly normal Results Labs 01/26/25 11:16 01/26/25 11:16 Labs: Short CBC 01/26/25 01/26/25 01/26/25 Range/Units 11:16 11:16 11:16 WBC 15.0 H 15.1 H (4.8-10.8) X10*3/uL Hgb 10.2 L 10.2 L (12.0-16.0) g/dl Hct 31.4 L (37.0-47.0) % Plt Count (160-400) X10*3/uL 01/26/25 01/26/25 Range/Units 11:16 11:16 WBC (4.8-10.8) X10*3/uL Hgb (12.0-16.0) g/dl Hct 31.1 L (37.0-47.0) % Plt Count 243 240 (160-400) X10*3/uL BMP 01/26/25 01/26/25 01/26/25 11:16 11:16 11:16 Sodium 141 141 Potassium 3.6 3.6 Chloride 108 Carbon Dioxide BUN Creatinine Calcium 01/26/25 01/26/25 01/26/25 11:16 11:16 11:16 Sodium Potassium Chloride 107 Carbon Dioxide 27 27 BUN 12 12 Creatinine 0.66 Calcium 01/26/25 01/26/25 11:16 11:16 Sodium Potassium Chloride Carbon Dioxide BUN Creatinine 0.65 Calcium 9.2 9.2 Liver Function 01/26/25 01/26/25 01/26/25 Range/Units 11:16 11:16 11:16 Total Bilirubin 0.2 0.2 (0.0-1.0) mg/dL AST 20 21 (5-31) U/L ALT < 6 (0-31) U/L Alkaline Phosphatase (39-117) U/L Albumin (3.5-5.0) g/dL 01/26/25 01/26/25 01/26/25 Range/Units 11:16 11:16 11:16 Total Bilirubin (0.0-1.0) mg/dL AST (5-31) U/L ALT < 6 (0-31) U/L Alkaline Phosphatase 66 66 (39-117) U/L Albumin 3.0 L 3.1 L (3.5-5.0) g/dL Microbiology Microbiology Results: Microbiology 01/24/25 19:12 Blood - Venous Blood Culture - Preliminary No growth after 48 hours. 01/24/25 18:19 Blood - Venous Blood Culture - Preliminary No growth after 48 hours. 01/23/25 01:51 Blood - Venous Blood Culture - Preliminary No growth after 48 hours. 01/23/25 01:51 Blood - Venous Blood Culture - Preliminary No growth after 48 hours. Assessment and Plan (1) Watery diarrhea: Status: Acute (2) Septic shock: Status: Acute (3) Sepsis: Status: Acute Plan Likely vibrio colitis,speciation pending. She had septic shock There is best data with Ceftriaxone and Doxycycline for moderate to severe disease Continue those antibiotics IV until improved and taking po ,then switch to them po for total 10 days possible antibiotics. Lab to send out for speciation. ?DPH may do source investigation especially if lives in facility with other.
--- NOTE | 2025-01-27 01:36 | PC.NURSE ---
Patient pulled IV out. New orders for IV antibiotics. landing scaler, Arlene de la paz MD for medication to calm patient, as patient refusing, yelling, and pulling blankets over head and telling us to leave the room. She continued this despite education and reassurance. 5MG IM Haldol orderd by Dr Wallace Platt.
--- NOTE | 2025-01-27 06:25 | PC.NURSE ---
Dr Wallace Platt contacted as patient had temp of 101.0 and was refusing care, patient stated she would not take Acetaminophen (PO). IV Acetaminophen ordered and administered.
[2025-01-27] MEDS: Fluticasone/Vilanterol 200/25 BLST.W.DEV 1 PUFF INHALE (08:24)
[2025-01-27] MEDS: Calcium + Vitamin D 250 MG TABLET 500 MG PO (08:57)
[2025-01-27] MEDS: Aspirin Enteric Coated 81 MG TABLET.DR PO (08:57)
--- NOTE | 2025-01-27 14:21 | P.PNIM_ITS ---
Subjective Subjective Date of Service: 01/27/25 Interval History: Patient seen and examined at bedside this morning, patient overnight had episode of fever at 101, recently transitioned to Rocephin and doxycycline for better fibro coverage per ID recs. Patient states that she is feeling much better, sitting in commode. Review of Systems Review of Systems: Yes all other systems are reviewed and are negative Physical Exam 2 Exam: Exam: General: AxOx2, No acute distress Head: AT/NC ENT: Moist mucous membranes Neck: supple CVS; RRR, S1 S2 normal Lungs: Clear bilateral breath sounds, no wheezes or crackles Abd: Soft non tender, non distended Ext: No edema and no calf tenderness MSK: moving all 4 limbs Skin: No cyanosis or edema Psych: Cooperative with exam Neurology: no focal deficit Vital Signs: Vital Signs: Last Vital Signs Temp 98.1 F 01/27/25 11:14 Pulse 90 01/27/25 11:14 Resp 18 01/27/25 11:14 BP 129/69 01/27/25 11:14 Pulse Ox 93 01/27/25 11:14 O2 Del Method Room Air 01/27/25 11:14 BMI result Body Mass Index 24.3 Objective Data Active Medications Acetaminophen (Acetaminophen 325 Mg Tablet) 650 mg PO Q6H PRN PRN Reason: Fever >101 Last Admin: 01/23/25 19:17 Dose: 650 mg Documented By: SAHARA Albuterol Sulfate (Albuterol Sulfate 90 Mcg 8 Gm Inhaler) 2 puff INHALE RQ6H PRN PRN Reason: Shortness of Breath Aspirin (Aspirin Enteric Coated 81 Mg Tablet.) 81 mg PO DAILY [facility] Last Admin: 01/27/25 08:57 Dose: 81 mg Documented By: ABEL Calcium Carbonate/Cholecalciferol (Calcium + Vitamin D 250 Mg Tablet) 500 mg PO DAILY [facility] Last Admin: 01/27/25 08:57 Dose: 500 mg Documented By: ABEL Ceftriaxone Sodium (Ceftriaxone Sodium 2 Gm Vial) 2 gm IVPUSH Q24H [facility] Clozapine (Clozapine 25 Mg Tablet) 50 mg PO BID [facility] Last Admin: 01/27/25 08:57 Dose: 50 mg Documented By: ABEL Clozapine (Clozapine 25 Mg Tablet) 25 mg PO BID [facility] Last Admin: 01/27/25 08:57 Dose: 25 mg Documented By: ABEL Escitalopram Oxalate (Escitalopram Oxalate 5 Mg Tablet) 5 mg PO DAILY [facility] Last Admin: 01/27/25 08:58 Dose: 5 mg Documented By: ABEL Fluticasone/Vilanterol (Fluticasone/Vilanterol 200/25 Blst.W.Dev) 1 puff INHALE RDAILY [facility] Last Admin: 01/27/25 08:24 Dose: 1 puff Documented By: MONE Heparin Sodium (Porcine) (Heparin Sodium,Porcine 5,000 Unit/Ml Vial) 5,000 unit SUBCUT Q8H [facility] Last Admin: 01/27/25 09:09 Dose: Not Given Documented By: ABEL Non-Admin Reason: Patient Refused Doxycycline Hyclate 100 mg/ (Sodium Chloride) 250 mls @ 166.67 mls/hr IV Q12H [facility] Last Infusion: 01/27/25 10:35 Dose: Infused Documented By: ABEL Levothyroxine Sodium (Levothyroxine Sodium 50 Mcg Tablet) 50 mcg PO DAILY@0600 [facility] Last Admin: 01/27/25 08:58 Dose: 50 mcg Documented By: ABEL Comments: pt stated she will take this AM Mirtazapine (Mirtazapine 15 Mg Tablet) 45 mg PO BEDTIME [facility] Last Admin: 01/26/25 21:41 Dose: 45 mg Documented By: BIENVENIDO Oxcarbazepine (Oxcarbazepine 150 Mg Tablet) 75 mg PO BID [facility] Last Admin: 01/27/25 08:57 Dose: 75 mg Documented By: ABEL Oxcarbazepine (Oxcarbazepine 150 Mg Tablet) 150 mg PO BID [facility] Last Admin: 01/27/25 08:58 Dose: 150 mg Documented By: ABEL Sodium Biphosphate/Sodium Phosphate (Sodium Phosphate,[place]-Dibasic 133 Ml Enema) 118 ml [place] DAILY PRN PRN Reason: Constipation Labs 01/26/25 11:16 01/26/25 11:16 Microbiology Microbiology Results: Microbiology 01/24/25 19:12 Blood Culture - Preliminary Blood - Venous No growth after 48 hours. 01/24/25 18:19 Blood Culture - Preliminary Blood - Venous No growth after 48 hours. Assessment and Plan (1) Schizoaffective disorder: Status: Acute (2) Sepsis: Status: Acute (3) Neurodegenerative cognitive impairment: Status: Acute (4) COPD (chronic obstructive pulmonary disease): Status: Acute Plan Assessment: 69-year-old female with past medical history significant for COPD, hypothyroidism, schizoaffective disorder who presented to the hospital after sustaining an unwitnessed fall. In the ED patient found to be hypotensive with WBC of 17.1, patient given IV fluids, started on empiric antibiotics and placed on pressor support. Subsequently patient improve and was downgraded. Patient overnight presented with fever, previously on levaquin, transition to ceftriaxone and doxycycline per ID recs. Sepsis Medication non compliance -blood cultures continue to be negative at this time, 2nd blood culture continues to be negative. -CT scan with colitis, stool + for vibrio -continue with ceftriaxone and doxy per ID recs, monitor and if able, will transition to PO -continue IV LR Mechanical fall, could be secondary to orthostasis CT scan negative for any trauma or bleeding COPD -continue Breo Ellipta, p.r.n. albuterol, monitor and titrate oxygen for SpO2 greater than 90%. Hypothyroidism Continue levothyroxine 50 mcg q.d. CAD Continue aspirin Neurodegenerative cognitive impairment Schizoaffective disorder Continue clozapine, mirtazapine, escitalopram. spoke w/ psychiatry on possible consult, however patient states she is feeling depressed as shes not able to Dc today. History of seizure -continue with oxcarbazepine FEN: LR, replete as needed, regular GI PPx: NI DVT PPx: Heparin Code Status: Full Code Disposition: All questions and concerns with the patient were answered to satisfaction. All pertinent clinical documents, images and labs were reviewed. DISCLAIMER: This document was created using voice recognition software. Any mistakes in the prescription are unintentional. An attempt was made to focus for accuracy, but to expedite availability, some errors may persist. Please contact with any need for correction or further clarification Quality Stroke Does the patient have a stroke diagnosis?: No VTE Prior VTE?: No VTE Risk Level:: Medical - moderate - high VTE Device Contraindication: N/A - Device Ordered VTE Drug Contraindication: N/A - Med Ordered
[2025-01-28] VITALS (8 sets, daily range): BP systolic 121–144; BP diastolic 58–72; PULSE 76–96; RESP 16–18; TEMP 36.3–37.1; O2SAT 90–99; BMI 26.6
[2025-01-28] MEDS: Albuterol Sulfate 90 MCG 8 GM INHALER 2 PUFF INHALE (02:59)
[2025-01-28] MEDS: Fluticasone/Vilanterol 200/25 BLST.W.DEV 1 PUFF INHALE (07:56)
[2025-01-28] MEDS: Calcium + Vitamin D 250 MG TABLET 500 MG PO (09:05)
[2025-01-28] MEDS: Aspirin Enteric Coated 81 MG TABLET.DR PO (09:05)
--- NOTE | 2025-01-28 15:37 | HO.PM.IMPN ---
Subjective Subjective Date of Service: 01/28/25 Interval History: Patient seen examined at bedside this morning, patient states that she feels better, transitioned to p.o. doxycycline, will receive 1 additional dose of ceftriaxone. With plans on possible discharge tomorrow on p.o. medications. No concerns voiced by the nursing staff. Review of Systems Review of Systems: Yes all other systems are reviewed and are negative Physical Exam Exam: Exam: General: AxOx2, No acute distress Head: AT/NC ENT: Moist mucous membranes Neck: supple CVS; RRR, S1 S2 normal Lungs: Clear bilateral breath sounds, no wheezes or crackles Abd: Soft non tender, non distended Ext: No edema and no calf tenderness MSK: moving all 4 limbs Skin: No cyanosis or edema Psych: Cooperative with exam Neurology: no focal deficit Vital Signs: Vital Signs: Last Vital Signs Temp 97.3 F 01/28/25 15:30 Pulse 87 01/28/25 15:30 Resp 16 01/28/25 15:30 BP 126/63 01/28/25 15:30 Pulse Ox 92 01/28/25 15:30 O2 Del Method Room Air 01/28/25 15:30 O2 Flow Rate 2 01/28/25 11:26 BMI result Body Mass Index 26.6 Objective Data Active Medications Acetaminophen (Acetaminophen 325 Mg Tablet) 650 mg PO Q6H PRN PRN Reason: Fever >101 Last Admin: 01/27/25 22:45 Dose: 650 mg Documented By: DAVID Albuterol Sulfate (Albuterol Sulfate 90 Mcg 8 Gm Inhaler) 2 puff INHALE RQ6H PRN PRN Reason: Shortness of Breath Last Admin: 01/28/25 02:59 Dose: 2 puff Documented By: BROOKLYNN Aspirin (Aspirin Enteric Coated 81 Mg Tablet.) 81 mg PO DAILY [facility] Last Admin: 01/28/25 09:05 Dose: 81 mg Documented By: KIMO Calcium Carbonate/Cholecalciferol (Calcium + Vitamin D 250 Mg Tablet) 500 mg PO DAILY [facility] Last Admin: 01/28/25 09:05 Dose: 500 mg Documented By: KIMO Ceftriaxone Sodium (Ceftriaxone Sodium 2 Gm Vial) 2 gm IVPUSH Q24H [facility] Last Admin: 01/27/25 22:39 Dose: 2 gm Documented By: DAVID Clozapine (Clozapine 25 Mg Tablet) 50 mg PO BID [facility] Last Admin: 01/28/25 09:05 Dose: 50 mg Documented By: KIMO Clozapine (Clozapine 25 Mg Tablet) 25 mg PO BID [facility] Last Admin: 01/28/25 09:06 Dose: 25 mg Documented By: KIMO Doxycycline Monohydrate (Doxycycline Monohydrate 100 Mg Capsule) 100 mg PO Q12H [facility] Last Admin: 01/28/25 09:06 Dose: 100 mg Documented By: KIMO Escitalopram Oxalate (Escitalopram Oxalate 5 Mg Tablet) 5 mg PO DAILY [facility] Last Admin: 01/28/25 09:05 Dose: 5 mg Documented By: KMIO Fluticasone/Vilanterol (Fluticasone/Vilanterol 200/25 Blst.W.Dev) 1 puff INHALE RDAILY [facility] Last Admin: 01/28/25 07:56 Dose: 1 puff Documented By: CORTNEY Heparin Sodium (Porcine) (Heparin Sodium,Porcine 5,000 Unit/Ml Vial) 5,000 unit SUBCUT Q8H [facility] Last Admin: 01/28/25 09:04 Dose: 5,000 unit Documented By: KIMO Levothyroxine Sodium (Levothyroxine Sodium 50 Mcg Tablet) 50 mcg PO DAILY@0600 [facility] Last Admin: 01/28/25 06:04 Dose: 50 mcg Documented By: DAVID Mirtazapine (Mirtazapine 15 Mg Tablet) 45 mg PO BEDTIME [facility] Last Admin: 01/27/25 20:35 Dose: 45 mg Documented By: DAVID Oxcarbazepine (Oxcarbazepine 150 Mg Tablet) 75 mg PO BID [facility] Last Admin: 01/28/25 09:04 Dose: 75 mg Documented By: KIMO Oxcarbazepine (Oxcarbazepine 150 Mg Tablet) 150 mg PO BID [facility] Last Admin: 01/28/25 09:06 Dose: 150 mg Documented By: KIMO Sodium Biphosphate/Sodium Phosphate (Sodium Phosphate,[place]-Dibasic 133 Ml Enema) 118 ml [place] DAILY PRN PRN Reason: Constipation Labs 01/26/25 11:16 01/26/25 11:16 Microbiology Microbiology Results: Microbiology 01/23/25 01:51 Blood Culture - Final Blood - Venous No growth after 5 days. 01/23/25 01:51 Blood Culture - Final Blood - Venous No growth after 5 days. Assessment and Plan (1) Schizoaffective disorder: Status: Acute (2) Neurodegenerative cognitive impairment: Status: Acute (3) COPD (chronic obstructive pulmonary disease): Status: Acute Plan Assessment: 69-year-old female with past medical history significant for COPD, hypothyroidism, schizoaffective disorder who presented to the hospital after sustaining an unwitnessed fall. In the ED patient found to be hypotensive with WBC of 17.1, patient given IV fluids, started on empiric antibiotics and placed on pressor support. Subsequently patient improve and was downgraded. Patient overnight presented with fever, previously on levaquin, transition to ceftriaxone and doxycycline per ID recs. Sepsis 2/2 vibrio infection, at this time improved -blood cultures continue to be negative at this time, 2nd blood culture continues to be negative. -CT scan with colitis, stool + for vibrio -continue with IV ceftriaxone for today, will switch to doxy PO, will transition to PO cephalosporin tmrw. -patient tolerating PO at this time, no longer requires IVF Mechanical fall, could be secondary to orthostasis CT scan negative for any trauma or bleeding COPD -continue Breo Ellipta, p.r.n. albuterol, monitor and titrate oxygen for SpO2 greater than 90%. Hypothyroidism Continue levothyroxine 50 mcg q.d. CAD Continue aspirin Neurodegenerative cognitive impairment Schizoaffective disorder, stable Continue clozapine, mirtazapine, escitalopram. History of seizure -continue with oxcarbazepine FEN: NI, replete as needed, regular GI PPx: NI DVT PPx: Heparin Code Status: Full Code Disposition: All questions and concerns with the patient were answered to satisfaction. All pertinent clinical documents, images and labs were reviewed. DISCLAIMER: This document was created using voice recognition software. Any mistakes in the prescription are unintentional. An attempt was made to focus for accuracy, but to expedite availability, some errors may persist. Please contact with any need for correction or further clarification Quality Stroke Does the patient have a stroke diagnosis?: No VTE Prior VTE?: No VTE Risk Level:: Medical - moderate - high VTE Device Contraindication: N/A - Device Ordered VTE Drug Contraindication: N/A - Med Ordered
[2025-01-29] VITALS (7 sets, daily range): BP systolic 114–148; BP diastolic 64–75; PULSE 73–84; RESP 14–20; TEMP 36.2–37.1; O2SAT 88–95; BMI 26.5
[2025-01-29 15:42] LABS: Hematocrit 30.5 % (37.0-47.0); Hemoglobin 9.9 g/dl (12.0-16.0); Mean Corpuscular HGB Conc 32.5 g/dl (31.0-35.0); Mean Corpuscular Hemoglobin 29.0 pg (27.0-33.0); Mean Corpuscular Volume 89.4 fL (80.0-98.0); NRBC Abs Auto 0.020 X10*3/uL (0.0-0.012); NRBC Pct Auto 0.2 /100WBC (0.0-0.2); Platelet Count 254 X10*3/uL (160-400); Red Blood Count 3.41 X10*6/uL (4.20-5.50); White Blood Count 10.1 X10*3/uL (4.8-10.8)
--- NOTE | 2025-01-29 15:50 | HO.PM.IMPN ---
Subjective Subjective Date of Service: 01/29/25 Interval History: Patient seen and examined at bedside this morning, patient is lethargic, has not eaten her breakfast or lunch, with loose bowel movement. Stat labs ordered Review of Systems Review of Systems: Yes Unobtainable due to mental status Physical Exam Exam: Exam: General: somnolent Head: AT/NC ENT: Moist mucous membranes Neck: supple CVS; RRR, S1 S2 normal Lungs: Clear bilateral breath sounds, no wheezes or crackles Abd: Soft non tender, non distended Ext: No edema and no calf tenderness MSK: moving all 4 limbs Skin: No cyanosis or edema Psych: Poorly cooperative with exam Neurology: UTO Vital Signs: Vital Signs: Last Vital Signs Temp 97.8 F 01/29/25 15:14 Pulse 76 01/29/25 15:14 Resp 18 01/29/25 15:14 BP 114/69 01/29/25 15:14 Pulse Ox 91 L 01/29/25 15:14 O2 Del Method Room Air 01/29/25 15:14 O2 Flow Rate 2 01/28/25 11:26 BMI result Body Mass Index 26.5 Objective Data Active Medications Acetaminophen (Acetaminophen 325 Mg Tablet) 650 mg PO Q6H PRN PRN Reason: Fever >101 Last Admin: 01/27/25 22:45 Dose: 650 mg Documented By: DAVID Albuterol Sulfate (Albuterol Sulfate 90 Mcg 8 Gm Inhaler) 2 puff INHALE RQ6H PRN PRN Reason: Shortness of Breath Last Admin: 01/28/25 02:59 Dose: 2 puff Documented By: BROOKLYNN Aspirin (Aspirin Enteric Coated 81 Mg Tablet.) 81 mg PO DAILY [facility] Last Admin: 01/29/25 10:18 Dose: Not Given Documented By: NENA Non-Admin Reason: Patient Refused Calcium Carbonate/Cholecalciferol (Calcium + Vitamin D 250 Mg Tablet) 500 mg PO DAILY [facility] Last Admin: 01/29/25 10:19 Dose: Not Given Documented By: NNEA Non-Admin Reason: Patient Refused Ceftriaxone Sodium (Ceftriaxone Sodium 2 Gm Vial) 2 gm IVPUSH Q24H [facility] Last Admin: 01/28/25 21:59 Dose: 2 gm Documented By: DAVID Clozapine (Clozapine 25 Mg Tablet) 50 mg PO BID [facility] Last Admin: 01/29/25 10:19 Dose: Not Given Documented By: NENA Non-Admin Reason: Patient Refused Clozapine (Clozapine 25 Mg Tablet) 25 mg PO BID [facility] Last Admin: 01/29/25 10:19 Dose: Not Given Documented By: NENA Non-Admin Reason: Patient Refused Doxycycline Monohydrate (Doxycycline Monohydrate 100 Mg Capsule) 100 mg PO Q12H [facility] Last Admin: 01/29/25 10:18 Dose: Not Given Documented By: NENA Non-Admin Reason: Patient Refused Escitalopram Oxalate (Escitalopram Oxalate 5 Mg Tablet) 5 mg PO DAILY [facility] Last Admin: 01/29/25 10:19 Dose: Not Given Documented By: NENA Non-Admin Reason: Patient Refused Fluticasone/Vilanterol (Fluticasone/Vilanterol 200/25 Blst.W.Dev) 1 puff INHALE RDAILY [facility] Last Admin: 01/29/25 11:18 Dose: Not Given Documented By: CORTNEY Non-Admin Reason: Patient Asleep Heparin Sodium (Porcine) (Heparin Sodium,Porcine 5,000 Unit/Ml Vial) 5,000 unit SUBCUT Q8H [facility] Last Admin: 01/29/25 10:18 Dose: Not Given Documented By: NENA Non-Admin Reason: Patient Refused Levothyroxine Sodium (Levothyroxine Sodium 50 Mcg Tablet) 50 mcg PO DAILY@0600 [facility] Last Admin: 01/29/25 06:04 Dose: Not Given Documented By: DAVID Non-Admin Reason: Patient Refused Mirtazapine (Mirtazapine 15 Mg Tablet) 45 mg PO BEDTIME [facility] Last Admin: 01/28/25 20:42 Dose: 45 mg Documented By: DAVID Oxcarbazepine (Oxcarbazepine 150 Mg Tablet) 75 mg PO BID [facility] Last Admin: 01/29/25 10:19 Dose: Not Given Documented By: NENA Non-Admin Reason: Patient Refused Oxcarbazepine (Oxcarbazepine 150 Mg Tablet) 150 mg PO BID [facility] Last Admin: 01/29/25 10:19 Dose: Not Given Documented By: NENA Non-Admin Reason: Patient Refused Sodium Biphosphate/Sodium Phosphate (Sodium Phosphate,[place]-Dibasic 133 Ml Enema) 118 ml [place] DAILY PRN PRN Reason: Constipation Labs 01/29/25 15:32 01/26/25 11:16 Labs: Laboratory Results - last 24 hr 01/29/25 15:32 MCV 89.4 MCH 29.0 MCHC 32.5 RDW 14.0 Plt Count 254 MPV 10.1 Absolute Nucleated RBC 0.020 H Nucleated RBC % (auto) 0.2 Assessment and Plan (1) Toxic metabolic encephalopathy: Status: Acute (2) Schizoaffective disorder: Status: Acute (3) Neurodegenerative cognitive impairment: Status: Acute (4) COPD (chronic obstructive pulmonary disease): Status: Acute Plan Assessment: 69-year-old female with past medical history significant for COPD, hypothyroidism, schizoaffective disorder who presented to the hospital after sustaining an unwitnessed fall. In the ED patient found to be hypotensive with WBC of 17.1, patient given IV fluids, started on empiric antibiotics and placed on pressor support. Subsequently patient improve and was downgraded. Patient overnight presented with fever, previously on levaquin, transition to ceftriaxone and doxycycline per ID recs. Today, patient was poorly responsive, did not have her breakfast or lunch, lying in bed, with difficulty to arouse. Suspect toxic metabolic encephalopathy -stat CBC, CMP, ammonia, C diff ordered, LR IVF ordered Sepsis 2/2 vibrio infection -blood cultures negative -CT scan with colitis, stool + for vibrio -continue with IV ceftriaxone and doxy PO -will restart IVF Mechanical fall, could be secondary to orthostasis CT scan negative for any trauma or bleeding COPD -continue Breo Ellipta, p.r.n. albuterol, monitor and titrate oxygen for SpO2 greater than 90%. Hypothyroidism Continue levothyroxine 50 mcg q.d. CAD Continue aspirin Neurodegenerative cognitive impairment Schizoaffective disorder, stable Continue clozapine, mirtazapine, escitalopram. History of seizure -continue with oxcarbazepine FEN: LR, replete as needed, regular GI PPx: NI DVT PPx: Heparin Code Status: Full Code Disposition: All questions and concerns with the patient were answered to satisfaction. All pertinent clinical documents, images and labs were reviewed. DISCLAIMER: This document was created using voice recognition software. Any mistakes in the prescription are unintentional. An attempt was made to focus for accuracy, but to expedite availability, some errors may persist. Please contact with any need for correction or further clarification Quality Stroke Does the patient have a stroke diagnosis?: No VTE Prior VTE?: No VTE Risk Level:: Medical - moderate - high VTE Device Contraindication: N/A - Device Ordered VTE Drug Contraindication: N/A - Med Ordered
[2025-01-29 15:51] LABS: Ammonia 34 umol/L (13-55)
[2025-01-29 16:41] LABS: CDiff Gene PCR NEGATIVE (Negative)
[2025-01-29 16:59] LABS: Alanine Aminotransferase 11 U/L (0-31); Albumin Level 2.7 g/dL (3.5-5.0); Alkaline Phosphatase 65 U/L (39-117); Anion Gap 8 (12-20); Aspartate Amino Transferase 23 U/L (5-31); Blood Urea Nitrogen 10 mg/dL (9-16); Calcium 8.7 mg/dL (8.4-10.2); Carbon Dioxide 28 mmol/L (22-29); Chloride 109 mmol/L (96-108); Creatinine Clr Calc Pharmacy 91.4; Estimated Glomerular Filt Rate > 60; Potassium 3.6 mmol/L (3.3-5.1); Sodium 141 mmol/L (135-145); Total Protein 4.7 g/dL (6.5-8.0)
[2025-01-29] MEDS: Lactated Ringers 1,000 ML 125 ML IVCONT (17:43)
[2025-01-30] VITALS (11 sets, daily range): BP systolic 110–136; BP diastolic 56–71; PULSE 68–88; RESP 15–18; TEMP 36.1–37.1; O2SAT 91–96; BMI 26.1
[2025-01-30] MEDS: Lactated Ringers 1,000 ML 125 ML IVCONT (02:24)
[2025-01-30] MEDS: Fluticasone/Vilanterol 200/25 BLST.W.DEV 1 PUFF INHALE (07:52)
[2025-01-30 08:33] LABS: Neut%MD 59.9 %; WBCANC 8.9 X10*3/uL
[2025-01-30] MEDS: Aspirin Enteric Coated 81 MG TABLET.DR PO (09:36)
[2025-01-30] MEDS: Calcium + Vitamin D 250 MG TABLET 500 MG PO (09:36)
--- NOTE | 2025-01-30 10:44 | MHC.CM.PN ---
Addendum entered by Roberta Pires RN 01/30/25 12:45: [facility] HAS SCHEDULED A 1:30PM TRANSPORT ON 01/31 IN ANTICIPATION OF DC. Original Note: EMR REVIEWED, PER HOSPITALIST PT IMPROVING AND WILL KEEP INPT ONE MORE NIGHT, [facility] UPDATED, CM WILL CONT TO FOLLOW DC NEEDS.
--- NOTE | 2025-01-30 11:37 | P.PNIM_ITS ---
Subjective Subjective Date of Service: 01/30/25 Interval History: denies N/V, no diarrhea or abd pain; lethargy resolved Review of Systems Review of Systems: Yes all other systems are reviewed and are negative Physical Exam 2 Vital Signs: Vital Signs: Last Vital Signs Temp 97.8 F 01/30/25 11:28 Pulse 73 01/30/25 11:28 Resp 15 01/30/25 11:28 BP 110/56 L 01/30/25 11:28 Pulse Ox 91 L 01/30/25 11:28 O2 Del Method Nasal Cannula 01/30/25 11:28 O2 Flow Rate 3 01/30/25 11:28 BMI result Body Mass Index 26.1 Gen: in no acute distress HEENT: sclera anicteric, moist mucus membranes Neck: supple Lungs: clear to auscultation bilaterally Heart: regular rate and rhythm, no murmurs Abd: soft, non-tender, non-distended Ext: no edema Skin: warm/well-perfused Neuro: alert and oriented x3, no focal findings Psych: appropriate affect Objective Data Active Medications Acetaminophen (Acetaminophen 325 Mg Tablet) 650 mg PO Q6H PRN PRN Reason: Fever >101 Last Admin: 01/27/25 22:45 Dose: 650 mg Documented By: DAVID Albuterol Sulfate (Albuterol Sulfate 90 Mcg 8 Gm Inhaler) 2 puff INHALE RQ6H PRN PRN Reason: Shortness of Breath Last Admin: 01/28/25 02:59 Dose: 2 puff Documented By: BROOKLYNN Aspirin (Aspirin Enteric Coated 81 Mg Tablet.) 81 mg PO DAILY [facility] Last Admin: 01/30/25 09:36 Dose: 81 mg Documented By: SHAE Calcium Carbonate/Cholecalciferol (Calcium + Vitamin D 250 Mg Tablet) 500 mg PO DAILY [facility] Last Admin: 01/30/25 09:36 Dose: 500 mg Documented By: SHAE Ceftriaxone Sodium (Ceftriaxone Sodium 2 Gm Vial) 2 gm IVPUSH Q24H [facility] Last Admin: 01/29/25 23:09 Dose: 2 gm Documented By: SAVANNAH Clozapine (Clozapine 25 Mg Tablet) 50 mg PO BID [facility] Last Admin: 01/30/25 09:38 Dose: 50 mg Documented By: SHAE Clozapine (Clozapine 25 Mg Tablet) 25 mg PO BID [facility] Last Admin: 01/30/25 09:38 Dose: 25 mg Documented By: SHAE Doxycycline Monohydrate (Doxycycline Monohydrate 100 Mg Capsule) 100 mg PO Q12H [facility] Last Admin: 01/30/25 09:36 Dose: 100 mg Documented By: SHAE Escitalopram Oxalate (Escitalopram Oxalate 5 Mg Tablet) 5 mg PO DAILY [facility] Last Admin: 01/30/25 09:37 Dose: 5 mg Documented By: SHAE Fluticasone/Vilanterol (Fluticasone/Vilanterol 200/25 Blst.W.Dev) 1 puff INHALE RDAILY [facility] Last Admin: 01/30/25 07:52 Dose: 1 puff Documented By: MONE Heparin Sodium (Porcine) (Heparin Sodium,Porcine 5,000 Unit/Ml Vial) 5,000 unit SUBCUT Q8H [facility] Last Admin: 01/30/25 09:41 Dose: Not Given Documented By: SHAE Non-Admin Reason: Patient Refused Lactated Ringer's (Lr) 1,000 mls @ 125 mls/hr IVCONT .Q8H [facility] Last Admin: 01/30/25 10:44 Dose: Not Given Documented By: SHAE Non-Admin Reason: No Access Levothyroxine Sodium (Levothyroxine Sodium 50 Mcg Tablet) 50 mcg PO DAILY@0600 [facility] Last Admin: 01/30/25 04:52 Dose: Not Given Documented By: SAVANNAH Non-Admin Reason: Pt lethargic, unable to take PO meds Mirtazapine (Mirtazapine 15 Mg Tablet) 45 mg PO BEDTIME [facility] Last Admin: 01/29/25 22:40 Dose: Not Given Documented By: SAVANNAH Non-Admin Reason: Unable to safely swallow d/t lethargy Oxcarbazepine (Oxcarbazepine 150 Mg Tablet) 75 mg PO BID [facility] Last Admin: 01/30/25 09:36 Dose: 75 mg Documented By: SHAE Oxcarbazepine (Oxcarbazepine 150 Mg Tablet) 150 mg PO BID [facility] Last Admin: 01/30/25 09:38 Dose: 150 mg Documented By: SHAE Sodium Biphosphate/Sodium Phosphate (Sodium Phosphate,[place]-Dibasic 133 Ml Enema) 118 ml NE DAILY PRN PRN Reason: Constipation Labs 01/29/25 15:32 01/29/25 15:32 Labs: Laboratory Results - last 24 hr 01/29/25 01/29/25 01/30/25 15:29 15:32 07:52 MCV 89.4 MCH 29.0 MCHC 32.5 RDW 14.0 Plt Count 254 MPV 10.1 Absolute Neuts (auto) 5.3 Absolute Nucleated RBC 0.020 H Nucleated RBC % (auto) 0.2 Anion Gap 8 L Estim Creat Clear Calc 91.4 Estimated GFR > 60 Random Glucose 83 Calcium 8.7 Total Bilirubin 0.2 AST 23 ALT 11 Alkaline Phosphatase 65 Ammonia 34 Total Protein 4.7 L Albumin 2.7 L C. difficile Tox B Gene NEGATIVE Microbiology Microbiology Results: Microbiology 01/24/25 19:12 Blood Culture - Final Blood - Venous No growth after 5 days. 01/24/25 18:19 Blood Culture - Final Blood - Venous No growth after 5 days. Assessment and Plan (1) Toxic metabolic encephalopathy: Status: Acute (2) Schizoaffective disorder: Status: Acute (3) Neurodegenerative cognitive impairment: Status: Acute (4) COPD (chronic obstructive pulmonary disease): Status: Acute Plan d8, 69yo F LTC resident at [facility] with COPD, hypothyroidism, and schizoaffective disorder presenting after fall, admitted to ICU for pressor support for hypotension, stepped down to hospitalist service after 1 day, ultimately found to have colitis due to Vibrio infection sepsis due to Vibrio infection: ID consulted, continue ceftriaxone + doxycycline and change to PO cefuroxime + doxycycline, total 10d, 01/27-02/06 distributive shock: off pressors and fluids lethargy/acute encephalopathy due to infection: appears to have resolved, recheck orthostatics COPD: continue inhalers hypothyroidism: continue LT4 CAD: continue ASA schizoaffective disorder: continue clozapine, mirtazapine, escitalopram, oxcarbazepine seizure disorder: continue oxcarbazepine VTE ppx: enoxaparin dispo: LTC In my clinical judgment, the patient requires continued inpatient hospitalization for the following reasons: Vibrio treatment Total time managing care of this patient today: 45 minutes. Quality Stroke Does the patient have a stroke diagnosis?: No VTE Prior VTE?: No VTE Risk Level:: Medical - moderate - high VTE Device Contraindication: N/A - Device Ordered VTE Drug Contraindication: N/A - Med Ordered
--- NOTE | 2025-01-30 12:51 | HO.WOUND ---
Wound Consult: Initial 69yr old female admitted to [facility] on 01/23/25- See progress notes and H&P for detailed history. Wound consult placed for right groin. Patient agreeable to assessment and photo documentation. Patient from [facility]. right groin 01/23/25 Right groin 01/30/25 Etiology: unclear etiology possible MASD vs skin tear vs folliculitis Wound Bed: dry pink, resurfaced Drainage / Odor: none Edges: ? irregular Amalia wound: ?mild Induration, no Fluctuance or Warmth noted Pain: none Goals of Treatment: ? monitor for changes and healing - continue triad Recommendations: 1. Turn and Reposition every 2 hours and as needed for patient comfort. Use pillows or wedges to support off loading positions. 2. Off Load all bony prominences with use of pillows and heel boots if needed. Apply Preventative foams where needed. 3. Monitor for incontinence and moisture control, use barrier creams when needed for prevention and treatment. 4. Provide adequate and supplemental nutrition. 5. Order or Continue low air loss mattress. 6. When applicable maintain blood glucose levels per Providers order. Right groin: Cleanse with PH balance spray or wipes, pat dry. ?Apply thin layer of Triad to wound bed - only pat and dab no scrub and rub when soiling occurs. Reapply thin layer PRN after each episode of incontinence. Re-consult wound care Nurse for wound deterioration or wound changes.
--- NOTE | 2025-01-30 16:27 | PC.NURSE ---
patient downgraded from med tele to med surg with no IV access, difficulty obtaining IV after previous one infiltrated per previous RN. Dr Gigi mir'd to have no IV access at this time. Plan to DC back to facility tomorrow
[2025-01-31 04:00] VITALS: BP 129/63; PULSE 79; RESP 16; TEMP 36.4; O2SAT 94
[2025-01-31 06:00] VITALS: BMI 24.8
[2025-01-31 07:08] VITALS: BP 119/57; PULSE 77; RESP 16; TEMP 36.7; O2SAT 96
[2025-01-31] MEDS: Aspirin Enteric Coated 81 MG TABLET.DR PO (08:18)
[2025-01-31] MEDS: Calcium + Vitamin D 250 MG TABLET 500 MG PO (08:19)
--- NOTE | 2025-01-31 10:42 | P.DS_ITS ---
DS: Providers Provider Date of Service: 01/31/25 Date of admission: 01/23/25 05:18 Date of discharge: 01/31/25 Primary care physician: David Bowles DO Consults: 01/23/25 07:37 Consult to Wound Care Routine Reason for consultation: ?skin tear to right [place] area 01/26/25 14:15 Consult to Infectious Diseases Routine Consulting Provider: 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 She reports felt dizzy and lost he balance. Reported head strike, but denies loss of consciousness after fall. ?She has a reported she has been experiencing diarrhea for a couple of days, with no nausea associated. On arrival to the emergency department, patient's blood pressure was 56/32 and tachypneic to 24. Laboratory data was significant for WBCs 17.1, BUN 21, creatinine 1.21, lactic 3.1. IMAGING: HEAD CT:? No acute findings Chest x-ray: ?No acute findings ED course Patient received 2 L bolus, vancomycin IV 1 g, and Zosyn 4.5mg. ?Despite fluid resuscitation patient required initiation of vasopressor support. ' 69yo F LTC resident at [facility] with COPD, hypothyroidism, and schizoaffective disorder presenting after fall, admitted to ICU for pressor support for hypotension, weaned off pressors and fluids, stepped down to hospitalist service after 1 day, ultimately found to have colitis due to Vibrio infection; Infectious Disease consulted and treated with 10 days of ceftriaxone and dox ycycline with ceftriaxone switched to cefuroxime upon discharge. Encephalopathy due to infection resolved. Discharged back to [facility] for nursing care. Time Attestation Discharge Coordination Time (in mins): 40 Quality: Safe Use of Opioids Does Pt have an Active Cancer Diagnosis on the Problem List?: No Quality: Stroke Does the patient have a stroke diagnosis?: No Physical Exam Vital Signs: Vital Signs: Last Vital Signs Temp 98.0 F 01/31/25 07:08 Pulse 77 01/31/25 07:08 Resp 16 01/31/25 07:08 BP 119/57 L 01/31/25 07:08 Pulse Ox 96 01/31/25 07:08 O2 Del Method Nasal Cannula 01/31/25 07:08 O2 Flow Rate 2 01/31/25 07:08 BMI result Body Mass Index 24.8 Gen: in no acute distress HEENT: sclera anicteric, moist mucus membranes Neck: supple Lungs: clear to auscultation bilaterally Heart: regular rate and rhythm, no murmurs Abd: soft, non-tender, non-distended Ext: no edema Skin: warm/well-perfused Neuro: alert and oriented x3, no focal findings Psych: appropriate affect DS: Data Data Completed and Pending Completed studies during hospitalization [Text1]: Laboratory Results WBC 10.1 X10*3/uL (4.8-10.8) 01/29/25 15:32 RBC 3.41 X10*6/uL (4.20-5.50) L 01/29/25 15:32 Hgb 9.9 g/dl (12.0-16.0) L 01/29/25 15:32 Hct 30.5 % (37.0-47.0) L 01/29/25 15:32 MCV 89.4 fL (80.0-98.0) 01/29/25 15:32 MCH 29.0 pg (27.0-33.0) 01/29/25 15:32 MCHC 32.5 g/dl (31.0-35.0) 01/29/25 15:32 RDW 14.0 % (11.0-16.0) 01/29/25 15:32 Plt Count 254 X10*3/uL (160-400) 01/29/25 15:32 MPV 10.1 fL (9.4-12.3) 01/29/25 15:32 Immature Gran % (Auto) 1.0 % (0.0-0.4) H 01/26/25 11:16 Immature Gran % (Auto) 1.0 % (0.0-0.4) H 01/26/25 11:16 Neut % (Auto) 84.2 % (45-73) H 01/26/25 11:16 Neut % (Auto) 85.1 % (45-73) H 01/26/25 11:16 Lymph % (Auto) 8.2 % (20-40) L 01/26/25 11:16 Lymph % (Auto) 8.4 % (20-40) L 01/26/25 11:16 Ceiba % (Auto) 5.1 % (2-11) 01/26/25 11:16 Ceiba % (Auto) 5.4 % (2-11) 01/26/25 11:16 Eos % (Auto) 0.3 % (0-4) 01/26/25 11:16 Eos % (Auto) 0.3 % (0-4) 01/26/25 11:16 Baso % (Auto) 0.3 % (0-2) 01/26/25 11:16 Baso % (Auto) 0.7 % (0-2) 01/26/25 11:16 Lymph # (Auto) 1.2 X10*3/uL (1.2-4.9) 01/26/25 11:16 Lymph # (Auto) 1.3 X10*3/uL (1.2-4.9) 01/26/25 11:16 Ceiba # (Auto) 0.8 X10*3/uL (0.1-1.2) 01/26/25 11:16 Ceiba # (Auto) 0.8 X10*3/uL (0.1-1.2) 01/26/25 11:16 Eos # (Auto) 0.0 X10*3/uL (0.0-0.4) 01/26/25 11:16 Eos # (Auto) 0.0 X10*3/uL (0.0-0.4) 01/26/25 11:16 Baso # (Auto) 0.0 X10*3/uL (0.0-0.2) 01/26/25 11:16 Baso # (Auto) 0.1 X10*3/uL (0.0-0.2) 01/26/25 11:16 Abs Immat Gran (auto) 0.15 X10*3/uL (0.00-0.03) H 01/26/25 11:16 Abs Immat Gran (auto) 0.15 X10*3/uL (0.00-0.03) H 01/26/25 11:16 Absolute Neuts (auto) 5.3 x10*3/uL (2.0-8.3) 01/30/25 07:52 Absolute Nucleated RBC 0.020 X10*3/uL (0.0-0.012) H 01/29/25 15:32 Nucleated RBC % (auto) 0.2 /100WBC (0.0-0.2) 01/29/25 15:32 Neutrophils % (Manual) 53 % (45-73) 01/24/25 06:31 Band Neutrophils % 25 % (3-5) H 01/24/25 06:31 Lymphocytes % (Manual) 17 % (20-40) L 01/24/25 06:31 Monocytes % (Manual) 4 % (2-11) 01/24/25 06:31 Metamyelocytes % 1 % 01/24/25 06:31 Abs Neuts (Manual) 8.1 X10*3/uL (2.0-8.3) 01/24/25 06:31 Lymphocytes # (Manual) 1.8 X10*3/uL (1.2-4.9) 01/24/25 06:31 Monocytes # (Manual) 0.4 X10*3/uL (0.1-1.2) 01/24/25 06:31 Metamyelocytes # 0.1 X10*3/uL 01/24/25 06:31 Dohle Bodies PRESENT 01/24/25 06:31 Platelet Estimate NORMAL (NORMAL) 01/24/25 06:31 Plt Morphology Comment NORMAL 01/24/25 06:31 RBC Morphology NORMAL 01/24/25 06:31 PT 10.5 SEC (10.9-12.4) L 01/23/25 01:51 INR 0.9 (0.9-1.1) 01/23/25 01:51 VBG pH 7.26 (7.32-7.43) L 01/23/25 01:58 VBG pCO2 54 mmHg 01/23/25 01:58 VBG pO2 46 mmHg 01/23/25 01:58 VBG HCO3 24 mmol/L (22-26) 01/23/25 01:58 VBG O2 Saturation 59.0 % 01/23/25 01:58 VBG Base Excess -2.9 mmol/L 01/23/25 01:58 Sodium 141 mmol/L (135-145) 01/29/25 15:32 Potassium 3.6 mmol/L (3.3-5.1) 01/29/25 15:32 Chloride 109 mmol/L (96-108) H 01/29/25 15:32 Carbon Dioxide 28 mmol/L (22-29) 01/29/25 15:32 Anion Gap 8 (12-20) L 01/29/25 15:32 BUN 10 mg/dL (9-16) 01/29/25 15:32 Creatinine 0.60 mg/dL (0.5-1.4) 01/29/25 15:32 Estim Creat Clear Calc 91.4 01/29/25 15:32 Estimated GFR > 60 01/29/25 15:32 Random Glucose 83 mg/dL (60-115) 01/29/25 15:32 Lactic Acid 3.1 mmol/L (0.5-2.0) H* 01/23/25 01:51 Lactic Acid F/U @ 2Hr 4.0 mmol/L (0.5-2.0) H* 01/23/25 06:07 Lactic Acid F/U @ 4Hr 3.4 mmol/L (0.5-2.0) H* 01/23/25 08:55 Calcium 8.7 mg/dL (8.4-10.2) 01/29/25 15:32 Phosphorus 2.8 mg/dL (2.7-4.5) 01/24/25 06:31 Magnesium 1.6 mg/dL (1.6-2.6) 01/24/25 06:31 Total Bilirubin 0.2 mg/dL (0.0-1.0) 01/29/25 15:32 AST 23 U/L (5-31) 01/29/25 15:32 ALT 11 U/L (0-31) 01/29/25 15:32 Alkaline Phosphatase 65 U/L (39-117) 01/29/25 15:32 Ammonia 34 umol/L (13-55) 01/29/25 15:32 Troponin I High Sens 19.4 ng/L (<3.5-17.0) H 01/23/25 01:51 NT-Pro-B Natriuret Pep 392.4 pg/mL (<300) H 01/23/25 01:51 Total Protein 4.7 g/dL (6.5-8.0) L 01/29/25 15:32 Albumin 2.7 g/dL (3.5-5.0) L 01/29/25 15:32 TSH 1.10 uIU/mL (0.32-4.0) 01/23/25 01:51 Urine Color Yellow 01/23/25 03:04 Urine Appearance Clear 01/23/25 03:04 Urine pH 5.5 (5.0-9.0) 01/23/25 03:04 Ur Specific [place] 1.020 (1.005-1.025) 01/23/25 03:04 Urine Protein 30 (1+) mg/dL (Neg-Trace) H 01/23/25 03:04 Urine Glucose (UA) Negative mg/dL (Negative) 01/23/25 03:04 Urine Ketones Negative mg/dL (Negative) 01/23/25 03:04 Urine Blood Negative (Negative) 01/23/25 03:04 Urine Nitrite Negative (Negative) 01/23/25 03:04 Ur Leukocyte Esterase Trace (Negative) H 01/23/25 03:04 Urine RBC 0-2 /HPF (0-2) 01/23/25 03:04 Urine WBC 0-5 /HPF (0-5) 01/23/25 03:04 Ur Squamous Epith Cells 0-2 /HPF (0-2) 01/23/25 03:04 Calcium Oxalate Crystal Present 01/23/25 03:04 Urine Bacteria None Seen (None Seen) 01/23/25 03:04 Hyaline Casts 6-10 /LPF (0-2) 01/23/25 03:04 Stl C. cayetanensis PCR Not Detected (Not Detect.) 01/23/25 06:00 Stool Rotavirus A PCR Not Detected (Not Detect.) 01/23/25 06:00 Stl Adenov F 40/41 PCR Not Detected (Not Detect.) 01/23/25 06:00 Stool Astrovirus (PCR) Not Detected (Not Detect.) 01/23/25 06:00 Stool Campylobacter PCR Not Detected (Not Detect.) 01/23/25 06:00 Stool Cryptosporidium PCR Not Detected (Not Detect.) 01/23/25 06:00 Stl Sh Tox Pr E STEC PCR Not Detected (Not Detect.) 01/23/25 06:00 Stool E coli O157 PCR Not applicable (Not Detect.) 01/23/25 06:00 Stl Enterotoxigenic E PCR Not Detected (Not Detect.) 01/23/25 06:00 Stool EPEC (PCR) Not Detected (Not Detect.) 01/23/25 06:00 Stool EAEC (PCR) Not Detected (Not Detect.) 01/23/25:00 Stl E. histolytica PCR Not Detected (Not Detect.) 01/23/25 06:00 Stool Giardia Lamblia PCR Not Detected (Not Detect.) 01/23/25:00 Stl P. shigelloides PCR Not Detected (Not Detect.) 01/23/25 06:00 Stool Salmonella PCR Not Detected (Not Detect.) 01/23/25 06:00 Stool Sapovirus (PCR) Not Detected (Not Detect.) 01/23/25 06:00 Stl Shigella/EIEC PCR Not Detected (Not Detect.) 01/23/25 06:00 St Y.enterocolitica PCR Not Detected (Not Detect.) 01/23/25 06:00 Stool Vibrio (PCR) Detected (Not Detect.) A 01/23/25 06:00 Stl Vibrio cholerae PCR Not Detected (Not Detect.) 01/23/25 06:00 Stl Norovirus GI/GII PCR Not Detected (Not Detect.) 01/23/25 06:00 C. 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 Referrals: David Bowles DO [Primary Care Provider, Hospitalist] - 1 Week Discharge Medications: New doxycycline monohydrate 100 mg Capsule 100 mg PO Q12H Qty: 12 0RF cefuroxime axetil 500 mg Tablet 500 mg PO BID Qty: 12 0RF Continued atorvastatin 20 mg Tablet 20 mg PO BEDTIME 30 Days Qty: 30 0RF aspirin 81 mg Tablet,Delayed Release (Dr/Ec) 81 mg PO DAILY 30 Days Qty: 30 0RF albuterol sulfate 90 mcg/actuation Hfa Aerosol Inhaler 2 puff INHALATION Q6H PRN (Reason: Shortness Of Breath) Qty: 6.7 0RF cholecalciferol (vitamin D3) [Vitamin D3] 25 mcg (1,000 unit) Tablet 25 mcg PO DAILY 30 Days Qty: 30 0RF sennosides [senna] 8.6 mg Tablet 8.6 mg PO DAILY PRN (Reason: Constipation) 30 Days Qty: 30 0RF polyethylene glycol 3350 [Miralax] 17 gram Powder In Packet 17 g PO DAILY PRN (Reason: Constipation) 30 Days Qty: 30 0RF haloperidol decanoate [Haldol Decanoate] 100 mg/mL Solution 100 mg IM Q28D Qty: 1 0RF Rx Instructions: next dose due on 07/21/2022 loperamide 2 mg Tablet 2 mg PO Q12H PRN (Reason: Loose Stool) 30 Days Qty: 30 0RF Rx Instructions: administer after each loose stool until symptoms controlled; do not exceed 8 mg per 24 hrs guaifenesin 100 mg/5 mL Liquid 200 mg PO Q6H PRN (Reason: Cough) 30 Days Qty: 300 0RF diazepam 2 mg tablet 2 mg PO BID 30 Days Qty: 60 0RF mirtazapine 45 mg Tablet 45 mg PO BEDTIME 3 Days Qty: 3 0RF lisinopril 5 mg Tablet 5 mg PO DAILY 30 Days Qty: 30 0RF docusate sodium 100 mg Tablet 100 mg PO BEDTIME 30 Days Qty: 30 0RF budesonide-formoterol [Symbicort] 160-4.5 mcg/actuation Hfa Aerosol Inhaler 1 puff INHALATION BID 30 Days Qty: 1 0RF cranberry 450 mg Tablet 450 mg PO BID 30 Days Qty: 60 0RF Rx Instructions: administer with a meal oxcarbazepine [Trileptal] 150 mg Tablet 75 mg PO BID oxcarbazepine [Trileptal] 150 mg Tablet 150 mg PO BID citalopram 10 mg tablet 5 mg PO DAILY hydroxyzine HCl 50 mg tablet 50 mg PO BEDTIME calcium carbonate-vitamin D3 600 mg-5 mcg (200 unit) Tablet 1 tab PO DAILY levothyroxine 50 mcg tablet 50 mcg PO DAILY@0600 bisacodyl 10 mg Suppository 10 mg AK DAILY PRN (Reason: Constipation) Fleet Enema 19-7 gram/118 mL Enema 118 ml AK DAILY PRN (Reason: Constipation) Rx Instructions: If Bisacodyl supp. ineffective Fleet Enema 19-7 gram/118 mL Enema 118 ml AK DAILY PRN (Reason: Constipation) phenyleph-shark [id number] Cream 1 appl AK Q8H PRN (Reason: Hemorrhoids) acetaminophen 325 mg tablet 650 mg PO Q6H PRN (Reason: Pain) clozapine 25 mg tablet 50 mg PO BID clozapine [Clozaril] 25 mg tablet 25 mg PO BID Gemtesa 75 mg tablet 75 mg PO DAILY Qty: 90 0RF Discharge Orders: Discharge Order (Routine); Ordered 01/31/25 Ordered By: Georgina Yu Diet: Advance to usual diet Activity on Discharge: As tolerated Stand Alone Forms: Patient Portal Discharge page Print Language: Danish Care Plan Goals: recovery from septic shock Health Concerns: septic shock due to colitis due to vibriosis Plan of Treatment: doxycycline 100 mg twice daily plus cefuroxime 500 mg twice daily for 6 days Please follow up with your primary care doctor within 1 week. Return to the hospital if you experience recurrent or worsening symptoms. Assessment: See Discharge Summary.
--- NOTE | 2025-01-31 10:49 | MHC.CM.PN ---
Per MD patient medically cleared for dc back to [facility]. SNF will provide transport. They are aware patient is still on 2L O2 and will bring portable O2 tank. RN aware. IMM delivered.
[2025-01-31 12:21] VITALS: BP 111/59; PULSE 76; RESP 16; TEMP 36.1; O2SAT 94
== END 2025-01-31 13:13 | disposition skilled nursing facility (03) | DRG 871 ==
LOC: HO.ED 05:20 → HO.EDOVER 05:22 → HO.ICU 05:37 → HO.IMC 11:44 → HO.S3 01-30 12:21
PROVIDERS: Internal Medicine; Internal Medicine Pulmonary Disease; Student in an Organized Health Care Education/Training Program; Admitting Provider Registered Nurse Community Health; Emergency Provider Emergency Medicine; PCP Hospitalist; Visit Provider Family Medicine
DX: A41.9 Sepsis, unspecified organism (principal); G92.8 Other toxic encephalopathy; R57.1 Hypovolemic shock; R65.21 Severe sepsis with septic shock; A04.8 Other specified bacterial intestinal infections; E03.9 Hypothyroidism, unspecified; F25.9 Schizoaffective disorder, unspecified; G40.909 Epilepsy, unspecified, not intractable, without status epilepticus; I25.10 Atherosclerotic heart disease of native coronary artery without angina pectoris; J44.9 Chronic obstructive pulmonary disease, unspecified; W19.XXXA Unspecified fall, initial encounter; Z91.148 Patient's other noncompliance with medication regimen for other reason; Z87.891 Personal history of nicotine dependence; Z79.890 Hormone replacement therapy; Z79.899 Other long term (current) drug therapy
CPT/HCPCS: 36415; 70450; 71045; 71260; 72125; 74177; 80048; 80053; 81001; 82040; 82140; 82803; 83605; 83735; 83880; 84100; 84443; 84484; 85007; 85025; 85027; 85048; 85610; 87040; 87493; 87507; 93005; 94640; 94664; 97162; 99285; J0131; J0696; J1271; J1630; J1644; J1650; J1956; J2405; J2543; J3374; J7120; P9047; Q9967

== ENCOUNTER → 2025-01-23 01:20 | Outpatient (BNV) | payer MEDICARE, MEDICAID, SELFPAY | PROVIDERS: Admitting Provider Registered Nurse Community Health; Emergency Provider Emergency Medicine; Visit Provider Internal Medicine Cardiovascular Disease | DX: I45.2 Bifascicular block (principal); I51.7 Cardiomegaly | CPT/HCPCS: 93010 ==

== ENCOUNTER → 2025-01-23 01:25 | Outpatient (BNV) | payer MEDICARE, MEDICAID, SELFPAY | PROVIDERS: Emergency Provider Emergency Medicine; Visit Provider General Practice | DX: S09.90XA Unspecified injury of head, initial encounter (principal); R41.82 Altered mental status, unspecified; I95.9 Hypotension, unspecified; W19.XXXA Unspecified fall, initial encounter; W18.39XA Other fall on same level, initial encounter | CPT/HCPCS: 70450; 71045; 72125 ==

== ENCOUNTER 2025-01-23 05:18 | Outpatient (BNV) | payer MEDICARE, MEDICAID, SELFPAY | END 2025-01-24 17:43 | PROVIDERS: Admitting Provider Registered Nurse Community Health; Emergency Provider Emergency Medicine; Visit Provider Radiology Neuroradiology | DX: A41.9 Sepsis, unspecified organism (principal); R93.3 Abnormal findings on diagnostic imaging of other parts of digestive tract; J90 Pleural effusion, not elsewhere classified; J98.11 Atelectasis | CPT/HCPCS: 71260; 74177 ==

== ENCOUNTER → 2025-01-23 05:18 | Outpatient (BNV) | payer MEDICARE, MEDICAID, SELFPAY | PROVIDERS: Admitting Provider Registered Nurse Community Health; Emergency Provider Emergency Medicine; Visit Provider Internal Medicine | DX: R19.7 Diarrhea, unspecified (principal); A41.9 Sepsis, unspecified organism; R65.21 Severe sepsis with septic shock | CPT/HCPCS: 99222 ==

== ENCOUNTER → 2025-01-23 05:18 | Outpatient (BNV) | payer MEDICARE, MEDICAID, SELFPAY | PROVIDERS: Admitting Provider Registered Nurse Community Health; Emergency Provider Emergency Medicine; Visit Provider Registered Nurse Community Health | DX: R57.9 Shock, unspecified (principal); R19.7 Diarrhea, unspecified; N17.9 Acute kidney failure, unspecified; D72.829 Elevated white blood cell count, unspecified | CPT/HCPCS: 99291 ==

== ENCOUNTER → 2025-01-23 05:18 | Outpatient (BNV) | payer MEDICARE, MEDICAID, SELFPAY | PROVIDERS: Admitting Provider Registered Nurse Community Health; Emergency Provider Emergency Medicine; Visit Provider Internal Medicine | DX: G92.8 Other toxic encephalopathy (principal); F25.9 Schizoaffective disorder, unspecified; G31.9 Degenerative disease of nervous system, unspecified; J44.9 Chronic obstructive pulmonary disease, unspecified | CPT/HCPCS: 99232; 99499 ==